=== PATIENT | female | born 1945 | race Caucasian/White ===

== ENCOUNTER 2016-04-20 20:36 | Inpatient (IN) | payer MEDICARE ==
[~2016-04-20] VITALS: Ht 172.7 cm; Wt 128.4 kg
[2016-04-20 21:42] LABS: BILIRUBIN,URINE NEGATIVE (NEG); GLUCOSE,URINE NEGATIVE (NEG); NITRITE,URINE NEGATIVE (NEG); PH,URINE 5.5; PROTEIN,URINE 100 mg/dL (NEG-TRACE); UROBILINOGEN,URINE 0.2 mg/dL (0.2 mg/dL)
[2016-04-20 21:47] LABS: BASO % 1 % (0-3); EOS % 2 % (0-3); HEMATOCRIT 21.3 % (36.0-47.0); LYMPH % 12 % (24-48); MEAN CORPUSCULAR HEMOGLOBIN 24 pg (25-35); MEAN CORPUSCULAR HGB CONC 28 g/dL (31-37); MEAN CORPUSCULAR VOLUME 85 fL (79-100); MONO % 6 % (0-9); NEUT % 79 % (31-73); PLATELET COUNT 612 x10^3/uL (140-400); RED CELL DISTRIBUTION WIDTH 19.4 % (11.5-14.5); WHITE BLOOD COUNT 8.4 x10^3/uL (4.0-11.0)
[2016-04-20 21:49] LABS: INR 1.2 (0.8-1.1); PROTHROMBIN TIME PATIENT 14.9 SEC (11.7-14.0)
[2016-04-20 21:53] LABS: CALCIUM 9.1 mg/dL (8.5-10.1); CREATININE 3.2 mg/dL (0.6-1.0); GFR 14.4; POTASSIUM 4.7 mmol/L (3.5-5.1)
[2016-04-20 21:56] LABS: BACTERIA,URINE MANY /HPF (0-FEW); RBC,URINE OCC /HPF (0-2); SQUAMOUS EPITHELIAL CELL,UR MANY /LPF; WBC,URINE TNTC /HPF (0-4)
[2016-04-20 21:58] LABS: ALBUMIN 3.1 g/dL (3.4-5.0); ALBUMIN/GLOBULIN RATIO 0.8 (1.0-1.7); TOTAL BILIRUBIN 0.6 mg/dL (0.2-1.0); TOTAL PROTEIN 7.1 g/dL (6.4-8.2)
[2016-04-20] MEDS: ONDANSETRON PF 4 MG/2 ML VIAL. IV PRN (22:17)
--- NOTE | 2016-04-20 22:20 | PHYS DOC ---
Past Medical History Past Medical History: Hypertension Additional Past Medical Histor: NON- HOGKINS CHEMO AND RADIATION,STEM CELL TRANSPLANT.NEUROPATHY, Past Surgical History: Hysterectomy Additional Past Surgical Histo: REMOVED LYMPH NODES,ABD PLASTY AND BREAST REDUCTION Alcohol Use: Heavy Additional Information: EFRAIN 1-2 GLASSES Drug Use: Marijuana Adult General Chief Complaint Chief Complaint: OTHER COMPLAINTS HPI HPI 70-year-old female presents here with anemia. Apparently patient has not been feeling well for the last few days and had a bit visiting physician come to the house last night. The team zoey blood last night and got the results today noting that her hemoglobin was in the 5.5 range and they told her to come to the emergency department further evaluation. Patient denies any melena or hematemesis. She denies any hematochezia. She states she has had some GI blood loss secondary to a polyp in the past. She says been a few years since her last colonoscopy. Anginal bleeding [] Review of Systems Review of Systems Constitutional: Denies fever or chills [] Eyes: Denies change in visual acuity, redness, or eye pain [] HENT: Denies nasal congestion or sore throat [] Respiratory: Denies cough or shortness of breath [] Cardiovascular: No additional information not addressed in HPI [] GI: Denies abdominal pain, nausea, vomiting, bloody stools or diarrhea [] : Denies dysuria or hematuria [] Musculoskeletal: Denies back pain or joint pain [] Integument: Denies rash or skin lesions [] Neurologic: Denies headache, focal weakness or sensory changes [] Endocrine: Denies polyuria or polydipsia [] Current Medications Current Medications Current Medications Medications (Trade) Dose Ordered Sig/Carlo Start Time Stop Time Status Last Admin Dose Admin Ceftriaxone Sodium (Rocephin 1gm Ivpb For Omni) 50 ml @ 100 mls/hr 1X ONCE 04/20/16 22:30 04/20/16 22:59 04/20/16 22:16 100 MLS/HR Ondansetron HCl 4 mg 4 mg PRN Q8HRS PRN 04/20/16 22:00 04/21/16 21:59 04/20/16 22:17 4 MG Allergies Allergies Allergies Coded Allergies Type Severity Reaction Last Updated Verified Iodine and Iodide Containing Produc Allergy Intermediate HIVES 04/20/16 Yes Physical Exam Physical Exam Constitutional: Well-developed well-nourished she does appear very pale. [] HENT: Normocephalic, atraumatic, bilateral external ears normal, oropharynx moist, no oral exudates, nose normal. [] Eyes: PERRLA, EOMI, conjunctiva normal, no discharge. [] Neck: Normal range of motion, no tenderness, supple, no stridor. [] Cardiovascular:Heart rate regular rhythm, no murmur [] Lungs & Thorax: Bilateral breath sounds clear to auscultation [] Abdomen: Bowel sounds normal, soft, no tenderness, no masses, no pulsatile masses. [] Skin: Warm, dry, no erythema, no rash. [] Back: No tenderness, no CVA tenderness. [] Extremities: No tenderness, no cyanosis, no clubbing, ROM intact, no edema. [] Neurologic: Alert and oriented X 3, normal motor function, normal sensory function, no focal deficits noted. [] Psychologic: Anxious. [] Current Patient Data Vital Signs Vital Signs Date Time Temp Pulse Resp B/P Pulse Ox O2 Delivery O2 Flow Rate FiO2 04/20/16 20:45 97.9 77 22 167/63 97 Room Air 97.9 Lab Values Laboratory Tests Test 04/20/16 21:05 04/20/16 21:20 Urine Collection Type Unknown Urine Color Yellow Urine Clarity Cloudy Urine pH 5.5 Urine Specific [place] 1.010 Urine Protein 100mg/dL (NEG-TRACE) Urine Glucose (UA) Negativemg/dL (NEG) Urine Ketones (Stick) Negativemg/dL (NEG) Urine Blood Moderate (NEG) Urine Nitrite Negative (NEG) Urine Bilirubin Negative (NEG) Urine Urobilinogen Dipstick 0.2mg/dL (0.2 mg/dL) Urine Leukocyte Esterase Large (NEG) Urine RBC Occ/HPF (0-2) Urine WBC Tntc/HPF (0-4) Urine Squamous Epithelial Cells Many/LPF Urine Bacteria Many/HPF (0-FEW) Urine Mucus Mod/LPF White Blood Count 8.4x10^3/uL (4.0-11.0) Red Blood Count 2.50x10^6/uL (3.50-5.40) L Hemoglobin 6.0g/dL (12.0-15.5) *L Hematocrit 21.3% (36.0-47.0) L Mean Corpuscular Volume 85fL (79-100) Mean Corpuscular Hemoglobin 24pg (25-35) L Mean Corpuscular Hemoglobin Concent 28g/dL (31-37) L Red Cell Distribution Width 19.4% (11.5-14.5) H Platelet Count 612x10^3/uL (140-400) H Neutrophils (%) (Auto) 79% (31-73) H Lymphocytes (%) (Auto) 12% (24-48) L Monocytes (%) (Auto) 6% (0-9) Eosinophils (%) (Auto) 2% (0-3) Basophils (%) (Auto) 1% (0-3) Neutrophils # (Auto) 6.7x10^3uL (1.8-7.7) Lymphocytes # (Auto) 1.0x10^3/uL (1.0-4.8) Monocytes # (Auto) 0.5x10^3/uL (0.0-1.1) Eosinophils # (Auto) 0.2x10^3/uL (0.0-0.7) Basophils # (Auto) 0.0x10^3/uL (0.0-0.2) Prothrombin Time 14.9SEC (11.7-14.0) H Prothrombin Time INR 1.2 (0.8-1.1) H Sodium Level 139mmol/L (136-145) Potassium Level 4.7mmol/L (3.5-5.1) Chloride Level 104mmol/L (98-107) Carbon Dioxide Level 21mmol/L (21-32) Anion Gap 14 (6-14) Blood Urea Nitrogen 39mg/dL (7-20) H Creatinine 3.2mg/dL (0.6-1.0) H Estimated GFR (Cockcroft-Gault) 14.4 BUN/Creatinine Ratio 12 (6-20) Glucose Level 115mg/dL (70-99) H Calcium Level 9.1mg/dL (8.5-10.1) Total Bilirubin 0.6mg/dL (0.2-1.0) Aspartate Amino Transferase (AST) 20U/L (15-37) Alanine Aminotransferase (ALT) 24U/L (14-59) Alkaline Phosphatase 175U/L (46-116) H Total Protein 7.1g/dL (6.4-8.2) Albumin 3.1g/dL (3.4-5.0) L Albumin/Globulin Ratio 0.8 (1.0-1.7) L Laboratory Tests 04/20/16 21:20 Laboratory Tests 04/20/16 21:20 EKG EKG [] Radiology/Procedures Radiology/Procedures [] Course & Med Decision Making Course & Med Decision Making Pertinent Labs and Imaging studies reviewed. (See chart for details) [ED course: Evaluation reveals a pale 70-year-old female with stable vital signs. Her hemoglobin was low at 6. I typed and crossed her for 2 units packed red blood cells and the transfusion consent was signed. I spoke with Dr. Mark Alvarez who agrees to accept patient for admission. We will also consult GI.] Dragon Disclaimer Dragon Disclaimer This electronic medical record was generated, in whole or in part, using a voice recognition dictation system. Departure Departure Impression: Primary Impression: Symptomatic anemia Disposition: 09 ADMITTED INPATIENT Admitting Physician: Tommy Guadalupe Condition: STABLE Referrals: [facility] (PCP) JONELLE HEADLEY DO Apr 20, 2016 22:20
[2016-04-20] MEDS ORDERED: CEFTRIAXONE 1GM IVPB FOR OMNI 50 ML IV ONE (22:30)
--- NOTE | 2016-04-20 22:52 | ACF ---
Admission Forms Criteria ANEMIA, IRON DEFICIENCY OR UNSPECIFIED Clinical Indications for Inpatient Care (Place 'X' for any and all applicable criteria): Admission is indicated for ANY ONE of the following(1)(2)(3)(4)(5)(6)(7): [X] I. Inpatient admission required rather than observation care (Also use Anemia, Iron Deficiency or Unspecified: Observation Care guideline as appropriate) because of ANY ONE of the following: [] a) Hemodynamic instability that is severe or persistent [] b) Active bleeding that cannot be rapidly controlled [] c) CVS symptoms (i.e., dyspnea, chest pain, heart failure) that are severe or persistent [] d) Neurologic symptoms (i.e., cognitive impairment, recurrent syncope or near syncope) that are severe or persistent [] e) Cardiac arrhythmias of immediate concern [] f) Acute peripheral ischemia (e.g., pulseless, cool, mottled, or cyanotic extremity) [] g) High-risk low platelet count [X] h) Acute renal failure [] i) Ongoing transfusion for blood loss (greater than 2 units) [] j) IV fluid to replace significant ongoing (eg, >24 hours) losses (> 3 L/m2 per day) [] k) Pulmonary artery catheter monitoring [] l) Supplemental oxygen or respiratory treatments for over 24 hours that are performable only in acute inpatient setting [] m) Immediate inpatient surgery [ ] n) Other condition, treatment or monitoring requiring inpatient admission [] II Active massive hemorrhage [] III. Active hemolysis with rapidly progressive anemia [A](6) Extended stay beyond goal length of stay may be needed for (17)(18) []a) Diagnosed cause of anemia requiring longer hospitalization (eg, active GI bleeding, immune hemolysis requiring electrophoresis, complications of malignancy requiring acute care []b) Continued emergent anemia indicators (23) []c) Transfusion reactions []d) Associated leukopenia or thrombocytopenia needing inpatient care []e) Active comorbidities (eg, renal failure, heart failure) The original [facility] Care Guidelines content created by [facility] Care Guidelines has been revised. The portions of the content which have been revised are identified through the use of italic text or in bold. [facility] Guidelines has neither reviewed nor approved the modified material. All other unmodified content is copyright [facility] Care Guidelines. Please see references footnoted in the original [facility] edition 2016 Admission Criteria Met?: Yes JASBIR MIMS Apr 20, 2016 22:52
[2016-04-20 23:38] VITALS: BP 168/61
[2016-04-21] VITALS (29 sets, daily range): BP systolic 133–183; BP diastolic 46–86
[2016-04-21] MEDS: ONDANSETRON PF 4 MG/2 ML VIAL. IV PRN (00:27)
[2016-04-21 04:55] LABS: BASO # 0.1 x10^3/uL (0.0-0.2); BASO % 1 % (0-3); EOS % 1 % (0-3); HEMATOCRIT 22.8 % (36.0-47.0); LYMPH # 0.7 x10^3/uL (1.0-4.8); LYMPH % 6 % (24-48); MEAN CORPUSCULAR HEMOGLOBIN 25 pg (25-35); MEAN CORPUSCULAR HGB CONC 29 g/dL (31-37); MEAN CORPUSCULAR VOLUME 87 fL (79-100); MONO % 6 % (0-9); NEUT % 87 % (31-73); PLATELET COUNT 570 x10^3/uL (140-400); RED BLOOD COUNT 2.63 x10^6/uL (3.50-5.40); RED CELL DISTRIBUTION WIDTH 19.9 % (11.5-14.5); WHITE BLOOD COUNT 12.1 x10^3/uL (4.0-11.0)
[2016-04-21 05:00] LABS: HEMOGLOBIN 6.5 g/dL (12.0-15.5)
[2016-04-21 05:06] LABS: ALBUMIN/GLOBULIN RATIO 0.8 (1.0-1.7); CALCIUM 8.8 mg/dL (8.5-10.1); CREATININE 3.1 mg/dL (0.6-1.0); GFR 14.9; POTASSIUM 5.7 mmol/L (3.5-5.1); TOTAL BILIRUBIN 0.6 mg/dL (0.2-1.0); TOTAL PROTEIN 6.7 g/dL (6.4-8.2)
[2016-04-21] MEDS ORDERED: TRAM50TA (05:33)
[2016-04-21] MEDS ORDERED: FLUT16SP (05:33)
[2016-04-21] MEDS ORDERED: HYDR-2672 (05:33)
[2016-04-21] MEDS ORDERED: GABA600T2 (05:33)
[2016-04-21] MEDS ORDERED: VENTOLIN HFA18 GM (05:33)
[2016-04-21] MEDS ORDERED: OMEP20CA9 (05:33)
[2016-04-21] MEDS ORDERED: ALPR0.254 (05:33)
[2016-04-21] MEDS ORDERED: ALBUTEROL SULFATE 2.5 MG/3 ML NEBU. NEB PRN (07:00)
--- NOTE | 2016-04-21 07:31 | RAD ---
Portable chest, 04/21/2016: History: Altered mental status, wheezing The depth of inspiration is poor. The heart is enlarged. The pulmonary vascularity is within normal limits. There is obscuration of the left lateral costophrenic angle with poor definition of the left hemidiaphragm. The portable technique may be contributing to this appearance. No right lung infiltrate is seen. IMPRESSION: 1. Cardiomegaly. 2. Left basilar opacity suggesting a small amount of pleural fluid and underlying atelectasis/infiltrate.
[2016-04-21] MEDS: IPRATRPIUM/ALBUTEROL 0.5/2.5MG 3 ML NEBU. NEB SCH ×4 (08:00→19:20)
[2016-04-21 08:28] LABS: HCO3 ABG 20 mmol/L (21-28); PO2 ABG 104 mmHg (65-108); SAT O2 ABG 96 % (92-99)
[2016-04-21 08:32] LABS: PCO2 ABG 63 mmHg (35-46); PH ABG 7.12 (7.35-7.45)
--- NOTE | 2016-04-21 08:58 | EKG ---
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
--- NOTE | 2016-04-21 09:56 | PDOC2 ---
CONSULT Date of Consult Date of Consult DATE: 04/21/16 TIME: 09:54 Reason for Consult Reason for Consult: Anemia S/p BMT/NHL Current Problem List Problem List Problems Medical Problems: (1) Symptomatic anemia Status: Acute Current Medications Current Medications Current Medications Ondansetron HCl 4 mg 4 mg PRN Q8HRS PRN IV NAUSEA/VOMITING Last administered on 04/21/16 00:27; Start 04/20/16 at 22:00; Stop 04/21/16 at 21:59 Ceftriaxone Sodium (Rocephin 1gm Ivpb For Omni) 50 ml @ 100 mls/hr 1X ONCE IV Last administered on 04/20/16 22:16; Start 04/20/16 at 22:30; Stop 04/20/16 at 22:59; Status DC Albuterol/ Ipratropium (Duoneb) 3 ml RTQID NEB Last administered on 04/21/16 08:00; Start 04/21/16 at 08:00 Albuterol Sulfate (Fabiano Neb Soln) 2.5 mg PRN QID PRN NEB SHORTNESS OF BREATH; Start 04/21/16 at 07:00 Active Scripts Active Reported Omeprazole 20 Mg Capsule.dr Mario Hfa Inhaler (Albuterol Sulfate) 18 Gm Hfa.aer.ad Tramadol Hcl 50 Mg Tablet Hydrocodone-Apap 10-325 (Hydrocodone Bit/Acetaminophen) 1 Each Tablet HS Gabapentin 600 Mg Tablet HS Fluticasone Propionate Nasal [place] (Fluticasone Propionate) 16 Gm [place].susp Alprazolam 0.25 Mg Tablet Allergies Allergies: Coded Allergies: Iodine and Iodide Containing Produc (Verified Allergy, Intermediate, HIVES , 04/20/16) Vitals VITALS Vital Signs Date Time Temp Pulse Resp B/P Pulse Ox O2 Delivery O2 Flow Rate FiO2 04/21/16 09:17 96 BiPAP/CPAP 04/21/16 08:15 4.5 04/21/16 03:25 97.5 61 14 134/60 97.5 Labs Labs Laboratory Tests Test 04/20/16 21:05 04/20/16 21:20 04/21/16 04:34 04/21/16 08:21 Urine Collection Type Unknown Urine Color Yellow Urine Clarity Cloudy Urine pH 5.5 Urine Specific [place] 1.010 Urine Protein 100mg/dL (NEG-TRACE) Urine Glucose (UA) Negativemg/dL (NEG) Urine Ketones (Stick) Negativemg/dL (NEG) Urine Blood Moderate (NEG) Urine Nitrite Negative (NEG) Urine Bilirubin Negative (NEG) Urine Urobilinogen Dipstick 0.2mg/dL (0.2 mg/dL) Urine Leukocyte Esterase Large (NEG) Urine RBC Occ/HPF (0-2) Urine WBC Tntc/HPF (0-4) Urine Squamous Epithelial Cells Many/LPF Urine Bacteria Many/HPF (0-FEW) Urine Mucus Mod/LPF White Blood Count 8.4x10^3/uL (4.0-11.0) 12.1x10^3/uL (4.0-11.0) Red Blood Count 2.50x10^6/uL (3.50-5.40) 2.63x10^6/uL (3.50-5.40) Hemoglobin 6.0g/dL (12.0-15.5) 6.5g/dL (12.0-15.5) Hematocrit 21.3% (36.0-47.0) 22.8% (36.0-47.0) Mean Corpuscular Volume 85fL (79-100) 87fL (79-100) Mean Corpuscular Hemoglobin 24pg (25-35) 25pg (25-35) Mean Corpuscular Hemoglobin Concent 28g/dL (31-37) 29g/dL (31-37) Red Cell Distribution Width 19.4% (11.5-14.5) 19.9% (11.5-14.5) Platelet Count 612x10^3/uL (140-400) 570x10^3/uL (140-400) Neutrophils (%) (Auto) 79% (31-73) 87% (31-73) Lymphocytes (%) (Auto) 12% (24-48) 6% (24-48) Monocytes (%) (Auto) 6% (0-9) 6% (0-9) Eosinophils (%) (Auto) 2% (0-3) 1% (0-3) Basophils (%) (Auto) 1% (0-3) 1% (0-3) Neutrophils # (Auto) 6.7x10^3uL (1.8-7.7) 10.5x10^3uL (1.8-7.7) Lymphocytes # (Auto) 1.0x10^3/uL (1.0-4.8) 0.7x10^3/uL (1.0-4.8) Monocytes # (Auto) 0.5x10^3/uL (0.0-1.1) 0.7x10^3/uL (0.0-1.1) Eosinophils # (Auto) 0.2x10^3/uL (0.0-0.7) 0.1x10^3/uL (0.0-0.7) Basophils # (Auto) 0.0x10^3/uL (0.0-0.2) 0.1x10^3/uL (0.0-0.2) Prothrombin Time 14.9SEC (11.7-14.0) Prothromb Time International Ratio 1.2 (0.8-1.1) Sodium Level 139mmol/L (136-145) 139mmol/L (136-145) Potassium Level 4.7mmol/L (3.5-5.1) 5.7mmol/L (3.5-5.1) Chloride Level 104mmol/L (98-107) 105mmol/L (98-107) Carbon Dioxide Level 21mmol/L (21-32) 25mmol/L (21-32) Anion Gap 14 (6-14) 9 (6-14) Blood Urea Nitrogen 39mg/dL (7-20) 38mg/dL (7-20) Creatinine 3.2mg/dL (0.6-1.0) 3.1mg/dL (0.6-1.0) Estimated GFR (Cockcroft-Gault) 14.4 14.9 BUN/Creatinine Ratio 12 (6-20) 12 (6-20) Glucose Level 115mg/dL (70-99) 121mg/dL (70-99) Calcium Level 9.1mg/dL (8.5-10.1) 8.8mg/dL (8.5-10.1) Total Bilirubin 0.6mg/dL (0.2-1.0) 0.6mg/dL (0.2-1.0) Aspartate Amino Transf (AST/SGOT) 20U/L (15-37) 21U/L (15-37) Alanine Aminotransferase (ALT/SGPT) 24U/L (14-59) 22U/L (14-59) Alkaline Phosphatase 175U/L (46-116) 172U/L (46-116) Total Protein 7.1g/dL (6.4-8.2) 6.7g/dL (6.4-8.2) Albumin 3.1g/dL (3.4-5.0) 3.0g/dL (3.4-5.0) Albumin/Globulin Ratio 0.8 (1.0-1.7) 0.8 (1.0-1.7) O2 Saturation 96% (92-99) Arterial Blood pH 7.12 (7.35-7.45) Arterial Blood pCO2 at Patient Temp 63mmHg (35-46) Arterial Blood pO2 at Patient Temp 104mmHg (65-108) Arterial Blood HCO3 20mmol/L (21-28) Arterial Blood Base Excess -9mmol/L (-3-3) FiO2 38.0 Laboratory Tests Test 04/20/16 21:05 04/20/16 21:20 04/21/16 04:34 04/21/16 08:21 Urine Collection Type Unknown Urine Color Yellow Urine Clarity Cloudy Urine pH 5.5 Urine Specific [place] 1.010 Urine Protein 100mg/dL (NEG-TRACE) Urine Glucose (UA) Negativemg/dL (NEG) Urine Ketones (Stick) Negativemg/dL (NEG) Urine Blood Moderate (NEG) Urine Nitrite Negative (NEG) Urine Bilirubin Negative (NEG) Urine Urobilinogen Dipstick 0.2mg/dL (0.2 mg/dL) Urine Leukocyte Esterase Large (NEG) Urine RBC Occ/HPF (0-2) Urine WBC Tntc/HPF (0-4) Urine Squamous Epithelial Cells Many/LPF Urine Bacteria Many/HPF (0-FEW) Urine Mucus Mod/LPF White Blood Count 8.4x10^3/uL (4.0-11.0) 12.1x10^3/uL (4.0-11.0) Red Blood Count 2.50x10^6/uL (3.50-5.40) 2.63x10^6/uL (3.50-5.40) Hemoglobin 6.0g/dL (12.0-15.5) 6.5g/dL (12.0-15.5) Hematocrit 21.3% (36.0-47.0) 22.8% (36.0-47.0) Mean Corpuscular Volume 85fL (79-100) 87fL (79-100) Mean Corpuscular Hemoglobin 24pg (25-35) 25pg (25-35) Mean Corpuscular Hemoglobin Concent 28g/dL (31-37) 29g/dL (31-37) Red Cell Distribution Width 19.4% (11.5-14.5) 19.9% (11.5-14.5) Platelet Count 612x10^3/uL (140-400) 570x10^3/uL (140-400) Neutrophils (%) (Auto) 79% (31-73) 87% (31-73) Lymphocytes (%) (Auto) 12% (24-48) 6% (24-48) Monocytes (%) (Auto) 6% (0-9) 6% (0-9) Eosinophils (%) (Auto) 2% (0-3) 1% (0-3) Basophils (%) (Auto) 1% (0-3) 1% (0-3) Neutrophils # (Auto) 6.7x10^3uL (1.8-7.7) 10.5x10^3uL (1.8-7.7) Lymphocytes # (Auto) 1.0x10^3/uL (1.0-4.8) 0.7x10^3/uL (1.0-4.8) Monocytes # (Auto) 0.5x10^3/uL (0.0-1.1) 0.7x10^3/uL (0.0-1.1) Eosinophils # (Auto) 0.2x10^3/uL (0.0-0.7) 0.1x10^3/uL (0.0-0.7) Basophils # (Auto) 0.0x10^3/uL (0.0-0.2) 0.1x10^3/uL (0.0-0.2) Prothrombin Time 14.9SEC (11.7-14.0) Prothromb Time International Ratio 1.2 (0.8-1.1) Sodium Level 139mmol/L (136-145) 139mmol/L (136-145) Potassium Level 4.7mmol/L (3.5-5.1) 5.7mmol/L (3.5-5.1) Chloride Level 104mmol/L (98-107) 105mmol/L (98-107) Carbon Dioxide Level 21mmol/L (21-32) 25mmol/L (21-32) Anion Gap 14 (6-14) 9 (6-14) Blood Urea Nitrogen 39mg/dL (7-20) 38mg/dL (7-20) Creatinine 3.2mg/dL (0.6-1.0) 3.1mg/dL (0.6-1.0) Estimated GFR (Cockcroft-Gault) 14.4 14.9 BUN/Creatinine Ratio 12 (6-20) 12 (6-20) Glucose Level 115mg/dL (70-99) 121mg/dL (70-99) Calcium Level 9.1mg/dL (8.5-10.1) 8.8mg/dL (8.5-10.1) Total Bilirubin 0.6mg/dL (0.2-1.0) 0.6mg/dL (0.2-1.0) Aspartate Amino Transf (AST/SGOT) 20U/L (15-37) 21U/L (15-37) Alanine Aminotransferase (ALT/SGPT) 24U/L (14-59) 22U/L (14-59) Alkaline Phosphatase 175U/L (46-116) 172U/L (46-116) Total Protein 7.1g/dL (6.4-8.2) 6.7g/dL (6.4-8.2) Albumin 3.1g/dL (3.4-5.0) 3.0g/dL (3.4-5.0) Albumin/Globulin Ratio 0.8 (1.0-1.7) 0.8 (1.0-1.7) O2 Saturation 96% (92-99) Arterial Blood pH 7.12 (7.35-7.45) Arterial Blood pCO2 at Patient Temp 63mmHg (35-46) Arterial Blood pO2 at Patient Temp 104mmHg (65-108) Arterial Blood HCO3 20mmol/L (21-28) Arterial Blood Base Excess -9mmol/L (-3-3) FiO2 38.0 Assessment/Plan Assessment/Plan Anemia- etiology to be determined. Differential includes: recurrent lymphoma, BM failure, PUD, AVMS, colon/gastric cancer, and/or IBD, Plan transfusions serial cbcs heme parameters possible egd/colonoscopy once pulmonary status stabilized Full note dictated CARINA PECK MD Apr 21, 2016 09:55
--- NOTE | 2016-04-21 11:00 | PDOC ---
PULMONARY PROGRESS NOTES Vitals Vital Signs Date Time Temp Pulse Resp B/P Pulse Ox O2 Delivery O2 Flow Rate FiO2 04/21/16 10:00 62 14 136/47 92 BiPAP/CPAP 04/21/16 09:15 98.0 98.0 04/21/16 08:15 4.5 Labs Laboratory Tests Test 04/20/16 21:05 04/20/16 21:20 04/21/16 04:34 04/21/16 08:21 Urine Collection Type Unknown Urine Color Yellow Urine Clarity Cloudy Urine pH 5.5 Urine Specific [place] 1.010 Urine Protein 100mg/dL (NEG-TRACE) Urine Glucose (UA) Negativemg/dL (NEG) Urine Ketones (Stick) Negativemg/dL (NEG) Urine Blood Moderate (NEG) Urine Nitrite Negative (NEG) Urine Bilirubin Negative (NEG) Urine Urobilinogen Dipstick 0.2mg/dL (0.2 mg/dL) Urine Leukocyte Esterase Large (NEG) Urine RBC Occ/HPF (0-2) Urine WBC Tntc/HPF (0-4) Urine Squamous Epithelial Cells Many/LPF Urine Bacteria Many/HPF (0-FEW) Urine Mucus Mod/LPF White Blood Count 8.4x10^3/uL (4.0-11.0) 12.1x10^3/uL (4.0-11.0) Red Blood Count 2.50x10^6/uL (3.50-5.40) 2.63x10^6/uL (3.50-5.40) Hemoglobin 6.0g/dL (12.0-15.5) 6.5g/dL (12.0-15.5) Hematocrit 21.3% (36.0-47.0) 22.8% (36.0-47.0) Mean Corpuscular Volume 85fL (79-100) 87fL (79-100) Mean Corpuscular Hemoglobin 24pg (25-35) 25pg (25-35) Mean Corpuscular Hemoglobin Concent 28g/dL (31-37) 29g/dL (31-37) Red Cell Distribution Width 19.4% (11.5-14.5) 19.9% (11.5-14.5) Platelet Count 612x10^3/uL (140-400) 570x10^3/uL (140-400) Neutrophils (%) (Auto) 79% (31-73) 87% (31-73) Lymphocytes (%) (Auto) 12% (24-48) 6% (24-48) Monocytes (%) (Auto) 6% (0-9) 6% (0-9) Eosinophils (%) (Auto) 2% (0-3) 1% (0-3) Basophils (%) (Auto) 1% (0-3) 1% (0-3) Neutrophils # (Auto) 6.7x10^3uL (1.8-7.7) 10.5x10^3uL (1.8-7.7) Lymphocytes # (Auto) 1.0x10^3/uL (1.0-4.8) 0.7x10^3/uL (1.0-4.8) Monocytes # (Auto) 0.5x10^3/uL (0.0-1.1) 0.7x10^3/uL (0.0-1.1) Eosinophils # (Auto) 0.2x10^3/uL (0.0-0.7) 0.1x10^3/uL (0.0-0.7) Basophils # (Auto) 0.0x10^3/uL (0.0-0.2) 0.1x10^3/uL (0.0-0.2) Prothrombin Time 14.9SEC (11.7-14.0) Prothromb Time International Ratio 1.2 (0.8-1.1) Sodium Level 139mmol/L (136-145) 139mmol/L (136-145) Potassium Level 4.7mmol/L (3.5-5.1) 5.7mmol/L (3.5-5.1) Chloride Level 104mmol/L (98-107) 105mmol/L (98-107) Carbon Dioxide Level 21mmol/L (21-32) 25mmol/L (21-32) Anion Gap 14 (6-14) 9 (6-14) Blood Urea Nitrogen 39mg/dL (7-20) 38mg/dL (7-20) Creatinine 3.2mg/dL (0.6-1.0) 3.1mg/dL (0.6-1.0) Estimated GFR (Cockcroft-Gault) 14.4 14.9 BUN/Creatinine Ratio 12 (6-20) 12 (6-20) Glucose Level 115mg/dL (70-99) 121mg/dL (70-99) Calcium Level 9.1mg/dL (8.5-10.1) 8.8mg/dL (8.5-10.1) Total Bilirubin 0.6mg/dL (0.2-1.0) 0.6mg/dL (0.2-1.0) Aspartate Amino Transf (AST/SGOT) 20U/L (15-37) 21U/L (15-37) Alanine Aminotransferase (ALT/SGPT) 24U/L (14-59) 22U/L (14-59) Alkaline Phosphatase 175U/L (46-116) 172U/L (46-116) Total Protein 7.1g/dL (6.4-8.2) 6.7g/dL (6.4-8.2) Albumin 3.1g/dL (3.4-5.0) 3.0g/dL (3.4-5.0) Albumin/Globulin Ratio 0.8 (1.0-1.7) 0.8 (1.0-1.7) O2 Saturation 96% (92-99) Arterial Blood pH 7.12 (7.35-7.45) Arterial Blood pCO2 at Patient Temp 63mmHg (35-46) Arterial Blood pO2 at Patient Temp 104mmHg (65-108) Arterial Blood HCO3 20mmol/L (21-28) Arterial Blood Base Excess -9mmol/L (-3-3) FiO2 38.0 Laboratory Tests Test 04/20/16 21:05 04/20/16 21:20 04/21/16 04:34 04/21/16 08:21 Urine Collection Type Unknown Urine Color Yellow Urine Clarity Cloudy Urine pH 5.5 Urine Specific [place] 1.010 Urine Protein 100mg/dL (NEG-TRACE) Urine Glucose (UA) Negativemg/dL (NEG) Urine Ketones (Stick) Negativemg/dL (NEG) Urine Blood Moderate (NEG) Urine Nitrite Negative (NEG) Urine Bilirubin Negative (NEG) Urine Urobilinogen Dipstick 0.2mg/dL (0.2 mg/dL) Urine Leukocyte Esterase Large (NEG) Urine RBC Occ/HPF (0-2) Urine WBC Tntc/HPF (0-4) Urine Squamous Epithelial Cells Many/LPF Urine Bacteria Many/HPF (0-FEW) Urine Mucus Mod/LPF White Blood Count 8.4x10^3/uL (4.0-11.0) 12.1x10^3/uL (4.0-11.0) Red Blood Count 2.50x10^6/uL (3.50-5.40) 2.63x10^6/uL (3.50-5.40) Hemoglobin 6.0g/dL (12.0-15.5) 6.5g/dL (12.0-15.5) Hematocrit 21.3% (36.0-47.0) 22.8% (36.0-47.0) Mean Corpuscular Volume 85fL (79-100) 87fL (79-100) Mean Corpuscular Hemoglobin 24pg (25-35) 25pg (25-35) Mean Corpuscular Hemoglobin Concent 28g/dL (31-37) 29g/dL (31-37) Red Cell Distribution Width 19.4% (11.5-14.5) 19.9% (11.5-14.5) Platelet Count 612x10^3/uL (140-400) 570x10^3/uL (140-400) Neutrophils (%) (Auto) 79% (31-73) 87% (31-73) Lymphocytes (%) (Auto) 12% (24-48) 6% (24-48) Monocytes (%) (Auto) 6% (0-9) 6% (0-9) Eosinophils (%) (Auto) 2% (0-3) 1% (0-3) Basophils (%) (Auto) 1% (0-3) 1% (0-3) Neutrophils # (Auto) 6.7x10^3uL (1.8-7.7) 10.5x10^3uL (1.8-7.7) Lymphocytes # (Auto) 1.0x10^3/uL (1.0-4.8) 0.7x10^3/uL (1.0-4.8) Monocytes # (Auto) 0.5x10^3/uL (0.0-1.1) 0.7x10^3/uL (0.0-1.1) Eosinophils # (Auto) 0.2x10^3/uL (0.0-0.7) 0.1x10^3/uL (0.0-0.7) Basophils # (Auto) 0.0x10^3/uL (0.0-0.2) 0.1x10^3/uL (0.0-0.2) Prothrombin Time 14.9SEC (11.7-14.0) Prothromb Time International Ratio 1.2 (0.8-1.1) Sodium Level 139mmol/L (136-145) 139mmol/L (136-145) Potassium Level 4.7mmol/L (3.5-5.1) 5.7mmol/L (3.5-5.1) Chloride Level 104mmol/L (98-107) 105mmol/L (98-107) Carbon Dioxide Level 21mmol/L (21-32) 25mmol/L (21-32) Anion Gap 14 (6-14) 9 (6-14) Blood Urea Nitrogen 39mg/dL (7-20) 38mg/dL (7-20) Creatinine 3.2mg/dL (0.6-1.0) 3.1mg/dL (0.6-1.0) Estimated GFR (Cockcroft-Gault) 14.4 14.9 BUN/Creatinine Ratio 12 (6-20) 12 (6-20) Glucose Level 115mg/dL (70-99) 121mg/dL (70-99) Calcium Level 9.1mg/dL (8.5-10.1) 8.8mg/dL (8.5-10.1) Total Bilirubin 0.6mg/dL (0.2-1.0) 0.6mg/dL (0.2-1.0) Aspartate Amino Transf (AST/SGOT) 20U/L (15-37) 21U/L (15-37) Alanine Aminotransferase (ALT/SGPT) 24U/L (14-59) 22U/L (14-59) Alkaline Phosphatase 175U/L (46-116) 172U/L (46-116) Total Protein 7.1g/dL (6.4-8.2) 6.7g/dL (6.4-8.2) Albumin 3.1g/dL (3.4-5.0) 3.0g/dL (3.4-5.0) Albumin/Globulin Ratio 0.8 (1.0-1.7) 0.8 (1.0-1.7) O2 Saturation 96% (92-99) Arterial Blood pH 7.12 (7.35-7.45) Arterial Blood pCO2 at Patient Temp 63mmHg (35-46) Arterial Blood pO2 at Patient Temp 104mmHg (65-108) Arterial Blood HCO3 20mmol/L (21-28) Arterial Blood Base Excess -9mmol/L (-3-3) FiO2 38.0 Medications Active Scripts Medications Dose Route/Sig Days Date Category Omeprazole 20 Mg Capsule.dr 04/21/16 Reported Ventolin Hfa Inhaler (Albuterol Sulfate) 18 Gm Hfa.aer.ad 04/21/16 Reported Tramadol Hcl 50 Mg Tablet 04/21/16 Reported Hydrocodone-Apap 10-325 (Hydrocodone Bit/Acetaminophen) 1 Each Tablet HS 04/21/16 Reported Gabapentin 600 Mg Tablet HS 04/21/16 Reported Fluticasone Propionate Nasal [place] (Fluticasone Propionate) 16 Gm [place].susp 04/21/16 Reported Alprazolam 0.25 Mg Tablet 04/21/16 Reported Impression . FULL CONSULT DICTATED ACUTE RESP FAILURE POSSIBLE PNEUMONIA ACUTE BLOOD LOSS MONA DELGADO MD Apr 21, 2016 11:00
--- NOTE | 2016-04-21 11:25 | PDOC2 ---
CONSULT Date of Consult Date of Consult DATE: 04/21/16 TIME: 11:20 Reason for Consult Reason for Consult: DONALD Referring Physician Referring Physician: ISAAC Identification/Chief Complaint Chief Complaint ABNORMAL LABS Source Source: Chart review History of Present Illness Reason for Visit: THIS IS A 70 YR OLD ADMITTED WITH ABNORMAL LABS. OP LABS SHOWED SEVERE ANEMIA. ON ADMIT SHE IS ALSO NOTED TO HAVE DONALD WITH A CR OVER 3.0 AND A K OF 5.7 TODAY. PT NOT ABLE TO GIVE HX SHE IS SOMNOLENT. HER SIGNIFICANT OTHER STATED THAT SHE HAS KIDNEY STONE HX BUT NOTHING ELSE Past Medical History Past Medical History NON HODGKINS LYMPHOMA, S/P CHEMO AND STEM CELL [place] Cardiovascular: HTN Renal/: Other (RENAL STONES) Past Surgical History Past Surgical History BREAST REDUCTION Social History ALCOHOL: none Lives: with Family Current Problem List Problem List Problems Medical Problems: (1) Symptomatic anemia Status: Acute Current Medications Current Medications Current Medications Ondansetron HCl 4 mg 4 mg PRN Q8HRS PRN IV NAUSEA/VOMITING Last administered on 04/21/16 00:27; Start 04/20/16 at 22:00; Stop 04/21/16 at 21:59 Ceftriaxone Sodium (Rocephin 1gm Ivpb For Omni) 50 ml @ 100 mls/hr 1X ONCE IV Last administered on 04/20/16 22:16; Start 04/20/16 at 22:30; Stop 04/20/16 at 22:59; Status DC Albuterol/ Ipratropium (Duoneb) 3 ml RTQID NEB Last administered on 04/21/16 11:08; Start 04/21/16 at 08:00 Albuterol Sulfate (Fabiano [place] Soln) 2.5 mg PRN QID PRN NEB SHORTNESS OF BREATH; Start 04/21/16 at 07:00 Active Scripts Active Reported Omeprazole 20 Mg Capsule.dr Mario Hfa Inhaler (Albuterol Sulfate) 18 Gm Hfa.aer.ad Tramadol Hcl 50 Mg Tablet Hydrocodone-Apap 10-325 (Hydrocodone Bit/Acetaminophen) 1 Each Tablet HS Gabapentin 600 Mg Tablet HS Fluticasone Propionate Nasal [place] (Fluticasone Propionate) 16 Gm [place].susp Alprazolam 0.25 Mg Tablet Allergies Allergies: Coded Allergies: Iodine and Iodide Containing Produc (Verified Allergy, Intermediate, HIVES , 04/20/16) ROS Review of System UNABLE TO OBTAIN Physical Exam General: Cooperative HEENT: Atraumatic Lungs: Normal air movement Heart: Regular rate, Normal S1 Abdomen: Normal bowel sounds, Soft Extremities: No clubbing Skin: No breakdown Neuro: Other (CONFUSED) Psych/Mental Status: Other (CONFUSED) MUSCULOSKELETAL: No deformity, No swelling Vitals VITALS Vital Signs Date Time Temp Pulse Resp B/P Pulse Ox O2 Delivery O2 Flow Rate FiO2 04/21/16 11:09 96 BiPAP/CPAP 04/21/16 11:00 65 14 145/52 04/21/16 09:15 98.0 98.0 04/21/16 08:15 4.5 Labs Labs Laboratory Tests Test 04/20/16 21:05 04/20/16 21:20 04/21/16 04:34 04/21/16 08:21 Urine Collection Type Unknown Urine Color Yellow Urine Clarity Cloudy Urine pH 5.5 Urine Specific [place] 1.010 Urine Protein 100mg/dL (NEG-TRACE) Urine Glucose (UA) Negativemg/dL (NEG) Urine Ketones (Stick) Negativemg/dL (NEG) Urine Blood Moderate (NEG) Urine Nitrite Negative (NEG) Urine Bilirubin Negative (NEG) Urine Urobilinogen Dipstick 0.2mg/dL (0.2 mg/dL) Urine Leukocyte Esterase Large (NEG) Urine RBC Occ/HPF (0-2) Urine WBC Tntc/HPF (0-4) Urine Squamous Epithelial Cells Many/LPF Urine Bacteria Many/HPF (0-FEW) Urine Mucus Mod/LPF White Blood Count 8.4x10^3/uL (4.0-11.0) 12.1x10^3/uL (4.0-11.0) Red Blood Count 2.50x10^6/uL (3.50-5.40) 2.63x10^6/uL (3.50-5.40) Hemoglobin 6.0g/dL (12.0-15.5) 6.5g/dL (12.0-15.5) Hematocrit 21.3% (36.0-47.0) 22.8% (36.0-47.0) Mean Corpuscular Volume 85fL (79-100) 87fL (79-100) Mean Corpuscular Hemoglobin 24pg (25-35) 25pg (25-35) Mean Corpuscular Hemoglobin Concent 28g/dL (31-37) 29g/dL (31-37) Red Cell Distribution Width 19.4% (11.5-14.5) 19.9% (11.5-14.5) Platelet Count 612x10^3/uL (140-400) 570x10^3/uL (140-400) Neutrophils (%) (Auto) 79% (31-73) 87% (31-73) Lymphocytes (%) (Auto) 12% (24-48) 6% (24-48) Monocytes (%) (Auto) 6% (0-9) 6% (0-9) Eosinophils (%) (Auto) 2% (0-3) 1% (0-3) Basophils (%) (Auto) 1% (0-3) 1% (0-3) Neutrophils # (Auto) 6.7x10^3uL (1.8-7.7) 10.5x10^3uL (1.8-7.7) Lymphocytes # (Auto) 1.0x10^3/uL (1.0-4.8) 0.7x10^3/uL (1.0-4.8) Monocytes # (Auto) 0.5x10^3/uL (0.0-1.1) 0.7x10^3/uL (0.0-1.1) Eosinophils # (Auto) 0.2x10^3/uL (0.0-0.7) 0.1x10^3/uL (0.0-0.7) Basophils # (Auto) 0.0x10^3/uL (0.0-0.2) 0.1x10^3/uL (0.0-0.2) Prothrombin Time 14.9SEC (11.7-14.0) Prothromb Time International Ratio 1.2 (0.8-1.1) Sodium Level 139mmol/L (136-145) 139mmol/L (136-145) Potassium Level 4.7mmol/L (3.5-5.1) 5.7mmol/L (3.5-5.1) Chloride Level 104mmol/L (98-107) 105mmol/L (98-107) Carbon Dioxide Level 21mmol/L (21-32) 25mmol/L (21-32) Anion Gap 14 (6-14) 9 (6-14) Blood Urea Nitrogen 39mg/dL (7-20) 38mg/dL (7-20) Creatinine 3.2mg/dL (0.6-1.0) 3.1mg/dL (0.6-1.0) Estimated GFR (Cockcroft-Gault) 14.4 14.9 BUN/Creatinine Ratio 12 (6-20) 12 (6-20) Glucose Level 115mg/dL (70-99) 121mg/dL (70-99) Calcium Level 9.1mg/dL (8.5-10.1) 8.8mg/dL (8.5-10.1) Total Bilirubin 0.6mg/dL (0.2-1.0) 0.6mg/dL (0.2-1.0) Aspartate Amino Transf (AST/SGOT) 20U/L (15-37) 21U/L (15-37) Alanine Aminotransferase (ALT/SGPT) 24U/L (14-59) 22U/L (14-59) Alkaline Phosphatase 175U/L (46-116) 172U/L (46-116) Total Protein 7.1g/dL (6.4-8.2) 6.7g/dL (6.4-8.2) Albumin 3.1g/dL (3.4-5.0) 3.0g/dL (3.4-5.0) Albumin/Globulin Ratio 0.8 (1.0-1.7) 0.8 (1.0-1.7) O2 Saturation 96% (92-99) Arterial Blood pH 7.12 (7.35-7.45) Arterial Blood pCO2 at Patient Temp 63mmHg (35-46) Arterial Blood pO2 at Patient Temp 104mmHg (65-108) Arterial Blood HCO3 20mmol/L (21-28) Arterial Blood Base Excess -9mmol/L (-3-3) FiO2 38.0 Laboratory Tests Test 04/20/16 21:05 04/20/16 21:20 04/21/16 04:34 04/21/16 08:21 Urine Collection Type Unknown Urine Color Yellow Urine Clarity Cloudy Urine pH 5.5 Urine Specific [place] 1.010 Urine Protein 100mg/dL (NEG-TRACE) Urine Glucose (UA) Negativemg/dL (NEG) Urine Ketones (Stick) Negativemg/dL (NEG) Urine Blood Moderate (NEG) Urine Nitrite Negative (NEG) Urine Bilirubin Negative (NEG) Urine Urobilinogen Dipstick 0.2mg/dL (0.2 mg/dL) Urine Leukocyte Esterase Large (NEG) Urine RBC Occ/HPF (0-2) Urine WBC Tntc/HPF (0-4) Urine Squamous Epithelial Cells Many/LPF Urine Bacteria Many/HPF (0-FEW) Urine Mucus Mod/LPF White Blood Count 8.4x10^3/uL (4.0-11.0) 12.1x10^3/uL (4.0-11.0) Red Blood Count 2.50x10^6/uL (3.50-5.40) 2.63x10^6/uL (3.50-5.40) Hemoglobin 6.0g/dL (12.0-15.5) 6.5g/dL (12.0-15.5) Hematocrit 21.3% (36.0-47.0) 22.8% (36.0-47.0) Mean Corpuscular Volume 85fL (79-100) 87fL (79-100) Mean Corpuscular Hemoglobin 24pg (25-35) 25pg (25-35) Mean Corpuscular Hemoglobin Concent 28g/dL (31-37) 29g/dL (31-37) Red Cell Distribution Width 19.4% (11.5-14.5) 19.9% (11.5-14.5) Platelet Count 612x10^3/uL (140-400) 570x10^3/uL (140-400) Neutrophils (%) (Auto) 79% (31-73) 87% (31-73) Lymphocytes (%) (Auto) 12% (24-48) 6% (24-48) Monocytes (%) (Auto) 6% (0-9) 6% (0-9) Eosinophils (%) (Auto) 2% (0-3) 1% (0-3) Basophils (%) (Auto) 1% (0-3) 1% (0-3) Neutrophils # (Auto) 6.7x10^3uL (1.8-7.7) 10.5x10^3uL (1.8-7.7) Lymphocytes # (Auto) 1.0x10^3/uL (1.0-4.8) 0.7x10^3/uL (1.0-4.8) Monocytes # (Auto) 0.5x10^3/uL (0.0-1.1) 0.7x10^3/uL (0.0-1.1) Eosinophils # (Auto) 0.2x10^3/uL (0.0-0.7) 0.1x10^3/uL (0.0-0.7) Basophils # (Auto) 0.0x10^3/uL (0.0-0.2) 0.1x10^3/uL (0.0-0.2) Prothrombin Time 14.9SEC (11.7-14.0) Prothromb Time International Ratio 1.2 (0.8-1.1) Sodium Level 139mmol/L (136-145) 139mmol/L (136-145) Potassium Level 4.7mmol/L (3.5-5.1) 5.7mmol/L (3.5-5.1) Chloride Level 104mmol/L (98-107) 105mmol/L (98-107) Carbon Dioxide Level 21mmol/L (21-32) 25mmol/L (21-32) Anion Gap 14 (6-14) 9 (6-14) Blood Urea Nitrogen 39mg/dL (7-20) 38mg/dL (7-20) Creatinine 3.2mg/dL (0.6-1.0) 3.1mg/dL (0.6-1.0) Estimated GFR (Cockcroft-Gault) 14.4 14.9 BUN/Creatinine Ratio 12 (6-20) 12 (6-20) Glucose Level 115mg/dL (70-99) 121mg/dL (70-99) Calcium Level 9.1mg/dL (8.5-10.1) 8.8mg/dL (8.5-10.1) Total Bilirubin 0.6mg/dL (0.2-1.0) 0.6mg/dL (0.2-1.0) Aspartate Amino Transf (AST/SGOT) 20U/L (15-37) 21U/L (15-37) Alanine Aminotransferase (ALT/SGPT) 24U/L (14-59) 22U/L (14-59) Alkaline Phosphatase 175U/L (46-116) 172U/L (46-116) Total Protein 7.1g/dL (6.4-8.2) 6.7g/dL (6.4-8.2) Albumin 3.1g/dL (3.4-5.0) 3.0g/dL (3.4-5.0) Albumin/Globulin Ratio 0.8 (1.0-1.7) 0.8 (1.0-1.7) O2 Saturation 96% (92-99) Arterial Blood pH 7.12 (7.35-7.45) Arterial Blood pCO2 at Patient Temp 63mmHg (35-46) Arterial Blood pO2 at Patient Temp 104mmHg (65-108) Arterial Blood HCO3 20mmol/L (21-28) Arterial Blood Base Excess -9mmol/L (-3-3) FiO2 38.0 Assessment/Plan Assessment/Plan IMP DONALD HYPERKALEMIA ANEMIA HYPERCARBIC RESP FAILURE ACIDEMIA MET ENCEPHALOPATHY PLAN PRBC NEEDED ARANESP CHECK UA RENAL SONOGRAM IVF'S MALINDA MAURICE MD Apr 21, 2016 11:25
[2016-04-21] MEDS ORDERED: IV NORMAL SALINE 1000ML BAG 1,000 ML IV SCH (11:30)
[2016-04-21 11:36] LABS: % SAT IRON 15 % (15-34); IRON,SERUM 64 ug/dL (50-170)
[2016-04-21 11:47] LABS: % BASOS 1 % (0-3); % EOS 1 % (0-5)
[2016-04-21 11:48] LABS: ANISOCYTOSIS MOD; HYPOCHROMIA PRESENT; MICROCYTOSIS SLIGHT; PLT ESTIMATE INCREASED (ADEQUATE)
[2016-04-21 11:49] LABS: OVALOCYTES FEW; POLYCHROMASIA SLIGHT; TEAR DROP CELLS OCC
--- NOTE | 2016-04-21 12:45 | HP ---
ADMIT DATE: 04/21/2016 CHIEF COMPLAINT: Anemia and failure to thrive. HISTORY OF PRESENT ILLNESS: The patient is a 70-year-old obese woman with past medical history of Hodgkin's, status post bone marrow transplant in 2006, who presented to the Emergency Room on the urging of her physician, who had found her to be anemic with a hemoglobin of 5.8 when visiting her at her home on Monday. The home visit was initiated as patient was feeling poorly with upper respiratory symptoms that had been going on for almost a month. No fever according to or abdominal problems including melena, hematochezia, or hematemesis. She does have a history of GI blood loss with a polyp. The patient was therefore admitted for blood transfusion. However, during the transfusion, the patient became very lethargic, obtunded. Rapid response was called and the patient was transferred to the ICU for management. PAST MEDICAL HISTORY: Non-Hodgkin's lymphoma diagnosed in 2003, treated with chemo and radiation as well as stem cell transplant in 2006; neuropathy secondary to chemotherapy; and hypertension. PAST SURGICAL HISTORY: She is a status post hysterectomy, abdominoplasty as well as bilateral breast reduction. FAMILY HISTORY: Fatal CT in father in his mid 60s. SOCIAL HISTORY: She is , living with her . Quit smoking 27 years ago. Drinks two brandies every night for the past 2 years, previously wine. ALLERGIES: IODINE. MEDICATIONS: MAR reconciled with home medications. REVIEW OF SYSTEMS: Unable to obtain secondary to obtundation and BiPAP. PHYSICAL EXAMINATION: VITAL SIGNS: From today show blood pressure of 136/47, heart rate of 62, respiratory rate at 14, she is afebrile. GENERAL: This is a massively obese 70-year-old woman, resting in bed with BiPAP. She responds to verbal input, but drifts off within a few seconds, answering short and simple questions only with multiple prompting. HEENT: Shows no scleral icterus. NECK: Thick. LUNGS: Clear anteriorly. CARDIOVASCULAR: Regular rate and rhythm. ABDOMEN: Massively obese, organs could not be palpated. EXTREMITIES: Showed trace edema. SKIN: Warm, soft and dry without any rash. LABORATORY DATA: CBC from today shows a WBC of 12.1, hemoglobin 6.5 after reported transfusion with initial hemoglobin at 6.0, MCV at 87, platelets at 570. Chemistries with a BUN and creatinine of 38 and 3.1, potassium at 5.7 post-transfusion and 4.7 pre, LFTs with an alkaline phosphatase of 172, persisting transaminases and bilirubin within normal limits. Coags with an INR of 1.2. UA shows a TNCC, WBC, and many bacteria. IMAGING STUDIES: A chest x-ray obtained in the Emergency Room shows cardiomegaly, left basilar opacity suggesting small amount of pleural fluid and underlying atelectasis/infiltrate. 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 She now presents with severe anemia; renal failure, which appears to be chronic; obtundation; and hypercarbia as well as metabolic acidosis. She has been transferred to the ICU for monitoring of her multiple issues, especially respiratory status. She has been started on BiPAP. Blood gases have been obtained showing a pH of 7.1, elevated CO2, and normal O2. A pulmonary consult will be obtained. A reported transfusion reaction with increased somnolence was reported. I doubt that this indeed was a transfusion reaction. We will try and restart transfusion x 2 after obtaining additional labs to determine etiology of her anemia. She has not followed up with her oncologist for the past 7 years or so. Unclear what her baseline hemoglobin is after transplant. Part of this is the most likely secondary to renal insufficiency as well. Creatinine is significantly elevated with metabolic acidosis. We will obtain a renal consult to help. Although hypertension is reported, not present at this time. We will monitor. She does, however, have cardiomegaly, which is suspicious. We will obtain other cardiac risk factors including lipid profile and hemoglobin A1c as well. We will place her on heparin subcutaneously for prophylaxis as well as H2 adelaide. ZULEMA DEGROOT MD DR: SHERLYN/nts JOB#: [id number] / [id number] JOHNSON
[2016-04-21 13:02] LABS: HCO3 ABG 22 mmol/L (21-28); PCO2 ABG 52 mmHg (35-46); PH ABG 7.24 (7.35-7.45); PO2 ABG 91 mmHg (65-108); SAT O2 ABG 97 % (92-99)
--- NOTE | 2016-04-21 13:05 | CONS ---
DATE OF CONSULTATION: 04/21/2016 GASTROENTEROLOGY CONSULTATION REASON FOR CONSULTATION: Anemia and dyspnea. HISTORY OF PRESENT ILLNESS: A 70-year-old female with a past medical history significant for hypertension, non-Hodgkin's lymphoma, status post stem cell transplant, and adult hysterectomy and breast reduction, who was admitted to [facility] with dyspnea, worsening anemia, found to have a blood count of 5.5, and was admitted for further evaluation and care. Denies any melena or hematemesis. Denies hematochezia. Does have an apparent history of colonoscopy with polyps in the past. Otherwise, gives an additional history of similar change in mental status and increased respiratory distress, on BiPAP. PAST MEDICAL HISTORY: Non-Hodgkin's lymphoma, status post stem cell transplant, hysterectomy, and history of breast reduction. ALLERGIES: IODINE. MEDICATIONS: Presently include albuterol, Zofran, and ceftriaxone. FAMILY AND SOCIAL HISTORY: Not available. REVIEW OF SYSTEMS: Not available due to mental status changes. PHYSICAL EXAMINATION: GENERAL: Reveals a pale white female, who is responsive to verbal stimuli, but incoherent. VITAL SIGNS: Temperature is 97.5, pulse of 100, respirations 14, and blood pressure is 134/60. HEENT: Normocephalic and atraumatic head. Pupils and extraocular muscles are not tested. Sclerae anicteric. NECK: Supple. LUNGS: Decreased breath sounds with some coarse rhonchi. ABDOMEN: Soft, distended abdomen, normal bowel sounds without appreciable hepatosplenomegaly. EXTREMITIES: Reveal no cyanosis, clubbing, or edema. LABORATORY STUDIES: Sodium 139, potassium 5.7, chloride 105, bicarbonate 25, BUN 38, creatinine 0.1, glucose 121, calcium 8.8, total bilirubin 0.6, AST of 21, ALT of 22, and alkaline phosphatase 172. Total protein 6.7, albumin 3.0, hemoglobin 6.5, hematocrit 22.5, white count 12.1, and platelet count is 170,000. Chest x-ray reveals a left basilar opacity with a small amount of pleural fluid and possible underlying atelectasis and infiltrate consistent with possible underlying pneumonia. IMPRESSION: Anemia, status post non-Hodgkin's lymphoma. We will recommend iron studies, B12, reticulocyte and folate levels, and haptoglobin to better characterize her anemia. Serial transfusions, blood counts, and consider endoscopic evaluation once the hematologic parameters are noted and her pulmonary status improves and she is able to be off BiPAP. I would like to thank [facility] for allowing us to consult and participate in this patient's care. CARINA PECK MD DR: ÁNGEL/heidy JOB#: [id number] / [id number]
[2016-04-21 13:06] LABS: FIO2 ABG 30
[2016-04-21 13:59] LABS: BILIRUBIN,URINE NEGATIVE (NEG); GLUCOSE,URINE NEGATIVE (NEG); NITRITE,URINE NEGATIVE (NEG); PH,URINE 5.5; PROTEIN,URINE 100 mg/dL (NEG-TRACE); UROBILINOGEN,URINE 0.2 mg/dL (0.2 mg/dL)
[2016-04-21 14:09] LABS: BACTERIA,URINE MOD /HPF (0-FEW); SQUAMOUS EPITHELIAL CELL,UR MOD /LPF; WBC,URINE >40 /HPF (0-4)
--- NOTE | 2016-04-21 14:59 | RAD ---
Examination: Ultrasound kidneys History: History of acute renal insufficiency Comparison: None available Findings Examination is very limited due to patient body habitus and patient being on CPAP and due to inability to roll over. Grossly the right kidney measures 8.6 x 4.1 x 3.2 cm. The left kidney could not be identified Impression: Extremely limited examination due to patient body habitus and patient being on CPAP and due to inability to roll over. The left kidney could not be identified. The right kidney appears somewhat small probably mildly atrophic.
[2016-04-21] MEDS: DOXYCYCLINE HYCLATE 100 MG in IV DEXTROSE 5% 100 ML IV SCH (20:32)
[2016-04-21] MEDS: DARBEPOETIN ALFA 60 MCG/0.3 ML DISP.SYRIN. SQ SCH (20:38)
[2016-04-21] MEDS ORDERED: CEFTRIAXONE SODIUM 1 GM in IV NORMAL SALINE 50ML 50 ML IV SCH (21:00)
[2016-04-21] MEDS: LORAZEPAM 2 MG/ML VIAL IV PRN (21:58)
[2016-04-21] MEDS: ALPRAZOLAM 0.5 MG TABLET PO PRN (22:55)
--- NOTE | 2016-04-21 23:53 | CONS ---
DATE OF CONSULTATION: 04/20/2016 ATTENDING PHYSICIAN: Dr. Guadalupe. REASON FOR CONSULTATION: The patient seen in pulmonary consultation at the request of Dr. Oleary for acute respiratory failure requiring noninvasive ventilation. HISTORY OF PRESENT ILLNESS: The patient is a 70-year-old with multiple medical problems including prior history of non-Hodgkin's lymphoma status post stem cell transplant in 2006. She is basically disabled at home in a wheelchair. Her visiting physician saw her yesterday. She was not feeling well, had multiple nonspecific complaints. Hemoglobin was drawn, which was low at 5.5. The patient was then instructed to visit the Emergency Room. In the Emergency Room, the patient was evaluated and found to have a hemoglobin of 6.0 with hematocrit of 21. Arterial blood gas revealed a pH of 7.12, paCO2 of 63. The patient was placed on BiPAP. She was desaturating. She is currently on BiPAP. I removed the BiPAP as she desaturated within a short period of time. I reviewed her chest x-ray revealing left lower lobe infiltrate and effusion. The patient did not complain to me about being short of breath. She had a cough, but mostly nonproductive. Her states that over the last several weeks, she has had an increasing cough and slightly more shortness of air. She is currently not on home oxygen. There is no history of COPD or asthma. PAST MEDICAL HISTORY: Hypertension, non-Hodgkin's lymphoma status post stem cell transplant in 2006. She also has history of lymph node dissection. PAST SURGICAL HISTORY: Hysterectomy, breast reduction. SOCIAL HISTORY: She has a prior history of heavy alcohol use, quit tobacco 22 years ago. There is documentation that she uses marijuana. I did not ask myself. REVIEW OF SYSTEMS: Unobtainable secondary to the patient's condition. ALLERGIES: LISTED TO IODINE. MEDICATIONS: List from home was reviewed. Please see the MRAD. CURRENT MEDICATIONS: List was likewise reviewed. Please see the MRAD. PHYSICAL EXAMINATION: GENERAL: Morbid obese individual in no respiratory distress, body mass index of 47 on BiPAP. VITAL SIGNS: She had a T-max of 98. Vital signs are stable, otherwise currently on BiPAP with oxygen supplementation. HEENT: Eyes, the sclerae were nonicteric. NECK: Jugular venous distention could not be assessed secondary to body habitus. CHEST: Full expansion. LUNGS: Poor airway flow with no wheezes. CARDIOVASCULAR: Regular rate and rhythm with S1, S2, no S3. ABDOMEN: Soft, obese. EXTREMITIES: No clubbing, cyanosis. Minimal edema. NEUROLOGIC: The patient was taken off of BiPAP. She follows some commands, but was slow to react. A detailed neuro exam was not performed. LABORATORY DATA: Arterial blood gas noted as indicated above. INR was 1.2. Electrolytes were noted. Potassium was elevated. BUN and creatinine were elevated Albumin was low. Serum folate was elevated. Chest x-ray revealed some left lower lobe infiltrate and effusion. IMPRESSION: 1. Acute respiratory failure, multifactorial. 2. Possible left lower lobe pneumonia. 3. Acute bronchitis. 4. Acute blood loss anemia. 5. Acute kidney injury. 6. Hyperkalemia. 7. Acidemia. 8. Metabolic possible toxic encephalopathy. PLAN: 1. We will continue current BiPAP settings to repeat arterial blood gas. 2. Initiate empiric antibiotics. 3. Followup Nephrology input. 4. GI consult. We will follow their recommendation. 5. Nebulized treatments. 6. Sequential compressive devices for DVT prophylaxis. Hold off on anticoagulation due to her anemia. I do appreciate the privilege of participating in the patient's care. The above was discussed with the at the bedside. MONA DELGADO MD DR: TAYO/heidy JOB#: [id number] / [id number]
[2016-04-22] VITALS (33 sets, daily range): BP systolic 130–178; BP diastolic 45–88
[2016-04-22 04:19] LABS: HEMATOCRIT 21.7 % (36.0-47.0); RED BLOOD COUNT 2.55 x10^6/uL (3.50-5.40); RED CELL DISTRIBUTION WIDTH 19.4 % (11.5-14.5); WHITE BLOOD COUNT 8.8 x10^3/uL (4.0-11.0)
[2016-04-22 04:24] LABS: HEMOGLOBIN 6.3 g/dL (12.0-15.5)
[2016-04-22 04:59] LABS: CALCIUM 8.5 mg/dL (8.5-10.1); CREATININE 3.3 mg/dL (0.6-1.0); GFR 13.9; POTASSIUM 4.9 mmol/L (3.5-5.1)
--- NOTE | 2016-04-22 07:23 | PDOC ---
PULMONARY PROGRESS NOTES Subjective on bipap, sleepy. at time mean to rns, no complaints per rn. had 3 units of prbc , will have 2 more today. on bip, 30% fio2 Vitals Vital Signs Date Time Temp Pulse Resp B/P Pulse Ox O2 Delivery O2 Flow Rate FiO2 04/22/16 06:00 72 20 142/53 96 BiPAP/CPAP 04/22/16 04:00 100.0 100.0 04/21/16 19:23 4.0 Comments ros as mentioned as above, discussed w rn, other sys otherwise neg General: Lethargic HEENT: Other (nc, at, perrl) Lungs: Crackles Cardiovascular: S1, S2 Abdomen: Soft, Non-tender Extremities: Other (edema) Skin: Warm Labs Laboratory Tests Test 04/20/16 21:05 04/20/16 21:20 04/21/16 04:34 04/21/16 08:21 Urine Collection Type Unknown Urine Color Yellow Urine Clarity Cloudy Urine pH 5.5 Urine Specific Skipwith 1.010 Urine Protein 100mg/dL (NEG-TRACE) Urine Glucose (UA) Negativemg/dL (NEG) Urine Ketones (Stick) Negativemg/dL (NEG) Urine Blood Moderate (NEG) Urine Nitrite Negative (NEG) Urine Bilirubin Negative (NEG) Urine Urobilinogen Dipstick 0.2mg/dL (0.2 mg/dL) Urine Leukocyte Esterase Large (NEG) Urine RBC Occ/HPF (0-2) Urine WBC Tntc/HPF (0-4) Urine Squamous Epithelial Cells Many/LPF Urine Bacteria Many/HPF (0-FEW) Urine Mucus Mod/LPF White Blood Count 8.4x10^3/uL (4.0-11.0) 12.1x10^3/uL (4.0-11.0) Red Blood Count 2.50x10^6/uL (3.50-5.40) 2.63x10^6/uL (3.50-5.40) Hemoglobin 6.0g/dL (12.0-15.5) 6.5g/dL (12.0-15.5) Hematocrit 21.3% (36.0-47.0) 22.8% (36.0-47.0) Mean Corpuscular Volume 85fL (79-100) 87fL (79-100) Mean Corpuscular Hemoglobin 24pg (25-35) 25pg (25-35) Mean Corpuscular Hemoglobin Concent 28g/dL (31-37) 29g/dL (31-37) Red Cell Distribution Width 19.4% (11.5-14.5) 19.9% (11.5-14.5) Platelet Count 612x10^3/uL (140-400) 570x10^3/uL (140-400) Neutrophils (%) (Auto) 79% (31-73) 87% (31-73) Lymphocytes (%) (Auto) 12% (24-48) 6% (24-48) Monocytes (%) (Auto) 6% (0-9) 6% (0-9) Eosinophils (%) (Auto) 2% (0-3) 1% (0-3) Basophils (%) (Auto) 1% (0-3) 1% (0-3) Neutrophils # (Auto) 6.7x10^3uL (1.8-7.7) 10.5x10^3uL (1.8-7.7) Lymphocytes # (Auto) 1.0x10^3/uL (1.0-4.8) 0.7x10^3/uL (1.0-4.8) Monocytes # (Auto) 0.5x10^3/uL (0.0-1.1) 0.7x10^3/uL (0.0-1.1) Eosinophils # (Auto) 0.2x10^3/uL (0.0-0.7) 0.1x10^3/uL (0.0-0.7) Basophils # (Auto) 0.0x10^3/uL (0.0-0.2) 0.1x10^3/uL (0.0-0.2) Prothrombin Time 14.9SEC (11.7-14.0) Prothromb Time International Ratio 1.2 (0.8-1.1) Sodium Level 139mmol/L (136-145) 139mmol/L (136-145) Potassium Level 4.7mmol/L (3.5-5.1) 5.7mmol/L (3.5-5.1) Chloride Level 104mmol/L (98-107) 105mmol/L (98-107) Carbon Dioxide Level 21mmol/L (21-32) 25mmol/L (21-32) Anion Gap 14 (6-14) 9 (6-14) Blood Urea Nitrogen 39mg/dL (7-20) 38mg/dL (7-20) Creatinine 3.2mg/dL (0.6-1.0) 3.1mg/dL (0.6-1.0) Estimated GFR (Cockcroft-Gault) 14.4 14.9 BUN/Creatinine Ratio 12 (6-20) 12 (6-20) Glucose Level 115mg/dL (70-99) 121mg/dL (70-99) Calcium Level 9.1mg/dL (8.5-10.1) 8.8mg/dL (8.5-10.1) Total Bilirubin 0.6mg/dL (0.2-1.0) 0.6mg/dL (0.2-1.0) Aspartate Amino Transf (AST/SGOT) 20U/L (15-37) 21U/L (15-37) Alanine Aminotransferase (ALT/SGPT) 24U/L (14-59) 22U/L (14-59) Alkaline Phosphatase 175U/L (46-116) 172U/L (46-116) Total Protein 7.1g/dL (6.4-8.2) 6.7g/dL (6.4-8.2) Albumin 3.1g/dL (3.4-5.0) 3.0g/dL (3.4-5.0) Albumin/Globulin Ratio 0.8 (1.0-1.7) 0.8 (1.0-1.7) Segmented Neutrophils % 82% (35-66) Band Neutrophils % 5% (0-9) Lymphocytes % 3% (24-48) Monocytes % 7% (0-10) Eosinophils % 1% (0-5) Basophils % 1% (0-3) Myelocytes % 1% (0-0) Platelet Estimate Increased (ADEQUATE) Large Platelets Few Polychromasia Slight Hypochromasia Present Anisocytosis Mod Microcytosis Slight Tear Drop Cells Occ Ovalocytes Few O2 Saturation 96% (92-99) Arterial Blood pH 7.12 (7.35-7.45) Arterial Blood pCO2 at Patient Temp 63mmHg (35-46) Arterial Blood pO2 at Patient Temp 104mmHg (65-108) Arterial Blood HCO3 20mmol/L (21-28) Arterial Blood Base Excess -9mmol/L (-3-3) FiO2 38.0 Test 04/21/16 11:00 04/21/16 13:00 04/21/16 13:05 04/21/16 15:15 Iron Level 64ug/dL (50-170) Total Iron Binding Capacity 434ug/dL (250-450) Iron Saturation 15% (15-34) Ammonia 32mcmol/L (11-34) Vitamin B12 Level 902pg/mL (247-911) Serum Folate > 20.00ng/ml (3.2-20.0) O2 Saturation 97% (92-99) Arterial Blood pH 7.24 (7.35-7.45) Arterial Blood pCO2 at Patient Temp 52mmHg (35-46) Arterial Blood pO2 at Patient Temp 91mmHg (65-108) Arterial Blood HCO3 22mmol/L (21-28) Arterial Blood Base Excess -5mmol/L (-3-3) FiO2 30 Urine Collection Type Unknown Urine Color Yellow Urine Clarity Clear Urine pH 5.5 Urine Specific Skipwith 1.015 Urine Protein 100mg/dL (NEG-TRACE) Urine Glucose (UA) Negativemg/dL (NEG) Urine Ketones (Stick) Negativemg/dL (NEG) Urine Blood Small (NEG) Urine Nitrite Negative (NEG) Urine Bilirubin Negative (NEG) Urine Urobilinogen Dipstick 0.2mg/dL (0.2 mg/dL) Urine Leukocyte Esterase Moderate (NEG) Urine RBC 1-2/HPF (0-2) Urine WBC >40/HPF (0-4) Urine Squamous Epithelial Cells Mod/LPF Urine Bacteria Mod/HPF (0-FEW) Nasal Screen MRSA (PCR) Negative (Negative) Test 04/22/16 04:00 White Blood Count 8.8x10^3/uL (4.0-11.0) Red Blood Count 2.55x10^6/uL (3.50-5.40) Hemoglobin 6.3g/dL (12.0-15.5) Hematocrit 21.7% (36.0-47.0) Mean Corpuscular Volume 85fL (79-100) Mean Corpuscular Hemoglobin 25pg (25-35) Mean Corpuscular Hemoglobin Concent 29g/dL (31-37) Red Cell Distribution Width 19.4% (11.5-14.5) Platelet Count 388x10^3/uL (140-400) Reticulocyte Count (auto) 1.4% (0.5-2.5) Sodium Level 140mmol/L (136-145) Potassium Level 4.9mmol/L (3.5-5.1) Chloride Level 106mmol/L (98-107) Carbon Dioxide Level 25mmol/L (21-32) Anion Gap 9 (6-14) Blood Urea Nitrogen 45mg/dL (7-20) Creatinine 3.3mg/dL (0.6-1.0) Estimated GFR (Cockcroft-Gault) 13.9 Glucose Level 97mg/dL (70-99) Calcium Level 8.5mg/dL (8.5-10.1) Creatine Kinase 66U/L (26-192) Laboratory Tests Test 04/21/16 08:21 04/21/16 11:00 04/21/16 13:00 04/21/16 13:05 O2 Saturation 96% (92-99) 97% (92-99) Arterial Blood pH 7.12 (7.35-7.45) 7.24 (7.35-7.45) Arterial Blood pCO2 at Patient Temp 63mmHg (35-46) 52mmHg (35-46) Arterial Blood pO2 at Patient Temp 104mmHg (65-108) 91mmHg (65-108) Arterial Blood HCO3 20mmol/L (21-28) 22mmol/L (21-28) Arterial Blood Base Excess -9mmol/L (-3-3) -5mmol/L (-3-3) FiO2 38.0 30 Iron Level 64ug/dL (50-170) Total Iron Binding Capacity 434ug/dL (250-450) Iron Saturation 15% (15-34) Ammonia 32mcmol/L (11-34) Vitamin B12 Level 902pg/mL (247-911) Serum Folate > 20.00ng/ml (3.2-20.0) Urine Collection Type Unknown Urine Color Yellow Urine Clarity Clear Urine pH 5.5 Urine Specific Skipwith 1.015 Urine Protein 100mg/dL (NEG-TRACE) Urine Glucose (UA) Negativemg/dL (NEG) Urine Ketones (Stick) Negativemg/dL (NEG) Urine Blood Small (NEG) Urine Nitrite Negative (NEG) Urine Bilirubin Negative (NEG) Urine Urobilinogen Dipstick 0.2mg/dL (0.2 mg/dL) Urine Leukocyte Esterase Moderate (NEG) Urine RBC 1-2/HPF (0-2) Urine WBC >40/HPF (0-4) Urine Squamous Epithelial Cells Mod/LPF Urine Bacteria Mod/HPF (0-FEW) Test 04/21/16 15:15 04/22/16 04:00 Nasal Screen MRSA (PCR) Negative (Negative) White Blood Count 8.8x10^3/uL (4.0-11.0) Red Blood Count 2.55x10^6/uL (3.50-5.40) Hemoglobin 6.3g/dL (12.0-15.5) Hematocrit 21.7% (36.0-47.0) Mean Corpuscular Volume 85fL (79-100) Mean Corpuscular Hemoglobin 25pg (25-35) Mean Corpuscular Hemoglobin Concent 29g/dL (31-37) Red Cell Distribution Width 19.4% (11.5-14.5) Platelet Count 388x10^3/uL (140-400) Reticulocyte Count (auto) 1.4% (0.5-2.5) Sodium Level 140mmol/L (136-145) Potassium Level 4.9mmol/L (3.5-5.1) Chloride Level 106mmol/L (98-107) Carbon Dioxide Level 25mmol/L (21-32) Anion Gap 9 (6-14) Blood Urea Nitrogen 45mg/dL (7-20) Creatinine 3.3mg/dL (0.6-1.0) Estimated GFR (Cockcroft-Gault) 13.9 Glucose Level 97mg/dL (70-99) Calcium Level 8.5mg/dL (8.5-10.1) Creatine Kinase 66U/L (26-192) Medications Active Scripts Medications Dose Route/Sig Days Date Category Omeprazole 20 Mg Capsule. 04/21/16 Reported Ventolin Hfa Inhaler (Albuterol Sulfate) 18 Gm Hfa.aer.ad 04/21/16 Reported Tramadol Hcl 50 Mg Tablet 04/21/16 Reported Hydrocodone-Apap 10-325 (Hydrocodone Bit/Acetaminophen) 1 Each Tablet HS 04/21/16 Reported Gabapentin 600 Mg Tablet HS 04/21/16 Reported Fluticasone Propionate Nasal [place] (Fluticasone Propionate) 16 Gm [place].susp 04/21/16 Reported Alprazolam 0.25 Mg Tablet 04/21/16 Reported Comments cxr reviewed, 1. Cardiomegaly. 2. Left basilar opacity suggesting a small amount of pleural fluid and underlying atelectasis/infiltrate. Impression . IMPRESSION: 1. Acute respiratory failure, multifactorial. 2. Possible left lower lobe pneumonia. 3. Acute bronchitis. 4. Acute blood loss anemia. 5. Acute kidney injury. 6. Hypokalemia. 7. Acidemia. 8. Metabolic possible toxic encephalopathy. 9. abnl cxr Plan . PLAN: 1. We will continue current BiPAP settings to repeat arterial blood gas, change setting after reviewing abg. 2. empiric antibiotics. fu cxs 3. Followup Nephrology input. 4. GI consult. We will follow their recommendation. 5. Nebulized treatments. 6. Sequential compressive devices for DVT prophylaxis. Hold off on anticoagulation due to her anemia. 7. start pepcid, for stress ulcer prophylaxis discussed w renaat. TONIA GRIGSBY MD Apr 22, 2016 07:23
[2016-04-22] MEDS: IPRATRPIUM/ALBUTEROL 0.5/2.5MG 3 ML NEBU. NEB SCH ×4 (07:48→19:38)
[2016-04-22] MEDS: FAMOTIDINE 20 MG/2 ML VIAL IVP SCH (08:56)
[2016-04-22] MEDS: DOXYCYCLINE HYCLATE 100 MG in IV DEXTROSE 5% 100 ML IV SCH ×2 (08:57→21:08)
--- NOTE | 2016-04-22 09:35 | PDOC ---
PROGRESS NOTES Chief Complaint Chief Complaint Anemia DONALD ASSESSMENT AND PLAN: 1. Anemia: unclear etiology. no response to transfusion x2 with essentially unchanged H/H. had transfusion rxn W/U: BUDDY neg. severe ecchymosis in R UE, smaller in L UE nosocomial. no evidence of GIB. coags ok. anemia labs essentially WNL (ferritin pending). transfuse add.l PRBC. EPO started 2. IV access: central line placement in IR, poss art line as well 3. Respir distress: on BiPAP x24h; may need vent; Pulm following 4. Delirium: suspect metabolic encephalopathy, unclear etiology. CT 4. Metabolic acidosis: rpt ABG with pH 7.235, HCO3 18.3, pCO2 44.2 5. CKD: creat unchanged. nephrology following 6. Prophylaxis: PPI 60 min spent Vitals Vitals Vital Signs Date Time Temp Pulse Resp B/P Pulse Ox O2 Delivery O2 Flow Rate FiO2 04/22/16 07:48 96 BiPAP/CPAP 04/22/16 06:00 72 20 142/53 04/22/16 04:00 100.0 100.0 04/21/16 19:23 4.0 Physical Exam General: Other (obtunded, nonverbal) Heart: Regular rate Lungs: Clear Abdomen: Normal bowel sounds, Soft Extremities: No clubbing, Other (massive ecchymoses in UE, R>L) Skin: No rashes Labs LABS Laboratory Tests Test 04/21/16 11:00 04/21/16 13:00 04/21/16 13:05 04/21/16 15:15 Iron Level 64ug/dL (50-170) Total Iron Binding Capacity 434ug/dL (250-450) Iron Saturation 15% (15-34) Ammonia 32mcmol/L (11-34) Vitamin B12 Level 902pg/mL (247-911) Serum Folate > 20.00ng/ml (3.2-20.0) O2 Saturation 97% (92-99) Arterial Blood pH 7.24 (7.35-7.45) Arterial Blood pCO2 at Patient Temp 52mmHg (35-46) Arterial Blood pO2 at Patient Temp 91mmHg (65-108) Arterial Blood HCO3 22mmol/L (21-28) Arterial Blood Base Excess -5mmol/L (-3-3) FiO2 30 Urine Collection Type Unknown Urine Color Yellow Urine Clarity Clear Urine pH 5.5 Urine Specific [place] 1.015 Urine Protein 100mg/dL (NEG-TRACE) Urine Glucose (UA) Negativemg/dL (NEG) Urine Ketones (Stick) Negativemg/dL (NEG) Urine Blood Small (NEG) Urine Nitrite Negative (NEG) Urine Bilirubin Negative (NEG) Urine Urobilinogen Dipstick 0.2mg/dL (0.2 mg/dL) Urine Leukocyte Esterase Moderate (NEG) Urine RBC 1-2/HPF (0-2) Urine WBC >40/HPF (0-4) Urine Squamous Epithelial Cells Mod/LPF Urine Bacteria Mod/HPF (0-FEW) Nasal Screen MRSA (PCR) Negative (Negative) Test 04/22/16 04:00 White Blood Count 8.8x10^3/uL (4.0-11.0) Red Blood Count 2.55x10^6/uL (3.50-5.40) Hemoglobin 6.3g/dL (12.0-15.5) Hematocrit 21.7% (36.0-47.0) Mean Corpuscular Volume 85fL (79-100) Mean Corpuscular Hemoglobin 25pg (25-35) Mean Corpuscular Hemoglobin Concent 29g/dL (31-37) Red Cell Distribution Width 19.4% (11.5-14.5) Platelet Count 388x10^3/uL (140-400) Reticulocyte Count (auto) 1.4% (0.5-2.5) Sodium Level 140mmol/L (136-145) Potassium Level 4.9mmol/L (3.5-5.1) Chloride Level 106mmol/L (98-107) Carbon Dioxide Level 25mmol/L (21-32) Anion Gap 9 (6-14) Blood Urea Nitrogen 45mg/dL (7-20) Creatinine 3.3mg/dL (0.6-1.0) Estimated GFR (Cockcroft-Gault) 13.9 Glucose Level 97mg/dL (70-99) Calcium Level 8.5mg/dL (8.5-10.1) Creatine Kinase 66U/L (26-192) Review of Systems Review of Systems nonverbal Comment Review of Relevant I have reviewed the following items odilia (where applicable) has been applied. Labs Laboratory Tests Test 04/20/16 21:05 04/20/16 21:20 04/21/16 04:34 04/21/16 08:21 Urine Collection Type Unknown Urine Color Yellow Urine Clarity Cloudy Urine pH 5.5 Urine Specific [place] 1.010 Urine Protein 100mg/dL (NEG-TRACE) Urine Glucose (UA) Negativemg/dL (NEG) Urine Ketones (Stick) Negativemg/dL (NEG) Urine Blood Moderate (NEG) Urine Nitrite Negative (NEG) Urine Bilirubin Negative (NEG) Urine Urobilinogen Dipstick 0.2mg/dL (0.2 mg/dL) Urine Leukocyte Esterase Large (NEG) Urine RBC Occ/HPF (0-2) Urine WBC Tntc/HPF (0-4) Urine Squamous Epithelial Cells Many/LPF Urine Bacteria Many/HPF (0-FEW) Urine Mucus Mod/LPF White Blood Count 8.4x10^3/uL (4.0-11.0) 12.1x10^3/uL (4.0-11.0) Red Blood Count 2.50x10^6/uL (3.50-5.40) 2.63x10^6/uL (3.50-5.40) Hemoglobin 6.0g/dL (12.0-15.5) 6.5g/dL (12.0-15.5) Hematocrit 21.3% (36.0-47.0) 22.8% (36.0-47.0) Mean Corpuscular Volume 85fL (79-100) 87fL (79-100) Mean Corpuscular Hemoglobin 24pg (25-35) 25pg (25-35) Mean Corpuscular Hemoglobin Concent 28g/dL (31-37) 29g/dL (31-37) Red Cell Distribution Width 19.4% (11.5-14.5) 19.9% (11.5-14.5) Platelet Count 612x10^3/uL (140-400) 570x10^3/uL (140-400) Neutrophils (%) (Auto) 79% (31-73) 87% (31-73) Lymphocytes (%) (Auto) 12% (24-48) 6% (24-48) Monocytes (%) (Auto) 6% (0-9) 6% (0-9) Eosinophils (%) (Auto) 2% (0-3) 1% (0-3) Basophils (%) (Auto) 1% (0-3) 1% (0-3) Neutrophils # (Auto) 6.7x10^3uL (1.8-7.7) 10.5x10^3uL (1.8-7.7) Lymphocytes # (Auto) 1.0x10^3/uL (1.0-4.8) 0.7x10^3/uL (1.0-4.8) Monocytes # (Auto) 0.5x10^3/uL (0.0-1.1) 0.7x10^3/uL (0.0-1.1) Eosinophils # (Auto) 0.2x10^3/uL (0.0-0.7) 0.1x10^3/uL (0.0-0.7) Basophils # (Auto) 0.0x10^3/uL (0.0-0.2) 0.1x10^3/uL (0.0-0.2) Prothrombin Time 14.9SEC (11.7-14.0) Prothromb Time International Ratio 1.2 (0.8-1.1) Sodium Level 139mmol/L (136-145) 139mmol/L (136-145) Potassium Level 4.7mmol/L (3.5-5.1) 5.7mmol/L (3.5-5.1) Chloride Level 104mmol/L (98-107) 105mmol/L (98-107) Carbon Dioxide Level 21mmol/L (21-32) 25mmol/L (21-32) Anion Gap 14 (6-14) 9 (6-14) Blood Urea Nitrogen 39mg/dL (7-20) 38mg/dL (7-20) Creatinine 3.2mg/dL (0.6-1.0) 3.1mg/dL (0.6-1.0) Estimated GFR (Cockcroft-Gault) 14.4 14.9 BUN/Creatinine Ratio 12 (6-20) 12 (6-20) Glucose Level 115mg/dL (70-99) 121mg/dL (70-99) Calcium Level 9.1mg/dL (8.5-10.1) 8.8mg/dL (8.5-10.1) Total Bilirubin 0.6mg/dL (0.2-1.0) 0.6mg/dL (0.2-1.0) Aspartate Amino Transf (AST/SGOT) 20U/L (15-37) 21U/L (15-37) Alanine Aminotransferase (ALT/SGPT) 24U/L (14-59) 22U/L (14-59) Alkaline Phosphatase 175U/L (46-116) 172U/L (46-116) Total Protein 7.1g/dL (6.4-8.2) 6.7g/dL (6.4-8.2) Albumin 3.1g/dL (3.4-5.0) 3.0g/dL (3.4-5.0) Albumin/Globulin Ratio 0.8 (1.0-1.7) 0.8 (1.0-1.7) Segmented Neutrophils % 82% (35-66) Band Neutrophils % 5% (0-9) Lymphocytes % 3% (24-48) Monocytes % 7% (0-10) Eosinophils % 1% (0-5) Basophils % 1% (0-3) Myelocytes % 1% (0-0) Platelet Estimate Increased (ADEQUATE) Large Platelets Few Polychromasia Slight Hypochromasia Present Anisocytosis Mod Microcytosis Slight Tear Drop Cells Occ Ovalocytes Few O2 Saturation 96% (92-99) Arterial Blood pH 7.12 (7.35-7.45) Arterial Blood pCO2 at Patient Temp 63mmHg (35-46) Arterial Blood pO2 at Patient Temp 104mmHg (65-108) Arterial Blood HCO3 20mmol/L (21-28) Arterial Blood Base Excess -9mmol/L (-3-3) FiO2 38.0 Test 04/21/16 11:00 04/21/16 13:00 04/21/16 13:05 04/21/16 15:15 Iron Level 64ug/dL (50-170) Total Iron Binding Capacity 434ug/dL (250-450) Iron Saturation 15% (15-34) Ammonia 32mcmol/L (11-34) Vitamin B12 Level 902pg/mL (247-911) Serum Folate > 20.00ng/ml (3.2-20.0) O2 Saturation 97% (92-99) Arterial Blood pH 7.24 (7.35-7.45) Arterial Blood pCO2 at Patient Temp 52mmHg (35-46) Arterial Blood pO2 at Patient Temp 91mmHg (65-108) Arterial Blood HCO3 22mmol/L (21-28) Arterial Blood Base Excess -5mmol/L (-3-3) FiO2 30 Urine Collection Type Unknown Urine Color Yellow Urine Clarity Clear Urine pH 5.5 Urine Specific [place] 1.015 Urine Protein 100mg/dL (NEG-TRACE) Urine Glucose (UA) Negativemg/dL (NEG) Urine Ketones (Stick) Negativemg/dL (NEG) Urine Blood Small (NEG) Urine Nitrite Negative (NEG) Urine Bilirubin Negative (NEG) Urine Urobilinogen Dipstick 0.2mg/dL (0.2 mg/dL) Urine Leukocyte Esterase Moderate (NEG) Urine RBC 1-2/HPF (0-2) Urine WBC >40/HPF (0-4) Urine Squamous Epithelial Cells Mod/LPF Urine Bacteria Mod/HPF (0-FEW) Nasal Screen MRSA (PCR) Negative (Negative) Test 04/22/16 04:00 White Blood Count 8.8x10^3/uL (4.0-11.0) Red Blood Count 2.55x10^6/uL (3.50-5.40) Hemoglobin 6.3g/dL (12.0-15.5) Hematocrit 21.7% (36.0-47.0) Mean Corpuscular Volume 85fL (79-100) Mean Corpuscular Hemoglobin 25pg (25-35) Mean Corpuscular Hemoglobin Concent 29g/dL (31-37) Red Cell Distribution Width 19.4% (11.5-14.5) Platelet Count 388x10^3/uL (140-400) Reticulocyte Count (auto) 1.4% (0.5-2.5) Sodium Level 140mmol/L (136-145) Potassium Level 4.9mmol/L (3.5-5.1) Chloride Level 106mmol/L (98-107) Carbon Dioxide Level 25mmol/L (21-32) Anion Gap 9 (6-14) Blood Urea Nitrogen 45mg/dL (7-20) Creatinine 3.3mg/dL (0.6-1.0) Estimated GFR (Cockcroft-Gault) 13.9 Glucose Level 97mg/dL (70-99) Calcium Level 8.5mg/dL (8.5-10.1) Creatine Kinase 66U/L (26-192) Laboratory Tests Test 04/21/16 11:00 04/21/16 13:00 04/21/16 13:05 04/21/16 15:15 Iron Level 64ug/dL (50-170) Total Iron Binding Capacity 434ug/dL (250-450) Iron Saturation 15% (15-34) Ammonia 32mcmol/L (11-34) Vitamin B12 Level 902pg/mL (247-911) Serum Folate > 20.00ng/ml (3.2-20.0) O2 Saturation 97% (92-99) Arterial Blood pH 7.24 (7.35-7.45) Arterial Blood pCO2 at Patient Temp 52mmHg (35-46) Arterial Blood pO2 at Patient Temp 91mmHg (65-108) Arterial Blood HCO3 22mmol/L (21-28) Arterial Blood Base Excess -5mmol/L (-3-3) FiO2 30 Urine Collection Type Unknown Urine Color Yellow Urine Clarity Clear Urine pH 5.5 Urine Specific [place] 1.015 Urine Protein 100mg/dL (NEG-TRACE) Urine Glucose (UA) Negativemg/dL (NEG) Urine Ketones (Stick) Negativemg/dL (NEG) Urine Blood Small (NEG) Urine Nitrite Negative (NEG) Urine Bilirubin Negative (NEG) Urine Urobilinogen Dipstick 0.2mg/dL (0.2 mg/dL) Urine Leukocyte Esterase Moderate (NEG) Urine RBC 1-2/HPF (0-2) Urine WBC >40/HPF (0-4) Urine Squamous Epithelial Cells Mod/LPF Urine Bacteria Mod/HPF (0-FEW) Nasal Screen MRSA (PCR) Negative (Negative) Test 04/22/16 04:00 White Blood Count 8.8x10^3/uL (4.0-11.0) Red Blood Count 2.55x10^6/uL (3.50-5.40) Hemoglobin 6.3g/dL (12.0-15.5) Hematocrit 21.7% (36.0-47.0) Mean Corpuscular Volume 85fL (79-100) Mean Corpuscular Hemoglobin 25pg (25-35) Mean Corpuscular Hemoglobin Concent 29g/dL (31-37) Red Cell Distribution Width 19.4% (11.5-14.5) Platelet Count 388x10^3/uL (140-400) Reticulocyte Count (auto) 1.4% (0.5-2.5) Sodium Level 140mmol/L (136-145) Potassium Level 4.9mmol/L (3.5-5.1) Chloride Level 106mmol/L (98-107) Carbon Dioxide Level 25mmol/L (21-32) Anion Gap 9 (6-14) Blood Urea Nitrogen 45mg/dL (7-20) Creatinine 3.3mg/dL (0.6-1.0) Estimated GFR (Cockcroft-Gault) 13.9 Glucose Level 97mg/dL (70-99) Calcium Level 8.5mg/dL (8.5-10.1) Creatine Kinase 66U/L (26-192) Microbiology 04/20/16 Blood Culture - Preliminary, Resulted NO GROWTH AFTER 1 DAY Medications Current Medications Ondansetron HCl 4 mg 4 mg PRN Q8HRS PRN IV NAUSEA/VOMITING Last administered on 04/21/16 00:27; Start 04/20/16 at 22:00; Stop 04/21/16 at 21:59; Status DC Ceftriaxone Sodium (Rocephin 1gm Ivpb For Omni) 50 ml @ 100 mls/hr 1X ONCE IV Last administered on 04/20/16 22:16; Start 04/20/16 at 22:30; Stop 04/20/16 at 22:59; Status DC Albuterol/ Ipratropium (Duoneb) 3 ml RTQID NEB Last administered on 04/22/16 07:48; Start 04/21/16 at 08:00 Albuterol Sulfate 2.5 mg 2.5 mg PRN QID PRN NEB SHORTNESS OF BREATH; Start at 07:00 Sodium Chloride (Iv Sodium Chloride 0.9% 1000ml Bag) 1,000 ml @ 75 mls/hr [id number] IV Last administered on 04/21/16 20:32; Start 04/21/16 at 11:30 Darbepoetin Jr 60 mcg 60 mcg [id number] [id number] Last administered on 04/21/16 20:38 ; Start 04/21/16 at 21:00 Ceftriaxone Sodium 1 gm/ Sodium Chloride 50 ml @ 100 mls/hr Q24H IV Last administered on 04/21/16 20:36; Start 04/21/16 at 21:00 Doxycycline Hyclate/Dextrose 100 ml @ 50 mls/hr Q12HR IV Last administered on 04/22/16 08:57; Start 04/21/16 at 13:00 Alprazolam (Xanax) 0.5 mg PRN Q8HRS PRN PO ANXIETY / AGITATION Last administered on 04/21/16 22:55; Start 04/21/16 at 22:00 Lorazepam (Ativan) 1 mg PRN Q4HRS PRN IV ANXIETY / AGITATION Last administered on 04/21/16 21:58; Start 04/21/16 at 22:00 Famotidine (Pepcid) 20 mg DAILY IVP Last administered on 04/22/16 08:56; Start 04/22/16 at 09:00 Active Scripts Active Reported Omeprazole 20 Mg Capsule.dr Mario Hfa Inhaler (Albuterol Sulfate) 18 Gm Hfa.aer.ad Tramadol Hcl 50 Mg Tablet Hydrocodone-Apap 10-325 (Hydrocodone Bit/Acetaminophen) 1 Each Tablet HS Gabapentin 600 Mg Tablet HS Fluticasone Propionate Nasal [place] (Fluticasone Propionate) 16 Gm [place].susp Alprazolam 0.25 Mg Tablet Vitals/I & O Vital Sign - Last 24 Hours 04/21/16 04/21/16 04/21/16 04/21/16 09:15 09:17 10:00 11:00 Temp 98.0 98.0 Pulse 59 62 65 Resp 13 14 14 B/P 134/86 136/47 145/52 Pulse Ox 98 96 92 94 O2 Delivery BiPAP/CPAP BiPAP/CPAP BiPAP/CPAP BiPAP/CPAP 04/21/16 04/21/16 04/21/16 04/21/16 11:09 12:00 12:00 13:00 Temp 99.9 99.9 Pulse 72 76 Resp 14 14 B/P 133/46 145/66 Pulse Ox 96 98 100 O2 Delivery BiPAP/CPAP BiPAP/CPAP Bi-pap BiPAP/CPAP 04/21/1604/21/17 04/21/17 04/21/16 14:00 15:00 15:15 15:19 Temp 99.7 99.7 Pulse 68 82 80 Resp 16 12 16 B/P 146/69 158/66 151/59 Pulse Ox 96 99 94 O2 Delivery BiPAP/CPAP BiPAP/CPAP BiPAP/CPAP 04/21/1617 04/21/17 04/21/16 15:30 15:45 16:00 16:00 Temp 99.7 99.7 Pulse 77 78 78 Resp 14 22 16 B/P 160/64 160/61 159/65 O2 Delivery Bi-pap 04/21/16 04/21/1604/21/04/21/16 16:00 16:30 17:00 17:00 Temp 99.7 99.7 Pulse 78 76 78 78 Resp 12 20 20 16 B/P 159/65 151/71 159/62 159/62 Pulse Ox 96 O2 Delivery BiPAP/CPAP BiPAP/CPAP 04/21/16 04/21/1604/21/17 04/21/16 17:10 17:30 18:00 18:00 Temp 99.4 99.4 Pulse 80 78 79 Resp 20 14 16 B/P 147/62 143/64 148/60 Pulse Ox 92 97 O2 Delivery BiPAP/CPAP BiPAP/CPAP 04/21/1604/21/04/21/04/21/16 19:00 19:23 20:00 20:00 Temp 100.0 100.0 Pulse 90 88 Resp 24 20 B/P 138/48 145/46 Pulse Ox 97 80 97 O2 Delivery BiPAP/CPAP Nasal Cannula BiPAP/CPAP Bi-pap O2 Flow Rate 4.0 04/21/1604/21/17 04/21/17 04/21/16 20:25 20:50 21:00 22:00 Temp 100.0 99.9 100.0 99.9 Pulse 87 88 85 85 Resp 20 20 20 20 B/P 145/46 168/52 170/49 151/57 Pulse Ox 97 95 O2 Delivery BiPAP/CPAP BiPAP/CPAP 04/21/1604/21/17 3/04/21/16 22:58 23:00 23:30 23:59 Temp 100.7 100.7 Pulse 89 85 Resp 20 20 B/P 151/57 161/49 Pulse Ox 96 99 O2 Delivery BiPAP/CPAP BiPAP/CPAP Bi-pap 04/22/16 04/22/16 04/22/16 04/22/16 00:00 01:00 01:20 02:00 Temp 100.5 100.5 Pulse 85 96 91 Resp 20 20 20 B/P 136/76 137/58 159/67 Pulse Ox 97 96 96 96 O2 Delivery BiPAP/CPAP BiPAP/CPAP BiPAP/CPAP BiPAP/CPAP 04/22/16 04/22/16 04/22/16 04/22/16 03:00 03:23 04:00 04:00 Temp 100.0 100.0 Pulse 91 87 Resp 20 20 B/P 178/76 145/66 Pulse Ox 96 98 97 O2 Delivery BiPAP/CPAP BiPAP/CPAP Bi-pap BiPAP/CPAP 04/22/16 04/22/16 04/22/16 04/22/16 05:00 05:14 06:00 07:48 Pulse 76 72 Resp 20 B/P 138/55 142/53 Pulse Ox 96 96 96 96 O2 Delivery BiPAP/CPAP BiPAP/CPAP BiPAP/CPAP BiPAP/CPAP Intake and Output 04/21/16 04/21/16 04/22/16 15:00 23:00 07:00 Intake Total 732 ml 768 ml Output Total 300 ml 925 ml Balance 432 ml -157 ml ZULEMA DEGROOT MD Apr 22, 2016 09:35
[2016-04-22 09:46] LABS: HCO3 ABG 18 mmol/L (21-28); PCO2 ABG 44 mmHg (35-46); PH ABG 7.24 (7.35-7.45); PO2 ABG 79 mmHg (65-108); SAT O2 ABG 94 % (92-99)
[2016-04-22 09:51] LABS: FIO2 ABG 30
[2016-04-22 10:06] LABS: FERRITIN 19 ng/mL (8-252); LACTATE DEHYDROGENASE 196 U/L (81-234)
--- NOTE | 2016-04-22 10:49 | PDOC ---
Renal-Progress Notes Subjective Notes Notes NONE History of Present Illness Hx of present illness STABLE Vitals Vitals Vital Signs Date Time Temp Pulse Resp B/P Pulse Ox O2 Delivery O2 Flow Rate FiO2 04/22/16 09:44 96 BiPAP/CPAP 04/22/16 06:00 72 20 142/53 04/22/16 04:00 100.0 100.0 04/21/16 19:23 4.0 Weight Weight [ ] I.O. Intake and Output Intake and Output 04/22/16 07:00 Intake Total 1500 ml Output Total 1225 ml Balance 275 ml Intake IV Total 759 ml Blood Product 391 ml Blood Product IV Normal Saline Flush 350 ml Output Urine Total 1225 ml Labs Labs Laboratory Tests Test 04/21/16 11:00 04/21/16 13:00 04/21/16 13:05 04/21/16 15:15 Iron Level 64ug/dL (50-170) Total Iron Binding Capacity 434ug/dL (250-450) Iron Saturation 15% (15-34) Ammonia 32mcmol/L (11-34) Vitamin B12 Level 902pg/mL (247-911) Serum Folate > 20.00ng/ml (3.2-20.0) O2 Saturation 97% (92-99) Arterial Blood pH 7.24 (7.35-7.45) Arterial Blood pCO2 at Patient Temp 52mmHg (35-46) Arterial Blood pO2 at Patient Temp 91mmHg (65-108) Arterial Blood HCO3 22mmol/L (21-28) Arterial Blood Base Excess -5mmol/L (-3-3) FiO2 30 Urine Collection Type Unknown Urine Color Yellow Urine Clarity Clear Urine pH 5.5 Urine Specific [place] 1.015 Urine Protein 100mg/dL (NEG-TRACE) Urine Glucose (UA) Negativemg/dL (NEG) Urine Ketones (Stick) Negativemg/dL (NEG) Urine Blood Small (NEG) Urine Nitrite Negative (NEG) Urine Bilirubin Negative (NEG) Urine Urobilinogen Dipstick 0.2mg/dL (0.2 mg/dL) Urine Leukocyte Esterase Moderate (NEG) Urine RBC 1-2/HPF (0-2) Urine WBC >40/HPF (0-4) Urine Squamous Epithelial Cells Mod/LPF Urine Bacteria Mod/HPF (0-FEW) Nasal Screen MRSA (PCR) Negative (Negative) Test 04/22/16 04:00 04/22/16 08:00 White Blood Count 8.8x10^3/uL (4.0-11.0) Red Blood Count 2.55x10^6/uL (3.50-5.40) Hemoglobin 6.3g/dL (12.0-15.5) Hematocrit 21.7% (36.0-47.0) Mean Corpuscular Volume 85fL (79-100) Mean Corpuscular Hemoglobin 25pg (25-35) Mean Corpuscular Hemoglobin Concent 29g/dL (31-37) Red Cell Distribution Width 19.4% (11.5-14.5) Platelet Count 388x10^3/uL (140-400) Reticulocyte Count (auto) 1.4% (0.5-2.5) Haptoglobin 187mg/dL (34-200) Sodium Level 140mmol/L (136-145) Potassium Level 4.9mmol/L (3.5-5.1) Chloride Level 106mmol/L (98-107) Carbon Dioxide Level 25mmol/L (21-32) Anion Gap 9 (6-14) Blood Urea Nitrogen 45mg/dL (7-20) Creatinine 3.3mg/dL (0.6-1.0) Estimated GFR (Cockcroft-Gault) 13.9 Glucose Level 97mg/dL (70-99) Calcium Level 8.5mg/dL (8.5-10.1) Ferritin 19ng/mL (8-252) Lactate Dehydrogenase 196U/L (81-234) Creatine Kinase 66U/L (26-192) O2 Saturation 94% (92-99) Arterial Blood pH 7.24 (7.35-7.45) Arterial Blood pCO2 at Patient Temp 44mmHg (35-46) Arterial Blood pO2 at Patient Temp 79mmHg (65-108) Arterial Blood HCO3 18mmol/L (21-28) Arterial Blood Base Excess -9mmol/L (-3-3) FiO2 30 Micro Micro Microbiology 04/20/16 Blood Culture - Preliminary, Resulted NO GROWTH AFTER 1 DAY Review of Systems Constitutional: yes: no symptom reported Physical Exam General Appearance: no apparent distress Assessment Assessment IMP ANEMIA RESP FAILURE HYPERCARBIA WITH NARCOSIS PROB CKD UNKNOWN STAGE DONALD POOR PO INTAKE POSSIBLE PNEUMONIA UTI PLAN PPN FOR NOW ARANESP GI EVAL AND TX ANTIBIOTICS MALINDA MAURICE MD Apr 22, 2016 10:49
[2016-04-22] MEDS: AA 2.75%/CALCIUM/LYTES/D5W 2,000 ML IV SCH (11:00)
[2016-04-22] MEDS: SODIUM BICARBONATE VIAL 50 MEQ in IV NORMAL SALINE 1000ML BAG 1,000 ML IV SCH ×2 (11:15→21:08)
--- NOTE | 2016-04-22 12:22 | RAD ---
Portable chest, 04/22/2016: History: Check central line placement Comparison is made to yesterday's study. The patient is rotated to the left. A right jugular central venous catheter has been inserted extending into the superior aspect of the right atrium. Its tip is partially obscured by overlying EKG leads. The heart is enlarged. The pulmonary vascularity appears to be congested. There is a moderate ongoing left basilar opacity obscuring the hemidiaphragm. There is no evidence of pneumothorax. IMPRESSION: 1. A new right jugular central venous catheter extends into the superior aspect of the right atrium. 2. Suboptimal exam demonstrating moderate ongoing left basilar atelectasis/infiltrate and possible pleural fluid. 3. Vascular congestion.
--- NOTE | 2016-04-22 13:13 | RAD ---
CT of the head without contrast, 04/22/2016: History: Altered mental status There is mild cerebral atrophy. The ventricles are within normal limits in size. There is no shift of the midline structures. There is no evidence of acute intracranial hemorrhage or mass effect. There is a small left lateral frontal region lucency involving the deep white matter and overlying cortex. There is no associated mass effect. 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 Small densities in the left maxillary sinus are probably retention cysts. IMPRESSION: 1. Cerebral atrophy. 2. 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 PQRS Compliance Statement: One or more of the following individualized dose reduction techniques were utilized for this examination: 1. Automated exposure control 2. Adjustment of the mA and/or kV according to patient size 3. Use of iterative reconstruction technique
[2016-04-22] MEDS: CEFTRIAXONE SODIUM 1 GM in IV NORMAL SALINE 50ML 50 ML IV SCH (15:29)
--- NOTE | 2016-04-22 17:35 | PDOC ---
G I PROGRESS NOTE Reason for Follow-up Anemia/hx lymphoma Subjective Dyspnea slightly improved Physical Exam Lungs rhonchi CV S1 S2 ABD +BS, soft, distended Review of Relevant I have reviewed the following items odilia (where applicable) has been applied. Labs Laboratory Tests Test 04/20/16 21:05 04/20/16 21:20 04/21/16 04:34 04/21/16 08:21 Urine Collection Type Unknown Urine Color Yellow Urine Clarity Cloudy Urine pH 5.5 Urine Specific [place] 1.010 Urine Protein 100mg/dL (NEG-TRACE) Urine Glucose (UA) Negativemg/dL (NEG) Urine Ketones (Stick) Negativemg/dL (NEG) Urine Blood Moderate (NEG) Urine Nitrite Negative (NEG) Urine Bilirubin Negative (NEG) Urine Urobilinogen Dipstick 0.2mg/dL (0.2 mg/dL) Urine Leukocyte Esterase Large (NEG) Urine RBC Occ/HPF (0-2) Urine WBC Tntc/HPF (0-4) Urine Squamous Epithelial Cells Many/LPF Urine Bacteria Many/HPF (0-FEW) Urine Mucus Mod/LPF White Blood Count 8.4x10^3/uL (4.0-11.0) 12.1x10^3/uL (4.0-11.0) Red Blood Count 2.50x10^6/uL (3.50-5.40) 2.63x10^6/uL (3.50-5.40) Hemoglobin 6.0g/dL (12.0-15.5) 6.5g/dL (12.0-15.5) Hematocrit 21.3% (36.0-47.0) 22.8% (36.0-47.0) Mean Corpuscular Volume 85fL (79-100) 87fL (79-100) Mean Corpuscular Hemoglobin 24pg (25-35) 25pg (25-35) Mean Corpuscular Hemoglobin Concent 28g/dL (31-37) 29g/dL (31-37) Red Cell Distribution Width 19.4% (11.5-14.5) 19.9% (11.5-14.5) Platelet Count 612x10^3/uL (140-400) 570x10^3/uL (140-400) Neutrophils (%) (Auto) 79% (31-73) 87% (31-73) Lymphocytes (%) (Auto) 12% (24-48) 6% (24-48) Monocytes (%) (Auto) 6% (0-9) 6% (0-9) Eosinophils (%) (Auto) 2% (0-3) 1% (0-3) Basophils (%) (Auto) 1% (0-3) 1% (0-3) Neutrophils # (Auto) 6.7x10^3uL (1.8-7.7) 10.5x10^3uL (1.8-7.7) Lymphocytes # (Auto) 1.0x10^3/uL (1.0-4.8) 0.7x10^3/uL (1.0-4.8) Monocytes # (Auto) 0.5x10^3/uL (0.0-1.1) 0.7x10^3/uL (0.0-1.1) Eosinophils # (Auto) 0.2x10^3/uL (0.0-0.7) 0.1x10^3/uL (0.0-0.7) Basophils # (Auto) 0.0x10^3/uL (0.0-0.2) 0.1x10^3/uL (0.0-0.2) Prothrombin Time 14.9SEC (11.7-14.0) Prothromb Time International Ratio 1.2 (0.8-1.1) Sodium Level 139mmol/L (136-145) 139mmol/L (136-145) Potassium Level 4.7mmol/L (3.5-5.1) 5.7mmol/L (3.5-5.1) Chloride Level 104mmol/L (98-107) 105mmol/L (98-107) Carbon Dioxide Level 21mmol/L (21-32) 25mmol/L (21-32) Anion Gap 14 (6-14) 9 (6-14) Blood Urea Nitrogen 39mg/dL (7-20) 38mg/dL (7-20) Creatinine 3.2mg/dL (0.6-1.0) 3.1mg/dL (0.6-1.0) Estimated GFR (Cockcroft-Gault) 14.4 14.9 BUN/Creatinine Ratio 12 (6-20) 12 (6-20) Glucose Level 115mg/dL (70-99) 121mg/dL (70-99) Calcium Level 9.1mg/dL (8.5-10.1) 8.8mg/dL (8.5-10.1) Total Bilirubin 0.6mg/dL (0.2-1.0) 0.6mg/dL (0.2-1.0) Aspartate Amino Transf (AST/SGOT) 20U/L (15-37) 21U/L (15-37) Alanine Aminotransferase (ALT/SGPT) 24U/L (14-59) 22U/L (14-59) Alkaline Phosphatase 175U/L (46-116) 172U/L (46-116) Total Protein 7.1g/dL (6.4-8.2) 6.7g/dL (6.4-8.2) Albumin 3.1g/dL (3.4-5.0) 3.0g/dL (3.4-5.0) Albumin/Globulin Ratio 0.8 (1.0-1.7) 0.8 (1.0-1.7) Segmented Neutrophils % 82% (35-66) Band Neutrophils % 5% (0-9) Lymphocytes % 3% (24-48) Monocytes % 7% (0-10) Eosinophils % 1% (0-5) Basophils % 1% (0-3) Myelocytes % 1% (0-0) Platelet Estimate Increased (ADEQUATE) Large Platelets Few Polychromasia Slight Hypochromasia Present Anisocytosis Mod Microcytosis Slight Tear Drop Cells Occ Ovalocytes Few O2 Saturation 96% (92-99) Arterial Blood pH 7.12 (7.35-7.45) Arterial Blood pCO2 at Patient Temp 63mmHg (35-46) Arterial Blood pO2 at Patient Temp 104mmHg (65-108) Arterial Blood HCO3 20mmol/L (21-28) Arterial Blood Base Excess -9mmol/L (-3-3) FiO2 38.0 Test 04/21/16 11:00 04/21/16 13:00 04/21/16 13:05 04/21/16 15:15 Iron Level 64ug/dL (50-170) Total Iron Binding Capacity 434ug/dL (250-450) Iron Saturation 15% (15-34) Ammonia 32mcmol/L (11-34) Vitamin B12 Level 902pg/mL (247-911) Serum Folate > 20.00ng/ml (3.2-20.0) O2 Saturation 97% (92-99) Arterial Blood pH 7.24 (7.35-7.45) Arterial Blood pCO2 at Patient Temp 52mmHg (35-46) Arterial Blood pO2 at Patient Temp 91mmHg (65-108) Arterial Blood HCO3 22mmol/L (21-28) Arterial Blood Base Excess -5mmol/L (-3-3) FiO2 30 Urine Collection Type Unknown Urine Color Yellow Urine Clarity Clear Urine pH 5.5 Urine Specific [place] 1.015 Urine Protein 100mg/dL (NEG-TRACE) Urine Glucose (UA) Negativemg/dL (NEG) Urine Ketones (Stick) Negativemg/dL (NEG) Urine Blood Small (NEG) Urine Nitrite Negative (NEG) Urine Bilirubin Negative (NEG) Urine Urobilinogen Dipstick 0.2mg/dL (0.2 mg/dL) Urine Leukocyte Esterase Moderate (NEG) Urine RBC 1-2/HPF (0-2) Urine WBC >40/HPF (0-4) Urine Squamous Epithelial Cells Mod/LPF Urine Bacteria Mod/HPF (0-FEW) Nasal Screen MRSA (PCR) Negative (Negative) Test 04/22/16 04:00 04/22/16 08:00 White Blood Count 8.8x10^3/uL (4.0-11.0) Red Blood Count 2.55x10^6/uL (3.50-5.40) Hemoglobin 6.3g/dL (12.0-15.5) Hematocrit 21.7% (36.0-47.0) Mean Corpuscular Volume 85fL (79-100) Mean Corpuscular Hemoglobin 25pg (25-35) Mean Corpuscular Hemoglobin Concent 29g/dL (31-37) Red Cell Distribution Width 19.4% (11.5-14.5) Platelet Count 388x10^3/uL (140-400) Reticulocyte Count (auto) 1.4% (0.5-2.5) Haptoglobin 187mg/dL (34-200) Sodium Level 140mmol/L (136-145) Potassium Level 4.9mmol/L (3.5-5.1) Chloride Level 106mmol/L (98-107) Carbon Dioxide Level 25mmol/L (21-32) Anion Gap 9 (6-14) Blood Urea Nitrogen 45mg/dL (7-20) Creatinine 3.3mg/dL (0.6-1.0) Estimated GFR (Cockcroft-Gault) 13.9 Glucose Level 97mg/dL (70-99) Calcium Level 8.5mg/dL (8.5-10.1) Ferritin 19ng/mL (8-252) Lactate Dehydrogenase 196U/L (81-234) Creatine Kinase 66U/L (26-192) O2 Saturation 94% (92-99) Arterial Blood pH 7.24 (7.35-7.45) Arterial Blood pCO2 at Patient Temp 44mmHg (35-46) Arterial Blood pO2 at Patient Temp 79mmHg (65-108) Arterial Blood HCO3 18mmol/L (21-28) Arterial Blood Base Excess -9mmol/L (-3-3) FiO2 30 Laboratory Tests Test 04/22/16 04:00 04/22/16 08:00 White Blood Count 8.8x10^3/uL (4.0-11.0) Red Blood Count 2.55x10^6/uL (3.50-5.40) Hemoglobin 6.3g/dL (12.0-15.5) Hematocrit 21.7% (36.0-47.0) Mean Corpuscular Volume 85fL (79-100) Mean Corpuscular Hemoglobin 25pg (25-35) Mean Corpuscular Hemoglobin Concent 29g/dL (31-37) Red Cell Distribution Width 19.4% (11.5-14.5) Platelet Count 388x10^3/uL (140-400) Reticulocyte Count (auto) 1.4% (0.5-2.5) Haptoglobin 187mg/dL (34-200) Sodium Level 140mmol/L (136-145) Potassium Level 4.9mmol/L (3.5-5.1) Chloride Level 106mmol/L (98-107) Carbon Dioxide Level 25mmol/L (21-32) Anion Gap 9 (6-14) Blood Urea Nitrogen 45mg/dL (7-20) Creatinine 3.3mg/dL (0.6-1.0) Estimated GFR (Cockcroft-Gault) 13.9 Glucose Level 97mg/dL (70-99) Calcium Level 8.5mg/dL (8.5-10.1) Ferritin 19ng/mL (8-252) Lactate Dehydrogenase 196U/L (81-234) Creatine Kinase 66U/L (26-192) O2 Saturation 94% (92-99) Arterial Blood pH 7.24 (7.35-7.45) Arterial Blood pCO2 at Patient Temp 44mmHg (35-46) Arterial Blood pO2 at Patient Temp 79mmHg (65-108) Arterial Blood HCO3 18mmol/L (21-28) Arterial Blood Base Excess -9mmol/L (-3-3) FiO2 30 Microbiology 04/20/16 Blood Culture - Preliminary, Resulted NO GROWTH AFTER 1 DAY 04/20/16 Urine Culture - Final, Complete 04/20/16 Urine Culture Result 1 (DEANN) - Final, Complete Medications Current Medications Ondansetron HCl 4 mg 4 mg PRN Q8HRS PRN IV NAUSEA/VOMITING Last administered on 04/21/16 00:27; Start 04/20/16 at 22:00; Stop 04/21/16 at 21:59; Status DC Ceftriaxone Sodium (Rocephin 1gm Ivpb For Omni) 50 ml @ 100 mls/hr 1X ONCE IV Last administered on 04/20/16 22:16; Start 04/20/16 at 22:30; Stop 04/20/16 at 22:59; Status DC Albuterol/ Ipratropium (Duoneb) 3 ml RTQID NEB Last administered on 04/22/16 16:26; Start 04/21/16 at 08:00 Albuterol Sulfate 2.5 mg 2.5 mg PRN QID PRN NEB SHORTNESS OF BREATH; Start at 07:00 Sodium Chloride (Iv Sodium Chloride 0.9% 1000ml Bag) 1,000 ml @ 75 mls/hr [id number] IV Last administered on 04/21/16 20:32; Start 04/21/16 at 11:30; Stop 04/22/16 at 10:49; Status DC Darbepoetin Jr 60 mcg 60 mcg [id number] SQ Last administered on 04/21/16 20:38 ; Start 04/21/16 at 21:00 Ceftriaxone Sodium 1 gm/ Sodium Chloride 50 ml @ 100 mls/hr Q24H IV Last administered on 04/21/16 20:36; Start 04/21/16 at 21:00; Stop 04/22/16 at 13:47 ; Status DC Doxycycline Hyclate/Dextrose 100 ml @ 50 mls/hr Q12HR IV Last administered on 04/22/16 08:57; Start 04/21/16 at 13:00 Alprazolam (Xanax) 0.5 mg PRN Q8HRS PRN PO ANXIETY / AGITATION Last administered on 04/21/16 22:55; Start 04/21/16 at 22:00 Lorazepam (Ativan) 1 mg PRN Q4HRS PRN IV ANXIETY / AGITATION Last administered on 04/21/16 21:58; Start 04/21/16 at 22:00 Famotidine 20 mg 20 mg DAILY IVP Last administered on 04/22/16 08:56; Start at 09:00 Amino Acids/ Electrolytes 2,000 ml @ 80 mls/hr Q24H IV Last administered on 11:00; Start 04/22/16 at 11:00 Sodium Bicarbonate 50 meq/Sodium Chloride 1,050 ml @ 125 mls/hr Q8H24M IV Last administered on 04/22/16 11:15; Start 04/22/16 at 11:15 Ceftriaxone Sodium/Sodium Chloride (Rocephin/Iv Sodium Chloride 0.9% 50ml) 50 ml @ 100 mls/hr Q24H IV Last administered on 04/22/16 15:29; Start 04/22/16 at 15:00 Active Scripts Active Reported Omeprazole 20 Mg Capsule.dr Mario Hfa Inhaler (Albuterol Sulfate) 18 Gm Hfa.aer.ad Tramadol Hcl 50 Mg Tablet Hydrocodone-Apap 10-325 (Hydrocodone Bit/Acetaminophen) 1 Each Tablet HS Gabapentin 600 Mg Tablet HS Fluticasone Propionate Nasal [place] (Fluticasone Propionate) 16 Gm [place].susp Alprazolam 0.25 Mg Tablet Vitals/I & O Vital Sign - Last 24 Hours 04/21/16 04/21/16 04/21/16 04/21/16 18:00 18:00 19:00 19:23 Pulse 78 79 90 Resp 14 16 24 B/P 143/64 148/60 138/48 Pulse Ox 97 97 80 O2 Delivery BiPAP/CPAP BiPAP/CPAP Nasal Cannula O2 Flow Rate 4.0 04/21/16 04/21/16 04/21/16 04/21/16 20:00 20:00 20:25 20:50 Temp 100.0 100.0 99.9 100.0 100.0 99.9 Pulse 88 87 88 Resp 20 20 20 B/P 145/46 145/46 168/52 Pulse Ox 97 O2 Delivery BiPAP/CPAP Bi-pap 04/21/16 04/21/16 04/21/16 04/21/16 21:00 22:00 22:58 23:00 Temp 100.7 100.7 Pulse 85 85 89 85 Resp 20 20 20 20 B/P 170/49 151/57 151/57 161/49 Pulse Ox 97 95 96 O2 Delivery BiPAP/CPAP BiPAP/CPAP BiPAP/CPAP 04/21/16 04/21/16 04/22/16 04/22/16 23:30 23:59 00:00 01:00 Temp 100.5 100.5 Pulse 85 96 Resp 20 20 B/P 136/76 137/58 Pulse Ox 99 97 96 O2 Delivery BiPAP/CPAP Bi-pap BiPAP/CPAP BiPAP/CPAP 04/22/16 04/22/16 04/22/16 04/22/16 01:20 02:00 03:00 03:23 Pulse 91 91 Resp 20 20 B/P 159/67 178/76 Pulse Ox 96 96 96 98 O2 Delivery BiPAP/CPAP BiPAP/CPAP BiPAP/CPAP BiPAP/CPAP 04/22/16 04/22/16 04/22/16 04/22/16 04:00 04:00 05:00 05:14 Temp 100.0 100.0 Pulse 87 76 Resp 20 22 B/P 145/66 138/55 Pulse Ox 97 96 96 O2 Delivery Bi-pap BiPAP/CPAP BiPAP/CPAP BiPAP/CPAP 04/22/16 04/22/16 04/22/16 04/22/16 06:00 07:00 07:48 08:00 Pulse 72 72 Resp 20 20 B/P 142/53 158/58 Pulse Ox 96 99 96 O2 Delivery BiPAP/CPAP BiPAP/CPAP BiPAP/CPAP Bi-pap 04/22/16 04/22/16 04/22/16 04/22/16 08:00 09:00 09:44 10:00 Temp 99.3 99.3 Pulse 70 78 81 Resp 20 20 20 B/P 154/51 178/67 171/75 Pulse Ox 99 100 96 98 O2 Delivery BiPAP/CPAP BiPAP/CPAP BiPAP/CPAP BiPAP/CPAP 04/22/16 04/22/16 04/22/16 04/22/16 11:00 11:03 11:19 11:35 Temp 99.3 99.4 99.3 99.3 99.4 99.3 Pulse 78 78 77 74 Resp 20 20 20 20 B/P 166/60 166/60 170/59 160/65 Pulse Ox 98 O2 Delivery BiPAP/CPAP 04/22/16 04/22/16 04/22/16 04/22/16 11:48 12:00 12:00 12:04 Temp 99.3 98.6 99.2 99.3 98.6 99.2 Pulse 78 80 79 Resp 20 20 20 B/P 158/88 175/77 175/77 Pulse Ox 99 O2 Delivery BiPAP/CPAP Bi-pap 04/22/16 04/22/16 04/22/16 04/22/16 12:46 13:00 13:10 13:20 Temp 98.3 98.9 98.3 98.9 Pulse 80 82 75 Resp 20 20 20 B/P 173/63 155/58 168/54 Pulse Ox 96 100 O2 Delivery BiPAP/CPAP BiPAP/CPAP 04/22/16 04/22/16 04/22/16 04/22/16 13:35 13:50 14:00 15:00 Temp 98.6 98.6 98.6 98.6 Pulse 73 77 74 71 Resp 20 23 20 20 B/P 158/70 145/56 158/65 144/50 Pulse Ox 99 99 O2 Delivery BiPAP/CPAP BiPAP/CPAP 04/22/16 04/22/16 15:00 16:27 Pulse Ox 100 96 O2 Delivery BiPAP/CPAP BiPAP/CPAP Intake and Output 304/21/16 04/22/16 15:00 23:00 07:00 Intake Total 732 ml 768 ml Output Total 300 ml 925 ml Balance 432 ml -157 ml Problem List Problems Medical Problems: (1) Symptomatic anemia Status: Acute Assessment Chroinc blood loss anemia- with hx lymphoma, source to be determined once pulmonary status improves to allow sedation and endoscopy, will reassess monday. CARINA PECK MD Apr 22, 2016 17:35
[2016-04-23] VITALS (19 sets, daily range): BP systolic 117–237; BP diastolic 58–113
[2016-04-23] MEDS: LORAZEPAM 2 MG/ML VIAL IV PRN ×2 (01:43→20:09)
[2016-04-23 06:01] LABS: CALCIUM 8.7 mg/dL (8.5-10.1); CREATININE 2.6 mg/dL (0.6-1.0); GFR 18.3; POTASSIUM 5.3 mmol/L (3.5-5.1)
--- NOTE | 2016-04-23 07:25 | PDOC ---
PULMONARY PROGRESS NOTES Subjective on bipap, more alert, sob better, has cough, no pain, had 5 units of prbc, Vitals Vital Signs Date Time Temp Pulse Resp B/P Pulse Ox O2 Delivery O2 Flow Rate FiO2 04/23/16 06:00 78 22 157/59 100 BiPAP/CPAP 04/23/16 04:00 98.8 98.8 04/23/16 02:00 4.0 Comments ros as mentioned as above, discussed w rn, other sys otherwise neg General: Alert, Lethargic HEENT: Other (nc, at, perrl) Lungs: Crackles Cardiovascular: S1, S2 Abdomen: Soft, Non-tender Neuro Exam: Alert Extremities: Other (edema) Skin: Warm Labs Laboratory Tests Test 04/21/16 08:21 04/21/16 11:00 04/21/16 13:00 04/21/16 13:05 O2 Saturation 96% (92-99) 97% (92-99) Arterial Blood pH 7.12 (7.35-7.45) 7.24 (7.35-7.45) Arterial Blood pCO2 at Patient Temp 63mmHg (35-46) 52mmHg (35-46) Arterial Blood pO2 at Patient Temp 104mmHg (65-108) 91mmHg (65-108) Arterial Blood HCO3 20mmol/L (21-28) 22mmol/L (21-28) Arterial Blood Base Excess -9mmol/L (-3-3) -5mmol/L (-3-3) FiO2 38.0 30 Iron Level 64ug/dL (50-170) Total Iron Binding Capacity 434ug/dL (250-450) Iron Saturation 15% (15-34) Ammonia 32mcmol/L (11-34) Vitamin B12 Level 902pg/mL (247-911) Serum Folate > 20.00ng/ml (3.2-20.0) Urine Collection Type Unknown Urine Color Yellow Urine Clarity Clear Urine pH 5.5 Urine Specific [place] 1.015 Urine Protein 100mg/dL (NEG-TRACE) Urine Glucose (UA) Negativemg/dL (NEG) Urine Ketones (Stick) Negativemg/dL (NEG) Urine Blood Small (NEG) Urine Nitrite Negative (NEG) Urine Bilirubin Negative (NEG) Urine Urobilinogen Dipstick 0.2mg/dL (0.2 mg/dL) Urine Leukocyte Esterase Moderate (NEG) Urine RBC 1-2/HPF (0-2) Urine WBC >40/HPF (0-4) Urine Squamous Epithelial Cells Mod/LPF Urine Bacteria Mod/HPF (0-FEW) Test 04/21/16 15:15 04/22/16 04:00 04/22/16 08:00 04/23/16 05:00 Nasal Screen MRSA (PCR) Negative (Negative) White Blood Count 8.8x10^3/uL (4.0-11.0) Red Blood Count 2.55x10^6/uL (3.50-5.40) Hemoglobin 6.3g/dL (12.0-15.5) Hematocrit 21.7% (36.0-47.0) Mean Corpuscular Volume 85fL (79-100) Mean Corpuscular Hemoglobin 25pg (25-35) Mean Corpuscular Hemoglobin Concent 29g/dL (31-37) Red Cell Distribution Width 19.4% (11.5-14.5) Platelet Count 388x10^3/uL (140-400) Reticulocyte Count (auto) 1.4% (0.5-2.5) Haptoglobin 187mg/dL (34-200) Sodium Level 140mmol/L (136-145) 139mmol/L (136-145) Potassium Level 4.9mmol/L (3.5-5.1) 5.3mmol/L (3.5-5.1) Chloride Level 106mmol/L (98-107) 109mmol/L (98-107) Carbon Dioxide Level 25mmol/L (21-32) 17mmol/L (21-32) Anion Gap 9 (6-14) 13 (6-14) Blood Urea Nitrogen 45mg/dL (7-20) 42mg/dL (7-20) Creatinine 3.3mg/dL (0.6-1.0) 2.6mg/dL (0.6-1.0) Estimated GFR (Cockcroft-Gault) 13.9 18.3 Glucose Level 97mg/dL (70-99) 95mg/dL (70-99) Calcium Level 8.5mg/dL (8.5-10.1) 8.7mg/dL (8.5-10.1) Ferritin 19ng/mL (8-252) Lactate Dehydrogenase 196U/L (81-234) Creatine Kinase 66U/L (26-192) O2 Saturation 94% (92-99) Arterial Blood pH 7.24 (7.35-7.45) Arterial Blood pCO2 at Patient Temp 44mmHg (35-46) Arterial Blood pO2 at Patient Temp 79mmHg (65-108) Arterial Blood HCO3 18mmol/L (21-28) Arterial Blood Base Excess -9mmol/L (-3-3) FiO2 30 Laboratory Tests Test 04/22/16 08:00 04/23/16 05:00 O2 Saturation 94% (92-99) Arterial Blood pH 7.24 (7.35-7.45) Arterial Blood pCO2 at Patient Temp 44mmHg (35-46) Arterial Blood pO2 at Patient Temp 79mmHg (65-108) Arterial Blood HCO3 18mmol/L (21-28) Arterial Blood Base Excess -9mmol/L (-3-3) FiO2 30 Sodium Level 139mmol/L (136-145) Potassium Level 5.3mmol/L (3.5-5.1) Chloride Level 109mmol/L (98-107) Carbon Dioxide Level 17mmol/L (21-32) Anion Gap 13 (6-14) Blood Urea Nitrogen 42mg/dL (7-20) Creatinine 2.6mg/dL (0.6-1.0) Estimated GFR (Cockcroft-Gault) 18.3 Glucose Level 95mg/dL (70-99) Calcium Level 8.7mg/dL (8.5-10.1) Medications Active Scripts Medications Dose Route/Sig Days Date Category Omeprazole 20 Mg Capsule. 04/21/16 Reported Ventolin Hfa Inhaler (Albuterol Sulfate) 18 Gm Hfa.aer.ad 04/21/16 Reported Tramadol Hcl 50 Mg Tablet 04/21/16 Reported Hydrocodone-Apap 10-325 (Hydrocodone Bit/Acetaminophen) 1 Each Tablet HS 04/21/16 Reported Gabapentin 600 Mg Tablet HS 04/21/16 Reported Fluticasone Propionate Nasal [place] (Fluticasone Propionate) 16 Gm [place].susp 04/21/16 Reported Alprazolam 0.25 Mg Tablet 04/21/16 Reported Comments cxr reviewed, 1. A new right jugular central venous catheter extends into the superior aspect of the right atrium. 2. Suboptimal exam demonstrating moderate ongoing left basilar atelectasis/infiltrate and possible pleural fluid. 3. Vascular congestion. Impression . IMPRESSION: 1. Acute respiratory failure, multifactorial. 2. Possible left lower lobe pneumonia. 3. Acute bronchitis. 4. Acute blood loss anemia. 5. Acute kidney injury. 6. Hypokalemia. 7. Acidemia. 8. Metabolic possible toxic encephalopathy. 9. abnl cxr Plan . PLAN: 1. bipap, more alert, will do bipap prn during day, cont at night 2. empiric antibiotics. fu cxs 3. Followup Nephrology input. 4. GI consult. We will follow their recommendation. 5. Nebulized treatments. 6. Sequential compressive devices for DVT prophylaxis. Hold off on anticoagulation due to her anemia. 7. pepcid, for stress ulcer prophylaxis discussed w rn, pt. TONIA GRIGSBY MD Apr 23, 2016 07:25
[2016-04-23] MEDS: ALPRAZOLAM 0.5 MG TABLET PO PRN ×2 (07:43→18:41)
[2016-04-23] MEDS: FAMOTIDINE 20 MG/2 ML VIAL IVP SCH (07:44)
[2016-04-23] MEDS: FENTANYL PF 100 MCG/2 ML VIAL. IV PRN ×6 (07:44→22:45)
[2016-04-23] MEDS: SODIUM BICARBONATE VIAL 50 MEQ in IV NORMAL SALINE 1000ML BAG 1,000 ML IV SCH (07:45)
[2016-04-23] MEDS: DOXYCYCLINE HYCLATE 100 MG in IV DEXTROSE 5% 100 ML IV SCH ×2 (07:45→21:03)
[2016-04-23] MEDS: IPRATRPIUM/ALBUTEROL 0.5/2.5MG 3 ML NEBU. NEB SCH ×4 (08:42→19:51)
--- NOTE | 2016-04-23 09:38 | PDOC ---
PROGRESS NOTES Chief Complaint Chief Complaint Anemia DONALD ASSESSMENT AND PLAN: 1. Anemia: unclear etiology. no response to PRBCx5 with essentially unchanged H/H. had transfusion rxn W/U: BUDDY neg. severe ecchymosis in R UE, smaller in L UE, nosocomial. ferritin c/w iron deficiency. no evidence of GIB. coags ok. EPO started 2. IV access: pulled out IJ. peripheral lines in place 3. Respir distress: improving. Pulm following 4. Delirium: suspect metabolic encephalopathy, unclear etiology. 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 4. Metabolic acidosis: worsening. change to 2 amps biacarb 5. CKD: creat sl improved. monitor. nephrology following 6. Prophylaxis: PPI 35 min spent Vitals Vitals Vital Signs Date Time Temp Pulse Resp B/P Pulse Ox O2 Delivery O2 Flow Rate FiO2 04/23/16 08:44 97 Room Air 04/23/16 08:14 0.5 04/23/16 07:44 26 04/23/16 06:00 78 157/59 04/23/16 04:00 98.8 98.8 Physical Exam General: Other (lethargic, confused) Heart: Regular rate Lungs: Other (coarse rhonchi) Abdomen: Normal bowel sounds, Soft Extremities: No clubbing, Other (massive ecchymoses in UE, R>L) Skin: No rashes Labs LABS Laboratory Tests Test 04/23/16 05:00 Sodium Level 139mmol/L (136-145) Potassium Level 5.3mmol/L (3.5-5.1) Chloride Level 109mmol/L (98-107) Carbon Dioxide Level 17mmol/L (21-32) Anion Gap 13 (6-14) Blood Urea Nitrogen 42mg/dL (7-20) Creatinine 2.6mg/dL (0.6-1.0) Estimated GFR (Cockcroft-Gault) 18.3 Glucose Level 95mg/dL (70-99) Calcium Level 8.7mg/dL (8.5-10.1) Review of Systems Review of Systems moaning, but unable to state what is bothering her. pain w/ moving R arm. wet cough ZULEMA DEGROOT MD Apr 23, 2016 09:38
[2016-04-23 09:52] LABS: HCO3 ABG 23 mmol/L (21-28); PCO2 ABG 46 mmHg (35-46); PO2 ABG 65 mmHg (65-108); SAT O2 ABG 92 % (92-99)
[2016-04-23 09:55] LABS: FIO2 ABG 21
[2016-04-23] MEDS ORDERED: SODIUM BICARBONATE VIAL 100 MEQ in IV DEXTROSE 5% 1,000 ML IV ONE (10:00)
[2016-04-23] MEDS: SODIUM BICARBONATE VIAL 100 MEQ in IV DEXTROSE 5% 1,000 ML IV SCH ×2 (10:37→20:04)
--- NOTE | 2016-04-23 11:01 | RAD ---
Indication: Short of breath, cough. Technique: Upright portable chest radiograph was obtained. Comparison is from one day earlier. Findings: Right IJ central line has been removed. There is improved aeration of the right lung base. There is left basilar atelectasis and or infiltrate, similar to prior, may also be a pleural effusion. Heart is enlarged. Pulmonary vasculature does not appear cephalized. Impression: 1. Persistent left basilar atelectasis and or infiltrate, likely with effusion. 2. Improved aeration of the right lung base. 3. Cardiomegaly. 4. Congestion noted on yesterday's exam appears improved.
--- NOTE | 2016-04-23 11:15 | PDOC ---
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 Intake and Output Intake and Output 04/23/16 07:00 Intake Total 4798.5 ml Output Total 1950 ml Balance 2848.5 ml Intake Oral 0 ml IV Total 3523.5 ml Blood Product IV Normal Saline Flush 1275 ml Output Urine Total 1950 ml Labs Labs Laboratory Tests Test 04/23/16 05:00 04/23/16 09:40 Sodium Level 139mmol/L (136-145) Potassium Level 5.3mmol/L (3.5-5.1) Chloride Level 109mmol/L (98-107) Carbon Dioxide Level 17mmol/L (21-32) Anion Gap 13 (6-14) Blood Urea Nitrogen 42mg/dL (7-20) Creatinine 2.6mg/dL (0.6-1.0) Estimated GFR (Cockcroft-Gault) 18.3 Glucose Level 95mg/dL (70-99) Calcium Level 8.7mg/dL (8.5-10.1) O2 Saturation 92% (92-99) Arterial Blood pH 7.30 (7.35-7.45) Arterial Blood pCO2 at Patient Temp 46mmHg (35-46) Arterial Blood pO2 at Patient Temp 65mmHg (65-108) Arterial Blood HCO3 23mmol/L (21-28) Arterial Blood Base Excess -4mmol/L (-3-3) FiO2 21 Micro Micro Microbiology 04/20/16 Blood Culture - Preliminary, Resulted NO GROWTH AFTER 2 DAYS 04/20/16 Urine Culture - Final, Complete 04/20/16 Urine Culture Result 1 (DEANN) - Final, Complete Review of Systems Constitutional: yes: no symptom reported Physical Exam General Appearance: no apparent distress Assessment Assessment IMP ANEMIA RESP FAILURE HYPERCARBIA WITH NARCOSIS-IMPROVED MET ACIDOSIS PROB CKD UNKNOWN STAGE DONALD-BETTER WITH CR DOWN TO 2.6 MILD HYPERKALEMIA POOR PO INTAKE POSSIBLE PNEUMONIA UTI PLAN PPN FOR NOW HCO3 ARANESP PRBC AND LASIX TODAY CHECK LACTIC ACID LEVEL GI EVAL AND TX ANTIBIOTICS MALINDA MAURICE MD Apr 23, 2016 11:15
[2016-04-23 11:45] LABS: HEMATOCRIT 27.7 % (36.0-47.0); HEMOGLOBIN 8.6 g/dL (12.0-15.5); RED BLOOD COUNT 3.39 x10^6/uL (3.50-5.40); RED CELL DISTRIBUTION WIDTH 17.5 % (11.5-14.5); WHITE BLOOD COUNT 8.6 x10^3/uL (4.0-11.0)
[2016-04-23 11:59] LABS: MAGNESIUM 1.9 mg/dL (1.8-2.4); PHOSPHORUS 4.1 mg/dL (2.6-4.7)
[2016-04-23] MEDS: AA 2.75%/CALCIUM/LYTES/D5W 2,000 ML IV SCH (11:59)
[2016-04-23] MEDS: CEFTRIAXONE SODIUM 1 GM in IV NORMAL SALINE 50ML 50 ML IV SCH (17:18)
[2016-04-23] MEDS: hydrALAZINE 20 MG/ML VIAL. IVP PRN (18:41)
[2016-04-23 19:10] LABS: OBC FLU VALID
[2016-04-23] MEDS ORDERED: hydrALAZINE 20 MG/ML VIAL. IVP ONE (19:45)
[2016-04-23] MEDS: NICARDIPINE HCL 50 MG in IV NORMAL SALINE 250ML 250 ML IV PRN (20:50)
[2016-04-23] MEDS ORDERED: NITROGLYCERIN PREMIX 250 ML IV PRN (22:45)
[2016-04-24] VITALS (25 sets, daily range): BP systolic 117–191; BP diastolic 42–114
[2016-04-24] MEDS: NICARDIPINE HCL 50 MG in IV NORMAL SALINE 250ML 250 ML IV PRN ×2 (00:15→06:01)
[2016-04-24] MEDS: LORAZEPAM 2 MG/ML VIAL IV PRN ×3 (00:38→15:58)
[2016-04-24] MEDS: FENTANYL PF 100 MCG/2 ML VIAL. IV PRN ×5 (00:39→15:13)
[2016-04-24] MEDS ORDERED: ATROPINE 0.5 MG/5 ML DISP.SYRIN. IV PRN (06:30)
[2016-04-24] MEDS ORDERED: IV NORMAL SALINE 500ML BAG 500 ML IV PRN (06:30)
--- NOTE | 2016-04-24 06:35 | PDOC ---
PULMONARY PROGRESS NOTES Subjective didnt use bipap, agitated all night, follows commands at times. had 5 units of prbc, Vitals Vital Signs Date Time Temp Pulse Resp B/P Pulse Ox O2 Delivery O2 Flow Rate FiO2 04/24/16 06:18 Nasal Cannula 2.0 04/24/16 06:00 98 31 156/114 92 04/24/16 04:00 98.6 98.6 Comments ros as mentioned as above, discussed w rn, other sys otherwise neg General: Alert HEENT: Other (nc, at, perrl shallow oropharynx, nose clear) Lungs: Crackles, Other (coarse rhonchi) Cardiovascular: S1, S2 Abdomen: Soft, Non-tender, Other (no mass) Neuro Exam: Alert Extremities: Other (edema) Skin: Warm Labs Laboratory Tests Test 04/22/16 08:00 04/23/16 05:00 04/23/16 09:40 04/23/16 11:42 O2 Saturation 94% (92-99) 92% (92-99) Arterial Blood pH 7.24 (7.35-7.45) 7.30 (7.35-7.45) Arterial Blood pCO2 at Patient Temp 44mmHg (35-46) 46mmHg (35-46) Arterial Blood pO2 at Patient Temp 79mmHg (65-108) 65mmHg (65-108) Arterial Blood HCO3 18mmol/L (21-28) 23mmol/L (21-28) Arterial Blood Base Excess -9mmol/L (-3-3) -4mmol/L (-3-3) FiO2 30 21 Sodium Level 139mmol/L (136-145) Potassium Level 5.3mmol/L (3.5-5.1) Chloride Level 109mmol/L (98-107) Carbon Dioxide Level 17mmol/L (21-32) Anion Gap 13 (6-14) Blood Urea Nitrogen 42mg/dL (7-20) Creatinine 2.6mg/dL (0.6-1.0) Estimated GFR (Cockcroft-Gault) 18.3 Glucose Level 95mg/dL (70-99) Calcium Level 8.7mg/dL (8.5-10.1) White Blood Count 8.6x10^3/uL (4.0-11.0) Red Blood Count 3.39x10^6/uL (3.50-5.40) Hemoglobin 8.6g/dL (12.0-15.5) Hematocrit 27.7% (36.0-47.0) Mean Corpuscular Volume 82fL (79-100) Mean Corpuscular Hemoglobin 25pg (25-35) Mean Corpuscular Hemoglobin Concent 31g/dL (31-37) Red Cell Distribution Width 17.5% (11.5-14.5) Platelet Count 384x10^3/uL (140-400) Phosphorus Level 4.1mg/dL (2.6-4.7) Magnesium Level 1.9mg/dL (1.8-2.4) Test 04/23/16 18:00 Influenza Type A Antigen Negative (NEGATIVE) Influenza Type B Antigen Negative (NEGATIVE) Laboratory Tests Test 04/23/16 09:40 04/23/16 11:42 04/23/16 18:00 O2 Saturation 92% (92-99) Arterial Blood pH 7.30 (7.35-7.45) Arterial Blood pCO2 at Patient Temp 46mmHg (35-46) Arterial Blood pO2 at Patient Temp 65mmHg (65-108) Arterial Blood HCO3 23mmol/L (21-28) Arterial Blood Base Excess -4mmol/L (-3-3) FiO2 21 White Blood Count 8.6x10^3/uL (4.0-11.0) Red Blood Count 3.39x10^6/uL (3.50-5.40) Hemoglobin 8.6g/dL (12.0-15.5) Hematocrit 27.7% (36.0-47.0) Mean Corpuscular Volume 82fL (79-100) Mean Corpuscular Hemoglobin 25pg (25-35) Mean Corpuscular Hemoglobin Concent 31g/dL (31-37) Red Cell Distribution Width 17.5% (11.5-14.5) Platelet Count 384x10^3/uL (140-400) Phosphorus Level 4.1mg/dL (2.6-4.7) Magnesium Level 1.9mg/dL (1.8-2.4) Influenza Type A Antigen Negative (NEGATIVE) Influenza Type B Antigen Negative (NEGATIVE) Medications Active Scripts Medications Dose Route/Sig Days Date Category Omeprazole 20 Mg Capsule. 04/21/16 Reported Ventolin Hfa Inhaler (Albuterol Sulfate) 18 Gm Hfa.aer.ad 04/21/16 Reported Tramadol Hcl 50 Mg Tablet 04/21/16 Reported Hydrocodone-Apap 10-325 (Hydrocodone Bit/Acetaminophen) 1 Each Tablet HS 04/21/16 Reported Gabapentin 600 Mg Tablet HS 04/21/16 Reported Fluticasone Propionate Nasal Froh[place] (Fluticasone Propionate) 16 Gm Frohna.susp 04/21/16 Reported Alprazolam 0.25 Mg Tablet 04/21/16 Reported Comments cxr reviewed, 1. A new right jugular central venous catheter extends into the superior aspect of the right atrium. 2. Suboptimal exam demonstrating moderate ongoing left basilar atelectasis/infiltrate and possible pleural fluid. 3. Vascular congestion. Impression . IMPRESSION: 1. Acute respiratory failure, multifactorial. 2. Possible left lower lobe pneumonia. 3. Acute bronchitis. 4. Acute blood loss anemia. 5. Acute kidney injury. 6. Hypokalemia. 7. Acidemia. 8. Metabolic possible toxic encephalopathy. 9. abnl cxr 10. agitation 11. obesity, ? joss Plan . PLAN: 1. bipap prn during day, cont at night, monitor resp status closely. 2. empiric antibiotics. fu cxs 3. Followup Nephrology input. 4. GI consult. We will follow their recommendation. 5. Nebulized treatments. 6. Sequential compressive devices for DVT prophylaxis. 7. pepcid, for stress ulcer prophylaxis 8. start precedex monitor closely in icu discussed w rn, pt. TONIA GRIGSBY MD Apr 24, 2016 06:35
[2016-04-24 06:53] LABS: ALBUMIN 2.6 g/dL (3.4-5.0); ALBUMIN/GLOBULIN RATIO 0.7 (1.0-1.7); CALCIUM 9.4 mg/dL (8.5-10.1); CREATININE 2.2 mg/dL (0.6-1.0); GFR 22.2; MAGNESIUM 1.9 mg/dL (1.8-2.4); POTASSIUM 4.8 mmol/L (3.5-5.1); TOTAL BILIRUBIN 0.6 mg/dL (0.2-1.0); TOTAL PROTEIN 6.6 g/dL (6.4-8.2)
[2016-04-24] MEDS ORDERED: HALOPERIDOL LACT 5 MG/ML VIAL. IM ONE (07:00)
--- NOTE | 2016-04-24 08:42 | PDOC ---
PROGRESS NOTES Chief Complaint Chief Complaint Anemia DONALD ASSESSMENT AND PLAN: 1. Anemia: stable x24h. unclear etiology. cannot r/o GIB, but no BM x3d. severe ecchymosis in R UE, smaller in L UE, nosocomial. ferritin c/w iron deficiency. coags ok. had transfusion rxn W/U: BUDDY neg. EPO started anemia of CKD 2. IV access: pulled out IJ. peripheral lines in place 3. Respir distress: improving. back on BiPAP this AM 4. Delirium: suspect metabolic encephalopathy, unclear etiology. 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 required sedation last nite for agitation 5. Constipation: obtain KUB. consider CT, but currently no contrast possible to make it meaningful 6. Metabolic acidosis: slowly improving. 2 amps biacarb gtt ongoing. await rpt ABG 7. CKD: creat continues to improve. monitor. nephrology following 8. Prophylaxis: PPI Vitals Vitals Vital Signs Date Time Temp Pulse Resp B/P Pulse Ox O2 Delivery O2 Flow Rate FiO2 04/24/16 07:00 98.5 72 19 147/57 100 BiPAP/CPAP 50.0 98.5 Physical Exam General: Other (lethargic) Heart: Regular rate Lungs: Other (coarse rhonchi) Abdomen: Normal bowel sounds, Soft Extremities: No clubbing, Other (massive ecchymoses in UE, R>L) Skin: No rashes Labs LABS Laboratory Tests Test 04/23/16 09:40 04/23/16 11:42 04/23/16 18:00 04/24/16 06:00 O2 Saturation 92% (92-99) Arterial Blood pH 7.30 (7.35-7.45) Arterial Blood pCO2 at Patient Temp 46mmHg (35-46) Arterial Blood pO2 at Patient Temp 65mmHg (65-108) Arterial Blood HCO3 23mmol/L (21-28) Arterial Blood Base Excess -4mmol/L (-3-3) FiO2 21 White Blood Count 8.6x10^3/uL (4.0-11.0) Red Blood Count 3.39x10^6/uL (3.50-5.40) Hemoglobin 8.6g/dL (12.0-15.5) Hematocrit 27.7% (36.0-47.0) Mean Corpuscular Volume 82fL (79-100) Mean Corpuscular Hemoglobin 25pg (25-35) Mean Corpuscular Hemoglobin Concent 31g/dL (31-37) Red Cell Distribution Width 17.5% (11.5-14.5) Platelet Count 384x10^3/uL (140-400) Phosphorus Level 4.1mg/dL (2.6-4.7) 4.0mg/dL (2.6-4.7) Magnesium Level 1.9mg/dL (1.8-2.4) 1.9mg/dL (1.8-2.4) Influenza Type A Antigen Negative (NEGATIVE) Influenza Type B Antigen Negative (NEGATIVE) Sodium Level 140mmol/L (136-145) Potassium Level 4.8mmol/L (3.5-5.1) Chloride Level 107mmol/L (98-107) Carbon Dioxide Level 24mmol/L (21-32) Anion Gap 9 (6-14) Blood Urea Nitrogen 36mg/dL (7-20) Creatinine 2.2mg/dL (0.6-1.0) Estimated GFR (Cockcroft-Gault) 22.2 BUN/Creatinine Ratio 16 (6-20) Glucose Level 122mg/dL (70-99) Calcium Level 9.4mg/dL (8.5-10.1) Total Bilirubin 0.6mg/dL (0.2-1.0) Aspartate Amino Transf (AST/SGOT) 25U/L (15-37) Alanine Aminotransferase (ALT/SGPT) 14U/L (14-59) Alkaline Phosphatase 121U/L (46-116) Total Protein 6.6g/dL (6.4-8.2) Albumin 2.6g/dL (3.4-5.0) Albumin/Globulin Ratio 0.7 (1.0-1.7) Test 04/24/16 07:45 Lactic Acid Level 1.0mmol/L (0.4-2.0) Review of Systems Review of Systems on BiPAP, sedated ZULEMA DEGROOT MD Apr 24, 2016 08:41
[2016-04-24] MEDS: FAMOTIDINE 20 MG/2 ML VIAL IVP SCH (09:00)
[2016-04-24] MEDS: IPRATRPIUM/ALBUTEROL 0.5/2.5MG 3 ML NEBU. NEB SCH ×4 (09:05→20:30)
[2016-04-24 09:13] LABS: BASO # 0.1 x10^3/uL (0.0-0.2); BASO % 1 % (0-3); EOS % 3 % (0-3); HEMATOCRIT 27.8 % (36.0-47.0); HEMOGLOBIN 8.4 g/dL (12.0-15.5); LYMPH # 0.5 x10^3/uL (1.0-4.8); LYMPH % 5 % (24-48); MEAN CORPUSCULAR HEMOGLOBIN 25 pg (25-35); MEAN CORPUSCULAR HGB CONC 30 g/dL (31-37); MEAN CORPUSCULAR VOLUME 84 fL (79-100); MONO % 8 % (0-9); NEUT % 83 % (31-73); PLATELET COUNT 392 x10^3/uL (140-400); WHITE BLOOD COUNT 10.2 x10^3/uL (4.0-11.0)
[2016-04-24] MEDS: DOXYCYCLINE HYCLATE 100 MG in IV DEXTROSE 5% 100 ML IV SCH ×2 (09:18→21:02)
--- NOTE | 2016-04-24 10:49 | PDOC ---
Renal-Progress Notes Subjective Notes Notes ON BIPAP History of Present Illness Hx of present illness NO CHANGE Vitals Vitals Vital Signs Date Time Temp Pulse Resp B/P Pulse Ox O2 Delivery O2 Flow Rate FiO2 04/24/16 08:52 BiPAP/CPAP 04/24/16 07:00 98.5 72 19 147/57 100 50.0 98.5 Weight Weight [ ] I.O. Intake and Output Intake and Output 04/24/16 07:00 Intake Total 240 ml Output Total 3050 ml Balance -2810 ml Intake Oral 240 ml Output Urine Total 3050 ml Labs Labs Laboratory Tests Test 04/23/16 11:42 04/23/16 18:00 04/24/16 06:00 04/24/16 07:45 White Blood Count 8.6x10^3/uL (4.0-11.0) Red Blood Count 3.39x10^6/uL (3.50-5.40) Hemoglobin 8.6g/dL (12.0-15.5) Hematocrit 27.7% (36.0-47.0) Mean Corpuscular Volume 82fL (79-100) Mean Corpuscular Hemoglobin 25pg (25-35) Mean Corpuscular Hemoglobin Concent 31g/dL (31-37) Red Cell Distribution Width 17.5% (11.5-14.5) Platelet Count 384x10^3/uL (140-400) Phosphorus Level 4.1mg/dL (2.6-4.7) 4.0mg/dL (2.6-4.7) Magnesium Level 1.9mg/dL (1.8-2.4) 1.9mg/dL (1.8-2.4) Influenza Type A Antigen Negative (NEGATIVE) Influenza Type B Antigen Negative (NEGATIVE) Sodium Level 140mmol/L (136-145) Potassium Level 4.8mmol/L (3.5-5.1) Chloride Level 107mmol/L (98-107) Carbon Dioxide Level 24mmol/L (21-32) Anion Gap 9 (6-14) Blood Urea Nitrogen 36mg/dL (7-20) Creatinine 2.2mg/dL (0.6-1.0) Estimated GFR (Cockcroft-Gault) 22.2 BUN/Creatinine Ratio 16 (6-20) Glucose Level 122mg/dL (70-99) Calcium Level 9.4mg/dL (8.5-10.1) Total Bilirubin 0.6mg/dL (0.2-1.0) Aspartate Amino Transf (AST/SGOT) 25U/L (15-37) Alanine Aminotransferase (ALT/SGPT) 14U/L (14-59) Alkaline Phosphatase 121U/L (46-116) Total Protein 6.6g/dL (6.4-8.2) Albumin 2.6g/dL (3.4-5.0) Albumin/Globulin Ratio 0.7 (1.0-1.7) Lactic Acid Level 1.0mmol/L (0.4-2.0) Test 04/24/16 09:00 White Blood Count 10.2x10^3/uL (4.0-11.0) Red Blood Count 3.30x10^6/uL (3.50-5.40) Hemoglobin 8.4g/dL (12.0-15.5) Hematocrit 27.8% (36.0-47.0) Mean Corpuscular Volume 84fL (79-100) Mean Corpuscular Hemoglobin 25pg (25-35) Mean Corpuscular Hemoglobin Concent 30g/dL (31-37) Red Cell Distribution Width 18.0% (11.5-14.5) Platelet Count 392x10^3/uL (140-400) Neutrophils (%) (Auto) 83% (31-73) Lymphocytes (%) (Auto) 5% (24-48) Monocytes (%) (Auto) 8% (0-9) Eosinophils (%) (Auto) 3% (0-3) Basophils (%) (Auto) 1% (0-3) Neutrophils # (Auto) 8.5x10^3uL (1.8-7.7) Lymphocytes # (Auto) 0.5x10^3/uL (1.0-4.8) Monocytes # (Auto) 0.8x10^3/uL (0.0-1.1) Eosinophils # (Auto) 0.3x10^3/uL (0.0-0.7) Basophils # (Auto) 0.1x10^3/uL (0.0-0.2) Micro Micro Microbiology 04/20/16 Blood Culture - Preliminary, Resulted NO GROWTH AFTER 3 DAYS 04/20/16 Urine Culture - Final, Complete 04/20/16 Urine Culture Result 1 (DEANN) - Final, Complete Review of Systems Constitutional: yes: no symptom reported Physical Exam General Appearance: no apparent distress Assessment Assessment IMP ANEMIA RESP FAILURE HYPERCARBIA WITH NARCOSIS-IMPROVED MET ACIDOSIS PROB CKD UNKNOWN STAGE DONALD-BETTER WITH CR DOWN TO 2.2 MILD HYPERKALEMIA POOR PO INTAKE POSSIBLE PNEUMONIA UTI HYPERVOLEMIA PLAN CENTRAL LINE START TPN STOP IVF'S ARANESP SCHEDULED DIURETICS ANTIBIOTICS MALINDA MAURICE MD Apr 24, 2016 10:49
--- NOTE | 2016-04-24 11:00 | RAD ---
Indication: Abdominal pain. Technique: Supine KUB contains 2 images. Portions of this patient's flanks cannot be included in the [id number]. There is no comparison. Findings: Bowel gas pattern is nonobstructive. There is no definite free air on these supine images. There are mild degenerative changes in the spine. Impression: Nonobstructive bowel gas pattern.
[2016-04-24] MEDS: TPN PER PHARMACY MC PRN (14:42)
--- NOTE | 2016-04-24 15:22 | RAD ---
Indication: PICC line placement. Technique: Supine portable chest radiograph was obtained. Comparison is from a few minutes earlier. Findings: Patient is rotated. Right PICC line is noted with the tip directed down the SVC. Basilar atelectasis and or infiltrate, possibly with small effusions, is noted. Heart is enlarged. Leads overlie the patient. Impression: 1. Right PICC line is in place. 2. Cardiomegaly. 3. Basilar atelectasis and or infiltrate, likely with effusions.
--- NOTE | 2016-04-24 15:24 | RAD ---
Indication: PICC line placement. Technique: Supine portable chest radiograph was obtained. Comparison is from one day earlier. Findings: Right PICC line tip appears to be directed down the SVC. Lung bases are clipped. Heart is enlarged. Basilar atelectasis and or infiltrate, likely with effusions, is bilateral and increased on the right. Leads overlie the patient. Impression: Right PICC line is in place.
[2016-04-24] MEDS: CEFTRIAXONE SODIUM 1 GM in IV NORMAL SALINE 50ML 50 ML IV SCH (15:58)
[2016-04-24] MEDS: FUROSEMIDE 40 MG/4 ML VIAL IVP SCH (15:59)
[2016-04-24] MEDS ORDERED: DEXTROSE 70% IV SCH ×9 (22:00)
[2016-04-24] MEDS ORDERED: AMINO ACIDS IV SCH ×9 (22:00)
[2016-04-24] MEDS ORDERED: [UNRECOGNIZED DRUG - OTHER] IV SCH ×9 (22:00)
[2016-04-24] MEDS ORDERED: TOTAL PARENTERAL NUTRITION IV SCH ×9 (22:00)
[2016-04-25] VITALS (24 sets, daily range): BP systolic 124–184; BP diastolic 52–79
[2016-04-25] MEDS: DEXMEDETOMIDINE 200 MCG in IV NORMAL SALINE 50ML 48 ML IV PRN ×2 (01:30→06:18)
[2016-04-25 06:31] LABS: BASO % 1 % (0-3); EOS % 5 % (0-3); HEMATOCRIT 27.8 % (36.0-47.0); HEMOGLOBIN 8.3 g/dL (12.0-15.5); LYMPH # 0.5 x10^3/uL (1.0-4.8); LYMPH % 7 % (24-48); MEAN CORPUSCULAR HEMOGLOBIN 25 pg (25-35); MEAN CORPUSCULAR HGB CONC 30 g/dL (31-37); MEAN CORPUSCULAR VOLUME 85 fL (79-100); MONO % 9 % (0-9); NEUT % 78 % (31-73); PLATELET COUNT 332 x10^3/uL (140-400); RED BLOOD COUNT 3.27 x10^6/uL (3.50-5.40); RED CELL DISTRIBUTION WIDTH 17.9 % (11.5-14.5); WHITE BLOOD COUNT 7.9 x10^3/uL (4.0-11.0)
[2016-04-25 07:08] LABS: ALBUMIN 2.3 g/dL (3.4-5.0); ALBUMIN/GLOBULIN RATIO 0.6 (1.0-1.7); CALCIUM 9.3 mg/dL (8.5-10.1); CREATININE 2.1 mg/dL (0.6-1.0); GFR 23.4; MAGNESIUM 1.6 mg/dL (1.8-2.4); PHOSPHORUS 4.4 mg/dL (2.6-4.7); POTASSIUM 4.8 mmol/L (3.5-5.1); TOTAL BILIRUBIN 0.5 mg/dL (0.2-1.0); TOTAL PROTEIN 5.9 g/dL (6.4-8.2)
[2016-04-25] MEDS: FUROSEMIDE 40 MG/4 ML VIAL IVP SCH ×2 (07:39→12:46)
[2016-04-25] MEDS: FAMOTIDINE 20 MG/2 ML VIAL IVP SCH (07:39)
[2016-04-25] MEDS: DOXYCYCLINE HYCLATE 100 MG in IV DEXTROSE 5% 100 ML IV SCH ×2 (07:39→21:23)
--- NOTE | 2016-04-25 08:06 | RAD ---
Portable chest, 04/25/2016: History: Respiratory failure Comparison is made to yesterday's study. A right PICC remains in place extending into the superior vena cava. The heart is enlarged. The pulmonary vascularity is at the upper limits of normal. There is a moderate ongoing left basilar opacity compatible with atelectasis and consolidation as well as possible pleural fluid. There is mild streaky right basilar infiltrate. Similar findings were present on yesterday's study. No new abnormality is detected. IMPRESSION: No significant change since yesterday's exam.
--- NOTE | 2016-04-25 08:28 | PDOC ---
PROGRESS NOTES Chief Complaint Chief Complaint 1. Acute respiratory failure, multifactorial. 2. Possible left lower lobe pneumonia. 3. Acute bronchitis. 4. Acute blood loss anemia. 5. Acute kidney injury. 6. Hypokalemia. 7. Acidemia. 8. Metabolic possible toxic encephalopathy. 9. abnl cxr 10. agitation 11. obesity, ? joss History of Present Illness History of Present Illness On bIPAP VS good so far MIttens on Most coherent she has been thus far per Staff NUmerous BTs.. 5 prbc? in her stay here Per gI:Chronic blood loss anemia- with hx lymphoma, source to be determined once pulmonary status improves to allow sedation and endoscopy, will reassess monday. CRea 2 plus, better - goes to [facility],.. TPN running \ HAs R pICC CXR personally reviewed: Impression: 1. Right PICC line is in place. 2. Cardiomegaly. 3. Basilar atelectasis and or infiltrate, likely with effusions. PLAN: CPm LAbs in AM Get records from [facility] Start pT/OT when able Vitals Vitals Vital Signs Date Time Temp Pulse Resp B/P Pulse Ox O2 Delivery O2 Flow Rate FiO2 04/25/16 07:00 97.9 62 18 145/72 100 BiPAP/CPAP 97.9 04/24/16 17:31 5.0 Physical Exam General: Other (lethargic) Heart: Regular rate Lungs: Crackles, Other (coarse rhonchi) Abdomen: Normal bowel sounds, Soft Extremities: No clubbing, Other (massive ecchymoses in UE, R>L) Skin: No rashes Labs LABS Laboratory Tests Test 04/24/16 09:00 04/25/16 06:20 White Blood Count 10.2x10^3/uL (4.0-11.0) 7.9x10^3/uL (4.0-11.0) Red Blood Count 3.30x10^6/uL (3.50-5.40) 3.27x10^6/uL (3.50-5.40) Hemoglobin 8.4g/dL (12.0-15.5) 8.3g/dL (12.0-15.5) Hematocrit 27.8% (36.0-47.0) 27.8% (36.0-47.0) Mean Corpuscular Volume 84fL (79-100) 85fL (79-100) Mean Corpuscular Hemoglobin 25pg (25-35) 25pg (25-35) Mean Corpuscular Hemoglobin Concent 30g/dL (31-37) 30g/dL (31-37) Red Cell Distribution Width 18.0% (11.5-14.5) 17.9% (11.5-14.5) Platelet Count 392x10^3/uL (140-400) 332x10^3/uL (140-400) Neutrophils (%) (Auto) 83% (31-73) 78% (31-73) Lymphocytes (%) (Auto) 5% (24-48) 7% (24-48) Monocytes (%) (Auto) 8% (0-9) 9% (0-9) Eosinophils (%) (Auto) 3% (0-3) 5% (0-3) Basophils (%) (Auto) 1% (0-3) 1% (0-3) Neutrophils # (Auto) 8.5x10^3uL (1.8-7.7) 6.2x10^3uL (1.8-7.7) Lymphocytes # (Auto) 0.5x10^3/uL (1.0-4.8) 0.5x10^3/uL (1.0-4.8) Monocytes # (Auto) 0.8x10^3/uL (0.0-1.1) 0.7x10^3/uL (0.0-1.1) Eosinophils # (Auto) 0.3x10^3/uL (0.0-0.7) 0.4x10^3/uL (0.0-0.7) Basophils # (Auto) 0.1x10^3/uL (0.0-0.2) 0.0x10^3/uL (0.0-0.2) Sodium Level 145mmol/L (136-145) Potassium Level 4.8mmol/L (3.5-5.1) Chloride Level 108mmol/L (98-107) Carbon Dioxide Level 29mmol/L (21-32) Anion Gap 8 (6-14) Blood Urea Nitrogen 35mg/dL (7-20) Creatinine 2.1mg/dL (0.6-1.0) Estimated GFR (Cockcroft-Gault) 23.4 BUN/Creatinine Ratio 17 (6-20) Glucose Level 133mg/dL (70-99) Calcium Level 9.3mg/dL (8.5-10.1) Phosphorus Level 4.4mg/dL (2.6-4.7) Magnesium Level 1.6mg/dL (1.8-2.4) Total Bilirubin 0.5mg/dL (0.2-1.0) Aspartate Amino Transf (AST/SGOT) 22U/L (15-37) Alanine Aminotransferase (ALT/SGPT) 18U/L (14-59) Alkaline Phosphatase 100U/L (46-116) Total Protein 5.9g/dL (6.4-8.2) Albumin 2.3g/dL (3.4-5.0) Albumin/Globulin Ratio 0.6 (1.0-1.7) Review of Systems Review of Systems on bipap, limited, somewhat confused Assessment and Plan Assessmemt and Plan Problems Medical Problems: (1) Symptomatic anemia Status: Acute Problems: Comment Review of Relevant I have reviewed the following items odilia (where applicable) has been applied. Labs Laboratory Tests Test 04/23/16 09:40 04/23/16 11:42 04/23/16 18:00 04/24/16 06:00 O2 Saturation 92% (92-99) Arterial Blood pH 7.30 (7.35-7.45) Arterial Blood pCO2 at Patient Temp 46mmHg (35-46) Arterial Blood pO2 at Patient Temp 65mmHg (65-108) Arterial Blood HCO3 23mmol/L (21-28) Arterial Blood Base Excess -4mmol/L (-3-3) FiO2 21 White Blood Count 8.6x10^3/uL (4.0-11.0) Red Blood Count 3.39x10^6/uL (3.50-5.40) Hemoglobin 8.6g/dL (12.0-15.5) Hematocrit 27.7% (36.0-47.0) Mean Corpuscular Volume 82fL (79-100) Mean Corpuscular Hemoglobin 25pg (25-35) Mean Corpuscular Hemoglobin Concent 31g/dL (31-37) Red Cell Distribution Width 17.5% (11.5-14.5) Platelet Count 384x10^3/uL (140-400) Phosphorus Level 4.1mg/dL (2.6-4.7) 4.0mg/dL (2.6-4.7) Magnesium Level 1.9mg/dL (1.8-2.4) 1.9mg/dL (1.8-2.4) Influenza Type A Antigen Negative (NEGATIVE) Influenza Type B Antigen Negative (NEGATIVE) Sodium Level 140mmol/L (136-145) Potassium Level 4.8mmol/L (3.5-5.1) Chloride Level 107mmol/L (98-107) Carbon Dioxide Level 24mmol/L (21-32) Anion Gap 9 (6-14) Blood Urea Nitrogen 36mg/dL (7-20) Creatinine 2.2mg/dL (0.6-1.0) Estimated GFR (Cockcroft-Gault) 22.2 BUN/Creatinine Ratio 16 (6-20) Glucose Level 122mg/dL (70-99) Calcium Level 9.4mg/dL (8.5-10.1) Total Bilirubin 0.6mg/dL (0.2-1.0) Aspartate Amino Transf (AST/SGOT) 25U/L (15-37) Alanine Aminotransferase (ALT/SGPT) 14U/L (14-59) Alkaline Phosphatase 121U/L (46-116) Total Protein 6.6g/dL (6.4-8.2) Albumin 2.6g/dL (3.4-5.0) Albumin/Globulin Ratio 0.7 (1.0-1.7) Test 04/24/16 07:45 04/24/16 09:00 04/25/16 06:20 Lactic Acid Level 1.0mmol/L (0.4-2.0) White Blood Count 10.2x10^3/uL (4.0-11.0) 7.9x10^3/uL (4.0-11.0) Red Blood Count 3.30x10^6/uL (3.50-5.40) 3.27x10^6/uL (3.50-5.40) Hemoglobin 8.4g/dL (12.0-15.5) 8.3g/dL (12.0-15.5) Hematocrit 27.8% (36.0-47.0) 27.8% (36.0-47.0) Mean Corpuscular Volume 84fL (79-100) 85fL (79-100) Mean Corpuscular Hemoglobin 25pg (25-35) 25pg (25-35) Mean Corpuscular Hemoglobin Concent 30g/dL (31-37) 30g/dL (31-37) Red Cell Distribution Width 18.0% (11.5-14.5) 17.9% (11.5-14.5) Platelet Count 392x10^3/uL (140-400) 332x10^3/uL (140-400) Neutrophils (%) (Auto) 83% (31-73) 78% (31-73) Lymphocytes (%) (Auto) 5% (24-48) 7% (24-48) Monocytes (%) (Auto) 8% (0-9) 9% (0-9) Eosinophils (%) (Auto) 3% (0-3) 5% (0-3) Basophils (%) (Auto) 1% (0-3) 1% (0-3) Neutrophils # (Auto) 8.5x10^3uL (1.8-7.7) 6.2x10^3uL (1.8-7.7) Lymphocytes # (Auto) 0.5x10^3/uL (1.0-4.8) 0.5x10^3/uL (1.0-4.8) Monocytes # (Auto) 0.8x10^3/uL (0.0-1.1) 0.7x10^3/uL (0.0-1.1) Eosinophils # (Auto) 0.3x10^3/uL (0.0-0.7) 0.4x10^3/uL (0.0-0.7) Basophils # (Auto) 0.1x10^3/uL (0.0-0.2) 0.0x10^3/uL (0.0-0.2) Sodium Level 145mmol/L (136-145) Potassium Level 4.8mmol/L (3.5-5.1) Chloride Level 108mmol/L (98-107) Carbon Dioxide Level 29mmol/L (21-32) Anion Gap 8 (6-14) Blood Urea Nitrogen 35mg/dL (7-20) Creatinine 2.1mg/dL (0.6-1.0) Estimated GFR (Cockcroft-Gault) 23.4 BUN/Creatinine Ratio 17 (6-20) Glucose Level 133mg/dL (70-99) Calcium Level 9.3mg/dL (8.5-10.1) Phosphorus Level 4.4mg/dL (2.6-4.7) Magnesium Level 1.6mg/dL (1.8-2.4) Total Bilirubin 0.5mg/dL (0.2-1.0) Aspartate Amino Transf (AST/SGOT) 22U/L (15-37) Alanine Aminotransferase (ALT/SGPT) 18U/L (14-59) Alkaline Phosphatase 100U/L (46-116) Total Protein 5.9g/dL (6.4-8.2) Albumin 2.3g/dL (3.4-5.0) Albumin/Globulin Ratio 0.6 (1.0-1.7) Laboratory Tests Test 04/24/16 09:00 04/25/16 06:20 White Blood Count 10.2x10^3/uL (4.0-11.0) 7.9x10^3/uL (4.0-11.0) Red Blood Count 3.30x10^6/uL (3.50-5.40) 3.27x10^6/uL (3.50-5.40) Hemoglobin 8.4g/dL (12.0-15.5) 8.3g/dL (12.0-15.5) Hematocrit 27.8% (36.0-47.0) 27.8% (36.0-47.0) Mean Corpuscular Volume 84fL (79-100) 85fL (79-100) Mean Corpuscular Hemoglobin 25pg (25-35) 25pg (25-35) Mean Corpuscular Hemoglobin Concent 30g/dL (31-37) 30g/dL (31-37) Red Cell Distribution Width 18.0% (11.5-14.5) 17.9% (11.5-14.5) Platelet Count 392x10^3/uL (140-400) 332x10^3/uL (140-400) Neutrophils (%) (Auto) 83% (31-73) 78% (31-73) Lymphocytes (%) (Auto) 5% (24-48) 7% (24-48) Monocytes (%) (Auto) 8% (0-9) 9% (0-9) Eosinophils (%) (Auto) 3% (0-3) 5% (0-3) Basophils (%) (Auto) 1% (0-3) 1% (0-3) Neutrophils # (Auto) 8.5x10^3uL (1.8-7.7) 6.2x10^3uL (1.8-7.7) Lymphocytes # (Auto) 0.5x10^3/uL (1.0-4.8) 0.5x10^3/uL (1.0-4.8) Monocytes # (Auto) 0.8x10^3/uL (0.0-1.1) 0.7x10^3/uL (0.0-1.1) Eosinophils # (Auto) 0.3x10^3/uL (0.0-0.7) 0.4x10^3/uL (0.0-0.7) Basophils # (Auto) 0.1x10^3/uL (0.0-0.2) 0.0x10^3/uL (0.0-0.2) Sodium Level 145mmol/L (136-145) Potassium Level 4.8mmol/L (3.5-5.1) Chloride Level 108mmol/L (98-107) Carbon Dioxide Level 29mmol/L (21-32) Anion Gap 8 (6-14) Blood Urea Nitrogen 35mg/dL (7-20) Creatinine 2.1mg/dL (0.6-1.0) Estimated GFR (Cockcroft-Gault) 23.4 BUN/Creatinine Ratio 17 (6-20) Glucose Level 133mg/dL (70-99) Calcium Level 9.3mg/dL (8.5-10.1) Phosphorus Level 4.4mg/dL (2.6-4.7) Magnesium Level 1.6mg/dL (1.8-2.4) Total Bilirubin 0.5mg/dL (0.2-1.0) Aspartate Amino Transf (AST/SGOT) 22U/L (15-37) Alanine Aminotransferase (ALT/SGPT) 18U/L (14-59) Alkaline Phosphatase 100U/L (46-116) Total Protein 5.9g/dL (6.4-8.2) Albumin 2.3g/dL (3.4-5.0) Albumin/Globulin Ratio 0.6 (1.0-1.7) Microbiology 04/20/16 Blood Culture - Preliminary, Resulted NO GROWTH AFTER 4 DAYS 04/20/16 Urine Culture - Final, Complete 04/20/16 Urine Culture Result 1 (DEANN) - Final, Complete Medications Current Medications Ondansetron HCl 4 mg 4 mg PRN Q8HRS PRN IV NAUSEA/VOMITING Last administered on 04/21/16 00:27; Start 04/20/16 at 22:00; Stop 04/21/16 at 21:59; Status DC Ceftriaxone Sodium (Rocephin 1gm Ivpb For Omni) 50 ml @ 100 mls/hr 1X ONCE IV Last administered on 04/20/16 22:16; Start 04/20/16 at 22:30; Stop 04/20/16 at 22:59; Status DC Albuterol/ Ipratropium (Duoneb) 3 ml RTQID NEB Last administered on 04/24/16 20:30; Start 04/21/16 at 08:00 Albuterol Sulfate 2.5 mg 2.5 mg PRN QID PRN NEB SHORTNESS OF BREATH Last administered on 04/24/16 17:20; Start 04/21/16 at 07:00 Sodium Chloride (Iv Sodium Chloride 0.9% 1000ml Bag) 1,000 ml @ 75 mls/hr [id number] IV Last administered on 04/21/16 20:32; Start 04/21/16 at 11:30; Stop 04/22/16 at 10:49; Status DC Darbepoetin Jr 60 mcg 60 mcg [id number] SQ Last administered on 04/21/16 20:38 ; Start 04/21/16 at 21:00 Ceftriaxone Sodium 1 gm/ Sodium Chloride 50 ml @ 100 mls/hr Q24H IV Last administered on 04/21/16 20:36; Start 04/21/16 at 21:00; Stop 04/22/16 at 13:47 ; Status DC Doxycycline Hyclate/Dextrose 100 ml @ 50 mls/hr Q12HR IV Last administered on 04/25/16 07:39; Start 04/21/16 at 13:00 Alprazolam (Xanax) 0.5 mg PRN Q8HRS PRN PO ANXIETY / AGITATION Last administered on 04/23/16 18:41; Start 04/21/16 at 22:00 Lorazepam (Ativan) 1 mg PRN Q4HRS PRN IV ANXIETY / AGITATION Last administered on 04/24/16 15:58; Start 04/21/16 at 22:00 Famotidine 20 mg 20 mg DAILY IVP Last administered on 04/25/16 07:39; Start at 09:00 Amino Acids/ Electrolytes 2,000 ml @ 80 mls/hr Q24H IV Last administered on 11:59; Start 04/22/16 at 11:00; Stop 04/23/16 at 22:47; Status DC Sodium Bicarbonate 50 meq/Sodium Chloride 1,050 ml @ 125 mls/hr Q8H24M IV Last administered on 04/23/16 07:45; Start 04/22/16 at 11:15; Stop 04/23/16 at 11:20; Status DC Ceftriaxone Sodium/Sodium Chloride (Rocephin/Iv Sodium Chloride 0.9% 50ml) 50 ml @ 100 mls/hr Q24H IV Last administered on 04/24/16 15:58; Start 04/22/16 at 15:00 Fentanyl Citrate 25 mcg 25 mcg Q4HRS PRN IV PAIN Last administered on 17:20; Start 04/23/16 at 07:45; Stop 04/23/16 at 17:53; Status DC Sodium Bicarbonate 100 meq/Dextrose 1,100 ml @ 125 mls/hr 1X ONCE IV Last administered on 04/23/16 10:00; Start 04/23/16 at 10:00; Stop 04/23/16 at 10:37 ; Status DC Sodium Bicarbonate/ Dextrose 1,100 ml @ 75 mls/hr [id number] IV Last administered on 04/23/16 20:04; Start 04/23/16 at 10:37; Stop 04/24/16 at 10:49 ; Status DC Fentanyl Citrate (Fentanyl 2ml Vial) 25 mcg PRN Q1HR PRN IV PAIN Last administered on 04/24/16 15:13; Start 04/23/16 at 18:00 Hydralazine HCl (Apresoline) 10 mg PRN Q4HRS PRN IVP ELEVATED BP, SEE COMMENTS Last administered on 04/23/16 18:41; Start 04/23/16 at 18:45 Hydralazine HCl 10 mg 10 mg 1X ONCE IVP Last administered on 04/23/16 19:37; Start 04/23/16 at 19:45; Stop 04/23/16 at 19:46; Status DC Nicardipine HCl 50 mg/Sodium Chloride 270 ml @ 0 mls/hr CONT PRN IV SEE I/O RECORD Last administered on 04/24/16 06:01; Start 04/23/16 at 20:30 Nitroglycerin/ Dextrose (Nitroglycerin Drip) 250 ml @ 0 mls/hr CONT PRN IV SEE I/O RECORD; Start 04/23/16 at 22:45 Haloperidol Lactate 1 mg 1 mg 1X ONCE IM ; Start 04/24/16 at 07:00; Stop at 07:01; Status Cancel Dexmedetomidine HCl 200 mcg/ Sodium Chloride 50 ml @ 0 mls/hr CONT PRN IV PER PROTOCOL Last administered on 04/25/16 01:30; Start 04/24/16 at 06:30 Sodium Chloride (Iv Sodium Chloride 0.9% 500ml Bag) 500 ml @ 500 mls/hr 1X PRN PRN IV SEE COMMENTS; Start 04/24/16 at 06:30 Atropine Sulfate 0.5 mg PRN Q5MIN PRN IV SEE COMMENTS; Start 04/24/16 at 06:30 Furosemide (Lasix) 40 mg [id number] IVP Last administered on 04/25/16 07:39; Start 04/24/16 at 14:00 Info 1 each 1 each PRN DAILY PRN MC SEE COMMENTS Last administered on 14:42; Start 04/24/16 at 11:00 Sodium Chloride/ Potassium Chloride/ Potassium Phosphate/ Magnesium Sulfate/ Multivitamins/ Chromium/Copper/ Manganese/Seleni/ Zn/Total Parenteral Nutrition/ Amino Acids/Dextrose/ Fat Emulsion Intravenous (Sodium Chloride/ Potassium Phosphate/ Infuvite Gallo... 1,512 ml @ 63 mls/hr TPN CONT IV Last administered on 04/24/16t 21:14; Start 04/24/16 at 22:00; Stop 04/25/16 at 21:59 Active Scripts Active Reported Omeprazole 20 Mg Capsule.dr Mario Hfa Inhaler (Albuterol Sulfate) 18 Gm Hfa.aer.ad Tramadol Hcl 50 Mg Tablet Hydrocodone-Apap 10-325 (Hydrocodone Bit/Acetaminophen) 1 Each Tablet HS Gabapentin 600 Mg Tablet HS Fluticasone Propionate Nasal [place] (Fluticasone Propionate) 16 Gm [place].susp Alprazolam 0.25 Mg Tablet Vitals/I & O Vital Sign - Last 24 Hours 04/24/16 04/24/16 04/24/16 04/24/16 08:52 09:00 10:00 11:00 Pulse 78 66 72 Resp B/P 131/50 128/59 117/42 Pulse Ox 100 99 98 O2 Delivery BiPAP/CPAP BiPAP/CPAP BiPAP/CPAP BiPAP/CPAP O2 Flow Rate 50.0 50.0 50.0 04/24/16 04/24/16 04/24/16 04/24/16 11:45 12:00 12:01 12:08 Temp 98.6 98.6 Pulse 83 Resp 27 B/P 118/46 Pulse Ox 99 94 O2 Delivery BiPAP/CPAP Nasal Cannula Nasal Cannula Nasal Cannula O2 Flow Rate 2.0 2.0 04/24/16 04/24/16 04/24/16 04/24/16 12:45 12:55 13:02 14:00 Pulse 83 72 Resp 24 21 B/P 160/56 135/54 Pulse Ox 93 100 100 99 O2 Delivery Nasal Cannula BiPAP/CPAP BiPAP/CPAP BiPAP/CPAP 04/24/16 04/24/16 04/24/16 04/24/16 15:00 15:13 15:56 15:59 Pulse 72 Resp 24 B/P 132/52 Pulse Ox 100 99 100 100 O2 Delivery BiPAP/CPAP BiPAP/CPAP BiPAP/CPAP BiPAP/CPAP O2 Flow Rate 50.0 50.0 04/24/16 04/24/16 04/24/1617 16:00 16:00 17:00 17:31 Temp 98.5 98.5 Pulse 74 80 Resp 23 24 B/P 125/52 132/52 Pulse Ox 100 92 91 O2 Delivery BiPAP/CPAP Nasal Cannula Nasal Cannula Nasal Cannula O2 Flow Rate 2.0 5.0 5.0 04/24/16 04/24/16 04/24/16 04/24/16 18:00 19:00 20:00 20:00 Temp 98.7 98.7 Pulse 80 72 71 Resp 22 28 B/P 149/66 148/70 135/54 Pulse Ox 99 100 97 O2 Delivery BiPAP/CPAP BiPAP/CPAP BiPAP/CPAP Bi-pap 04/24/16 04/24/16 04/24/16 04/24/16 20:26 21:00 22:00 23:00 Pulse 69 68 68 Resp 24 B/P 148/59 140/59 147/58 Pulse Ox 100 100 97 99 O2 Delivery BiPAP/CPAP BiPAP/CPAP BiPAP/CPAP BiPAP/CPAP 04/24/16 04/25/16 04/25/16 04/25/16 23:13 00:00 00:00 01:00 Temp 97.7 97.7 Pulse 68 64 Resp 22 20 B/P 147/62 134/57 Pulse Ox 100 100 100 O2 Delivery BiPAP/CPAP BiPAP/CPAP Bi-pap BiPAP/CPAP 04/25/16 04/25/16 04/25/16 04/25/16 01:35 02:00 03:00 03:47 Pulse 63 61 Resp 25 B/P 135/63 135/63 Pulse Ox 100 100 100 99 O2 Delivery BiPAP/CPAP BiPAP/CPAP BiPAP/CPAP BiPAP/CPAP 04/25/16 04/25/16 04/25/16 04/25/16 04:00 04:00 05:00 06:00 Temp 97.9 97.9 Pulse 66 63 63 Resp 21 23 26 B/P 135/58 124/64 139/63 Pulse Ox 99 98 99 O2 Delivery Bi-pap BiPAP/CPAP BiPAP/CPAP BiPAP/CPAP 04/25/16 07:00 Temp 97.9 97.9 Pulse 62 Resp 18 B/P 145/72 Pulse Ox 100 O2 Delivery BiPAP/CPAP Intake and Output 04/24/16 04/24/16 04/25/16 15:00 23:00 07:00 Intake Total 100 ml 1897 ml 143 ml Output Total 500 ml 1750 ml 1800 ml Balance -400 ml 147 ml -1657 ml ROBBIE RUBIO MD Apr 25, 2016 08:28
[2016-04-25] MEDS ORDERED: MAGNESIUM SULFATE 2GM 50 ML IV PRN (08:30)
--- NOTE | 2016-04-25 08:37 | PDOC ---
SUBJECTIVE ROS DONALD vs CKD (no baseline avail) More awake today, Unable to give ROS while on BiPAP OBJECTIVE Vital Signs Vital Signs Date Time Temp Pulse Resp B/P Pulse Ox O2 Delivery O2 Flow Rate FiO2 04/25/16 07:00 97.9 62 18 145/72 100 BiPAP/CPAP 97.9 04/24/16 17:31 5.0 I & 0 Intake and Output 04/25/16 07:00 Intake Total 2140 ml Output Total 4050 ml Balance -1910 ml Intake Oral 0 ml IV Total 2140 ml Output Urine Total 4050 ml PHYSICAL EXAM Physical Exam GEN: Awake, Oriented x 1, In min resp distress EYES: Vision Unchanged, Conjunctiva Normal EN: No EN Drainage, Mucous Membranes dryish NECK: no JVD, no JVP, Supple, no Thyromegaly; short thick neck CVS: S1S2, no Murmur, No Gallop, No Rub,+2 Edema RESP: no Rales, no Rhonchi,no Acc. Muscle Use GI: BS + ve, NO Bruit, Non Tender, Non Distended; obese : no CVA tenderness, no Suprapubic Tenderness DIAGNOSIS/ASSESSMENT Assessment & Plan PROB CKD UNKNOWN STAGE - will get records from where she gets her care [facility] today - no baseline avail; Current fluid and E-lyte status does not necessitate emergent need for dialysis. Will re-evaluate for dialysis in the am Proteinuria - Quantitate with 24-hr Urine; ? due to UTI Edema - ECHO, ? 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 HYPERVOLEMIA - gentle diuresis to maintain -ve fluid balance. ANEMIA; defer to Dr Oleary. ? related to BMBx Problems: COMMENT/RELEVANT DATA Meds Current Medications Medications (Trade) Dose Ordered Sig/Carlo Start Time Stop Time Status Last Admin Dose Admin Albuterol Sulfate 2.5 mg 2.5 mg PRN QID PRN 04/21/16 07:00 04/24/16 17:20 2.5 MG Albuterol/ Ipratropium (Duoneb) 3 ml RTQID 04/21/16 08:00 04/24/16 20:30 3 ML Alprazolam (Xanax) 0.5 mg PRN Q8HRS PRN 04/21/16 22:00 04/23/16 18:41 0.5 MG Amino Acids/ Electrolytes 2,000 ml @ 80 mls/hr Q24H 04/22/16 11:00 04/23/16 22:47 DC 04/23/16 11:59 80 MLS/HR Atropine Sulfate 0.5 mg PRN Q5MIN PRN 04/24/16 06:30 Ceftriaxone Sodium 1 gm/ Sodium Chloride 50 ml @ 100 mls/hr Q24H 04/21/16 21:00 04/22/16 13:47 DC 04/21/16 20:36 100 MLS/HR Ceftriaxone Sodium/Sodium Chloride (Rocephin/Iv Sodium Chloride 0.9% 50ml) 50 ml @ 100 mls/hr Q24H 04/22/16 15:00 04/24/16 15:58 100 MLS/HR Ceftriaxone Sodium (Rocephin 1gm Ivpb For Omni) 50 ml @ 100 mls/hr 1X ONCE 04/20/16 22:30 04/20/16 22:59 DC 04/20/16 22:16 100 MLS/HR Darbepoetin Jr 60 mcg 60 mcg WEEKLYHS 04/21/16 21:00 04/21/16 20:38 60 MCG Dexmedetomidine HCl 200 mcg/ Sodium Chloride 50 ml @ 0 mls/hr CONT PRN 04/24/16 06:30 04/25/16 01:30 7 MLS/HR Doxycycline Hyclate/Dextrose 100 ml @ 50 mls/hr Q12HR 04/21/16 13:00 04/25/16 07:39 50 MLS/HR Famotidine 20 mg 20 mg DAILY 04/22/16 09:00 04/25/16 07:39 20 MG Fentanyl Citrate (Fentanyl 2ml Vial) 25 mcg PRN Q1HR PRN 04/23/16 18:00 04/24/16 15:13 25 MCG Fentanyl Citrate 25 mcg 25 mcg Q4HRS PRN 04/23/16 07:45 04/23/16 17:53 DC 04/23/16 17:20 25 MCG Furosemide (Lasix) 40 mg [id number] 04/24/16 14:00 04/25/16 07:39 40 MG Haloperidol Lactate 1 mg 1 mg 1X ONCE 04/24/16 07:00 04/24/16 07:01 Cancel Hydralazine HCl (Apresoline) 10 mg PRN Q4HRS PRN 04/23/16 18:45 04/23/16 18:41 10 MG Hydralazine HCl 10 mg 10 mg 1X ONCE 04/23/16 19:45 04/23/16 19:46 DC 04/23/16 19:37 10 MG Info 1 each 1 each PRN DAILY PRN 04/24/16 11:00 04/24/16 14:42 1 EACH Lorazepam (Ativan) 1 mg PRN Q4HRS PRN 04/21/16 22:00 04/24/16 15:58 1 MG Nicardipine HCl 50 mg/Sodium Chloride 270 ml @ 0 mls/hr CONT PRN 04/23/16 20:30 04/24/16 06:01 54 MLS/HR Nitroglycerin/ Dextrose (Nitroglycerin Drip) 250 ml @ 0 mls/hr CONT PRN 04/23/16 22:45 Ondansetron HCl 4 mg 4 mg PRN Q8HRS PRN 04/20/16 22:00 04/21/16 21:59 DC 04/21/16 00:27 4 MG Sodium Bicarbonate 100 meq/Dextrose 1,100 ml @ 125 mls/hr 1X ONCE 04/23/16 10:00 04/23/16 10:37 DC 04/23/16 10:00 125 MLS/HR Sodium Bicarbonate 50 meq/Sodium Chloride 1,050 ml @ 125 mls/hr [id number] 04/22/16 11:15 04/23/16 11:20 DC 04/23/16 07:45 125 MLS/HR Sodium Bicarbonate/ Dextrose 1,100 ml @ 75 mls/hr [id number] 04/23/16 10:37 04/24/16 10:49 DC 04/23/16 20:04 75 MLS/HR Sodium Chloride (Iv Sodium Chloride 0.9% 500ml Bag) 500 ml @ 500 mls/hr 1X PRN PRN 04/24/16 06:30 Sodium Chloride (Iv Sodium Chloride 0.9% 1000ml Bag) 1,000 ml @ 75 mls/hr [id number] 04/21/16 11:30 04/22/16 10:49 DC 04/21/16 20:32 75 MLS/HR Sodium Chloride/ Potassium Chloride/ Potassium Phosphate/ Magnesium Sulfate/ Multivitamins/ Chromium/Copper/ Manganese/Seleni/ Zn/Total Parenteral Nutrition/Amino Acids/Dextrose/ Fat Emulsion Intravenous (Sodium Chloride/ Potassium Phosphate/ Infuvite Gallo... 1,512 ml @ 63 mls/hr TPN CONT 04/24/16 22:00 04/25/16 21:59 04/24/16 21:14 63 MLS/HR Lab Laboratory Tests Test 04/24/16 09:00 04/25/16 06:20 White Blood Count 10.2x10^3/uL (4.0-11.0) 7.9x10^3/uL (4.0-11.0) Red Blood Count 3.30x10^6/uL (3.50-5.40) 3.27x10^6/uL (3.50-5.40) Hemoglobin 8.4g/dL (12.0-15.5) 8.3g/dL (12.0-15.5) Hematocrit 27.8% (36.0-47.0) 27.8% (36.0-47.0) Mean Corpuscular Volume 84fL (79-100) 85fL (79-100) Mean Corpuscular Hemoglobin 25pg (25-35) 25pg (25-35) Mean Corpuscular Hemoglobin Concent 30g/dL (31-37) 30g/dL (31-37) Red Cell Distribution Width 18.0% (11.5-14.5) 17.9% (11.5-14.5) Platelet Count 392x10^3/uL (140-400) 332x10^3/uL (140-400) Neutrophils (%) (Auto) 83% (31-73) 78% (31-73) Lymphocytes (%) (Auto) 5% (24-48) 7% (24-48) Monocytes (%) (Auto) 8% (0-9) 9% (0-9) Eosinophils (%) (Auto) 3% (0-3) 5% (0-3) Basophils (%) (Auto) 1% (0-3) 1% (0-3) Neutrophils # (Auto) 8.5x10^3uL (1.8-7.7) 6.2x10^3uL (1.8-7.7) Lymphocytes # (Auto) 0.5x10^3/uL (1.0-4.8) 0.5x10^3/uL (1.0-4.8) Monocytes # (Auto) 0.8x10^3/uL (0.0-1.1) 0.7x10^3/uL (0.0-1.1) Eosinophils # (Auto) 0.3x10^3/uL (0.0-0.7) 0.4x10^3/uL (0.0-0.7) Basophils # (Auto) 0.1x10^3/uL (0.0-0.2) 0.0x10^3/uL (0.0-0.2) Sodium Level 145mmol/L (136-145) Potassium Level 4.8mmol/L (3.5-5.1) Chloride Level 108mmol/L (98-107) Carbon Dioxide Level 29mmol/L (21-32) Anion Gap 8 (6-14) Blood Urea Nitrogen 35mg/dL (7-20) Creatinine 2.1mg/dL (0.6-1.0) Estimated GFR (Cockcroft-Gault) 23.4 BUN/Creatinine Ratio 17 (6-20) Glucose Level 133mg/dL (70-99) Calcium Level 9.3mg/dL (8.5-10.1) Phosphorus Level 4.4mg/dL (2.6-4.7) Magnesium Level 1.6mg/dL (1.8-2.4) Total Bilirubin 0.5mg/dL (0.2-1.0) Aspartate Amino Transf (AST/SGOT) 22U/L (15-37) Alanine Aminotransferase (ALT/SGPT) 18U/L (14-59) Alkaline Phosphatase 100U/L (46-116) Total Protein 5.9g/dL (6.4-8.2) Albumin 2.3g/dL (3.4-5.0) Albumin/Globulin Ratio 0.6 (1.0-1.7) ARNOLD MAGANA MD Apr 25, 2016 08:37
[2016-04-25] MEDS: IPRATRPIUM/ALBUTEROL 0.5/2.5MG 3 ML NEBU. NEB SCH ×4 (08:45→19:36)
[2016-04-25] MEDS ORDERED: MAGNESIUM SULFATE 2GM 50 ML IV ONE (09:00)
--- NOTE | 2016-04-25 09:48 | PDOC ---
Objective: Objective: Per RN - no bleeding, on BiPAP. Vital Signs: Vital Signs Date Time Temp Pulse Resp B/P Pulse Ox O2 Delivery O2 Flow Rate FiO2 04/25/16 09:00 63 22 139/63 99 BiPAP/CPAP 04/25/16 07:00 97.9 97.9 04/24/16 17:31 5.0 Labs: Laboratory Tests Test 04/25/16 06:20 White Blood Count 7.9x10^3/uL Red Blood Count 3.27x10^6/uL Hemoglobin 8.3g/dL Hematocrit 27.8% Mean Corpuscular Volume 85fL Mean Corpuscular Hemoglobin 25pg Mean Corpuscular Hemoglobin Concent 30g/dL Red Cell Distribution Width 17.9% Platelet Count 332x10^3/uL Neutrophils (%) (Auto) 78% Lymphocytes (%) (Auto) 7% Monocytes (%) (Auto) 9% Eosinophils (%) (Auto) 5% Basophils (%) (Auto) 1% Neutrophils # (Auto) 6.2x10^3uL Lymphocytes # (Auto) 0.5x10^3/uL Monocytes # (Auto) 0.7x10^3/uL Eosinophils # (Auto) 0.4x10^3/uL Basophils # (Auto) 0.0x10^3/uL Sodium Level 145mmol/L Potassium Level 4.8mmol/L Chloride Level 108mmol/L Carbon Dioxide Level 29mmol/L Anion Gap 8 Blood Urea Nitrogen 35mg/dL Creatinine 2.1mg/dL Estimated GFR (Cockcroft-Gault) 23.4 BUN/Creatinine Ratio 17 Glucose Level 133mg/dL Calcium Level 9.3mg/dL Phosphorus Level 4.4mg/dL Magnesium Level 1.6mg/dL Total Bilirubin 0.5mg/dL Aspartate Amino Transf (AST/SGOT) 22U/L Alanine Aminotransferase (ALT/SGPT) 18U/L Alkaline Phosphatase 100U/L Total Protein 5.9g/dL Albumin 2.3g/dL Albumin/Globulin Ratio 0.6 Imaging: CXR 04/25/16 Comparison is made to yesterday's study. A right PICC remains in place extending into the superior vena cava. The heart is enlarged. The pulmonary vascularity is at the upper limits of normal. There is a moderate ongoing left basilar opacity compatible with atelectasis and consolidation as well as possible pleural fluid. There is mild streaky right basilar infiltrate. Similar findings were present on yesterday's study. No new abnormality is detected. IMPRESSION: No significant change since yesterday's exam. PE: GEN: NAD, up to chair LUNGS: BiPAP HEART: S1S2 ABD: S/ND/NT, obese SKIN: bruising BUE NEURO/PSYCH: eyes closed A/P: Anemia -Hgb improved/stable s/p transfusions -no obvious GI bleeding -on TPN Resp failure, DONALD and edema, NHL -- Note plans fro echo, request [facility] records. Hgb stable. Continue same per GI w/ possible workup w/ resp status improves. JAYDEN CHRISTIAN Apr 25, 2016 09:48 CARINA PECK MD Apr 25, 2016 11:57
--- NOTE | 2016-04-25 12:06 | PDOC ---
PULMONARY PROGRESS NOTES Subjective On BIPAP no resp distress Vitals Vital Signs Date Time Temp Pulse Resp B/P Pulse Ox O2 Delivery O2 Flow Rate FiO2 04/25/16 11:47 100 BiPAP/CPAP 04/25/16 11:00 65 19 132/61 04/25/16 07:00 97.9 97.9 04/24/16 17:31 5.0 Comments ros as mentioned as above, discussed w rn, other sys otherwise neg General: Alert HEENT: Other (nc, at, perrl shallow oropharynx, nose clear) Lungs: Clear, Other Cardiovascular: S1, S2 Abdomen: Soft, Non-tender, Other (no mass) Neuro Exam: Alert Extremities: Other (edema) Skin: Warm Labs Laboratory Tests Test 04/23/16 18:00 04/24/16 06:00 04/24/16 07:45 04/24/16 09:00 Influenza Type A Antigen Negative (NEGATIVE) Influenza Type B Antigen Negative (NEGATIVE) Sodium Level 140mmol/L (136-145) Potassium Level 4.8mmol/L (3.5-5.1) Chloride Level 107mmol/L (98-107) Carbon Dioxide Level 24mmol/L (21-32) Anion Gap 9 (6-14) Blood Urea Nitrogen 36mg/dL (7-20) Creatinine 2.2mg/dL (0.6-1.0) Estimated GFR (Cockcroft-Gault) 22.2 BUN/Creatinine Ratio 16 (6-20) Glucose Level 122mg/dL (70-99) Calcium Level 9.4mg/dL (8.5-10.1) Phosphorus Level 4.0mg/dL (2.6-4.7) Magnesium Level 1.9mg/dL (1.8-2.4) Total Bilirubin 0.6mg/dL (0.2-1.0) Aspartate Amino Transf (AST/SGOT) 25U/L (15-37) Alanine Aminotransferase (ALT/SGPT) 14U/L (14-59) Alkaline Phosphatase 121U/L (46-116) Total Protein 6.6g/dL (6.4-8.2) Albumin 2.6g/dL (3.4-5.0) Albumin/Globulin Ratio 0.7 (1.0-1.7) Lactic Acid Level 1.0mmol/L (0.4-2.0) White Blood Count 10.2x10^3/uL (4.0-11.0) Red Blood Count 3.30x10^6/uL (3.50-5.40) Hemoglobin 8.4g/dL (12.0-15.5) Hematocrit 27.8% (36.0-47.0) Mean Corpuscular Volume 84fL (79-100) Mean Corpuscular Hemoglobin 25pg (25-35) Mean Corpuscular Hemoglobin Concent 30g/dL (31-37) Red Cell Distribution Width 18.0% (11.5-14.5) Platelet Count 392x10^3/uL (140-400) Neutrophils (%) (Auto) 83% (31-73) Lymphocytes (%) (Auto) 5% (24-48) Monocytes (%) (Auto) 8% (0-9) Eosinophils (%) (Auto) 3% (0-3) Basophils (%) (Auto) 1% (0-3) Neutrophils # (Auto) 8.5x10^3uL (1.8-7.7) Lymphocytes # (Auto) 0.5x10^3/uL (1.0-4.8) Monocytes # (Auto) 0.8x10^3/uL (0.0-1.1) Eosinophils # (Auto) 0.3x10^3/uL (0.0-0.7) Basophils # (Auto) 0.1x10^3/uL (0.0-0.2) Test 04/25/16 06:20 White Blood Count 7.9x10^3/uL (4.0-11.0) Red Blood Count 3.27x10^6/uL (3.50-5.40) Hemoglobin 8.3g/dL (12.0-15.5) Hematocrit 27.8% (36.0-47.0) Mean Corpuscular Volume 85fL (79-100) Mean Corpuscular Hemoglobin 25pg (25-35) Mean Corpuscular Hemoglobin Concent 30g/dL (31-37) Red Cell Distribution Width 17.9% (11.5-14.5) Platelet Count 332x10^3/uL (140-400) Neutrophils (%) (Auto) 78% (31-73) Lymphocytes (%) (Auto) 7% (24-48) Monocytes (%) (Auto) 9% (0-9) Eosinophils (%) (Auto) 5% (0-3) Basophils (%) (Auto) 1% (0-3) Neutrophils # (Auto) 6.2x10^3uL (1.8-7.7) Lymphocytes # (Auto) 0.5x10^3/uL (1.0-4.8) Monocytes # (Auto) 0.7x10^3/uL (0.0-1.1) Eosinophils # (Auto) 0.4x10^3/uL (0.0-0.7) Basophils # (Auto) 0.0x10^3/uL (0.0-0.2) Sodium Level 145mmol/L (136-145) Potassium Level 4.8mmol/L (3.5-5.1) Chloride Level 108mmol/L (98-107) Carbon Dioxide Level 29mmol/L (21-32) Anion Gap 8 (6-14) Blood Urea Nitrogen 35mg/dL (7-20) Creatinine 2.1mg/dL (0.6-1.0) Estimated GFR (Cockcroft-Gault) 23.4 BUN/Creatinine Ratio 17 (6-20) Glucose Level 133mg/dL (70-99) Calcium Level 9.3mg/dL (8.5-10.1) Phosphorus Level 4.4mg/dL (2.6-4.7) Magnesium Level 1.6mg/dL (1.8-2.4) Total Bilirubin 0.5mg/dL (0.2-1.0) Aspartate Amino Transf (AST/SGOT) 22U/L (15-37) Alanine Aminotransferase (ALT/SGPT) 18U/L (14-59) Alkaline Phosphatase 100U/L (46-116) Total Protein 5.9g/dL (6.4-8.2) Albumin 2.3g/dL (3.4-5.0) Albumin/Globulin Ratio 0.6 (1.0-1.7) Laboratory Tests Test 04/25/16 06:20 White Blood Count 7.9x10^3/uL (4.0-11.0) Red Blood Count 3.27x10^6/uL (3.50-5.40) Hemoglobin 8.3g/dL (12.0-15.5) Hematocrit 27.8% (36.0-47.0) Mean Corpuscular Volume 85fL (79-100) Mean Corpuscular Hemoglobin 25pg (25-35) Mean Corpuscular Hemoglobin Concent 30g/dL (31-37) Red Cell Distribution Width 17.9% (11.5-14.5) Platelet Count 332x10^3/uL (140-400) Neutrophils (%) (Auto) 78% (31-73) Lymphocytes (%) (Auto) 7% (24-48) Monocytes (%) (Auto) 9% (0-9) Eosinophils (%) (Auto) 5% (0-3) Basophils (%) (Auto) 1% (0-3) Neutrophils # (Auto) 6.2x10^3uL (1.8-7.7) Lymphocytes # (Auto) 0.5x10^3/uL (1.0-4.8) Monocytes # (Auto) 0.7x10^3/uL (0.0-1.1) Eosinophils # (Auto) 0.4x10^3/uL (0.0-0.7) Basophils # (Auto) 0.0x10^3/uL (0.0-0.2) Sodium Level 145mmol/L (136-145) Potassium Level 4.8mmol/L (3.5-5.1) Chloride Level 108mmol/L (98-107) Carbon Dioxide Level 29mmol/L (21-32) Anion Gap 8 (6-14) Blood Urea Nitrogen 35mg/dL (7-20) Creatinine 2.1mg/dL (0.6-1.0) Estimated GFR (Cockcroft-Gault) 23.4 BUN/Creatinine Ratio 17 (6-20) Glucose Level 133mg/dL (70-99) Calcium Level 9.3mg/dL (8.5-10.1) Phosphorus Level 4.4mg/dL (2.6-4.7) Magnesium Level 1.6mg/dL (1.8-2.4) Total Bilirubin 0.5mg/dL (0.2-1.0) Aspartate Amino Transf (AST/SGOT) 22U/L (15-37) Alanine Aminotransferase (ALT/SGPT) 18U/L (14-59) Alkaline Phosphatase 100U/L (46-116) Total Protein 5.9g/dL (6.4-8.2) Albumin 2.3g/dL (3.4-5.0) Albumin/Globulin Ratio 0.6 (1.0-1.7) Medications Active Scripts Medications Dose Route/Sig Days Date Category Omeprazole 20 Mg Capsule.dr 04/21/16 Reported Ventolin Hfa Inhaler (Albuterol Sulfate) 18 Gm Hfa.aer.ad 04/21/16 Reported Tramadol Hcl 50 Mg Tablet 04/21/16 Reported Hydrocodone-Apap 10-325 (Hydrocodone Bit/Acetaminophen) 1 Each Tablet HS 04/21/16 Reported Gabapentin 600 Mg Tablet HS 04/21/16 Reported Fluticasone Propionate Nasal [place] (Fluticasone Propionate) 16 Gm [place].susp 04/21/16 Reported Alprazolam 0.25 Mg Tablet 04/21/16 Reported Comments LLL infiltrate effusion Impression . IMPRESSION: 1. Acute respiratory failure, multifactorial. 2. Possible left lower lobe pneumonia. 3. Acute bronchitis. 4. Acute blood loss anemia. 5. Acute kidney injury. 6. Hypokalemia. 7. Acidemia. 8. Metabolic possible toxic encephalopathy. 9. Abnormal CXR 10. Delirium 11. HEIDI/OHS Plan . PLAN: 1. contnue BIPAP 2. Antibx 3. Followup Nephrology input. 4. GI work up when resp status improves 5. Nebulized treatments. 6. Sequential compressive devices for DVT prophylaxis. 7. pepcid, for stress ulcer prophylaxis 8. JandoMONA Gordon MD Apr 25, 2016 12:06
--- NOTE | 2016-04-25 12:57 | CARD ---
APPROVED REPORT EXAM: Two-dimensional and M-mode echocardiogram with Doppler and color Doppler. Other Information Quality : FairHR: 67bpm Rhythm : NSR INDICATION Edema RISK FACTORS Obesity 2D DIMENSIONS RVDd3.9 (2.9-3.5cm)Left Atrium(2D)4.9 (1.6-4.0cm) IVSd1.2 (0.7-1.1cm)Aortic Root(2D)3.1 (2.0-3.7cm) LVDd5.8 (3.9-5.9cm)LVOT Diameter2.4 (1.8-2.4cm) PWd1.2 (0.7-1.1cm)LVDs3.9 (2.5-4.0cm) FS (%) 32.2 %SV99.0 ml Aortic Valve AoV Peak Warren.121.1cm/sAoV VTI24.5cm AO Peak GR.5.9mmHgLVOT Peak Warren.105.0cm/s AO Mean GR.3mmHgAVA (VMAX)3.81cm2 Mitral Valve MV E Lnfmmttn476.0cm/sMV DECEL [id number] MV A Woftrauo23.7cm/sE/A Ratio1.2 MV A [id number] Pulmonary Valve PV Peak Rrjsmmyt00.5cm/s Tricuspid Valve TR P. Syyehets187es/sTR Peak Gr.31mmHg Pulmonary Vein S1 Dhmdaaqk81.1cm/sD2 Ejnioldu45.4cm/s PVa [id number] LEFT VENTRICLE Technically difficult study. The left ventricle is normal size. There is mild concentric left ventric ular hypertrophy. Left ventricle systolic function is normal. The Ejection Fraction is 50-55%. There is normal LV segmental wall motion. Transmitral Doppler flow pattern is Grade II-pseudonormal filling dynamics. No left ventricle thrombus noted on this study. RIGHT VENTRICLE The right ventricle is mildly dilated. There is normal right ventricular wall thickness. The right ve ntricular systolic function is normal. ATRIA The left atrium is mildly dilated. The right atrium size is normal. The interatrial septum is intact with no evidence for an atrial septal defect or patent foramen ovale as noted on 2-D or Doppler imagi ng. AORTIC VALVE The aortic valve is mildly sclerotic. The aortic valve is not well visualized but opens well. Doppler and Color Flow revealed no significant aortic regurgitation. There is no significant aortic valvular stenosis. MITRAL VALVE Mitral annular calcification is mild. The mitral valve leaflets are thickened. There is no evidence o f mitral valve prolapse. There is no mitral valve stenosis. Doppler and Color Flow revealed trace prashant ral valve regurgitation. TRICUSPID VALVE Doppler and Color Flow revealed mild tricuspid regurgitation. The pulmonary artery systolic pressure is estimated at 34 mmHg. PULMONIC VALVE Doppler and Color Flow revealed mild pulmonic valvular regurgitation. The pulmonic valve is not well visualized but there is no evidence of pulmonic valvular stenosis. GREAT VESSELS The aortic root is normal in size. The ascending aorta is normal in size. The pulmonary artery is nor mal. The IVC was not visualized. PERICARDIAL EFFUSION There is no evidence of significant pericardial effusion. Critical Notification Critical Value: No <Conclusion> Technically difficult study. The left ventricle is normal size. Left ventricle systolic function is normal. The Ejection Fraction is 50-55%. There is no significant aortic valvular stenosis. Doppler and Color Flow revealed no significant aortic regurgitation. Doppler and Color Flow revealed trace mitral valve regurgitation. Doppler and Color Flow revealed mild tricuspid regurgitation. The pulmonary artery systolic pressure is estimated at 34 mmHg.
[2016-04-25] MEDS: CEFTRIAXONE SODIUM 1 GM in IV NORMAL SALINE 50ML 50 ML IV SCH (13:54)
[2016-04-25] MEDS: TPN PER PHARMACY MC PRN (14:58)
[2016-04-25] MEDS: LORAZEPAM 2 MG/ML VIAL IV PRN (17:26)
[2016-04-25] MEDS: HALOPERIDOL LACT 5 MG/ML VIAL. IVP PRN ×2 (17:27→23:43)
[2016-04-25] MEDS: hydrALAZINE 20 MG/ML VIAL. IVP PRN (21:22)
[2016-04-25] MEDS ORDERED: [UNRECOGNIZED DRUG - OTHER] IV SCH ×9 (22:00)
[2016-04-25] MEDS ORDERED: DEXTROSE 70% IV SCH ×9 (22:00)
[2016-04-25] MEDS ORDERED: AMINO ACIDS IV SCH ×9 (22:00)
[2016-04-25] MEDS ORDERED: TOTAL PARENTERAL NUTRITION IV SCH ×9 (22:00)
[2016-04-26] VITALS (15 sets, daily range): BP systolic 156–184; BP diastolic 60–84
[2016-04-26] MEDS: hydrALAZINE 20 MG/ML VIAL. IVP PRN ×2 (02:47→23:56)
[2016-04-26] MEDS: LORAZEPAM 2 MG/ML VIAL IV PRN (03:58)
[2016-04-26] MEDS: FENTANYL PF 100 MCG/2 ML VIAL. IV PRN ×2 (04:26→15:26)
[2016-04-26] MEDS: HALOPERIDOL LACT 5 MG/ML VIAL. IVP PRN ×2 (05:30→21:37)
[2016-04-26 06:14] LABS: ALBUMIN 2.5 g/dL (3.4-5.0); ALBUMIN/GLOBULIN RATIO 0.6 (1.0-1.7); BASO % 0 % (0-3); CALCIUM 9.9 mg/dL (8.5-10.1); CREATININE 2.3 mg/dL (0.6-1.0); EOS % 2 % (0-3); GFR 21.1; HEMATOCRIT 28.9 % (36.0-47.0); HEMOGLOBIN 8.7 g/dL (12.0-15.5); LYMPH # 0.7 x10^3/uL (1.0-4.8); LYMPH % 8 % (24-48); MEAN CORPUSCULAR HEMOGLOBIN 25 pg (25-35); MEAN CORPUSCULAR HGB CONC 30 g/dL (31-37); MEAN CORPUSCULAR VOLUME 84 fL (79-100); MONO % 10 % (0-9); NEUT % 80 % (31-73); PHOSPHORUS 3.4 mg/dL (2.6-4.7); PLATELET COUNT 345 x10^3/uL (140-400); POTASSIUM 3.8 mmol/L (3.5-5.1); RED BLOOD COUNT 3.46 x10^6/uL (3.50-5.40); RED CELL DISTRIBUTION WIDTH 17.9 % (11.5-14.5); TOTAL BILIRUBIN 0.6 mg/dL (0.2-1.0); TOTAL PROTEIN 6.6 g/dL (6.4-8.2); WHITE BLOOD COUNT 8.2 x10^3/uL (4.0-11.0)
[2016-04-26] MEDS: IPRATRPIUM/ALBUTEROL 0.5/2.5MG 3 ML NEBU. NEB SCH ×4 (07:26→19:43)
--- NOTE | 2016-04-26 09:09 | PDOC ---
PROGRESS NOTES Chief Complaint Chief Complaint Anemia DONALD ASSESSMENT AND PLAN: 1. Anemia: stable x24h. unclear etiology. cannot r/o GIB. EPO started anemia of CKD 2. Bronchitis/? PNA: 3. Respir distress: improving. back on BiPAP this AM 4. Delirium: resolving 5. CKD: creat stable. monitor. nephrology following 6. Prophylaxis: PPI Vitals Vitals Vital Signs Date Time Temp Pulse Resp B/P Pulse Ox O2 Delivery O2 Flow Rate FiO2 04/26/16 08:00 Bi-pap 04/26/16 08:00 97 25 168/70 99 04/26/16 07:00 99.0 3.0 99.0 Physical Exam General: Alert, Cooperative, No acute distress Heart: Regular rate Lungs: Other (rhonchi) Abdomen: Normal bowel sounds, Soft Extremities: No clubbing, Other (massive ecchymoses in UE, R>L) Skin: No rashes Labs LABS Laboratory Tests Test 04/26/16 05:43 White Blood Count 8.2x10^3/uL (4.0-11.0) Red Blood Count 3.46x10^6/uL (3.50-5.40) Hemoglobin 8.7g/dL (12.0-15.5) Hematocrit 28.9% (36.0-47.0) Mean Corpuscular Volume 84fL (79-100) Mean Corpuscular Hemoglobin 25pg (25-35) Mean Corpuscular Hemoglobin Concent 30g/dL (31-37) Red Cell Distribution Width 17.9% (11.5-14.5) Platelet Count 345x10^3/uL (140-400) Neutrophils (%) (Auto) 80% (31-73) Lymphocytes (%) (Auto) 8% (24-48) Monocytes (%) (Auto) 10% (0-9) Eosinophils (%) (Auto) 2% (0-3) Basophils (%) (Auto) 0% (0-3) Neutrophils # (Auto) 6.6x10^3uL (1.8-7.7) Lymphocytes # (Auto) 0.7x10^3/uL (1.0-4.8) Monocytes # (Auto) 0.8x10^3/uL (0.0-1.1) Eosinophils # (Auto) 0.1x10^3/uL (0.0-0.7) Basophils # (Auto) 0.0x10^3/uL (0.0-0.2) Sodium Level 145mmol/L (136-145) Potassium Level 3.8mmol/L (3.5-5.1) Chloride Level 105mmol/L (98-107) Carbon Dioxide Level 31mmol/L (21-32) Anion Gap 9 (6-14) Blood Urea Nitrogen 40mg/dL (7-20) Creatinine 2.3mg/dL (0.6-1.0) Estimated GFR (Cockcroft-Gault) 21.1 BUN/Creatinine Ratio 17 (6-20) Glucose Level 142mg/dL (70-99) Calcium Level 10.0mg/dL (8.5-10.1) Phosphorus Level 3.4mg/dL (2.6-4.7) Magnesium Level 2.0mg/dL (1.8-2.4) Total Bilirubin 0.6mg/dL (0.2-1.0) Aspartate Amino Transf (AST/SGOT) 21U/L (15-37) Alanine Aminotransferase (ALT/SGPT) 17U/L (14-59) Alkaline Phosphatase 102U/L (46-116) Total Protein 6.6g/dL (6.4-8.2) Albumin 2.5g/dL (3.4-5.0) Albumin/Globulin Ratio 0.6 (1.0-1.7) Review of Systems Review of Systems c/o backpain. no SOB or CP, no N/V ZULEMA DEGROOT MD Apr 26, 2016 09:09
[2016-04-26] MEDS: DOXYCYCLINE HYCLATE 100 MG in IV DEXTROSE 5% 100 ML IV SCH ×2 (09:20→21:37)
[2016-04-26] MEDS: FUROSEMIDE 40 MG/4 ML VIAL IVP SCH (09:20)
[2016-04-26] MEDS: FAMOTIDINE 20 MG/2 ML VIAL IVP SCH (09:20)
--- NOTE | 2016-04-26 09:37 | PDOC ---
SUBJECTIVE ROS DONALD vs CKD III Appears muchbetter/ awake and more alert. CVS: no Orthopnea, no CP RESP: no SOB, no SALMERON GI: no Nausea, no Vomiting : no Dysuria, no Urgency OBJECTIVE Vital Signs Vital Signs Date Time Temp Pulse Resp B/P Pulse Ox O2 Delivery O2 Flow Rate FiO2 04/26/16 09:10 95 Nasal Cannula 4.0 04/26/16 08:00 97 25 168/70 04/26/16 07:00 99.0 99.0 I & 0 Intake and Output 04/26/16 07:00 Intake Total 1603 ml Output Total 3750 ml Balance -2147 ml IV Total 1603 ml Output Urine Total 3750 ml # Bowel Movements 1 PHYSICAL EXAM Physical Exam GEN: Awake, Oriented x 1-2 , In no resp distress EYES: Vision Unchanged, Conjunctiva Normal EN: No EN Drainage, Mucous Membranes dryish NECK: no JVD, no JVP, Supple, no Thyromegaly; short thick neck CVS: S1S2, no Murmur, No Gallop, No Rub,+2 Edema in lower ext RESP: no Rales, no Rhonchi,no Acc. Muscle Use GI: BS + ve, NO Bruit, Non Tender, Non Distended; obese : no CVA tenderness, no Suprapubic Tenderness DIAGNOSIS/ASSESSMENT Assessment & Plan PROB CKD STAGE III - awaiting records from where she gets her care. 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 Resolved - no baseline avail; Current fluid and E-lyte status does not necessitate emergent need for dialysis. Will re-evaluate for dialysis in the am Proteinuria - Quantitate with 24-hr Urine - ongoing; ? due to UTI Edema - ECHO, ? due to Proteinuria too POOR PO INTAKE - watch off of TPN for now, ? Speech eval POSSIBLE PNEUMONIA / Resp Failure (appears to be doing better) - defer to Pulm ? UTI - Cx are indeterminate for now - repeat UA; Cand S as ordered; She does have some pyuria ? HYPERVOLEMIA - gentle diuresis as ongoing/ ordered to maintain -ve fluid balance. ANEMIA; ? Ac. Blood loss vs ? related to BMBx ; consider Heme/ Onc eval COMMENT/RELEVANT DATA Meds Current Medications Medications (Trade) Dose Ordered Sig/Carlo Start Time Stop Time Status Last Admin Dose Admin Albuterol Sulfate 2.5 mg 2.5 mg PRN QID PRN 04/21/16 07:00 04/24/16 17:20 2.5 MG Albuterol/ Ipratropium (Duoneb) 3 ml RTQID 04/21/16 08:00 04/26/16 07:26 3 ML Alprazolam (Xanax) 0.5 mg PRN Q8HRS PRN 04/21/16 22:00 04/23/16 18:41 0.5 MG Amino Acids/ Electrolytes 2,000 ml @ 80 mls/hr Q24H 04/22/16 11:00 04/23/16 22:47 DC 04/23/16 11:59 80 MLS/HR Atropine Sulfate 0.5 mg PRN Q5MIN PRN 04/24/16 06:30 Ceftriaxone Sodium 1 gm/ Sodium Chloride 50 ml @ 100 mls/hr Q24H 04/21/16 21:00 04/22/16 13:47 DC 04/21/16 20:36 100 MLS/HR Ceftriaxone Sodium/Sodium Chloride (Rocephin/Iv Sodium Chloride 0.9% 50ml) 50 ml @ 100 mls/hr Q24H 04/22/16 15:00 04/25/16 13:54 100 MLS/HR Ceftriaxone Sodium (Rocephin 1gm Ivpb For Omni) 50 ml @ 100 mls/hr 1X ONCE 04/20/16 22:30 04/20/16 22:59 DC 04/20/16 22:16 100 MLS/HR Darbepoetin Jr 60 mcg 60 mcg WEEKLYHS 04/21/16 21:00 04/21/16 20:38 60 MCG Dexmedetomidine HCl 200 mcg/ Sodium Chloride 50 ml @ 0 mls/hr CONT PRN 04/24/16 06:30 04/25/16 12:05 DC 04/25/16 01:30 7 MLS/HR Doxycycline Hyclate/Dextrose 100 ml @ 50 mls/hr Q12HR 04/21/16 13:00 04/26/16 09:20 50 MLS/HR Famotidine 20 mg 20 mg DAILY 04/22/16 09:00 04/26/16 09:20 20 MG Fentanyl Citrate (Fentanyl 2ml Vial) 25 mcg PRN Q1HR PRN 04/23/16 18:00 04/26/16 04:26 25 MCG Fentanyl Citrate 25 mcg 25 mcg Q4HRS PRN 04/23/16 07:45 04/23/16 17:53 DC 04/23/16 17:20 25 MCG Furosemide (Lasix) 40 mg [id number] 04/24/16 14:00 04/26/16 09:20 40 MG Haloperidol Lactate 1 mg 1 mg 1X ONCE 04/24/16 07:00 04/24/16 07:01 Cancel Haloperidol Lactate 5 mg 5 mg PRN Q6HRS PRN 04/25/16 12:15 04/26/16 05:30 5 MG Hydralazine HCl (Apresoline) 10 mg PRN Q4HRS PRN 04/23/16 18:45 04/26/16 02:47 10 MG Hydralazine HCl 10 mg 10 mg 1X ONCE 04/23/16 19:45 04/23/16 19:46 DC 04/23/16 19:37 10 MG Info 1 each 1 each PRN DAILY PRN 04/24/16 11:00 04/25/16 14:58 1 EACH Lorazepam (Ativan) 1 mg PRN Q4HRS PRN 04/21/16 22:00 04/26/16 03:58 1 MG Magnesium Sulfate/ Dextrose (Magnesium Sulfate PREMIX 2GM) 50 ml @ 25 mls/hr 1X ONCE 04/25/16 09:00 04/25/16 10:59 DC 04/25/16 09:00 25 MLS/HR Nicardipine HCl 50 mg/Sodium Chloride 270 ml @ 0 mls/hr CONT PRN 04/23/16 20:30 04/24/16 06:01 54 MLS/HR Nitroglycerin/ Dextrose (Nitroglycerin Drip) 250 ml @ 0 mls/hr CONT PRN 04/23/16 22:45 Ondansetron HCl 4 mg 4 mg PRN Q8HRS PRN 04/20/16 22:00 04/21/16 21:59 DC 04/21/16 00:27 4 MG Sodium Bicarbonate 100 meq/Dextrose 1,100 ml @ 125 mls/hr 1X ONCE 04/23/16 10:00 04/23/16 10:37 DC 04/23/16 10:00 125 MLS/HR Sodium Bicarbonate 50 meq/Sodium Chloride 1,050 ml @ 125 mls/hr Q8H24M 04/22/16 11:15 04/23/16 11:20 DC 04/23/16 07:45 125 MLS/HR Sodium Bicarbonate/ Dextrose 1,100 ml @ 75 mls/hr [id number] 04/23/16 10:37 04/24/16 10:49 DC 04/23/16 20:04 75 MLS/HR Sodium Chloride (Iv Sodium Chloride 0.9% 500ml Bag) 500 ml @ 500 mls/hr 1X PRN PRN 04/24/16 06:30 Sodium Chloride (Iv Sodium Chloride 0.9% 1000ml Bag) 1,000 ml @ 75 mls/hr [id number] 04/21/16 11:30 04/22/16 10:49 DC 04/21/16 20:32 75 MLS/HR Sodium Chloride 90 meq/Potassium Chloride 30 meq/ Potassium Phosphate 13.6 mmol/Magnesium Sulfate 10 meq/ Multivitamins 10 ml/Chromium/ Copper/Manganese/ Seleni/Zn 1 ml/ Total Parenteral Nutrition/Amino Acids/Dextrose/ Fat Emulsion Intravenous 1,512 ml @ 63 mls/hr TPN CONT 04/24/16 22:00 04/25/16 21:59 DC 04/24/16 21:14 63 MLS/HR Sodium Chloride/ Potassium Chloride/ Potassium Phosphate/ Magnesium Sulfate/ Multivitamins/ Chromium/Copper/ Manganese/Seleni/ Zn/Total Parenteral Nutrition/Amino Acids/Dextrose/ Fat Emulsion Intravenous (Sodium Chloride/ Potassium Phosphate/ Infuvite Gallo... 1,512 ml @ 63 mls/hr TPN CONT 04/25/16 22:00 04/26/16 21:59 04/25/16 23:52 63 MLS/HR Lab Laboratory Tests Test 04/26/16 05:43 White Blood Count 8.2x10^3/uL (4.0-11.0) Red Blood Count 3.46x10^6/uL (3.50-5.40) Hemoglobin 8.7g/dL (12.0-15.5) Hematocrit 28.9% (36.0-47.0) Mean Corpuscular Volume 84fL (79-100) Mean Corpuscular Hemoglobin 25pg (25-35) Mean Corpuscular Hemoglobin Concent 30g/dL (31-37) Red Cell Distribution Width 17.9% (11.5-14.5) Platelet Count 345x10^3/uL (140-400) Neutrophils (%) (Auto) 80% (31-73) Lymphocytes (%) (Auto) 8% (24-48) Monocytes (%) (Auto) 10% (0-9) Eosinophils (%) (Auto) 2% (0-3) Basophils (%) (Auto) 0% (0-3) Neutrophils # (Auto) 6.6x10^3uL (1.8-7.7) Lymphocytes # (Auto) 0.7x10^3/uL (1.0-4.8) Monocytes # (Auto) 0.8x10^3/uL (0.0-1.1) Eosinophils # (Auto) 0.1x10^3/uL (0.0-0.7) Basophils # (Auto) 0.0x10^3/uL (0.0-0.2) Sodium Level 145mmol/L (136-145) Potassium Level 3.8mmol/L (3.5-5.1) Chloride Level 105mmol/L (98-107) Carbon Dioxide Level 31mmol/L (21-32) Anion Gap 9 (6-14) Blood Urea Nitrogen 40mg/dL (7-20) Creatinine 2.3mg/dL (0.6-1.0) Estimated GFR (Cockcroft-Gault) 21.1 BUN/Creatinine Ratio 17 (6-20) Glucose Level 142mg/dL (70-99) Calcium Level 10.0mg/dL (8.5-10.1) Phosphorus Level 3.4mg/dL (2.6-4.7) Magnesium Level 2.0mg/dL (1.8-2.4) Total Bilirubin 0.6mg/dL (0.2-1.0) Aspartate Amino Transf (AST/SGOT) 21U/L (15-37) Alanine Aminotransferase (ALT/SGPT) 17U/L (14-59) Alkaline Phosphatase 102U/L (46-116) Total Protein 6.6g/dL (6.4-8.2) Albumin 2.5g/dL (3.4-5.0) Albumin/Globulin Ratio 0.6 (1.0-1.7) ARNOLD MAGANA MD Apr 26, 2016 09:36
--- NOTE | 2016-04-26 10:28 | PDOC ---
PULMONARY PROGRESS NOTES Subjective On BIPAP no resp distress Vitals Vital Signs Date Time Temp Pulse Resp B/P Pulse Ox O2 Delivery O2 Flow Rate FiO2 04/26/16 09:10 95 Nasal Cannula 4.0 04/26/16 08:00 97 25 168/70 04/26/16 07:00 99.0 99.0 Comments ros as mentioned as above, discussed w rn, other sys otherwise neg General: Alert HEENT: Other (nc, at, perrl shallow oropharynx, nose clear) Lungs: Clear, Other Cardiovascular: S1, S2 Abdomen: Soft, Non-tender, Other (no mass) Neuro Exam: Alert Extremities: Other (edema) Skin: Warm Labs Laboratory Tests Test 04/25/16 06:20 04/26/16 05:43 White Blood Count 7.9x10^3/uL (4.0-11.0) 8.2x10^3/uL (4.0-11.0) Red Blood Count 3.27x10^6/uL (3.50-5.40) 3.46x10^6/uL (3.50-5.40) Hemoglobin 8.3g/dL (12.0-15.5) 8.7g/dL (12.0-15.5) Hematocrit 27.8% (36.0-47.0) 28.9% (36.0-47.0) Mean Corpuscular Volume 85fL (79-100) 84fL (79-100) Mean Corpuscular Hemoglobin 25pg (25-35) 25pg (25-35) Mean Corpuscular Hemoglobin Concent 30g/dL (31-37) 30g/dL (31-37) Red Cell Distribution Width 17.9% (11.5-14.5) 17.9% (11.5-14.5) Platelet Count 332x10^3/uL (140-400) 345x10^3/uL (140-400) Neutrophils (%) (Auto) 78% (31-73) 80% (31-73) Lymphocytes (%) (Auto) 7% (24-48) 8% (24-48) Monocytes (%) (Auto) 9% (0-9) 10% (0-9) Eosinophils (%) (Auto) 5% (0-3) 2% (0-3) Basophils (%) (Auto) 1% (0-3) 0% (0-3) Neutrophils # (Auto) 6.2x10^3uL (1.8-7.7) 6.6x10^3uL (1.8-7.7) Lymphocytes # (Auto) 0.5x10^3/uL (1.0-4.8) 0.7x10^3/uL (1.0-4.8) Monocytes # (Auto) 0.7x10^3/uL (0.0-1.1) 0.8x10^3/uL (0.0-1.1) Eosinophils # (Auto) 0.4x10^3/uL (0.0-0.7) 0.1x10^3/uL (0.0-0.7) Basophils # (Auto) 0.0x10^3/uL (0.0-0.2) 0.0x10^3/uL (0.0-0.2) Sodium Level 145mmol/L (136-145) 145mmol/L (136-145) Potassium Level 4.8mmol/L (3.5-5.1) 3.8mmol/L (3.5-5.1) Chloride Level 108mmol/L (98-107) 105mmol/L (98-107) Carbon Dioxide Level 29mmol/L (21-32) 31mmol/L (21-32) Anion Gap 8 (6-14) 9 (6-14) Blood Urea Nitrogen 35mg/dL (7-20) 40mg/dL (7-20) Creatinine 2.1mg/dL (0.6-1.0) 2.3mg/dL (0.6-1.0) Estimated GFR (Cockcroft-Gault) 23.4 21.1 BUN/Creatinine Ratio 17 (6-20) 17 (6-20) Glucose Level 133mg/dL (70-99) 142mg/dL (70-99) Calcium Level 9.3mg/dL (8.5-10.1) 10.0mg/dL (8.5-10.1) Phosphorus Level 4.4mg/dL (2.6-4.7) 3.4mg/dL (2.6-4.7) Magnesium Level 1.6mg/dL (1.8-2.4) 2.0mg/dL (1.8-2.4) Total Bilirubin 0.5mg/dL (0.2-1.0) 0.6mg/dL (0.2-1.0) Aspartate Amino Transf (AST/SGOT) 22U/L (15-37) 21U/L (15-37) Alanine Aminotransferase (ALT/SGPT) 18U/L (14-59) 17U/L (14-59) Alkaline Phosphatase 100U/L (46-116) 102U/L (46-116) Total Protein 5.9g/dL (6.4-8.2) 6.6g/dL (6.4-8.2) Albumin 2.3g/dL (3.4-5.0) 2.5g/dL (3.4-5.0) Albumin/Globulin Ratio 0.6 (1.0-1.7) 0.6 (1.0-1.7) Laboratory Tests Test 04/26/16 05:43 White Blood Count 8.2x10^3/uL (4.0-11.0) Red Blood Count 3.46x10^6/uL (3.50-5.40) Hemoglobin 8.7g/dL (12.0-15.5) Hematocrit 28.9% (36.0-47.0) Mean Corpuscular Volume 84fL (79-100) Mean Corpuscular Hemoglobin 25pg (25-35) Mean Corpuscular Hemoglobin Concent 30g/dL (31-37) Red Cell Distribution Width 17.9% (11.5-14.5) Platelet Count 345x10^3/uL (140-400) Neutrophils (%) (Auto) 80% (31-73) Lymphocytes (%) (Auto) 8% (24-48) Monocytes (%) (Auto) 10% (0-9) Eosinophils (%) (Auto) 2% (0-3) Basophils (%) (Auto) 0% (0-3) Neutrophils # (Auto) 6.6x10^3uL (1.8-7.7) Lymphocytes # (Auto) 0.7x10^3/uL (1.0-4.8) Monocytes # (Auto) 0.8x10^3/uL (0.0-1.1) Eosinophils # (Auto) 0.1x10^3/uL (0.0-0.7) Basophils # (Auto) 0.0x10^3/uL (0.0-0.2) Sodium Level 145mmol/L (136-145) Potassium Level 3.8mmol/L (3.5-5.1) Chloride Level 105mmol/L (98-107) Carbon Dioxide Level 31mmol/L (21-32) Anion Gap 9 (6-14) Blood Urea Nitrogen 40mg/dL (7-20) Creatinine 2.3mg/dL (0.6-1.0) Estimated GFR (Cockcroft-Gault) 21.1 BUN/Creatinine Ratio 17 (6-20) Glucose Level 142mg/dL (70-99) Calcium Level 10.0mg/dL (8.5-10.1) Phosphorus Level 3.4mg/dL (2.6-4.7) Magnesium Level 2.0mg/dL (1.8-2.4) Total Bilirubin 0.6mg/dL (0.2-1.0) Aspartate Amino Transf (AST/SGOT) 21U/L (15-37) Alanine Aminotransferase (ALT/SGPT) 17U/L (14-59) Alkaline Phosphatase 102U/L (46-116) Total Protein 6.6g/dL (6.4-8.2) Albumin 2.5g/dL (3.4-5.0) Albumin/Globulin Ratio 0.6 (1.0-1.7) Medications Active Scripts Medications Dose Route/Sig Days Date Category Omeprazole 20 Mg Capsule.dr 04/21/16 Reported Ventolin Hfa Inhaler (Albuterol Sulfate) 18 Gm Hfa.aer.ad 04/21/16 Reported Tramadol Hcl 50 Mg Tablet 04/21/16 Reported Hydrocodone-Apap 10-325 (Hydrocodone Bit/Acetaminophen) 1 Each Tablet HS 04/21/16 Reported Gabapentin 600 Mg Tablet HS 04/21/16 Reported Fluticasone Propionate Nasal [place] (Fluticasone Propionate) 16 Gm [place].susp 04/21/16 Reported Alprazolam 0.25 Mg Tablet 04/21/16 Reported Comments LLL infiltrate effusion Impression . IMPRESSION: 1. Acute respiratory failure, multifactorial. 2. Possible left lower lobe pneumonia. 3. Acute bronchitis. 4. Acute blood loss anemia. 5. Acute kidney injury. 6. Hypokalemia. 7. Acidemia. 8. Metabolic possible toxic encephalopathy. 9. Abnormal CXR 10. Delirium 11. HEIDI/OHS Plan . PLAN: 1. contnue BIPAP 2. Antibx 3. Followup Nephrology input. 4. GI work up when resp status improves 5. Nebulized treatments. 6. Sequential compressive devices for DVT prophylaxis. 7. pepcid, for stress ulcer prophylaxis 8. Haldol PRN MONA DELGADO MD Apr 26, 2016 10:28
[2016-04-26 11:20] LABS: BILIRUBIN,URINE NEGATIVE (NEG); GLUCOSE,URINE NEGATIVE (NEG); NITRITE,URINE NEGATIVE (NEG); PH,URINE 6.5; PROTEIN,URINE 30 mg/dL (NEG-TRACE); UROBILINOGEN,URINE 0.2 mg/dL (0.2 mg/dL)
[2016-04-26 11:41] LABS: BACTERIA,URINE FEW /HPF (0-FEW)
[2016-04-26 11:42] LABS: SQUAMOUS EPITHELIAL CELL,UR FEW /LPF
--- NOTE | 2016-04-26 12:59 | PDOC ---
Objective: Objective: Per RN - reports long history of anemia. No BiPAP needed today. No bleeding. Vital Signs: Vital Signs Date Time Temp Pulse Resp B/P Pulse Ox O2 Delivery O2 Flow Rate FiO2 04/26/16 11:06 96 Nasal Cannula 3.0 04/26/16 11:00 99.0 105 25 164/70 99.0 Labs: Laboratory Tests Test 04/26/16 05:43 04/26/16 11:12 White Blood Count 8.2x10^3/uL Red Blood Count 3.46x10^6/uL Hemoglobin 8.7g/dL Hematocrit 28.9% Mean Corpuscular Volume 84fL Mean Corpuscular Hemoglobin 25pg Mean Corpuscular Hemoglobin Concent 30g/dL Red Cell Distribution Width 17.9% Platelet Count 345x10^3/uL Neutrophils (%) (Auto) 80% Lymphocytes (%) (Auto) 8% Monocytes (%) (Auto) 10% Eosinophils (%) (Auto) 2% Basophils (%) (Auto) 0% Neutrophils # (Auto) 6.6x10^3uL Lymphocytes # (Auto) 0.7x10^3/uL Monocytes # (Auto) 0.8x10^3/uL Eosinophils # (Auto) 0.1x10^3/uL Basophils # (Auto) 0.0x10^3/uL Sodium Level 145mmol/L Potassium Level 3.8mmol/L Chloride Level 105mmol/L Carbon Dioxide Level 31mmol/L Anion Gap 9 Blood Urea Nitrogen 40mg/dL Creatinine 2.3mg/dL Estimated GFR (Cockcroft-Gault) 21.1 BUN/Creatinine Ratio 17 Glucose Level 142mg/dL Calcium Level 10.0mg/dL Phosphorus Level 3.4mg/dL Magnesium Level 2.0mg/dL Total Bilirubin 0.6mg/dL Aspartate Amino Transf (AST/SGOT) 21U/L Alanine Aminotransferase (ALT/SGPT) 17U/L Alkaline Phosphatase 102U/L Total Protein 6.6g/dL Albumin 2.5g/dL Albumin/Globulin Ratio 0.6 Urine Collection Type Unknown Urine Color Yellow Urine Clarity Clear Urine pH 6.5 Urine Specific [place] <=1.005 Urine Protein 30mg/dL Urine Glucose (UA) Negativemg/dL Urine Ketones (Stick) Negativemg/dL Urine Blood Moderate Urine Nitrite Negative Urine Bilirubin Negative Urine Urobilinogen Dipstick 0.2mg/dL Urine Leukocyte Esterase Trace Urine RBC 1-2/HPF Urine WBC 1-4/HPF Urine Squamous Epithelial Cells Few/LPF Urine Bacteria Few/HPF PE: GEN: NAD LUNGS: coarse bilaterally anteriorly w/ nasal cannula HEART: tachycardic ABD: S/ND/NT, obese SKIN: BUE bruising NEURO/PSYCH: awake/alert A/P: Anemia -Hgb improved/stable s/p transfusions -no obvious GI bleeding -on TPN - now relays long h/o anemia Resp failure/bronchitis, DONALD, NHL -- Hgb stable. GI workup eventually when resp status more stable/improved. JAYDEN CHRISTIAN Apr 26, 2016 12:59
[2016-04-26] MEDS: CEFTRIAXONE SODIUM 1 GM in IV NORMAL SALINE 50ML 50 ML IV SCH (15:04)
[2016-04-27] MEDS: LORAZEPAM 2 MG/ML VIAL IV PRN ×2 (00:50→06:01)
[2016-04-27] MEDS: HALOPERIDOL LACT 5 MG/ML VIAL. IVP PRN ×2 (03:08→11:03)
[2016-04-27 03:10] VITALS: BP 178/73
[2016-04-27] MEDS: hydrALAZINE 20 MG/ML VIAL. IVP PRN ×2 (05:30→22:46)
[2016-04-27] MEDS: FENTANYL PF 100 MCG/2 ML VIAL. IV PRN ×3 (06:32→22:47)
[2016-04-27] MEDS: IPRATRPIUM/ALBUTEROL 0.5/2.5MG 3 ML NEBU. NEB SCH ×4 (07:09→21:40)
[2016-04-27 07:45] VITALS: BP 189/78
--- NOTE | 2016-04-27 08:22 | RAD ---
Portable chest, 04/27/2016: History: Shortness of breath, mental status change, nonfunctioning PICC Comparison is made to a study from 04/25/2016. A right PICC remains in place extending into the inferior aspect of the superior vena cava. The heart is enlarged. The pulmonary vascularity appears to be within normal limits. There has been partial clearing of the left base. No right lung infiltrates are seen. No new abnormality is detected. IMPRESSION: Improving left basilar atelectasis/consolidation.
[2016-04-27 08:32] LABS: HCO3 ABG 29 mmol/L (21-28); PCO2 ABG 41 mmHg (35-46); PH ABG 7.47 (7.35-7.45); PO2 ABG 91 mmHg (65-108); SAT O2 ABG 97 % (92-99)
[2016-04-27 08:34] LABS: FIO2 ABG 40
[2016-04-27] MEDS: FAMOTIDINE 20 MG/2 ML VIAL IVP SCH (09:00)
[2016-04-27] MEDS ORDERED: TRAMADOL 50 MG TABLET. PO PRN (09:30)
[2016-04-27] MEDS: DOXYCYCLINE HYCLATE 100 MG in IV DEXTROSE 5% 100 ML IV SCH ×2 (09:38→22:46)
--- NOTE | 2016-04-27 09:47 | PDOC ---
PULMONARY PROGRESS NOTES Subjective off bipap sleepy Vitals Vital Signs Date Time Temp Pulse Resp B/P Pulse Ox O2 Delivery O2 Flow Rate FiO2 04/27/16 07:45 97.9 108 34 189/78 93 Nasal Cannula 3.0 97.9 HEENT: Other (nc, at, perrl shallow oropharynx, nose clear) Lungs: Crackles Cardiovascular: S1, S2 Abdomen: Soft, Non-tender, Other (no mass) Extremities: Other (edema) Skin: Warm Labs Laboratory Tests Test 04/26/16 05:43 04/26/16 11:12 04/27/16 07:51 White Blood Count 8.2x10^3/uL (4.0-11.0) Red Blood Count 3.46x10^6/uL (3.50-5.40) Hemoglobin 8.7g/dL (12.0-15.5) Hematocrit 28.9% (36.0-47.0) Mean Corpuscular Volume 84fL (79-100) Mean Corpuscular Hemoglobin 25pg (25-35) Mean Corpuscular Hemoglobin Concent 30g/dL (31-37) Red Cell Distribution Width 17.9% (11.5-14.5) Platelet Count 345x10^3/uL (140-400) Neutrophils (%) (Auto) 80% (31-73) Lymphocytes (%) (Auto) 8% (24-48) Monocytes (%) (Auto) 10% (0-9) Eosinophils (%) (Auto) 2% (0-3) Basophils (%) (Auto) 0% (0-3) Neutrophils # (Auto) 6.6x10^3uL (1.8-7.7) Lymphocytes # (Auto) 0.7x10^3/uL (1.0-4.8) Monocytes # (Auto) 0.8x10^3/uL (0.0-1.1) Eosinophils # (Auto) 0.1x10^3/uL (0.0-0.7) Basophils # (Auto) 0.0x10^3/uL (0.0-0.2) Sodium Level 145mmol/L (136-145) Potassium Level 3.8mmol/L (3.5-5.1) Chloride Level 105mmol/L (98-107) Carbon Dioxide Level 31mmol/L (21-32) Anion Gap 9 (6-14) Blood Urea Nitrogen 40mg/dL (7-20) Creatinine 2.3mg/dL (0.6-1.0) Estimated GFR (Cockcroft-Gault) 21.1 BUN/Creatinine Ratio 17 (6-20) Glucose Level 142mg/dL (70-99) Calcium Level 10.0mg/dL (8.5-10.1) Phosphorus Level 3.4mg/dL (2.6-4.7) Magnesium Level 2.0mg/dL (1.8-2.4) Total Bilirubin 0.6mg/dL (0.2-1.0) Aspartate Amino Transf (AST/SGOT) 21U/L (15-37) Alanine Aminotransferase (ALT/SGPT) 17U/L (14-59) Alkaline Phosphatase 102U/L (46-116) Total Protein 6.6g/dL (6.4-8.2) Albumin 2.5g/dL (3.4-5.0) Albumin/Globulin Ratio 0.6 (1.0-1.7) Urine Collection Type Unknown Urine Color Yellow Urine Clarity Clear Urine pH 6.5 Urine Specific [place] <=1.005 Urine Protein 30mg/dL (NEG-TRACE) Urine Glucose (UA) Negativemg/dL (NEG) Urine Ketones (Stick) Negativemg/dL (NEG) Urine Blood Moderate (NEG) Urine Nitrite Negative (NEG) Urine Bilirubin Negative (NEG) Urine Urobilinogen Dipstick 0.2mg/dL (0.2 mg/dL) Urine Leukocyte Esterase Trace (NEG) Urine RBC 1-2/HPF (0-2) Urine WBC 1-4/HPF (0-4) Urine Squamous Epithelial Cells Few/LPF Urine Bacteria Few/HPF (0-FEW) O2 Saturation 97% (92-99) Arterial Blood pH 7.47 (7.35-7.45) Arterial Blood pCO2 at Patient Temp 41mmHg (35-46) Arterial Blood pO2 at Patient Temp 91mmHg (65-108) Arterial Blood HCO3 29mmol/L (21-28) Arterial Blood Base Excess 5mmol/L (-3-3) FiO2 40 Laboratory Tests Test 04/26/16 11:12 04/27/16 07:51 Urine Collection Type Unknown Urine Color Yellow Urine Clarity Clear Urine pH 6.5 Urine Specific [place] <=1.005 Urine Protein 30mg/dL (NEG-TRACE) Urine Glucose (UA) Negativemg/dL (NEG) Urine Ketones (Stick) Negativemg/dL (NEG) Urine Blood Moderate (NEG) Urine Nitrite Negative (NEG) Urine Bilirubin Negative (NEG) Urine Urobilinogen Dipstick 0.2mg/dL (0.2 mg/dL) Urine Leukocyte Esterase Trace (NEG) Urine RBC 1-2/HPF (0-2) Urine WBC 1-4/HPF (0-4) Urine Squamous Epithelial Cells Few/LPF Urine Bacteria Few/HPF (0-FEW) O2 Saturation 97% (92-99) Arterial Blood pH 7.47 (7.35-7.45) Arterial Blood pCO2 at Patient Temp 41mmHg (35-46) Arterial Blood pO2 at Patient Temp 91mmHg (65-108) Arterial Blood HCO3 29mmol/L (21-28) Arterial Blood Base Excess 5mmol/L (-3-3) FiO2 40 Medications Active Scripts Medications Dose Route/Sig Days Date Category Omeprazole 20 Mg Capsule.dr 04/21/16 Reported Ventolin Hfa Inhaler (Albuterol Sulfate) 18 Gm Hfa.aer.ad 04/21/16 Reported Tramadol Hcl 50 Mg Tablet 04/21/16 Reported Hydrocodone-Apap 10-325 (Hydrocodone Bit/Acetaminophen) 1 Each Tablet HS 04/21/16 Reported Gabapentin 600 Mg Tablet HS 04/21/16 Reported Fluticasone Propionate Nasal [place] (Fluticasone Propionate) 16 Gm [place].susp 04/21/16 Reported Alprazolam 0.25 Mg Tablet 04/21/16 Reported Comments LLL infiltrate effusion Impression . IMPRESSION: 1. Acute respiratory failure, multifactorial. 2. Possible left lower lobe pneumonia. 3. Acute bronchitis. 4. Acute blood loss anemia. 5. Acute kidney injury. 6. Hypokalemia. 7. Acidemia. 8. Metabolic possible toxic encephalopathy. 9. Abnormal CXR 10. Delirium 11. HEIDI/OHS Plan . STAT ABG 1. contnue BIPAP PRN 2. Antibx 3. Followup Nephrology input. 4. GI follow rec, started on diet 5. Nebulized treatments. 6. Sequential compressive devices for DVT prophylaxis. 7. pepcid, for stress ulcer prophylaxis 8. Haldol PRN SISILLO,SABATO MD Apr 27, 2016 09:47
[2016-04-27 10:32] LABS: BASO % 0 % (0-3); EOS % 1 % (0-3); HEMATOCRIT 30.6 % (36.0-47.0); HEMOGLOBIN 9.5 g/dL (12.0-15.5); LYMPH # 0.6 x10^3/uL (1.0-4.8); LYMPH % 6 % (24-48); MEAN CORPUSCULAR HEMOGLOBIN 26 pg (25-35); MEAN CORPUSCULAR HGB CONC 31 g/dL (31-37); MEAN CORPUSCULAR VOLUME 82 fL (79-100); MONO % 10 % (0-9); NEUT % 83 % (31-73); PLATELET COUNT 342 x10^3/uL (140-400); RED BLOOD COUNT 3.71 x10^6/uL (3.50-5.40); RED CELL DISTRIBUTION WIDTH 18.5 % (11.5-14.5); WHITE BLOOD COUNT 9.6 x10^3/uL (4.0-11.0)
[2016-04-27 10:46] VITALS: BP 154/75
[2016-04-27 10:51] LABS: ALBUMIN 2.8 g/dL (3.4-5.0); TOTAL PROTEIN 6.6 g/dL (6.4-8.2)
[2016-04-27 10:52] LABS: ALBUMIN/GLOBULIN RATIO 0.7 (1.0-1.7); CALCIUM 10.4 mg/dL (8.5-10.1); CREATININE 2.3 mg/dL (0.6-1.0); GFR 21.1; MAGNESIUM 1.7 mg/dL (1.8-2.4); PHOSPHORUS 4.2 mg/dL (2.6-4.7); POTASSIUM 3.9 mmol/L (3.5-5.1); TOTAL BILIRUBIN 0.9 mg/dL (0.2-1.0)
[2016-04-27] MEDS ORDERED: ALBUTEROL SULFATE 2.5 MG/3 ML NEBU. NEB PRN (11:30)
[2016-04-27] MEDS ORDERED: ALPRAZOLAM 0.5 MG TABLET PO PRN (11:30)
[2016-04-27] MEDS ORDERED: ONDANSETRON PF 4 MG/2 ML VIAL. IV PRN (11:30)
[2016-04-27] MEDS ORDERED: ACETAMINOPHEN 325 MG TABLET. PO PRN (11:30)
[2016-04-27] MEDS ORDERED: HALOPERIDOL LACT 5 MG/ML VIAL. IVP PRN (11:30)
--- NOTE | 2016-04-27 11:51 | PDOC ---
Subjective: Subjective: present - actually denies h/o anemia (had previously reported to RN in ICU) but the patient frequently eats large cups of ice. No bleeding. Had been taking ibuprofen QD or QOD at home for pain, also had been taking Prilosec OTC QD or QOD for heartburn. Believes colonoscopy +/- EGD performed around the time of stem cell transplant, but not really sure. No h/o confusion at home except once in the past when was taking Xanax or a pain medication. Objective: Objective: D/w RN, Dr. De La Cruz, BEHAVIORAL HEALTH THERAPIST. BEHAVIORAL HEALTH THERAPIST Bedside Swallow Eval Pt demo'd dry, rattling cough which was inconsistently productive before and during eval. Cough during eval was not clearly associated w/swallow and was frequently delayed in relation to swallow. Given good timing and strength of swallow per palp of hyolaryngeal excursion, doubt relationship of cough to swallow at this time. IMPRESSIONS: Functional swallow for regular diet and thin liquids. Anticipate safe intake of rec'd diet for nutritional needs and to take po meds. RECOMMENDATIONS: Regular diet w/thin liquids. Upright at 90* for meals. Will f/ u to ensure safety of po intake on rec'd diet. Vital Signs: Vital Signs Date Time Temp Pulse Resp B/P Pulse Ox O2 Delivery O2 Flow Rate FiO2 04/27/16 11:21 Nasal Cannula 3.0 04/27/16 11:03 35 04/27/16 10:46 99.2 106 154/75 94 99.2 Labs: Laboratory Tests Test 04/27/16 07:51 04/27/16 09:45 O2 Saturation 97% Arterial Blood pH 7.47 Arterial Blood pCO2 at Patient Temp 41mmHg Arterial Blood pO2 at Patient Temp 91mmHg Arterial Blood HCO3 29mmol/L Arterial Blood Base Excess 5mmol/L FiO2 40 White Blood Count 9.6x10^3/uL Red Blood Count 3.71x10^6/uL Hemoglobin 9.5g/dL Hematocrit 30.6% Mean Corpuscular Volume 82fL Mean Corpuscular Hemoglobin 26pg Mean Corpuscular Hemoglobin Concent 31g/dL Red Cell Distribution Width 18.5% Platelet Count 342x10^3/uL Neutrophils (%) (Auto) 83% Lymphocytes (%) (Auto) 6% Monocytes (%) (Auto) 10% Eosinophils (%) (Auto) 1% Basophils (%) (Auto) 0% Neutrophils # (Auto) 8.0x10^3uL Lymphocytes # (Auto) 0.6x10^3/uL Monocytes # (Auto) 1.0x10^3/uL Eosinophils # (Auto) 0.1x10^3/uL Basophils # (Auto) 0.0x10^3/uL Sodium Level 146mmol/L Potassium Level 3.9mmol/L Chloride Level 105mmol/L Carbon Dioxide Level 31mmol/L Anion Gap 10 Blood Urea Nitrogen 41mg/dL Creatinine 2.3mg/dL Estimated GFR (Cockcroft-Gault) 21.1 BUN/Creatinine Ratio 18 Glucose Level 108mg/dL Calcium Level 10.4mg/dL Phosphorus Level 4.2mg/dL Magnesium Level 1.7mg/dL Total Bilirubin 0.9mg/dL Aspartate Amino Transf (AST/SGOT) 34U/L Alanine Aminotransferase (ALT/SGPT) 21U/L Alkaline Phosphatase 110U/L Total Protein 6.6g/dL Albumin 2.8g/dL Albumin/Globulin Ratio 0.7 PE: GEN: NAD LUNGS: decreased, some coarseness anteriorly, nasal cannula, occasional loud wet coughing, tachypneic HEART: RRR ABD: S/ND/NT, obese NEURO/PSYCH: knows year and who's president and that she's in a hospital ( although not sure of hospital name) A/P: Anemia -Hgb improved/stable, no obvious GI bleeding -now has diet per BEHAVIORAL HEALTH THERAPIST -changing history from family re: h/o anemia ---> was taking NSAIDs for pain and PPI for heartburn -last colonoscopy (?EGD) around the time of stem cell transplant Resp failure/bronchitis, DONALD, NHL -- On IV H2 [place] - will start PO PPI. EGD and colonoscopy when resp status better. JAYDEN CHRISTIAN Apr 27, 2016 11:51
--- NOTE | 2016-04-27 11:51 | PDOC ---
PROGRESS NOTES Chief Complaint Chief Complaint Anemia DONALD ASSESSMENT AND PLAN: 1. Anemia , likely 2/2 GIB given taking NSAIDS and h/o polyp 2. Bronchitis/? PNA: 3. Respir distress, acute ,hypoxia and hypercapnia 4. Delirium, fluctuate, with 7 and sedative meds 5. DONALD with CKD possible 2-3, ATN 6. obesity 7. sepsis with 2 8. back pain plan: 1. fu with renal, pulm, gi 2. may need egd, colonoscopy when resp failure is better 3. keep NC for now, on abx, check sputum cx 4. dc some sedative meds, try low dose prn lidoderm patch daughter requires us to give sedative meds, and transfer to . i called [facility], no meds. pt doesnot need to be transfer anyway discuss with at bedside for 10min. gi ppx History of Present Illness History of Present Illness low grade fever from ICU, sob this am, need stat cxr, abg, bipap. pt doesnot tolerate bipap well, ok on NC now confused, baseline normal no aaox 2 to person, year, no place took NSAIDS before coming to hosp, no labs with pcp for a long time Vitals Vitals Vital Signs Date Time Temp Pulse Resp B/P Pulse Ox O2 Delivery O2 Flow Rate FiO2 04/27/16 11:21 Nasal Cannula 3.0 04/27/16 11:03 35 04/27/16 10:46 99.2 106 154/75 94 99.2 Physical Exam General: Alert, Cooperative, No acute distress Heart: Regular rate Lungs: Other (rhonchi) Abdomen: Normal bowel sounds, Soft Extremities: No clubbing, Other (massive ecchymoses in UE, R>L) Skin: No rashes Labs LABS Laboratory Tests Test 04/27/16 07:51 04/27/16 09:45 O2 Saturation 97% (92-99) Arterial Blood pH 7.47 (7.35-7.45) Arterial Blood pCO2 at Patient Temp 41mmHg (35-46) Arterial Blood pO2 at Patient Temp 91mmHg (65-108) Arterial Blood HCO3 29mmol/L (21-28) Arterial Blood Base Excess 5mmol/L (-3-3) FiO2 40 White Blood Count 9.6x10^3/uL (4.0-11.0) Red Blood Count 3.71x10^6/uL (3.50-5.40) Hemoglobin 9.5g/dL (12.0-15.5) Hematocrit 30.6% (36.0-47.0) Mean Corpuscular Volume 82fL (79-100) Mean Corpuscular Hemoglobin 26pg (25-35) Mean Corpuscular Hemoglobin Concent 31g/dL (31-37) Red Cell Distribution Width 18.5% (11.5-14.5) Platelet Count 342x10^3/uL (140-400) Neutrophils (%) (Auto) 83% (31-73) Lymphocytes (%) (Auto) 6% (24-48) Monocytes (%) (Auto) 10% (0-9) Eosinophils (%) (Auto) 1% (0-3) Basophils (%) (Auto) 0% (0-3) Neutrophils # (Auto) 8.0x10^3uL (1.8-7.7) Lymphocytes # (Auto) 0.6x10^3/uL (1.0-4.8) Monocytes # (Auto) 1.0x10^3/uL (0.0-1.1) Eosinophils # (Auto) 0.1x10^3/uL (0.0-0.7) Basophils # (Auto) 0.0x10^3/uL (0.0-0.2) Sodium Level 146mmol/L (136-145) Potassium Level 3.9mmol/L (3.5-5.1) Chloride Level 105mmol/L (98-107) Carbon Dioxide Level 31mmol/L (21-32) Anion Gap 10 (6-14) Blood Urea Nitrogen 41mg/dL (7-20) Creatinine 2.3mg/dL (0.6-1.0) Estimated GFR (Cockcroft-Gault) 21.1 BUN/Creatinine Ratio 18 (6-20) Glucose Level 108mg/dL (70-99) Calcium Level 10.4mg/dL (8.5-10.1) Phosphorus Level 4.2mg/dL (2.6-4.7) Magnesium Level 1.7mg/dL (1.8-2.4) Total Bilirubin 0.9mg/dL (0.2-1.0) Aspartate Amino Transf (AST/SGOT) 34U/L (15-37) Alanine Aminotransferase (ALT/SGPT) 21U/L (14-59) Alkaline Phosphatase 110U/L (46-116) Total Protein 6.6g/dL (6.4-8.2) Albumin 2.8g/dL (3.4-5.0) Albumin/Globulin Ratio 0.7 (1.0-1.7) Review of Systems Review of Systems no chills, chest pain Assessment and Plan Assessmemt and Plan Problems Medical Problems: (1) Symptomatic anemia Status: Acute Problems: Comment Review of Relevant I have reviewed the following items odilia (where applicable) has been applied. Labs Laboratory Tests Test 04/26/16 05:43 04/26/16 11:12 04/27/16 07:51 04/27/16 09:45 White Blood Count 8.2x10^3/uL (4.0-11.0) 9.6x10^3/uL (4.0-11.0) Red Blood Count 3.46x10^6/uL (3.50-5.40) 3.71x10^6/uL (3.50-5.40) Hemoglobin 8.7g/dL (12.0-15.5) 9.5g/dL (12.0-15.5) Hematocrit 28.9% (36.0-47.0) 30.6% (36.0-47.0) Mean Corpuscular Volume 84fL (79-100) 82fL (79-100) Mean Corpuscular Hemoglobin 25pg (25-35) 26pg (25-35) Mean Corpuscular Hemoglobin Concent 30g/dL (31-37) 31g/dL (31-37) Red Cell Distribution Width 17.9% (11.5-14.5) 18.5% (11.5-14.5) Platelet Count 345x10^3/uL (140-400) 342x10^3/uL (140-400) Neutrophils (%) (Auto) 80% (31-73) 83% (31-73) Lymphocytes (%) (Auto) 8% (24-48) 6% (24-48) Monocytes (%) (Auto) 10% (0-9) 10% (0-9) Eosinophils (%) (Auto) 2% (0-3) 1% (0-3) Basophils (%) (Auto) 0% (0-3) 0% (0-3) Neutrophils # (Auto) 6.6x10^3uL (1.8-7.7) 8.0x10^3uL (1.8-7.7) Lymphocytes # (Auto) 0.7x10^3/uL (1.0-4.8) 0.6x10^3/uL (1.0-4.8) Monocytes # (Auto) 0.8x10^3/uL (0.0-1.1) 1.0x10^3/uL (0.0-1.1) Eosinophils # (Auto) 0.1x10^3/uL (0.0-0.7) 0.1x10^3/uL (0.0-0.7) Basophils # (Auto) 0.0x10^3/uL (0.0-0.2) 0.0x10^3/uL (0.0-0.2) Sodium Level 145mmol/L (136-145) 146mmol/L (136-145) Potassium Level 3.8mmol/L (3.5-5.1) 3.9mmol/L (3.5-5.1) Chloride Level 105mmol/L (98-107) 105mmol/L (98-107) Carbon Dioxide Level 31mmol/L (21-32) 31mmol/L (21-32) Anion Gap 9 (6-14) 10 (6-14) Blood Urea Nitrogen 40mg/dL (7-20) 41mg/dL (7-20) Creatinine 2.3mg/dL (0.6-1.0) 2.3mg/dL (0.6-1.0) Estimated GFR (Cockcroft-Gault) 21.1 21.1 BUN/Creatinine Ratio 17 (6-20) 18 (6-20) Glucose Level 142mg/dL (70-99) 108mg/dL (70-99) Calcium Level 10.0mg/dL (8.5-10.1) 10.4mg/dL (8.5-10.1) Phosphorus Level 3.4mg/dL (2.6-4.7) 4.2mg/dL (2.6-4.7) Magnesium Level 2.0mg/dL (1.8-2.4) 1.7mg/dL (1.8-2.4) Total Bilirubin 0.6mg/dL (0.2-1.0) 0.9mg/dL (0.2-1.0) Aspartate Amino Transf (AST/SGOT) 21U/L (15-37) 34U/L (15-37) Alanine Aminotransferase (ALT/SGPT) 17U/L (14-59) 21U/L (14-59) Alkaline Phosphatase 102U/L (46-116) 110U/L (46-116) Total Protein 6.6g/dL (6.4-8.2) 6.6g/dL (6.4-8.2) Albumin 2.5g/dL (3.4-5.0) 2.8g/dL (3.4-5.0) Albumin/Globulin Ratio 0.6 (1.0-1.7) 0.7 (1.0-1.7) Urine Collection Type Unknown Urine Color Yellow Urine Clarity Clear Urine pH 6.5 Urine Specific [place] <=1.005 Urine Protein 30mg/dL (NEG-TRACE) Urine Glucose (UA) Negativemg/dL (NEG) Urine Ketones (Stick) Negativemg/dL (NEG) Urine Blood Moderate (NEG) Urine Nitrite Negative (NEG) Urine Bilirubin Negative (NEG) Urine Urobilinogen Dipstick 0.2mg/dL (0.2 mg/dL) Urine Leukocyte Esterase Trace (NEG) Urine RBC 1-2/HPF (0-2) Urine WBC 1-4/HPF (0-4) Urine Squamous Epithelial Cells Few/LPF Urine Bacteria Few/HPF (0-FEW) O2 Saturation 97% (92-99) Arterial Blood pH 7.47 (7.35-7.45) Arterial Blood pCO2 at Patient Temp 41mmHg (35-46) Arterial Blood pO2 at Patient Temp 91mmHg (65-108) Arterial Blood HCO3 29mmol/L (21-28) Arterial Blood Base Excess 5mmol/L (-3-3) FiO2 40 Laboratory Tests Test 04/27/16 07:51 3/22/17 09:45 O2 Saturation 97% (92-99) Arterial Blood pH 7.47 (7.35-7.45) Arterial Blood pCO2 at Patient Temp 41mmHg (35-46) Arterial Blood pO2 at Patient Temp 91mmHg (65-108) Arterial Blood HCO3 29mmol/L (21-28) Arterial Blood Base Excess 5mmol/L (-3-3) FiO2 40 White Blood Count 9.6x10^3/uL (4.0-11.0) Red Blood Count 3.71x10^6/uL (3.50-5.40) Hemoglobin 9.5g/dL (12.0-15.5) Hematocrit 30.6% (36.0-47.0) Mean Corpuscular Volume 82fL (79-100) Mean Corpuscular Hemoglobin 26pg (25-35) Mean Corpuscular Hemoglobin Concent 31g/dL (31-37) Red Cell Distribution Width 18.5% (11.5-14.5) Platelet Count 342x10^3/uL (140-400) Neutrophils (%) (Auto) 83% (31-73) Lymphocytes (%) (Auto) 6% (24-48) Monocytes (%) (Auto) 10% (0-9) Eosinophils (%) (Auto) 1% (0-3) Basophils (%) (Auto) 0% (0-3) Neutrophils # (Auto) 8.0x10^3uL (1.8-7.7) Lymphocytes # (Auto) 0.6x10^3/uL (1.0-4.8) Monocytes # (Auto) 1.0x10^3/uL (0.0-1.1) Eosinophils # (Auto) 0.1x10^3/uL (0.0-0.7) Basophils # (Auto) 0.0x10^3/uL (0.0-0.2) Sodium Level 146mmol/L (136-145) Potassium Level 3.9mmol/L (3.5-5.1) Chloride Level 105mmol/L (98-107) Carbon Dioxide Level 31mmol/L (21-32) Anion Gap 10 (6-14) Blood Urea Nitrogen 41mg/dL (7-20) Creatinine 2.3mg/dL (0.6-1.0) Estimated GFR (Cockcroft-Gault) 21.1 BUN/Creatinine Ratio 18 (6-20) Glucose Level 108mg/dL (70-99) Calcium Level 10.4mg/dL (8.5-10.1) Phosphorus Level 4.2mg/dL (2.6-4.7) Magnesium Level 1.7mg/dL (1.8-2.4) Total Bilirubin 0.9mg/dL (0.2-1.0) Aspartate Amino Transf (AST/SGOT) 34U/L (15-37) Alanine Aminotransferase (ALT/SGPT) 21U/L (14-59) Alkaline Phosphatase 110U/L (46-116) Total Protein 6.6g/dL (6.4-8.2) Albumin 2.8g/dL (3.4-5.0) Albumin/Globulin Ratio 0.7 (1.0-1.7) Microbiology 04/20/16 Blood Culture - Final, Complete NO GROWTH AFTER 5 DAYS 04/20/16 Urine Culture - Final, Complete 04/20/16 Urine Culture Result 1 (DEANN) - Final, Complete Medications Current Medications Ondansetron HCl 4 mg 4 mg PRN Q8HRS PRN IV NAUSEA/VOMITING Last administered on 04/21/16 00:27; Start 04/20/16 at 22:00; Stop 04/21/16 at 21:59; Status DC Ceftriaxone Sodium (Rocephin 1gm Ivpb For Omni) 50 ml @ 100 mls/hr 1X ONCE IV Last administered on 04/20/16 22:16; Start 04/20/16 at 22:30; Stop 04/20/16 at 22:59; Status DC Albuterol/ Ipratropium (Duoneb) 3 ml RTQID NEB Last administered on 04/27/16 11:20; Start 04/21/16 at 08:00 Albuterol Sulfate 2.5 mg 2.5 mg PRN QID PRN NEB SHORTNESS OF BREATH Last administered on 04/24/16 17:20; Start 04/21/16 at 07:00; Stop 04/27/16 at 11:24 ; Status DC Sodium Chloride (Iv Sodium Chloride 0.9% 1000ml Bag) 1,000 ml @ 75 mls/hr [id number] IV Last administered on 04/21/16 20:32; Start 04/21/16 at 11:30; Stop 04/22/16 at 10:49; Status DC Darbepoetin Jr 60 mcg 60 mcg [id number] SQ Last administered on 04/21/16 20:38 ; Start 04/21/16 at 21:00 Ceftriaxone Sodium 1 gm/ Sodium Chloride 50 ml @ 100 mls/hr Q24H IV Last administered on 04/21/16 20:36; Start 04/21/16 at 21:00; Stop 04/22/16 at 13:47 ; Status DC Doxycycline Hyclate/Dextrose 100 ml @ 50 mls/hr Q12HR IV Last administered on 04/27/16 09:38; Start 04/21/16 at 13:00 Alprazolam (Xanax) 0.5 mg PRN Q8HRS PRN PO ANXIETY / AGITATION Last administered on 04/23/16 18:41; Start 04/21/16 at 22:00; Stop 04/27/16 at 11:21 ; Status DC Lorazepam (Ativan) 1 mg PRN Q4HRS PRN IV ANXIETY / AGITATION Last administered on 04/27/16 06:01; Start 04/21/16 at 22:00; Stop 04/27/16 at 11:22; Status DC Famotidine 20 mg 20 mg DAILY IVP Last administered on 04/26/16 09:20; Start at 09:00 Amino Acids/ Electrolytes 2,000 ml @ 80 mls/hr Q24H IV Last administered on 11:59; Start 04/22/16 at 11:00; Stop 04/23/16 at 22:47; Status DC Sodium Bicarbonate 50 meq/Sodium Chloride 1,050 ml @ 125 mls/hr Q8H24M IV Last administered on 04/23/16 07:45; Start 04/22/16 at 11:15; Stop 04/23/16 at 11:20; Status DC Ceftriaxone Sodium/Sodium Chloride (Rocephin/Iv Sodium Chloride 0.9% 50ml) 50 ml @ 100 mls/hr Q24H IV Last administered on 04/26/16 15:04; Start 04/22/16 at 15:00 Fentanyl Citrate 25 mcg 25 mcg Q4HRS PRN IV PAIN Last administered on 17:20; Start 04/23/16 at 07:45; Stop 04/23/16 at 17:53; Status DC Sodium Bicarbonate 100 meq/Dextrose 1,100 ml @ 125 mls/hr 1X ONCE IV Last administered on 04/23/16 10:00; Start 04/23/16 at 10:00; Stop 04/23/16 at 10:37 ; Status DC Sodium Bicarbonate/ Dextrose 1,100 ml @ 75 mls/hr [id number] IV Last administered on 04/23/16 20:04; Start 04/23/16 at 10:37; Stop 04/24/16 at 10:49 ; Status DC Fentanyl Citrate (Fentanyl 2ml Vial) 25 mcg PRN Q1HR PRN IV PAIN Last administered on 04/27/16 11:03; Start 04/23/16 at 18:00 Hydralazine HCl (Apresoline) 10 mg PRN Q4HRS PRN IVP ELEVATED BP, SEE COMMENTS Last administered on 04/27/16 05:30; Start 04/23/16 at 18:45 Hydralazine HCl 10 mg 10 mg 1X ONCE IVP Last administered on 04/23/16 19:37; Start 04/23/16 at 19:45; Stop 04/23/16 at 19:46; Status DC Nicardipine HCl 50 mg/Sodium Chloride 270 ml @ 0 mls/hr CONT PRN IV SEE I/O RECORD Last administered on 04/24/16 06:01; Start 04/23/16 at 20:30; Stop 04/27 at 09:27; Status DC Nitroglycerin/ Dextrose (Nitroglycerin Drip) 250 ml @ 0 mls/hr CONT PRN IV SEE I/O RECORD; Start 04/23/16 at 22:45; Stop 04/27/16 at 09:27; Status DC Haloperidol Lactate 1 mg 1 mg 1X ONCE IM ; Start 04/24/16 at 07:00; Stop at 07:01; Status Cancel Dexmedetomidine HCl 200 mcg/ Sodium Chloride 50 ml @ 0 mls/hr CONT PRN IV PER PROTOCOL Last administered on 04/25/16 01:30; Start 04/24/16 at 06:30; Stop at 12:05; Status DC Sodium Chloride (Iv Sodium Chloride 0.9% 500ml Bag) 500 ml @ 500 mls/hr 1X PRN PRN IV SEE COMMENTS; Start 04/24/16 at 06:30; Stop 04/26/16 at 09:41; Status DC Atropine Sulfate 0.5 mg PRN Q5MIN PRN IV SEE COMMENTS; Start 04/24/16 at 06:30 Furosemide (Lasix) 40 mg [id number] IVP Last administered on 04/26/16 09:20; Start 04/24/16 at 14:00; Stop 04/26/16 at 09:41; Status DC Info 1 each 1 each PRN DAILY PRN MC SEE COMMENTS Last administered on 14:58; Start 04/24/16 at 11:00; Stop 04/26/16 at 09:41; Status DC Sodium Chloride 90 meq/Potassium Chloride 30 meq/ Potassium Phosphate 13.6 mmol/ Magnesium Sulfate 10 meq/ Multivitamins 10 ml/Chromium/ Copper/Manganese/ Seleni /Zn 1 ml/ Total Parenteral Nutrition/Amino Acids/Dextrose/ Fat Emulsion Intravenous 1,512 ml @ 63 mls/hr TPN CONT IV Last administered on 04/24/16 21:14; Start 04/24/16 at 22:00; Stop 04/25/16 at 21:59; Status DC Magnesium Sulfate/ Dextrose 50 ml @ 25 mls/hr PRN DAILY PRN IV for Mag < 1.7 on am labs; Start 04/25/16 at 08:30 Magnesium Sulfate/ Dextrose (Magnesium Sulfate PREMIX 2GM) 50 ml @ 25 mls/hr 1X ONCE IV Last administered on 04/25/16 09:00; Start 04/25/16 at 09:00; Stop 04/25/16 at 10:59; Status DC Haloperidol Lactate 5 mg 5 mg PRN Q6HRS PRN IVP AGITATION Last administered on 04/27/16 11:03; Start 04/25/16 at 12:15; Stop 04/27/16 at 11:21; Status DC Sodium Chloride/ Potassium Chloride/ Potassium Phosphate/ Magnesium Sulfate/ Multivitamins/ Chromium/Copper/ Manganese/Seleni/ Zn/Total Parenteral Nutrition/ Amino Acids/Dextrose/ Fat Emulsion Intravenous (Sodium Chloride/ Potassium Phosphate/ Infuvite Gallo... 1,512 ml @ 63 mls/hr TPN CONT IV Last administered on 04/25/16t 23:52; Start 04/25/16 at 22:00; Stop 04/26/16 at 21:59 ; Status DC Acetaminophen/ Hydrocodone Bitart (Lortab 5/325) 1 tab PRN Q4HRS PRN PO PAIN; Start 04/27/16 at 09:30 Tramadol HCl (Ultram) 50 mg PRN Q6HRS PRN PO PAIN; Start 04/27/16 at 09:30 Lidocaine (Lidoderm) 1 patch DAILY TD ; Start 04/27/16 at 11:00 Alprazolam (Xanax) 0.25 mg PRN Q8HRS PRN PO ANXIETY / AGITATION; Start at 11:30 Haloperidol Lactate (Haldol) 2 mg PRN Q6HRS PRN IVP AGITATION; Start 04/27/16 at 11:30 Guaifenesin (Mucinex) 600 mg BID PO ; Start 04/27/16 at 12:00 Acetaminophen (Tylenol) 650 mg PRN Q6HRS PRN PO MILD PAIN / TEMP; Start at 11:30 Ondansetron HCl (Zofran) 4 mg PRN Q6HRS PRN IV NAUSEA/VOMITING; Start 04/27/16 at 11:30 Albuterol Sulfate (Fabiano Neb Soln) 2.5 mg PRN Q4HRS PRN NEB SHORTNESS OF BREATH; Start 04/27/16 at 11:30 Pantoprazole Sodium (Protonix) 40 mg DAILYAC PO ; Start 04/28/16 at 07:30; Status UNV Active Scripts Active Reported Omeprazole 20 Mg Capsule.dr Mario Hfa Inhaler (Albuterol Sulfate) 18 Gm Hfa.aer.ad Tramadol Hcl 50 Mg Tablet Hydrocodone-Apap 10-325 (Hydrocodone Bit/Acetaminophen) 1 Each Tablet HS Gabapentin 600 Mg Tablet HS Fluticasone Propionate Nasal [place] (Fluticasone Propionate) 16 Gm [place].susp Alprazolam 0.25 Mg Tablet Vitals/I & O Vital Sign - Last 24 Hours 04/26/16 04/26/16 04/26/16 04/26/16 15:00 15:26 15:27 16:00 Temp 99.0 99.0 Pulse 95 Resp 22 22 B/P 162/82 Pulse Ox 97 97 96 96 O2 Delivery Nasal Cannula Nasal Cannula Nasal Cannula O2 Flow Rate 3.0 3.0 3.0 3.0 04/26/16 04/26/16 04/26/16 04/26/16 19:10 19:45 20:00 23:10 Temp 98.3 98.8 98.3 98.8 Pulse 110 Resp 36 36 B/P 179/84 184/81 Pulse Ox 94 95 92 O2 Delivery Nasal Cannula Nasal Cannula Bi-pap Nasal Cannula O2 Flow Rate 3.0 3.0 2.0 04/26/16 04/27/16 04/27/16 04/27/16 23:56 00:01 00:55 03:10 Temp 97.8 97.8 Pulse 95 107 Resp 36 B/P 184/81 178/73 Pulse Ox 94 O2 Delivery BiPAP/CPAP Nasal Cannula O2 Flow Rate 2.0 2.0 04/27/16 04/27/16 04/27/16 04/27/16 04:00 05:30 06:32 07:02 Pulse 107 Resp 26 35 B/P 178/73 Pulse Ox 95 O2 Delivery BiPAP/CPAP O2 Flow Rate 2.0 3.0 04/27/16 04/27/16 04/27/16 04/27/16 07:09 07:40 07:45 08:00 Temp 97.9 97.9 Pulse 108 Resp 34 B/P 189/78 Pulse Ox 91 91 93 O2 Delivery Room Air BiPAP/CPAP Nasal Cannula O2 Flow Rate 3.0 3.0 04/27/16 04/27/16 04/27/16 04/27/16 09:15 10:46 11:03 11:21 Temp 99.2 99.2 Pulse 106 Resp 32 35 B/P 154/75 Pulse Ox 93 94 O2 Delivery BiPAP/CPAP Nasal Cannula Nasal Cannula Nasal Cannula O2 Flow Rate 3.0 3.0 3.0 Intake and Output 04/26/16 04/26/16 04/27/16 15:00 23:00 07:00 Intake Total 220 ml 1056 ml 300 ml Output Total 970 ml 1050 ml 1900 ml Balance -750 ml 6 ml -1600 ml SHERLY SUTHERLAND MD Apr 27, 2016 11:51
[2016-04-27] MEDS: PANTOPRAZOLE 40 MG TABLET. PO SCH (13:04)
[2016-04-27] MEDS: GUAIFENESIN ER 600 MG TABLET.ER PO SCH ×2 (13:04→22:46)
[2016-04-27 13:23] LABS: TOTAL SERUM CREATININE 2.29 mg/dL (0.57-1.00); TOTAL URINE CREATININE 18.8 mg/dL (Not Estab.)
[2016-04-27 13:23] LABS: PROTEIN 24 HR UR 1524.6 mg/24 hr (30.0-150.0)
--- NOTE | 2016-04-27 13:55 | PDOC ---
SUBJECTIVE ROS CKD III Doing same to little better CVS: no Orthopnea, no CP RESP: no SOB, no SALMERON GI: no Nausea, no Vomiting : no Dysuria, on Urgency OBJECTIVE Vital Signs Vital Signs Date Time Temp Pulse Resp B/P Pulse Ox O2 Delivery O2 Flow Rate FiO2 04/27/16 11:33 30 Nasal Cannula 3.0 04/27/16 10:46 99.2 106 154/75 94 99.2 I & 0 Intake and Output 04/27/16 07:00 Intake Total 1576 ml Output Total 3920 ml Balance -2344 ml Intake Oral 660 ml IV Total 916 ml Output Urine Total 3920 ml PHYSICAL EXAM Physical Exam GEN: Awake, Oriented x 1-2 , In no resp distress EYES: Vision Unchanged, Conjunctiva Normal EN: No EN Drainage, Mucous Membranes dryish NECK: no JVD, no JVP, Supple, no Thyromegaly; short thick neck CVS: S1S2, no Murmur, No Gallop, No Rub,+2 Edema in lower ext RESP: no Rales, no Rhonchi,no Acc. Muscle Use GI: BS + ve, NO Bruit, Non Tender, Non Distended; obese : no CVA tenderness, no Suprapubic Tenderness DIAGNOSIS/ASSESSMENT Assessment & Plan PROB CKD STAGE III - (Current Cr Cl is 34 cc/min) awaiting records from where she gets her care. 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 due to UTI / (cystitis) some Blood in Urine noted too DONALD - ? Resolved - no baseline avail; Current fluid and E-lyte status does not necessitate emergent need for dialysis. Will re-evaluate for dialysis in the am Edema - ECHO WNL so most likelydue to Proteinuria, May need to add BRI-i/ ARB Low Mag - prn Mag as ordered POOR PO INTAKE - watch off of TPN for now, may need to restart if remains low ? UTI - remains on Abx. ? HYPERVOLEMIA - now better per CXR Report. ANEMIA; ? Ac. Blood loss vs ? related to BMBx ; consider Heme/ Onc eval COMMENT/RELEVANT DATA Meds Current Medications Medications (Trade) Dose Ordered Sig/Carlo Start Time Stop Time Status Last Admin Dose Admin Acetaminophen (Tylenol) 650 mg PRN Q6HRS PRN 04/27/16 11:30 Acetaminophen/ Hydrocodone Bitart (Lortab 5/325) 1 tab PRN Q4HRS PRN 04/27/16 09:30 Albuterol Sulfate (Ventolin Neb Soln) 2.5 mg PRN Q4HRS PRN 04/27/16 11:30 Albuterol Sulfate 2.5 mg 2.5 mg PRN QID PRN 04/21/16 07:00 04/27/16 11:24 DC 04/24/16 17:20 2.5 MG Albuterol/ Ipratropium (Duoneb) 3 ml RTQID 04/21/16 08:00 04/27/16 11:20 3 ML Alprazolam (Xanax) 0.25 mg PRN Q8HRS PRN 04/27/16 11:30 Amino Acids/ Electrolytes 2,000 ml @ 80 mls/hr Q24H 04/22/16 11:00 04/23/16 22:47 DC 04/23/16 11:59 80 MLS/HR Atropine Sulfate 0.5 mg PRN Q5MIN PRN 04/24/16 06:30 Ceftriaxone Sodium 1 gm/ Sodium Chloride 50 ml @ 100 mls/hr Q24H 04/21/16 21:00 04/22/16 13:47 DC 04/21/16 20:36 100 MLS/HR Ceftriaxone Sodium/Sodium Chloride (Rocephin/Iv Sodium Chloride 0.9% 50ml) 50 ml @ 100 mls/hr Q24H 04/22/16 15:00 04/26/16 15:04 100 MLS/HR Ceftriaxone Sodium (Rocephin 1gm Ivpb For Omni) 50 ml @ 100 mls/hr 1X ONCE 04/20/16 22:30 04/20/16 22:59 DC 04/20/16 22:16 100 MLS/HR Darbepoetin Jr 60 mcg 60 mcg WEEKLYHS 04/21/16 21:00 04/21/16 20:38 60 MCG Dexmedetomidine HCl 200 mcg/ Sodium Chloride 50 ml @ 0 mls/hr CONT PRN 04/24/16 06:30 04/25/16 12:05 DC 04/25/16 01:30 7 MLS/HR Doxycycline Hyclate/Dextrose 100 ml @ 50 mls/hr Q12HR 04/21/16 13:00 04/27/16 09:38 50 MLS/HR Famotidine 20 mg 20 mg DAILY 04/22/16 09:00 04/27/16 11:50 DC 04/26/16 09:20 20 MG Fentanyl Citrate (Fentanyl 2ml Vial) 25 mcg PRN Q1HR PRN 04/23/16 18:00 04/27/16 11:03 25 MCG Fentanyl Citrate 25 mcg 25 mcg Q4HRS PRN 04/23/16 07:45 04/23/16 17:53 DC 04/23/16 17:20 25 MCG Furosemide (Lasix) 40 mg [id number] 04/24/16 14:00 04/26/16 09:41 DC 04/26/16 09:20 40 MG Guaifenesin (Mucinex) 600 mg BID 04/27/16 12:00 04/27/16 13:04 600 MG Haloperidol Lactate (Haldol) 2 mg PRN Q6HRS PRN 04/27/16 11:30 Haloperidol Lactate 1 mg 1 mg 1X ONCE 04/24/16 07:00 04/24/16 07:01 Cancel Haloperidol Lactate 5 mg 5 mg PRN Q6HRS PRN 04/25/16 12:15 04/27/16 11:21 DC 04/27/16 11:03 5 MG Hydralazine HCl (Apresoline) 10 mg PRN Q4HRS PRN 04/23/16 18:45 04/27/16 05:30 10 MG Hydralazine HCl 10 mg 10 mg 1X ONCE 04/23/16 19:45 04/23/16 19:46 DC 04/23/16 19:37 10 MG Info 1 each 1 each PRN DAILY PRN 04/24/16 11:00 04/26/16 09:41 DC 04/25/16 14:58 1 EACH Lidocaine (Lidoderm) 1 patch DAILY 04/27/16 11:00 Lorazepam (Ativan) 1 mg PRN Q4HRS PRN 04/21/16 22:00 04/27/16 11:22 DC 04/27/16 06:01 1 MG Magnesium Sulfate/ Dextrose (Magnesium Sulfate PREMIX 2GM) 50 ml @ 25 mls/hr 1X ONCE 04/25/16 09:00 04/25/16 10:59 DC 04/25/16 09:00 25 MLS/HR Nicardipine HCl 50 mg/Sodium Chloride 270 ml @ 0 mls/hr CONT PRN 04/23/16 20:30 04/27/16 09:27 DC 04/24/16 06:01 54 MLS/HR Nitroglycerin/ Dextrose (Nitroglycerin Drip) 250 ml @ 0 mls/hr CONT PRN 04/23/16 22:45 04/27/16 09:27 DC Ondansetron HCl (Zofran) 4 mg PRN Q6HRS PRN 04/27/16 11:30 Ondansetron HCl 4 mg 4 mg PRN Q8HRS PRN 04/20/16 22:00 04/21/16 21:59 DC 04/21/16 00:27 4 MG Pantoprazole Sodium (Protonix) 40 mg DAILYAC 04/27/16 12:00 04/27/16 13:04 40 MG Sodium Bicarbonate 100 meq/Dextrose 1,100 ml @ 125 mls/hr 1X ONCE 04/23/16 10:00 04/23/16 10:37 DC 04/23/16 10:00 125 MLS/HR Sodium Bicarbonate 50 meq/Sodium Chloride 1,050 ml @ 125 mls/hr Q8H24M 04/22/16 11:15 04/23/16 11:20 DC 04/23/16 07:45 125 MLS/HR Sodium Bicarbonate/ Dextrose 1,100 ml @ 75 mls/hr [id number] 04/23/16 10:37 04/24/16 10:49 DC 04/23/16 20:04 75 MLS/HR Sodium Chloride (Iv Sodium Chloride 0.9% 500ml Bag) 500 ml @ 500 mls/hr 1X PRN PRN 04/24/16 06:30 04/26/16 09:41 DC Sodium Chloride (Iv Sodium Chloride 0.9% 1000ml Bag) 1,000 ml @ 75 mls/hr [id number] 04/21/16 11:30 04/22/16 10:49 DC 04/21/16 20:32 75 MLS/HR Sodium Chloride 90 meq/Potassium Chloride 30 meq/ Potassium Phosphate 13.6 mmol/Magnesium Sulfate 10 meq/ Multivitamins 10 ml/Chromium/ Copper/Manganese/ Seleni/Zn 1 ml/ Total Parenteral Nutrition/Amino Acids/Dextrose/ Fat Emulsion Intravenous 1,512 ml @ 63 mls/hr TPN CONT 04/24/16 22:00 04/25/16 21:59 DC 04/24/16 21:14 63 MLS/HR Sodium Chloride/ Potassium Chloride/ Potassium Phosphate/ Magnesium Sulfate/ Multivitamins/ Chromium/Copper/ Manganese/Seleni/ Zn/Total Parenteral Nutrition/Amino Acids/Dextrose/ Fat Emulsion Intravenous (Sodium Chloride/ Potassium Phosphate/ Infuvite Gallo... 1,512 ml @ 63 mls/hr TPN CONT 04/25/16 22:00 04/26/16 21:59 DC 04/25/16 23:52 63 MLS/HR Tramadol HCl (Ultram) 50 mg PRN Q6HRS PRN 04/27/16 09:30 Lab Laboratory Tests Test 04/27/16 07:51 04/27/16 09:45 O2 Saturation 97% (92-99) Arterial Blood pH 7.47 (7.35-7.45) Arterial Blood pCO2 at Patient Temp 41mmHg (35-46) Arterial Blood pO2 at Patient Temp 91mmHg (65-108) Arterial Blood HCO3 29mmol/L (21-28) Arterial Blood Base Excess 5mmol/L (-3-3) FiO2 40 White Blood Count 9.6x10^3/uL (4.0-11.0) Red Blood Count 3.71x10^6/uL (3.50-5.40) Hemoglobin 9.5g/dL (12.0-15.5) Hematocrit 30.6% (36.0-47.0) Mean Corpuscular Volume 82fL (79-100) Mean Corpuscular Hemoglobin 26pg (25-35) Mean Corpuscular Hemoglobin Concent 31g/dL (31-37) Red Cell Distribution Width 18.5% (11.5-14.5) Platelet Count 342x10^3/uL (140-400) Neutrophils (%) (Auto) 83% (31-73) Lymphocytes (%) (Auto) 6% (24-48) Monocytes (%) (Auto) 10% (0-9) Eosinophils (%) (Auto) 1% (0-3) Basophils (%) (Auto) 0% (0-3) Neutrophils # (Auto) 8.0x10^3uL (1.8-7.7) Lymphocytes # (Auto) 0.6x10^3/uL (1.0-4.8) Monocytes # (Auto) 1.0x10^3/uL (0.0-1.1) Eosinophils # (Auto) 0.1x10^3/uL (0.0-0.7) Basophils # (Auto) 0.0x10^3/uL (0.0-0.2) Sodium Level 146mmol/L (136-145) Potassium Level 3.9mmol/L (3.5-5.1) Chloride Level 105mmol/L (98-107) Carbon Dioxide Level 31mmol/L (21-32) Anion Gap 10 (6-14) Blood Urea Nitrogen 41mg/dL (7-20) Creatinine 2.3mg/dL (0.6-1.0) Estimated GFR (Cockcroft-Gault) 21.1 BUN/Creatinine Ratio 18 (6-20) Glucose Level 108mg/dL (70-99) Calcium Level 10.4mg/dL (8.5-10.1) Phosphorus Level 4.2mg/dL (2.6-4.7) Magnesium Level 1.7mg/dL (1.8-2.4) Total Bilirubin 0.9mg/dL (0.2-1.0) Aspartate Amino Transf (AST/SGOT) 34U/L (15-37) Alanine Aminotransferase (ALT/SGPT) 21U/L (14-59) Alkaline Phosphatase 110U/L (46-116) Total Protein 6.6g/dL (6.4-8.2) Albumin 2.8g/dL (3.4-5.0) Albumin/Globulin Ratio 0.7 (1.0-1.7) ARNOLD MAGANA MD Apr 27, 2016 13:55
[2016-04-27] MEDS: CEFTRIAXONE SODIUM 1 GM in IV NORMAL SALINE 50ML 50 ML IV SCH (14:47)
[2016-04-27] MEDS: LIDOCAINE (700MG/PATCH) PATCH. TD SCH (14:58)
[2016-04-27 15:00] VITALS: BP 193/85
[2016-04-27 16:57] LABS: HCO3 ABG 29 mmol/L (21-28); PCO2 ABG 43 mmHg (35-46); PH ABG 7.44 (7.35-7.45); PO2 ABG 70 mmHg (65-108); SAT O2 ABG 93 % (92-99)
[2016-04-27 16:59] LABS: FIO2 ABG 32
[2016-04-27 19:10] VITALS: BP 198/81
[2016-04-27 23:10] VITALS: BP 195/75
[2016-04-28] MEDS: FENTANYL PF 100 MCG/2 ML VIAL. IV PRN (02:05)
[2016-04-28 03:10] VITALS: BP 152/76
[2016-04-28 05:10] LABS: BASO # 0.1 x10^3/uL (0.0-0.2); BASO % 1 % (0-3); EOS % 1 % (0-3); HEMATOCRIT 28.9 % (36.0-47.0); HEMOGLOBIN 8.9 g/dL (12.0-15.5); LYMPH % 8 % (24-48); MEAN CORPUSCULAR HEMOGLOBIN 26 pg (25-35); MEAN CORPUSCULAR HGB CONC 31 g/dL (31-37); MEAN CORPUSCULAR VOLUME 83 fL (79-100); MONO % 11 % (0-9); NEUT % 80 % (31-73); PLATELET COUNT 361 x10^3/uL (140-400); RED BLOOD COUNT 3.48 x10^6/uL (3.50-5.40); WHITE BLOOD COUNT 11.9 x10^3/uL (4.0-11.0)
[2016-04-28 05:52] LABS: ALBUMIN 2.7 g/dL (3.4-5.0); ALBUMIN/GLOBULIN RATIO 0.6 (1.0-1.7); CALCIUM 10.1 mg/dL (8.5-10.1); CREATININE 2.4 mg/dL (0.6-1.0); GFR 20.1; MAGNESIUM 2.1 mg/dL (1.8-2.4); PHOSPHORUS 5.3 mg/dL (2.6-4.7); POTASSIUM 4.1 mmol/L (3.5-5.1); TOTAL BILIRUBIN 0.9 mg/dL (0.2-1.0); TOTAL PROTEIN 6.9 g/dL (6.4-8.2)
[2016-04-28 07:05] VITALS: BP 183/71
[2016-04-28] MEDS: IPRATRPIUM/ALBUTEROL 0.5/2.5MG 3 ML NEBU. NEB SCH ×4 (07:43→20:42)
[2016-04-28] MEDS: GUAIFENESIN ER 600 MG TABLET.ER PO SCH ×2 (08:30→21:39)
[2016-04-28] MEDS: PANTOPRAZOLE 40 MG TABLET. PO SCH (08:30)
[2016-04-28] MEDS: hydrALAZINE 20 MG/ML VIAL. IVP PRN (08:31)
[2016-04-28] MEDS: DOXYCYCLINE HYCLATE 100 MG in IV DEXTROSE 5% 100 ML IV SCH ×2 (08:31→21:39)
[2016-04-28] MEDS: LIDOCAINE (700MG/PATCH) PATCH. TD SCH (08:32)
--- NOTE | 2016-04-28 10:10 | PDOC ---
PULMONARY PROGRESS NOTES Subjective no soa awake used BIPAP last night Vitals Vital Signs Date Time Temp Pulse Resp B/P Pulse Ox O2 Delivery O2 Flow Rate FiO2 04/28/16 08:31 100 183/71 04/28/16 07:43 97 Nasal Cannula 3.0 04/28/16 07:05 97.7 32 97.7 General: Alert, No acute distress HEENT: Other (nc, at, perrl shallow oropharynx, nose clear) Lungs: Other (decrease bs) Cardiovascular: S1 Abdomen: Soft, Non-tender, Other (no mass) Extremities: Other (edema) Skin: Warm Labs Laboratory Tests Test 04/26/16 10:25 04/26/16 11:12 04/27/16 07:51 04/27/16 09:45 Urine Protein 25.2mg/dL (Not Estab.) 30mg/dL (NEG-TRACE) Urine Protein 24 Hr Calculated 1524.6mg/24 hr (30.0-150.0) Urine Collection Type Unknown Urine Color Yellow Urine Clarity Clear Urine pH 6.5 Urine Specific [place] <=1.005 Urine Glucose (UA) Negativemg/dL (NEG) Urine Ketones (Stick) Negativemg/dL (NEG) Urine Blood Moderate (NEG) Urine Nitrite Negative (NEG) Urine Bilirubin Negative (NEG) Urine Urobilinogen Dipstick 0.2mg/dL (0.2 mg/dL) Urine Leukocyte Esterase Trace (NEG) Urine RBC 1-2/HPF (0-2) Urine WBC 1-4/HPF (0-4) Urine Squamous Epithelial Cells Few/LPF Urine Bacteria Few/HPF (0-FEW) O2 Saturation 97% (92-99) Arterial Blood pH 7.47 (7.35-7.45) Arterial Blood pCO2 at Patient Temp 41mmHg (35-46) Arterial Blood pO2 at Patient Temp 91mmHg (65-108) Arterial Blood HCO3 29mmol/L (21-28) Arterial Blood Base Excess 5mmol/L (-3-3) FiO2 40 White Blood Count 9.6x10^3/uL (4.0-11.0) Red Blood Count 3.71x10^6/uL (3.50-5.40) Hemoglobin 9.5g/dL (12.0-15.5) Hematocrit 30.6% (36.0-47.0) Mean Corpuscular Volume 82fL (79-100) Mean Corpuscular Hemoglobin 26pg (25-35) Mean Corpuscular Hemoglobin Concent 31g/dL (31-37) Red Cell Distribution Width 18.5% (11.5-14.5) Platelet Count 342x10^3/uL (140-400) Neutrophils (%) (Auto) 83% (31-73) Lymphocytes (%) (Auto) 6% (24-48) Monocytes (%) (Auto) 10% (0-9) Eosinophils (%) (Auto) 1% (0-3) Basophils (%) (Auto) 0% (0-3) Neutrophils # (Auto) 8.0x10^3uL (1.8-7.7) Lymphocytes # (Auto) 0.6x10^3/uL (1.0-4.8) Monocytes # (Auto) 1.0x10^3/uL (0.0-1.1) Eosinophils # (Auto) 0.1x10^3/uL (0.0-0.7) Basophils # (Auto) 0.0x10^3/uL (0.0-0.2) Sodium Level 146mmol/L (136-145) Potassium Level 3.9mmol/L (3.5-5.1) Chloride Level 105mmol/L (98-107) Carbon Dioxide Level 31mmol/L (21-32) Anion Gap 10 (6-14) Blood Urea Nitrogen 41mg/dL (7-20) Creatinine 2.3mg/dL (0.6-1.0) Estimated GFR (Cockcroft-Gault) 21.1 BUN/Creatinine Ratio 18 (6-20) Glucose Level 108mg/dL (70-99) Calcium Level 10.4mg/dL (8.5-10.1) Phosphorus Level 4.2mg/dL (2.6-4.7) Magnesium Level 1.7mg/dL (1.8-2.4) Total Bilirubin 0.9mg/dL (0.2-1.0) Aspartate Amino Transf (AST/SGOT) 34U/L (15-37) Alanine Aminotransferase (ALT/SGPT) 21U/L (14-59) Alkaline Phosphatase 110U/L (46-116) Total Protein 6.6g/dL (6.4-8.2) Albumin 2.8g/dL (3.4-5.0) Albumin/Globulin Ratio 0.7 (1.0-1.7) Test 04/27/16 16:30 04/28/16 04:34 O2 Saturation 93% (92-99) Arterial Blood pH 7.44 (7.35-7.45) Arterial Blood pCO2 at Patient Temp 43mmHg (35-46) Arterial Blood pO2 at Patient Temp 70mmHg (65-108) Arterial Blood HCO3 29mmol/L (21-28) Arterial Blood Base Excess 4mmol/L (-3-3) FiO2 32 White Blood Count 11.9x10^3/uL (4.0-11.0) Red Blood Count 3.48x10^6/uL (3.50-5.40) Hemoglobin 8.9g/dL (12.0-15.5) Hematocrit 28.9% (36.0-47.0) Mean Corpuscular Volume 83fL (79-100) Mean Corpuscular Hemoglobin 26pg (25-35) Mean Corpuscular Hemoglobin Concent 31g/dL (31-37) Red Cell Distribution Width 19.0% (11.5-14.5) Platelet Count 361x10^3/uL (140-400) Neutrophils (%) (Auto) 80% (31-73) Lymphocytes (%) (Auto) 8% (24-48) Monocytes (%) (Auto) 11% (0-9) Eosinophils (%) (Auto) 1% (0-3) Basophils (%) (Auto) 1% (0-3) Neutrophils # (Auto) 9.6x10^3uL (1.8-7.7) Lymphocytes # (Auto) 1.0x10^3/uL (1.0-4.8) Monocytes # (Auto) 1.3x10^3/uL (0.0-1.1) Eosinophils # (Auto) 0.1x10^3/uL (0.0-0.7) Basophils # (Auto) 0.1x10^3/uL (0.0-0.2) Sodium Level 147mmol/L (136-145) Potassium Level 4.1mmol/L (3.5-5.1) Chloride Level 106mmol/L (98-107) Carbon Dioxide Level 30mmol/L (21-32) Anion Gap 11 (6-14) Blood Urea Nitrogen 42mg/dL (7-20) Creatinine 2.4mg/dL (0.6-1.0) Estimated GFR (Cockcroft-Gault) 20.1 BUN/Creatinine Ratio 18 (6-20) Glucose Level 99mg/dL (70-99) Calcium Level 10.1mg/dL (8.5-10.1) Phosphorus Level 5.3mg/dL (2.6-4.7) Magnesium Level 2.1mg/dL (1.8-2.4) Total Bilirubin 0.9mg/dL (0.2-1.0) Aspartate Amino Transf (AST/SGOT) 34U/L (15-37) Alanine Aminotransferase (ALT/SGPT) 21U/L (14-59) Alkaline Phosphatase 110U/L (46-116) Total Protein 6.9g/dL (6.4-8.2) Albumin 2.7g/dL (3.4-5.0) Albumin/Globulin Ratio 0.6 (1.0-1.7) Laboratory Tests Test 04/27/16 16:30 04/28/16 04:34 O2 Saturation 93% (92-99) Arterial Blood pH 7.44 (7.35-7.45) Arterial Blood pCO2 at Patient Temp 43mmHg (35-46) Arterial Blood pO2 at Patient Temp 70mmHg (65-108) Arterial Blood HCO3 29mmol/L (21-28) Arterial Blood Base Excess 4mmol/L (-3-3) FiO2 32 White Blood Count 11.9x10^3/uL (4.0-11.0) Red Blood Count 3.48x10^6/uL (3.50-5.40) Hemoglobin 8.9g/dL (12.0-15.5) Hematocrit 28.9% (36.0-47.0) Mean Corpuscular Volume 83fL (79-100) Mean Corpuscular Hemoglobin 26pg (25-35) Mean Corpuscular Hemoglobin Concent 31g/dL (31-37) Red Cell Distribution Width 19.0% (11.5-14.5) Platelet Count 361x10^3/uL (140-400) Neutrophils (%) (Auto) 80% (31-73) Lymphocytes (%) (Auto) 8% (24-48) Monocytes (%) (Auto) 11% (0-9) Eosinophils (%) (Auto) 1% (0-3) Basophils (%) (Auto) 1% (0-3) Neutrophils # (Auto) 9.6x10^3uL (1.8-7.7) Lymphocytes # (Auto) 1.0x10^3/uL (1.0-4.8) Monocytes # (Auto) 1.3x10^3/uL (0.0-1.1) Eosinophils # (Auto) 0.1x10^3/uL (0.0-0.7) Basophils # (Auto) 0.1x10^3/uL (0.0-0.2) Sodium Level 147mmol/L (136-145) Potassium Level 4.1mmol/L (3.5-5.1) Chloride Level 106mmol/L (98-107) Carbon Dioxide Level 30mmol/L (21-32) Anion Gap 11 (6-14) Blood Urea Nitrogen 42mg/dL (7-20) Creatinine 2.4mg/dL (0.6-1.0) Estimated GFR (Cockcroft-Gault) 20.1 BUN/Creatinine Ratio 18 (6-20) Glucose Level 99mg/dL (70-99) Calcium Level 10.1mg/dL (8.5-10.1) Phosphorus Level 5.3mg/dL (2.6-4.7) Magnesium Level 2.1mg/dL (1.8-2.4) Total Bilirubin 0.9mg/dL (0.2-1.0) Aspartate Amino Transf (AST/SGOT) 34U/L (15-37) Alanine Aminotransferase (ALT/SGPT) 21U/L (14-59) Alkaline Phosphatase 110U/L (46-116) Total Protein 6.9g/dL (6.4-8.2) Albumin 2.7g/dL (3.4-5.0) Albumin/Globulin Ratio 0.6 (1.0-1.7) Medications Active Scripts Medications Dose Route/Sig Days Date Category Omeprazole 20 Mg Capsule. 04/21/16 Reported Ventolin Hfa Inhaler (Albuterol Sulfate) 18 Gm Hfa.aer.ad 04/21/16 Reported Tramadol Hcl 50 Mg Tablet 04/21/16 Reported Hydrocodone-Apap 10-325 (Hydrocodone Bit/Acetaminophen) 1 Each Tablet HS 04/21/16 Reported Gabapentin 600 Mg Tablet HS 04/21/16 Reported Fluticasone Propionate Nasal [place] (Fluticasone Propionate) 16 Gm [place].susp 04/21/16 Reported Alprazolam 0.25 Mg Tablet 04/21/16 Reported Comments LLL infiltrate effusion Impression . 1. Acute respiratory failure, multifactorial. 2. left lower lobe pneumonia/ small effusion, improving 04/27 3. Acute bronchitis. 4. Acute blood loss anemia. 5. Acute kidney injury. 6. Hypokalemia. 7. Acidemia. 8. Metabolic possible toxic encephalopathy. 9. Abnormal CXR 10. Delirium 11. HEIDI/OHS Plan . 1. contnue BIPAP PRN 2. Antibx 3. Followup Nephrology input. 4. GI follow rec, started on diet 5. Nebulized treatments. 6. Sequential compressive devices for DVT prophylaxis. 7. pepcid, for stress ulcer prophylaxis 8. Haldol PRN ASHLEY HAQUE MD Apr 28, 2016 10:10
[2016-04-28 10:54] VITALS: BP 166/59
--- NOTE | 2016-04-28 11:07 | PDOC ---
SUBJECTIVE ROS DONALD vs CKD III/ Iv denies complaints, somewhat somnolent CVS: no Orthopnea, no CP RESP: no SOB, no SALMERON GI: no Nausea, no Vomiting : no Dysuria, no Urgency OBJECTIVE Vital Signs Vital Signs Date Time Temp Pulse Resp B/P Pulse Ox O2 Delivery O2 Flow Rate FiO2 04/28/16 08:31 100 183/71 04/28/16 07:43 97 Nasal Cannula 3.0 04/28/16 07:05 97.7 32 97.7 I & 0 Intake and Output 04/28/16 07:00 Intake Total 900 ml Output Total 1850 ml Balance -950 ml Intake Oral 750 ml IV Total 150 ml Output Urine Total 1850 ml PHYSICAL EXAM Physical Exam GEN: Awake, Oriented x 1-2 , In no resp distress; Drowsy EYES: Vision Unchanged, Conjunctiva Normal EN: No EN Drainage, Mucous Membranes dryish NECK: no JVD, no JVP, Supple, no Thyromegaly; short thick neck CVS: S1S2, no Murmur, No Gallop, No Rub,Tr Edema in lower ext RESP: no Rales, no Rhonchi,no Acc. Muscle Use GI: BS + ve, NO Bruit, Non Tender, Non Distended; obese : no CVA tenderness, no Suprapubic Tenderness DIAGNOSIS/ASSESSMENT Assessment & Plan PROB CKD STAGE III - (Current Cr Cl is 34 cc/min) ; No [facility] records for last 3yrs. Pts PCP was Dr Shipman who retd Jan 2016. 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 Renal US was sub-optimal but showed Smallish Rt Kidney Proteinuria - 1.5gms; per Quantitation with 24-hr Urine ? due to UTI/ (cystitis ) vs NSAID Nephropahty; some Blood in Urine noted too DONALD - ? Resolved - no baseline avail; Current fluid and E-lyte status does not necessitate emergent need for dialysis. Will re-evaluate for dialysis in the am Edema - ECHO WNL so most likely due to Proteinuria, May need to add BRI-i/ ARB ^Na - Encourage PO Water. IV D5W x 2L POOR PO INTAKE - improving per RN ? UTI - D/c Germain ANEMIA; stable so far, ? Some due to hemoconcentration too D/w - he is not sure that she would want HD if the need arose COMMENT/RELEVANT DATA Meds Current Medications Medications (Trade) Dose Ordered Sig/Carlo Start Time Stop Time Status Last Admin Dose Admin Acetaminophen (Tylenol) 650 mg PRN Q6HRS PRN 04/27/16 11:30 Acetaminophen/ Hydrocodone Bitart (Lortab 5/325) 1 tab PRN Q4HRS PRN 04/27/16 09:30 Albuterol Sulfate (Ventolin Neb Soln) 2.5 mg PRN Q4HRS PRN 04/27/16 11:30 Albuterol Sulfate 2.5 mg 2.5 mg PRN QID PRN 04/21/16 07:00 04/27/16 11:24 DC 04/24/16 17:20 2.5 MG Albuterol/ Ipratropium (Duoneb) 3 ml RTQID 04/21/16 08:00 04/28/16 07:43 3 ML Alprazolam (Xanax) 0.25 mg PRN Q8HRS PRN 04/27/16 11:30 04/27/16 18:16 0.25 MG Amino Acids/ Electrolytes 2,000 ml @ 80 mls/hr Q24H 04/22/16 11:00 04/23/16 22:47 DC 04/23/16 11:59 80 MLS/HR Atropine Sulfate 0.5 mg PRN Q5MIN PRN 04/24/16 06:30 Ceftriaxone Sodium 1 gm/ Sodium Chloride 50 ml @ 100 mls/hr Q24H 04/21/16 21:00 04/22/16 13:47 DC 04/21/16 20:36 100 MLS/HR Ceftriaxone Sodium/Sodium Chloride (Rocephin/Iv Sodium Chloride 0.9% 50ml) 50 ml @ 100 mls/hr Q24H 04/22/16 15:00 04/27/16 14:47 100 MLS/HR Ceftriaxone Sodium (Rocephin 1gm Ivpb For Omni) 50 ml @ 100 mls/hr 1X ONCE 04/20/16 22:30 04/20/16 22:59 DC 04/20/16 22:16 100 MLS/HR Darbepoetin Jr 60 mcg 60 mcg WEEKLYHS 04/21/16 21:00 04/21/16 20:38 60 MCG Dexmedetomidine HCl 200 mcg/ Sodium Chloride 50 ml @ 0 mls/hr CONT PRN 04/24/16 06:30 04/25/16 12:05 DC 04/25/16 01:30 7 MLS/HR Doxycycline Hyclate/Dextrose 100 ml @ 50 mls/hr Q12HR 04/21/16 13:00 04/28/16 08:31 50 MLS/HR Famotidine 20 mg 20 mg DAILY 04/22/16 09:00 04/27/16 11:50 DC 04/26/16 09:20 20 MG Fentanyl Citrate (Fentanyl 2ml Vial) 25 mcg PRN Q1HR PRN 04/23/16 18:00 04/28/16 02:05 25 MCG Fentanyl Citrate 25 mcg 25 mcg Q4HRS PRN 04/23/16 07:45 04/23/16 17:53 DC 04/23/16 17:20 25 MCG Furosemide (Lasix) 40 mg [id number] 04/24/16 14:00 04/26/16 09:41 DC 04/26/16 09:20 40 MG Guaifenesin (Mucinex) 600 mg BID 04/27/16 12:00 04/28/16 08:30 600 MG Haloperidol Lactate (Haldol) 2 mg PRN Q6HRS PRN 04/27/16 11:30 Haloperidol Lactate 1 mg 1 mg 1X ONCE 04/24/16 07:00 04/24/16 07:01 Cancel Haloperidol Lactate 5 mg 5 mg PRN Q6HRS PRN 04/25/16 12:15 04/27/16 11:21 DC 04/27/16 11:03 5 MG Hydralazine HCl (Apresoline) 10 mg PRN Q4HRS PRN 04/23/16 18:45 04/28/16 08:31 10 MG Hydralazine HCl 10 mg 10 mg 1X ONCE 04/23/16 19:45 04/23/16 19:46 DC 04/23/16 19:37 10 MG Info 1 each 1 each PRN DAILY PRN 04/24/16 11:00 04/26/16 09:41 DC 04/25/16 14:58 1 EACH Lidocaine (Lidoderm) 1 patch DAILY 04/27/16 11:00 04/28/16 08:32 1 PATCH Lorazepam (Ativan) 1 mg PRN Q4HRS PRN 04/21/16 22:00 04/27/16 11:22 DC 04/27/16 06:01 1 MG Magnesium Sulfate/ Dextrose (Magnesium Sulfate PREMIX 2GM) 50 ml @ 25 mls/hr 1X ONCE 04/25/16 09:00 04/25/16 10:59 DC 04/25/16 09:00 25 MLS/HR Nicardipine HCl 50 mg/Sodium Chloride 270 ml @ 0 mls/hr CONT PRN 04/23/16 20:30 04/27/16 09:27 DC 04/24/16 06:01 54 MLS/HR Nitroglycerin/ Dextrose (Nitroglycerin Drip) 250 ml @ 0 mls/hr CONT PRN 04/23/16 22:45 04/27/16 09:27 DC Ondansetron HCl (Zofran) 4 mg PRN Q6HRS PRN 04/27/16 11:30 Ondansetron HCl 4 mg 4 mg PRN Q8HRS PRN 04/20/16 22:00 04/21/16 21:59 DC 04/21/16 00:27 4 MG Pantoprazole Sodium (Protonix) 40 mg DAILYAC 04/27/16 12:00 04/28/16 08:30 40 MG Sodium Bicarbonate 100 meq/Dextrose 1,100 ml @ 125 mls/hr 1X ONCE 04/23/16 10:00 04/23/16 10:37 DC 04/23/16 10:00 125 MLS/HR Sodium Bicarbonate 50 meq/Sodium Chloride 1,050 ml @ 125 mls/hr [id number] 04/22/16 11:15 04/23/16 11:20 DC 04/23/16 07:45 125 MLS/HR Sodium Bicarbonate/ Dextrose 1,100 ml @ 75 mls/hr [id number] 04/23/16 10:37 04/24/16 10:49 DC 04/23/16 20:04 75 MLS/HR Sodium Chloride (Iv Sodium Chloride 0.9% 500ml Bag) 500 ml @ 500 mls/hr 1X PRN PRN 04/24/16 06:30 04/26/16 09:41 DC Sodium Chloride (Iv Sodium Chloride 0.9% 1000ml Bag) 1,000 ml @ 75 mls/hr [id number] 04/21/16 11:30 04/22/16 10:49 DC 04/21/16 20:32 75 MLS/HR Sodium Chloride 90 meq/Potassium Chloride 30 meq/ Potassium Phosphate 13.6 mmol/Magnesium Sulfate 10 meq/ Multivitamins 10 ml/Chromium/ Copper/Manganese/ Seleni/Zn 1 ml/ Total Parenteral Nutrition/Amino Acids/Dextrose/ Fat Emulsion Intravenous 1,512 ml @ 63 mls/hr TPN CONT 04/24/16 22:00 04/25/16 21:59 DC 04/24/16 21:14 63 MLS/HR Sodium Chloride/ Potassium Chloride/ Potassium Phosphate/ Magnesium Sulfate/ Multivitamins/ Chromium/Copper/ Manganese/Seleni/ Zn/Total Parenteral Nutrition/Amino Acids/Dextrose/ Fat Emulsion Intravenous (Sodium Chloride/ Potassium Phosphate/ Infuvite Gallo... 1,512 ml @ 63 mls/hr TPN CONT 04/25/16 22:00 04/26/16 21:59 DC 04/25/16 23:52 63 MLS/HR Tramadol HCl (Ultram) 50 mg PRN Q6HRS PRN 04/27/16 09:30 04/27/16 18:15 50 MG Lab Laboratory Tests Test 04/27/16 16:30 04/28/16 04:34 O2 Saturation 93% (92-99) Arterial Blood pH 7.44 (7.35-7.45) Arterial Blood pCO2 at Patient Temp 43mmHg (35-46) Arterial Blood pO2 at Patient Temp 70mmHg (65-108) Arterial Blood HCO3 29mmol/L (21-28) Arterial Blood Base Excess 4mmol/L (-3-3) FiO2 32 White Blood Count 11.9x10^3/uL (4.0-11.0) Red Blood Count 3.48x10^6/uL (3.50-5.40) Hemoglobin 8.9g/dL (12.0-15.5) Hematocrit 28.9% (36.0-47.0) Mean Corpuscular Volume 83fL (79-100) Mean Corpuscular Hemoglobin 26pg (25-35) Mean Corpuscular Hemoglobin Concent 31g/dL (31-37) Red Cell Distribution Width 19.0% (11.5-14.5) Platelet Count 361x10^3/uL (140-400) Neutrophils (%) (Auto) 80% (31-73) Lymphocytes (%) (Auto) 8% (24-48) Monocytes (%) (Auto) 11% (0-9) Eosinophils (%) (Auto) 1% (0-3) Basophils (%) (Auto) 1% (0-3) Neutrophils # (Auto) 9.6x10^3uL (1.8-7.7) Lymphocytes # (Auto) 1.0x10^3/uL (1.0-4.8) Monocytes # (Auto) 1.3x10^3/uL (0.0-1.1) Eosinophils # (Auto) 0.1x10^3/uL (0.0-0.7) Basophils # (Auto) 0.1x10^3/uL (0.0-0.2) Sodium Level 147mmol/L (136-145) Potassium Level 4.1mmol/L (3.5-5.1) Chloride Level 106mmol/L (98-107) Carbon Dioxide Level 30mmol/L (21-32) Anion Gap 11 (6-14) Blood Urea Nitrogen 42mg/dL (7-20) Creatinine 2.4mg/dL (0.6-1.0) Estimated GFR (Cockcroft-Gault) 20.1 BUN/Creatinine Ratio 18 (6-20) Glucose Level 99mg/dL (70-99) Calcium Level 10.1mg/dL (8.5-10.1) Phosphorus Level 5.3mg/dL (2.6-4.7) Magnesium Level 2.1mg/dL (1.8-2.4) Total Bilirubin 0.9mg/dL (0.2-1.0) Aspartate Amino Transf (AST/SGOT) 34U/L (15-37) Alanine Aminotransferase (ALT/SGPT) 21U/L (14-59) Alkaline Phosphatase 110U/L (46-116) Total Protein 6.9g/dL (6.4-8.2) Albumin 2.7g/dL (3.4-5.0) Albumin/Globulin Ratio 0.6 (1.0-1.7) ARNOLD MAGANA MD Apr 28, 2016 11:07
[2016-04-28] MEDS: IV DEXTROSE 5% 1,000 ML IV SCH ×2 (11:54→21:38)
--- NOTE | 2016-04-28 12:11 | PDOC ---
PROGRESS NOTES Chief Complaint Chief Complaint Anemia DONALD ASSESSMENT AND PLAN: 1. Anemia , likely 2/2 GIB given taking NSAIDS and h/o polyp 2. Bronchitis/? PNA: 3. Respir distress, acute ,hypoxia and hypercapnia 4. Delirium, fluctuate, with 7 and sedative meds 5. DONALD with CKD possible 2-3, ATN 6. obesity 7. sepsis with 2 8. back pain 9. HTN plan: 1. fu with renal, pulm, gi 2. may need egd, colonoscopy when resp failure is better 3. keep NC for now, on abx, check sputum cx PENding 4. dc some sedative meds, try low dose prn lidoderm patch daughter requires us to give sedative meds, and transfer to . i called [facility], no meds. pt doesnot need to be transfer anyway discuss with at bedside for 10min. gi ppx add cough meds, amlodipine 5mg daily for now History of Present Illness History of Present Illness low grade fever from ICU, sob this am, need stat cxr, abg, bipap. pt doesnot tolerate bipap well, ok on NC now confused, baseline normal. slightly better on 04/28, but very week now aaox 2 to person, year, no place took NSAIDS before coming to hosp, no labs with pcp for a long time Vitals Vitals Vital Signs Date Time Temp Pulse Resp B/P Pulse Ox O2 Delivery O2 Flow Rate FiO2 04/28/16 11:39 97 Nasal Cannula 3.0 04/28/16 10:54 98.1 90 34 166/59 98.1 Physical Exam General: Alert, Cooperative, No acute distress Heart: Regular rate Lungs: Other (decrease bs) Abdomen: Normal bowel sounds, Soft Extremities: No clubbing, Other (massive ecchymoses in UE, R>L) Skin: No rashes Labs LABS Laboratory Tests Test 04/27/16 16:30 04/28/16 04:34 O2 Saturation 93% (92-99) Arterial Blood pH 7.44 (7.35-7.45) Arterial Blood pCO2 at Patient Temp 43mmHg (35-46) Arterial Blood pO2 at Patient Temp 70mmHg (65-108) Arterial Blood HCO3 29mmol/L (21-28) Arterial Blood Base Excess 4mmol/L (-3-3) FiO2 32 White Blood Count 11.9x10^3/uL (4.0-11.0) Red Blood Count 3.48x10^6/uL (3.50-5.40) Hemoglobin 8.9g/dL (12.0-15.5) Hematocrit 28.9% (36.0-47.0) Mean Corpuscular Volume 83fL (79-100) Mean Corpuscular Hemoglobin 26pg (25-35) Mean Corpuscular Hemoglobin Concent 31g/dL (31-37) Red Cell Distribution Width 19.0% (11.5-14.5) Platelet Count 361x10^3/uL (140-400) Neutrophils (%) (Auto) 80% (31-73) Lymphocytes (%) (Auto) 8% (24-48) Monocytes (%) (Auto) 11% (0-9) Eosinophils (%) (Auto) 1% (0-3) Basophils (%) (Auto) 1% (0-3) Neutrophils # (Auto) 9.6x10^3uL (1.8-7.7) Lymphocytes # (Auto) 1.0x10^3/uL (1.0-4.8) Monocytes # (Auto) 1.3x10^3/uL (0.0-1.1) Eosinophils # (Auto) 0.1x10^3/uL (0.0-0.7) Basophils # (Auto) 0.1x10^3/uL (0.0-0.2) Sodium Level 147mmol/L (136-145) Potassium Level 4.1mmol/L (3.5-5.1) Chloride Level 106mmol/L (98-107) Carbon Dioxide Level 30mmol/L (21-32) Anion Gap 11 (6-14) Blood Urea Nitrogen 42mg/dL (7-20) Creatinine 2.4mg/dL (0.6-1.0) Estimated GFR (Cockcroft-Gault) 20.1 BUN/Creatinine Ratio 18 (6-20) Glucose Level 99mg/dL (70-99) Calcium Level 10.1mg/dL (8.5-10.1) Phosphorus Level 5.3mg/dL (2.6-4.7) Magnesium Level 2.1mg/dL (1.8-2.4) Total Bilirubin 0.9mg/dL (0.2-1.0) Aspartate Amino Transf (AST/SGOT) 34U/L (15-37) Alanine Aminotransferase (ALT/SGPT) 21U/L (14-59) Alkaline Phosphatase 110U/L (46-116) Total Protein 6.9g/dL (6.4-8.2) Albumin 2.7g/dL (3.4-5.0) Albumin/Globulin Ratio 0.6 (1.0-1.7) Review of Systems Review of Systems no chills, chest pain Assessment and Plan Assessmemt and Plan Problems Medical Problems: (1) Symptomatic anemia Status: Acute Problems: Comment Review of Relevant I have reviewed the following items odilia (where applicable) has been applied. Labs Laboratory Tests Test 04/27/16 07:51 04/27/16 09:45 04/27/16 16:30 04/28/16 04:34 O2 Saturation 97% (92-99) 93% (92-99) Arterial Blood pH 7.47 (7.35-7.45) 7.44 (7.35-7.45) Arterial Blood pCO2 at Patient Temp 41mmHg (35-46) 43mmHg (35-46) Arterial Blood pO2 at Patient Temp 91mmHg (65-108) 70mmHg (65-108) Arterial Blood HCO3 29mmol/L (21-28) 29mmol/L (21-28) Arterial Blood Base Excess 5mmol/L (-3-3) 4mmol/L (-3-3) FiO2 40 32 White Blood Count 9.6x10^3/uL (4.0-11.0) 11.9x10^3/uL (4.0-11.0) Red Blood Count 3.71x10^6/uL (3.50-5.40) 3.48x10^6/uL (3.50-5.40) Hemoglobin 9.5g/dL (12.0-15.5) 8.9g/dL (12.0-15.5) Hematocrit 30.6% (36.0-47.0) 28.9% (36.0-47.0) Mean Corpuscular Volume 82fL (79-100) 83fL (79-100) Mean Corpuscular Hemoglobin 26pg (25-35) 26pg (25-35) Mean Corpuscular Hemoglobin Concent 31g/dL (31-37) 31g/dL (31-37) Red Cell Distribution Width 18.5% (11.5-14.5) 19.0% (11.5-14.5) Platelet Count 342x10^3/uL (140-400) 361x10^3/uL (140-400) Neutrophils (%) (Auto) 83% (31-73) 80% (31-73) Lymphocytes (%) (Auto) 6% (24-48) 8% (24-48) Monocytes (%) (Auto) 10% (0-9) 11% (0-9) Eosinophils (%) (Auto) 1% (0-3) 1% (0-3) Basophils (%) (Auto) 0% (0-3) 1% (0-3) Neutrophils # (Auto) 8.0x10^3uL (1.8-7.7) 9.6x10^3uL (1.8-7.7) Lymphocytes # (Auto) 0.6x10^3/uL (1.0-4.8) 1.0x10^3/uL (1.0-4.8) Monocytes # (Auto) 1.0x10^3/uL (0.0-1.1) 1.3x10^3/uL (0.0-1.1) Eosinophils # (Auto) 0.1x10^3/uL (0.0-0.7) 0.1x10^3/uL (0.0-0.7) Basophils # (Auto) 0.0x10^3/uL (0.0-0.2) 0.1x10^3/uL (0.0-0.2) Sodium Level 146mmol/L (136-145) 147mmol/L (136-145) Potassium Level 3.9mmol/L (3.5-5.1) 4.1mmol/L (3.5-5.1) Chloride Level 105mmol/L (98-107) 106mmol/L (98-107) Carbon Dioxide Level 31mmol/L (21-32) 30mmol/L (21-32) Anion Gap 10 (6-14) 11 (6-14) Blood Urea Nitrogen 41mg/dL (7-20) 42mg/dL (7-20) Creatinine 2.3mg/dL (0.6-1.0) 2.4mg/dL (0.6-1.0) Estimated GFR (Cockcroft-Gault) 21.1 20.1 BUN/Creatinine Ratio 18 (6-20) 18 (6-20) Glucose Level 108mg/dL (70-99) 99mg/dL (70-99) Calcium Level 10.4mg/dL (8.5-10.1) 10.1mg/dL (8.5-10.1) Phosphorus Level 4.2mg/dL (2.6-4.7) 5.3mg/dL (2.6-4.7) Magnesium Level 1.7mg/dL (1.8-2.4) 2.1mg/dL (1.8-2.4) Total Bilirubin 0.9mg/dL (0.2-1.0) 0.9mg/dL (0.2-1.0) Aspartate Amino Transf (AST/SGOT) 34U/L (15-37) 34U/L (15-37) Alanine Aminotransferase (ALT/SGPT) 21U/L (14-59) 21U/L (14-59) Alkaline Phosphatase 110U/L (46-116) 110U/L (46-116) Total Protein 6.6g/dL (6.4-8.2) 6.9g/dL (6.4-8.2) Albumin 2.8g/dL (3.4-5.0) 2.7g/dL (3.4-5.0) Albumin/Globulin Ratio 0.7 (1.0-1.7) 0.6 (1.0-1.7) Laboratory Tests Test 04/27/16 16:30 04/28/16 04:34 O2 Saturation 93% (92-99) Arterial Blood pH 7.44 (7.35-7.45) Arterial Blood pCO2 at Patient Temp 43mmHg (35-46) Arterial Blood pO2 at Patient Temp 70mmHg (65-108) Arterial Blood HCO3 29mmol/L (21-28) Arterial Blood Base Excess 4mmol/L (-3-3) FiO2 32 White Blood Count 11.9x10^3/uL (4.0-11.0) Red Blood Count 3.48x10^6/uL (3.50-5.40) Hemoglobin 8.9g/dL (12.0-15.5) Hematocrit 28.9% (36.0-47.0) Mean Corpuscular Volume 83fL (79-100) Mean Corpuscular Hemoglobin 26pg (25-35) Mean Corpuscular Hemoglobin Concent 31g/dL (31-37) Red Cell Distribution Width 19.0% (11.5-14.5) Platelet Count 361x10^3/uL (140-400) Neutrophils (%) (Auto) 80% (31-73) Lymphocytes (%) (Auto) 8% (24-48) Monocytes (%) (Auto) 11% (0-9) Eosinophils (%) (Auto) 1% (0-3) Basophils (%) (Auto) 1% (0-3) Neutrophils # (Auto) 9.6x10^3uL (1.8-7.7) Lymphocytes # (Auto) 1.0x10^3/uL (1.0-4.8) Monocytes # (Auto) 1.3x10^3/uL (0.0-1.1) Eosinophils # (Auto) 0.1x10^3/uL (0.0-0.7) Basophils # (Auto) 0.1x10^3/uL (0.0-0.2) Sodium Level 147mmol/L (136-145) Potassium Level 4.1mmol/L (3.5-5.1) Chloride Level 106mmol/L (98-107) Carbon Dioxide Level 30mmol/L (21-32) Anion Gap 11 (6-14) Blood Urea Nitrogen 42mg/dL (7-20) Creatinine 2.4mg/dL (0.6-1.0) Estimated GFR (Cockcroft-Gault) 20.1 BUN/Creatinine Ratio 18 (6-20) Glucose Level 99mg/dL (70-99) Calcium Level 10.1mg/dL (8.5-10.1) Phosphorus Level 5.3mg/dL (2.6-4.7) Magnesium Level 2.1mg/dL (1.8-2.4) Total Bilirubin 0.9mg/dL (0.2-1.0) Aspartate Amino Transf (AST/SGOT) 34U/L (15-37) Alanine Aminotransferase (ALT/SGPT) 21U/L (14-59) Alkaline Phosphatase 110U/L (46-116) Total Protein 6.9g/dL (6.4-8.2) Albumin 2.7g/dL (3.4-5.0) Albumin/Globulin Ratio 0.6 (1.0-1.7) Microbiology 04/20/16 Blood Culture - Final, Complete NO GROWTH AFTER 5 DAYS 04/26/16 Urine Culture - Preliminary, Resulted 04/26/16 Urine Culture Result 1 (DEANN) - Preliminary, Resulted Medications Current Medications Ondansetron HCl 4 mg 4 mg PRN Q8HRS PRN IV NAUSEA/VOMITING Last administered on 04/21/16 00:27; Start 04/20/16 at 22:00; Stop 04/21/16 at 21:59; Status DC Ceftriaxone Sodium (Rocephin 1gm Ivpb For Omni) 50 ml @ 100 mls/hr 1X ONCE IV Last administered on 04/20/16 22:16; Start 04/20/16 at 22:30; Stop 04/20/16 at 22:59; Status DC Albuterol/ Ipratropium (Duoneb) 3 ml RTQID NEB Last administered on 04/28/16 11:39; Start 04/21/16 at 08:00 Albuterol Sulfate 2.5 mg 2.5 mg PRN QID PRN NEB SHORTNESS OF BREATH Last administered on 04/24/16 17:20; Start 04/21/16 at 07:00; Stop 04/27/16 at 11:24 ; Status DC Sodium Chloride (Iv Sodium Chloride 0.9% 1000ml Bag) 1,000 ml @ 75 mls/hr [id number] IV Last administered on 04/21/16 20:32; Start 04/21/16 at 11:30; Stop 04/22/16 at 10:49; Status DC Darbepoetin Jr 60 mcg 60 mcg [id number] [id number] Last administered on 04/21/16 20:38 ; Start 04/21/16 at 21:00 Ceftriaxone Sodium 1 gm/ Sodium Chloride 50 ml @ 100 mls/hr Q24H IV Last administered on 04/21/16 20:36; Start 04/21/16 at 21:00; Stop 04/22/16 at 13:47 ; Status DC Doxycycline Hyclate/Dextrose 100 ml @ 50 mls/hr Q12HR IV Last administered on 04/28/16 08:31; Start 04/21/16 at 13:00 Alprazolam (Xanax) 0.5 mg PRN Q8HRS PRN PO ANXIETY / AGITATION Last administered on 04/23/16 18:41; Start 04/21/16 at 22:00; Stop 04/27/16 at 11:21 ; Status DC Lorazepam (Ativan) 1 mg PRN Q4HRS PRN IV ANXIETY / AGITATION Last administered on 04/27/16 06:01; Start 04/21/16 at 22:00; Stop 04/27/16 at 11:22; Status DC Famotidine 20 mg 20 mg DAILY IVP Last administered on 04/26/16 09:20; Start at 09:00; Stop 04/27/16 at 11:50; Status DC Amino Acids/ Electrolytes 2,000 ml @ 80 mls/hr Q24H IV Last administered on 11:59; Start 04/22/16 at 11:00; Stop 04/23/16 at 22:47; Status DC Sodium Bicarbonate 50 meq/Sodium Chloride 1,050 ml @ 125 mls/hr Q8H24M IV Last administered on 04/23/16 07:45; Start 04/22/16 at 11:15; Stop 04/23/16 at 11:20; Status DC Ceftriaxone Sodium/Sodium Chloride (Rocephin/Iv Sodium Chloride 0.9% 50ml) 50 ml @ 100 mls/hr Q24H IV Last administered on 04/27/16 14:47; Start 04/22/16 at 15:00 Fentanyl Citrate 25 mcg 25 mcg Q4HRS PRN IV PAIN Last administered on 17:20; Start 04/23/16 at 07:45; Stop 04/23/16 at 17:53; Status DC Sodium Bicarbonate 100 meq/Dextrose 1,100 ml @ 125 mls/hr 1X ONCE IV Last administered on 04/23/16 10:00; Start 04/23/16 at 10:00; Stop 04/23/16 at 10:37 ; Status DC Sodium Bicarbonate/ Dextrose 1,100 ml @ 75 mls/hr [id number] IV Last administered on 04/23/16 20:04; Start 04/23/16 at 10:37; Stop 04/24/16 at 10:49 ; Status DC Fentanyl Citrate (Fentanyl 2ml Vial) 25 mcg PRN Q1HR PRN IV PAIN Last administered on 04/28/16 02:05; Start 04/23/16 at 18:00 Hydralazine HCl (Apresoline) 10 mg PRN Q4HRS PRN IVP ELEVATED BP, SEE COMMENTS Last administered on 04/28/16 08:31; Start 04/23/16 at 18:45 Hydralazine HCl 10 mg 10 mg 1X ONCE IVP Last administered on 04/23/16 19:37; Start 04/23/16 at 19:45; Stop 04/23/16 at 19:46; Status DC Nicardipine HCl 50 mg/Sodium Chloride 270 ml @ 0 mls/hr CONT PRN IV SEE I/O RECORD Last administered on 04/24/16 06:01; Start 04/23/16 at 20:30; Stop 04/27 at 09:27; Status DC Nitroglycerin/ Dextrose (Nitroglycerin Drip) 250 ml @ 0 mls/hr CONT PRN IV SEE I/O RECORD; Start 04/23/16 at 22:45; Stop 04/27/16 at 09:27; Status DC Haloperidol Lactate 1 mg 1 mg 1X ONCE IM ; Start 04/24/16 at 07:00; Stop at 07:01; Status Cancel Dexmedetomidine HCl 200 mcg/ Sodium Chloride 50 ml @ 0 mls/hr CONT PRN IV PER PROTOCOL Last administered on 04/25/16 01:30; Start 04/24/16 at 06:30; Stop at 12:05; Status DC Sodium Chloride (Iv Sodium Chloride 0.9% 500ml Bag) 500 ml @ 500 mls/hr 1X PRN PRN IV SEE COMMENTS; Start 04/24/16 at 06:30; Stop 04/26/16 at 09:41; Status DC Atropine Sulfate 0.5 mg PRN Q5MIN PRN IV SEE COMMENTS; Start 04/24/16 at 06:30 Furosemide (Lasix) 40 mg [id number] IVP Last administered on 04/26/16 09:20; Start 04/24/16 at 14:00; Stop 04/26/16 at 09:41; Status DC Info 1 each 1 each PRN DAILY PRN MC SEE COMMENTS Last administered on 14:58; Start 04/24/16 at 11:00; Stop 04/26/16 at 09:41; Status DC Sodium Chloride 90 meq/Potassium Chloride 30 meq/ Potassium Phosphate 13.6 mmol/ Magnesium Sulfate 10 meq/ Multivitamins 10 ml/Chromium/ Copper/Manganese/ Seleni /Zn 1 ml/ Total Parenteral Nutrition/Amino Acids/Dextrose/ Fat Emulsion Intravenous 1,512 ml @ 63 mls/hr TPN CONT IV Last administered on 04/24/16 21:14; Start 04/24/16 at 22:00; Stop 04/25/16 at 21:59; Status DC Magnesium Sulfate/ Dextrose 50 ml @ 25 mls/hr PRN DAILY PRN IV for Mag < 1.7 on am labs; Start 04/25/16 at 08:30 Magnesium Sulfate/ Dextrose (Magnesium Sulfate PREMIX 2GM) 50 ml @ 25 mls/hr 1X ONCE IV Last administered on 04/25/16 09:00; Start 04/25/16 at 09:00; Stop 04/25/16 at 10:59; Status DC Haloperidol Lactate 5 mg 5 mg PRN Q6HRS PRN IVP AGITATION Last administered on 04/27/16 11:03; Start 04/25/16 at 12:15; Stop 04/27/16 at 11:21; Status DC Sodium Chloride/ Potassium Chloride/ Potassium Phosphate/ Magnesium Sulfate/ Multivitamins/ Chromium/Copper/ Manganese/Seleni/ Zn/Total Parenteral Nutrition/ Amino Acids/Dextrose/ Fat Emulsion Intravenous (Sodium Chloride/ Potassium Phosphate/ Infuvite Gallo... 1,512 ml @ 63 mls/hr TPN CONT IV Last administered on 04/25/16 23:52; Start 04/25/16 at 22:00; Stop 04/26/16 at 21:59 ; Status DC Acetaminophen/ Hydrocodone Bitart (Lortab 5/325) 1 tab PRN Q4HRS PRN PO PAIN; Start 04/27/16 at 09:30 Tramadol HCl (Ultram) 50 mg PRN Q6HRS PRN PO PAIN Last administered on 18:15; Start 04/27/16 at 09:30 Lidocaine (Lidoderm) 1 patch DAILY TD Last administered on 04/28/16 08:32; Start 04/27/16 at 11:00 Alprazolam (Xanax) 0.25 mg PRN Q8HRS PRN PO ANXIETY / AGITATION Last administered on 04/27/16 18:16; Start 04/27/16 at 11:30 Haloperidol Lactate (Haldol) 2 mg PRN Q6HRS PRN IVP AGITATION; Start 04/27/16 at 11:30 Guaifenesin (Mucinex) 600 mg BID PO Last administered on 04/28/16 08:30; Start 04/27/16 at 12:00 Acetaminophen (Tylenol) 650 mg PRN Q6HRS PRN PO MILD PAIN / TEMP; Start at 11:30 Ondansetron HCl (Zofran) 4 mg PRN Q6HRS PRN IV NAUSEA/VOMITING; Start 04/27/16 at 11:30 Albuterol Sulfate (Fabiano Eden Soleleanor) 2.5 mg PRN Q4HRS PRN NEB SHORTNESS OF BREATH; Start 04/27/16 at 11:30 Pantoprazole Sodium 40 mg 40 mg DAILYAC PO Last administered on 04/28/16 08:30 ; Start 04/27/16 at 12:00 Dextrose 1,000 ml @ 100 mls/hr Q10H IV Last administered on 04/28/16 11:54; Start 04/28/16 at 11:15 Active Scripts Active Reported Omeprazole 20 Mg Capsule.dr Mario Hfa Inhaler (Albuterol Sulfate) 18 Gm Hfa.aer.ad Tramadol Hcl 50 Mg Tablet Hydrocodone-Apap 10-325 (Hydrocodone Bit/Acetaminophen) 1 Each Tablet HS Gabapentin 600 Mg Tablet HS Fluticasone Propionate Nasal [place] (Fluticasone Propionate) 16 Gm [place].susp Alprazolam 0.25 Mg Tablet Vitals/I & O Vital Sign - Last 24 Hours 3/2204/27/16 04/27/16 04/27/16 15:00 15:20 18:15 19:10 Temp 98.1 97.9 98.1 97.9 Pulse 96 104 Resp 34 25 44 B/P 193/85 198/81 Pulse Ox 97 92 O2 Delivery Nasal Cannula Nasal Cannula Nasal Cannula Nasal Cannula O2 Flow Rate 3.0 3.0 3.0 2.0 04/27/16 04/27/16 04/27/16 04/27/16 19:15 20:00 22:46 22:47 Pulse 104 B/P 198/81 Pulse Ox 97 97 O2 Delivery Nasal Cannula Nasal Cannula Nasal Cannula O2 Flow Rate 3.0 3.0 3.0 04/27/16 04/27/16 04/28/16 04/28/16 23:10 23:17 02:05 02:35 Temp 98.8 98.8 Pulse 106 Resp 44 25 B/P 195/75 Pulse Ox 93 93 93 O2 Delivery Nasal Cannula Nasal Cannula Nasal Cannula O2 Flow Rate 3.0 3.0 3.0 04/28/16 04/28/16 04/28/16 04/28/16 03:10 07:05 07:43 08:00 Temp 99.9 97.7 99.9 97.7 Pulse 100 100 Resp 36 32 B/P 152/76 183/71 Pulse Ox 97 98 97 O2 Delivery Nasal Cannula Nasal Cannula Nasal Cannula Nasal Cannula O2 Flow Rate 3.0 3.0 3.0 3.0 04/28/16 04/28/16 04/28/16 08:31 10:54 11:39 Temp 98.1 98.1 Pulse 100 90 Resp 34 B/P 183/71 166/59 Pulse Ox 95 97 O2 Delivery Nasal Cannula Nasal Cannula O2 Flow Rate 3.0 3.0 Intake and Output 04/27/16 04/27/16 04/28/16 15:00 23:00 07:00 Intake Total 100 ml 300 ml 500 ml Output Total 550 ml 700 ml 600 ml Balance -450 ml -400 ml -100 ml SHERLY SUTHERLAND MD Apr 28, 2016 12:11
[2016-04-28] MEDS ORDERED: GUAIFENESIN 200 MG/10 ML LIQUID. PO PRN (12:15)
--- NOTE | 2016-04-28 14:00 | PDOC ---
Objective: Objective: Per RN - mentally improved, eating, breathing still an issue. Vital Signs: Vital Signs Date Time Temp Pulse Resp B/P Pulse Ox O2 Delivery O2 Flow Rate FiO2 04/28/16 11:39 97 Nasal Cannula 3.0 04/28/16 10:54 98.1 90 34 166/59 98.1 Labs: Laboratory Tests Test 04/27/16 16:30 04/28/16 04:34 O2 Saturation 93% Arterial Blood pH 7.44 Arterial Blood pCO2 at Patient Temp 43mmHg Arterial Blood pO2 at Patient Temp 70mmHg Arterial Blood HCO3 29mmol/L Arterial Blood Base Excess 4mmol/L FiO2 32 White Blood Count 11.9x10^3/uL Red Blood Count 3.48x10^6/uL Hemoglobin 8.9g/dL Hematocrit 28.9% Mean Corpuscular Volume 83fL Mean Corpuscular Hemoglobin 26pg Mean Corpuscular Hemoglobin Concent 31g/dL Red Cell Distribution Width 19.0% Platelet Count 361x10^3/uL Neutrophils (%) (Auto) 80% Lymphocytes (%) (Auto) 8% Monocytes (%) (Auto) 11% Eosinophils (%) (Auto) 1% Basophils (%) (Auto) 1% Neutrophils # (Auto) 9.6x10^3uL Lymphocytes # (Auto) 1.0x10^3/uL Monocytes # (Auto) 1.3x10^3/uL Eosinophils # (Auto) 0.1x10^3/uL Basophils # (Auto) 0.1x10^3/uL Sodium Level 147mmol/L Potassium Level 4.1mmol/L Chloride Level 106mmol/L Carbon Dioxide Level 30mmol/L Anion Gap 11 Blood Urea Nitrogen 42mg/dL Creatinine 2.4mg/dL Estimated GFR (Cockcroft-Gault) 20.1 BUN/Creatinine Ratio 18 Glucose Level 99mg/dL Calcium Level 10.1mg/dL Phosphorus Level 5.3mg/dL Magnesium Level 2.1mg/dL Total Bilirubin 0.9mg/dL Aspartate Amino Transf (AST/SGOT) 34U/L Alanine Aminotransferase (ALT/SGPT) 21U/L Alkaline Phosphatase 110U/L Total Protein 6.9g/dL Albumin 2.7g/dL Albumin/Globulin Ratio 0.6 PE: GEN: NAD LUNGS: coarse HEART: RRR ABD: S/ND/NT,obese NEURO/PSYCH: sleeping, did not awaken A/P: Anemia -Hgb improved/stable, no obvious GI bleeding -tolerating PO -prior to admission taking NSAIDs for pain and PPI for heartburn -last colonoscopy (?EGD) around the time of stem cell transplant Resp failure/bronchitis, DONALD, NHL -- Continue PPI. EGD and colonoscopy when pulm status better. JAYDEN CHRISTIAN Apr 28, 2016 14:00 CARINA PECK MD Apr 28, 2016 14:05
[2016-04-28 14:52] VITALS: BP 138/54
[2016-04-28] MEDS: AMLODIPINE BESYLATE 5 MG TABLET PO SCH (15:09)
[2016-04-28] MEDS: CEFTRIAXONE SODIUM 1 GM in IV NORMAL SALINE 50ML 50 ML IV SCH (15:09)
[2016-04-28 19:00] VITALS: BP 145/69
[2016-04-28] MEDS: DARBEPOETIN ALFA 60 MCG/0.3 ML DISP.SYRIN. SQ SCH (21:39)
[2016-04-28] MEDS: HYDROCODONE/APAP 5/325MG TABLET. PO PRN (21:46)
[2016-04-28 23:00] VITALS: BP 151/77
[2016-04-29 03:00] VITALS: BP 153/62
[2016-04-29] MEDS: PANTOPRAZOLE 40 MG TABLET. PO SCH (06:01)
[2016-04-29 06:50] LABS: ALBUMIN 2.6 g/dL (3.4-5.0); CREATININE 2.5 mg/dL (0.6-1.0); GFR 19.2; PHOSPHORUS 5.3 mg/dL (2.6-4.7); POTASSIUM 3.8 mmol/L (3.5-5.1)
[2016-04-29 07:05] VITALS: BP 160/63
[2016-04-29] MEDS: IPRATRPIUM/ALBUTEROL 0.5/2.5MG 3 ML NEBU. NEB SCH ×4 (07:34→20:54)
[2016-04-29] MEDS: GUAIFENESIN ER 600 MG TABLET.ER PO SCH ×2 (08:16→20:38)
[2016-04-29] MEDS: AMLODIPINE BESYLATE 5 MG TABLET PO SCH (08:16)
[2016-04-29] MEDS: LIDOCAINE (700MG/PATCH) PATCH. TD SCH ×2 (08:17→09:54)
[2016-04-29] MEDS: DOXYCYCLINE HYCLATE 100 MG in IV DEXTROSE 5% 100 ML IV SCH ×2 (08:17→20:39)
[2016-04-29] MEDS: IV DEXTROSE 5% 1,000 ML IV SCH ×3 (08:18→20:39)
[2016-04-29] MEDS: HYDROCODONE/APAP 5/325MG TABLET. PO PRN ×3 (08:23→20:38)
[2016-04-29 09:38] LABS: BASO # 0.1 x10^3/uL (0.0-0.2); BASO % 1 % (0-3); EOS % 6 % (0-3); HEMATOCRIT 29.3 % (36.0-47.0); HEMOGLOBIN 8.7 g/dL (12.0-15.5); LYMPH % 12 % (24-48); MEAN CORPUSCULAR HEMOGLOBIN 25 pg (25-35); MEAN CORPUSCULAR HGB CONC 30 g/dL (31-37); MEAN CORPUSCULAR VOLUME 85 fL (79-100); MONO % 10 % (0-9); NEUT % 72 % (31-73); PLATELET COUNT 338 x10^3/uL (140-400); RED BLOOD COUNT 3.43 x10^6/uL (3.50-5.40); RED CELL DISTRIBUTION WIDTH 19.8 % (11.5-14.5); WHITE BLOOD COUNT 8.8 x10^3/uL (4.0-11.0)
[2016-04-29] MEDS ORDERED: FUROSEMIDE 40 MG/4 ML VIAL IVP ONE (09:45)
--- NOTE | 2016-04-29 10:44 | PDOC ---
PROGRESS NOTES Chief Complaint Chief Complaint Anemia DONALD ASSESSMENT AND PLAN: 1. Anemia , likely 2/2 GIB given taking NSAIDS and h/o polyp 2. Bronchitis/? PNA 3. Respir distress, acute ,hypoxia and hypercapnia 4. Delirium, fluctuate, with 7 and sedative meds 5. DONALD with CKD possible 2-3, ATN 6. obesity 7. sepsis with 2 8. back pain 9. HTN plan: 1. fu with renal, pulm, gi 2. may need egd, colonoscopy when resp failure is better 3. keep NC for now, on abx, check sputum cx PENding 4. dc some sedative meds, try low dose prn lidoderm patch daughter requires us to give sedative meds, and transfer to . i called [facility], no meds. pt doesnot need to be transfer anyway discuss with at bedside for 10min. gi ppx add cough meds, amlodipine 5mg daily for now albumin x1, lasix 40mg ivx1, on ivf with renal from 04/28 bl leg US to rule out dvt PTOT History of Present Illness History of Present Illness low grade fever from ICU, sob on 04/27, need stat cxr, abg, bipap, now better pt doesnot tolerate bipap well, ok on NC now confused, baseline normal. slightly better on 04/28, but very week. mental improved since 04/28, aaox3 took NSAIDS before coming to hosp, no labs with pcp for a long time had some kidney problem since young age, no details bl leg edema lower back pain Vitals Vitals Vital Signs Date Time Temp Pulse Resp B/P Pulse Ox O2 Delivery O2 Flow Rate FiO2 04/29/16 09:48 18 95 Nasal Cannula 3.0 04/29/16 08:16 83 160/63 04/29/16 07:05 97.7 97.7 Physical Exam General: Alert, Cooperative, No acute distress Heart: Regular rate Lungs: Other (decrease bs) Abdomen: Normal bowel sounds, Soft Extremities: No clubbing, Other (massive ecchymoses in UE, R>L) Skin: No rashes Labs LABS Laboratory Tests Test 04/29/16 05:25 White Blood Count 8.8x10^3/uL (4.0-11.0) Red Blood Count 3.43x10^6/uL (3.50-5.40) Hemoglobin 8.7g/dL (12.0-15.5) Hematocrit 29.3% (36.0-47.0) Mean Corpuscular Volume 85fL (79-100) Mean Corpuscular Hemoglobin 25pg (25-35) Mean Corpuscular Hemoglobin Concent 30g/dL (31-37) Red Cell Distribution Width 19.8% (11.5-14.5) Platelet Count 338x10^3/uL (140-400) Neutrophils (%) (Auto) 72% (31-73) Lymphocytes (%) (Auto) 12% (24-48) Monocytes (%) (Auto) 10% (0-9) Eosinophils (%) (Auto) 6% (0-3) Basophils (%) (Auto) 1% (0-3) Neutrophils # (Auto) 6.3x10^3uL (1.8-7.7) Lymphocytes # (Auto) 1.0x10^3/uL (1.0-4.8) Monocytes # (Auto) 0.9x10^3/uL (0.0-1.1) Eosinophils # (Auto) 0.5x10^3/uL (0.0-0.7) Basophils # (Auto) 0.1x10^3/uL (0.0-0.2) Sodium Level 143mmol/L (136-145) Potassium Level 3.8mmol/L (3.5-5.1) Chloride Level 104mmol/L (98-107) Carbon Dioxide Level 30mmol/L (21-32) Anion Gap 9 (6-14) Blood Urea Nitrogen 43mg/dL (7-20) Creatinine 2.5mg/dL (0.6-1.0) Estimated GFR (Cockcroft-Gault) 19.2 Glucose Level 121mg/dL (70-99) Calcium Level 10.0mg/dL (8.5-10.1) Phosphorus Level 5.3mg/dL (2.6-4.7) Albumin 2.6g/dL (3.4-5.0) Review of Systems Review of Systems no fever, chills, chest pain Assessment and Plan Assessmemt and Plan Problems Medical Problems: (1) Symptomatic anemia Status: Acute Problems: Comment Review of Relevant I have reviewed the following items odilia (where applicable) has been applied. Labs Laboratory Tests Test 04/27/16 16:30 04/28/16 04:34 04/29/16 05:25 O2 Saturation 93% (92-99) Arterial Blood pH 7.44 (7.35-7.45) Arterial Blood pCO2 at Patient Temp 43mmHg (35-46) Arterial Blood pO2 at Patient Temp 70mmHg (65-108) Arterial Blood HCO3 29mmol/L (21-28) Arterial Blood Base Excess 4mmol/L (-3-3) FiO2 32 White Blood Count 11.9x10^3/uL (4.0-11.0) 8.8x10^3/uL (4.0-11.0) Red Blood Count 3.48x10^6/uL (3.50-5.40) 3.43x10^6/uL (3.50-5.40) Hemoglobin 8.9g/dL (12.0-15.5) 8.7g/dL (12.0-15.5) Hematocrit 28.9% (36.0-47.0) 29.3% (36.0-47.0) Mean Corpuscular Volume 83fL (79-100) 85fL (79-100) Mean Corpuscular Hemoglobin 26pg (25-35) 25pg (25-35) Mean Corpuscular Hemoglobin Concent 31g/dL (31-37) 30g/dL (31-37) Red Cell Distribution Width 19.0% (11.5-14.5) 19.8% (11.5-14.5) Platelet Count 361x10^3/uL (140-400) 338x10^3/uL (140-400) Neutrophils (%) (Auto) 80% (31-73) 72% (31-73) Lymphocytes (%) (Auto) 8% (24-48) 12% (24-48) Monocytes (%) (Auto) 11% (0-9) 10% (0-9) Eosinophils (%) (Auto) 1% (0-3) 6% (0-3) Basophils (%) (Auto) 1% (0-3) 1% (0-3) Neutrophils # (Auto) 9.6x10^3uL (1.8-7.7) 6.3x10^3uL (1.8-7.7) Lymphocytes # (Auto) 1.0x10^3/uL (1.0-4.8) 1.0x10^3/uL (1.0-4.8) Monocytes # (Auto) 1.3x10^3/uL (0.0-1.1) 0.9x10^3/uL (0.0-1.1) Eosinophils # (Auto) 0.1x10^3/uL (0.0-0.7) 0.5x10^3/uL (0.0-0.7) Basophils # (Auto) 0.1x10^3/uL (0.0-0.2) 0.1x10^3/uL (0.0-0.2) Sodium Level 147mmol/L (136-145) 143mmol/L (136-145) Potassium Level 4.1mmol/L (3.5-5.1) 3.8mmol/L (3.5-5.1) Chloride Level 106mmol/L (98-107) 104mmol/L (98-107) Carbon Dioxide Level 30mmol/L (21-32) 30mmol/L (21-32) Anion Gap 11 (6-14) 9 (6-14) Blood Urea Nitrogen 42mg/dL (7-20) 43mg/dL (7-20) Creatinine 2.4mg/dL (0.6-1.0) 2.5mg/dL (0.6-1.0) Estimated GFR (Cockcroft-Gault) 20.1 19.2 BUN/Creatinine Ratio 18 (6-20) Glucose Level 99mg/dL (70-99) 121mg/dL (70-99) Calcium Level 10.1mg/dL (8.5-10.1) 10.0mg/dL (8.5-10.1) Phosphorus Level 5.3mg/dL (2.6-4.7) 5.3mg/dL (2.6-4.7) Magnesium Level 2.1mg/dL (1.8-2.4) Total Bilirubin 0.9mg/dL (0.2-1.0) Aspartate Amino Transf (AST/SGOT) 34U/L (15-37) Alanine Aminotransferase (ALT/SGPT) 21U/L (14-59) Alkaline Phosphatase 110U/L (46-116) Total Protein 6.9g/dL (6.4-8.2) Albumin 2.7g/dL (3.4-5.0) 2.6g/dL (3.4-5.0) Albumin/Globulin Ratio 0.6 (1.0-1.7) Laboratory Tests Test 04/29/16 05:25 White Blood Count 8.8x10^3/uL (4.0-11.0) Red Blood Count 3.43x10^6/uL (3.50-5.40) Hemoglobin 8.7g/dL (12.0-15.5) Hematocrit 29.3% (36.0-47.0) Mean Corpuscular Volume 85fL (79-100) Mean Corpuscular Hemoglobin 25pg (25-35) Mean Corpuscular Hemoglobin Concent 30g/dL (31-37) Red Cell Distribution Width 19.8% (11.5-14.5) Platelet Count 338x10^3/uL (140-400) Neutrophils (%) (Auto) 72% (31-73) Lymphocytes (%) (Auto) 12% (24-48) Monocytes (%) (Auto) 10% (0-9) Eosinophils (%) (Auto) 6% (0-3) Basophils (%) (Auto) 1% (0-3) Neutrophils # (Auto) 6.3x10^3uL (1.8-7.7) Lymphocytes # (Auto) 1.0x10^3/uL (1.0-4.8) Monocytes # (Auto) 0.9x10^3/uL (0.0-1.1) Eosinophils # (Auto) 0.5x10^3/uL (0.0-0.7) Basophils # (Auto) 0.1x10^3/uL (0.0-0.2) Sodium Level 143mmol/L (136-145) Potassium Level 3.8mmol/L (3.5-5.1) Chloride Level 104mmol/L (98-107) Carbon Dioxide Level 30mmol/L (21-32) Anion Gap 9 (6-14) Blood Urea Nitrogen 43mg/dL (7-20) Creatinine 2.5mg/dL (0.6-1.0) Estimated GFR (Cockcroft-Gault) 19.2 Glucose Level 121mg/dL (70-99) Calcium Level 10.0mg/dL (8.5-10.1) Phosphorus Level 5.3mg/dL (2.6-4.7) Albumin 2.6g/dL (3.4-5.0) Microbiology 04/20/16 Blood Culture - Final, Complete NO GROWTH AFTER 5 DAYS 04/26/16 Urine Culture - Final, Complete 04/26/16 Urine Culture Result 1 (DEANN) - Final, Complete Medications Current Medications Ondansetron HCl 4 mg 4 mg PRN Q8HRS PRN IV NAUSEA/VOMITING Last administered on 04/21/16 00:27; Start 04/20/16 at 22:00; Stop 04/21/16 at 21:59; Status DC Ceftriaxone Sodium (Rocephin 1gm Ivpb For Omni) 50 ml @ 100 mls/hr 1X ONCE IV Last administered on 04/20/16 22:16; Start 04/20/16 at 22:30; Stop 04/20/16 at 22:59; Status DC Albuterol/ Ipratropium (Duoneb) 3 ml RTQID NEB Last administered on 04/29/16 07:34; Start 04/21/16 at 08:00 Albuterol Sulfate 2.5 mg 2.5 mg PRN QID PRN NEB SHORTNESS OF BREATH Last administered on 04/24/16 17:20; Start 04/21/16 at 07:00; Stop 04/27/16 at 11:24 ; Status DC Sodium Chloride (Iv Sodium Chloride 0.9% 1000ml Bag) 1,000 ml @ 75 mls/hr [id number] IV Last administered on 04/21/16 20:32; Start 04/21/16 at 11:30; Stop 04/22/16 at 10:49; Status DC Darbepoetin Jr 60 mcg 60 mcg [id number] SQ Last administered on 04/28/16 21:39 ; Start 04/21/16 at 21:00 Ceftriaxone Sodium 1 gm/ Sodium Chloride 50 ml @ 100 mls/hr Q24H IV Last administered on 04/21/16 20:36; Start 04/21/16 at 21:00; Stop 04/22/16 at 13:47 ; Status DC Doxycycline Hyclate/Dextrose 100 ml @ 50 mls/hr Q12HR IV Last administered on 04/29/16 08:17; Start 04/21/16 at 13:00 Alprazolam (Xanax) 0.5 mg PRN Q8HRS PRN PO ANXIETY / AGITATION Last administered on 04/23/16 18:41; Start 04/21/16 at 22:00; Stop 04/27/16 at 11:21 ; Status DC Lorazepam (Ativan) 1 mg PRN Q4HRS PRN IV ANXIETY / AGITATION Last administered on 04/27/16 06:01; Start 04/21/16 at 22:00; Stop 04/27/16 at 11:22; Status DC Famotidine 20 mg 20 mg DAILY IVP Last administered on 04/26/16 09:20; Start at 09:00; Stop 04/27/16 at 11:50; Status DC Amino Acids/ Electrolytes 2,000 ml @ 80 mls/hr Q24H IV Last administered on 11:59; Start 04/22/16 at 11:00; Stop 04/23/16 at 22:47; Status DC Sodium Bicarbonate 50 meq/Sodium Chloride 1,050 ml @ 125 mls/hr Q8H24M IV Last administered on 04/23/16 07:45; Start 04/22/16 at 11:15; Stop 04/23/16 at 11:20; Status DC Ceftriaxone Sodium/Sodium Chloride (Rocephin/Iv Sodium Chloride 0.9% 50ml) 50 ml @ 100 mls/hr Q24H IV Last administered on 04/28/16 15:09; Start 04/22/16 at 15:00 Fentanyl Citrate 25 mcg 25 mcg Q4HRS PRN IV PAIN Last administered on 17:20; Start 04/23/16 at 07:45; Stop 04/23/16 at 17:53; Status DC Sodium Bicarbonate 100 meq/Dextrose 1,100 ml @ 125 mls/hr 1X ONCE IV Last administered on 04/23/16 10:00; Start 04/23/16 at 10:00; Stop 04/23/16 at 10:37 ; Status DC Sodium Bicarbonate/ Dextrose 1,100 ml @ 75 mls/hr [id number] IV Last administered on 04/23/16 20:04; Start 04/23/16 at 10:37; Stop 04/24/16 at 10:49 ; Status DC Fentanyl Citrate (Fentanyl 2ml Vial) 25 mcg PRN Q1HR PRN IV PAIN Last administered on 04/28/16 02:05; Start 04/23/16 at 18:00 Hydralazine HCl (Apresoline) 10 mg PRN Q4HRS PRN IVP ELEVATED BP, SEE COMMENTS Last administered on 04/28/16 08:31; Start 04/23/16 at 18:45 Hydralazine HCl 10 mg 10 mg 1X ONCE IVP Last administered on 04/23/16 19:37; Start 04/23/16 at 19:45; Stop 04/23/16 at 19:46; Status DC Nicardipine HCl 50 mg/Sodium Chloride 270 ml @ 0 mls/hr CONT PRN IV SEE I/O RECORD Last administered on 04/24/16 06:01; Start 04/23/16 at 20:30; Stop 04/27 at 09:27; Status DC Nitroglycerin/ Dextrose (Nitroglycerin Drip) 250 ml @ 0 mls/hr CONT PRN IV SEE I/O RECORD; Start 04/23/16 at 22:45; Stop 04/27/16 at 09:27; Status DC Haloperidol Lactate 1 mg 1 mg 1X ONCE IM ; Start 04/24/16 at 07:00; Stop at 07:01; Status Cancel Dexmedetomidine HCl 200 mcg/ Sodium Chloride 50 ml @ 0 mls/hr CONT PRN IV PER PROTOCOL Last administered on 04/25/16 01:30; Start 04/24/16 at 06:30; Stop at 12:05; Status DC Sodium Chloride (Iv Sodium Chloride 0.9% 500ml Bag) 500 ml @ 500 mls/hr 1X PRN PRN IV SEE COMMENTS; Start 04/24/16 at 06:30; Stop 04/26/16 at 09:41; Status DC Atropine Sulfate 0.5 mg PRN Q5MIN PRN IV SEE COMMENTS; Start 04/24/16 at 06:30 Furosemide (Lasix) 40 mg [id number] IVP Last administered on 04/26/16 09:20; Start 04/24/16 at 14:00; Stop 04/26/16 at 09:41; Status DC Info 1 each 1 each PRN DAILY PRN MC SEE COMMENTS Last administered on 14:58; Start 04/24/16 at 11:00; Stop 04/26/16 at 09:41; Status DC Sodium Chloride 90 meq/Potassium Chloride 30 meq/ Potassium Phosphate 13.6 mmol/ Magnesium Sulfate 10 meq/ Multivitamins 10 ml/Chromium/ Copper/Manganese/ Seleni /Zn 1 ml/ Total Parenteral Nutrition/Amino Acids/Dextrose/ Fat Emulsion Intravenous 1,512 ml @ 63 mls/hr TPN CONT IV Last administered on 04/24/16 21:14; Start 04/24/16 at 22:00; Stop 04/25/16 at 21:59; Status DC Magnesium Sulfate/ Dextrose 50 ml @ 25 mls/hr PRN DAILY PRN IV for Mag < 1.7 on am labs; Start 04/25/16 at 08:30 Magnesium Sulfate/ Dextrose (Magnesium Sulfate PREMIX 2GM) 50 ml @ 25 mls/hr 1X ONCE IV Last administered on 04/25/16 09:00; Start 04/25/16 at 09:00; Stop 04/25/16 at 10:59; Status DC Haloperidol Lactate 5 mg 5 mg PRN Q6HRS PRN IVP AGITATION Last administered on 04/27/16 11:03; Start 04/25/16 at 12:15; Stop 04/27/16 at 11:21; Status DC Sodium Chloride/ Potassium Chloride/ Potassium Phosphate/ Magnesium Sulfate/ Multivitamins/ Chromium/Copper/ Manganese/Seleni/ Zn/Total Parenteral Nutrition/ Amino Acids/Dextrose/ Fat Emulsion Intravenous (Sodium Chloride/ Potassium Phosphate/ Infuvite Gallo... 1,512 ml @ 63 mls/hr TPN CONT IV Last administered on 04/25/16 23:52; Start 04/25/16 at 22:00; Stop 04/26/16 at 21:59 ; Status DC Acetaminophen/ Hydrocodone Bitart (Lortab 5/325) 1 tab PRN Q4HRS PRN PO PAIN Last administered on 04/29/16 08:23; Start 04/27/16 at 09:30 Tramadol HCl (Ultram) 50 mg PRN Q6HRS PRN PO PAIN Last administered on 18:15; Start 04/27/16 at 09:30 Lidocaine (Lidoderm) 1 patch DAILY TD Last administered on 04/29/16 08:17; Start 04/27/16 at 11:00 Alprazolam (Xanax) 0.25 mg PRN Q8HRS PRN PO ANXIETY / AGITATION Last administered on 04/27/16 18:16; Start 04/27/16 at 11:30 Haloperidol Lactate (Haldol) 2 mg PRN Q6HRS PRN IVP AGITATION; Start 04/27/16 at 11:30 Guaifenesin (Mucinex) 600 mg BID PO Last administered on 04/29/16 08:16; Start 04/27/16 at 12:00 Acetaminophen (Tylenol) 650 mg PRN Q6HRS PRN PO MILD PAIN / TEMP; Start at 11:30 Ondansetron HCl (Zofran) 4 mg PRN Q6HRS PRN IV NAUSEA/VOMITING; Start 04/27/16 at 11:30 Albuterol Sulfate (Ventolin Neb Soln) 2.5 mg PRN Q4HRS PRN NEB SHORTNESS OF BREATH; Start 04/27/16 at 11:30 Pantoprazole Sodium 40 mg 40 mg DAILYAC PO Last administered on 04/29/16 06:01 ; Start 04/27/16 at 12:00 Dextrose 1,000 ml @ 100 mls/hr Q10H IV Last administered on 04/29/16 08:18; Start 04/28/16 at 11:15 Guaifenesin (Robitussin) 200 mg PRN Q4HRS PRN PO COUGH Last administered on 06:02; Start 04/28/16 at 12:15 Amlodipine Besylate (Norvasc) 5 mg DAILY PO Last administered on 04/29/16 08: 16; Start 04/28/16 at 13:00 Furosemide (Lasix) 40 mg 1X ONCE IVP Last administered on 04/29/16 10:34; Start 04/29/16 at 09:45; Stop 04/29/16 at 09:47; Status DC Lidocaine (Lidoderm) 1 patch DAILY TD ; Start 04/29/16 at 10:00 Active Scripts Active Reported Omeprazole 20 Mg Capsule.dr Mario Hfa Inhaler (Albuterol Sulfate) 18 Gm Hfa.aer.ad Tramadol Hcl 50 Mg Tablet Hydrocodone-Apap 10-325 (Hydrocodone Bit/Acetaminophen) 1 Each Tablet HS Gabapentin 600 Mg Tablet HS Fluticasone Propionate Nasal Emigrant (Fluticasone Propionate) 16 Gm Emigrant.susp Alprazolam 0.25 Mg Tablet Vitals/I & O Vital Sign - Last 24 Hours 04/28/16 04/28/16 04/28/16 04/28/16 10:54 11:39 14:52 15:09 Temp 98.1 97.9 98.1 97.9 Pulse 90 91 86 Resp 34 32 B/P 166/59 138/54 162/64 Pulse Ox 95 97 93 O2 Delivery Nasal Cannula Nasal Cannula Nasal Cannula O2 Flow Rate 3.0 3.0 3.0 04/28/16 04/28/16 04/28/16 04/28/16 15:58 19:00 20:00 20:41 Temp 98.2 98.2 Pulse 78 Resp 18 B/P 145/69 Pulse Ox 97 96 O2 Delivery Nasal Cannula Nasal Cannula Nasal Cannula Nasal Cannula O2 Flow Rate 3.0 3.0 3.0 3.0 04/28/16 04/29/16 04/29/16 04/29/16 23:00 03:00 07:05 07:34 Temp 97.9 97.6 97.7 97.9 97.6 97.7 Pulse 75 83 83 Resp 18 18 28 B/P 151/77 153/62 160/63 Pulse Ox 98 95 97 95 O2 Delivery BiPAP/CPAP Nasal Cannula Nasal Cannula Nasal Cannula O2 Flow Rate 3.0 3.0 3.0 04/29/16 04/29/16 04/29/16 04/29/16 08:00 08:16 08:23 09:48 Pulse 83 Resp 22 18 B/P 160/63 Pulse Ox 95 95 O2 Delivery Nasal Cannula Nasal Cannula Nasal Cannula O2 Flow Rate 3.0 3.0 3.0 Intake and Output 04/28/16 04/28/16 04/29/16 15:00 23:00 07:00 Intake Total 300 ml 913.8 ml 250 ml Output Total 900 ml 600 ml Balance -600 ml 313.8 ml 250 ml SHERLY SUTHERLAND MD Apr 29, 2016 10:44
[2016-04-29] MEDS ORDERED: ALBUMIN HUMAN 5% 250 ML IV ONE (10:45)
[2016-04-29 11:00] VITALS: BP 132/53
--- NOTE | 2016-04-29 11:05 | PDOC ---
SUBJECTIVE ROS CKD IV (by GFR) III by Cr Cl Doing Ok but feels very weak CVS: no Orthopnea, no CP RESP: no SOB, no SALMERON GI: no Nausea, no Vomiting : no Dysuria, no Urgency OBJECTIVE Vital Signs Vital Signs Date Time Temp Pulse Resp B/P Pulse Ox O2 Delivery O2 Flow Rate FiO2 04/29/16 11:00 97.7 78 26 132/53 98 Nasal Cannula 3.0 97.7 I & 0 Intake and Output 04/29/16 07:00 Intake Total 1463.8 ml Output Total 1500 ml Balance -36.2 ml Intake Oral 600 ml IV Total 863.8 ml Output Urine Total 1500 ml PHYSICAL EXAM Physical Exam GEN: Awake, Oriented x 3 , In no resp distress; less Drowsy today EYES: Vision Unchanged, Conjunctiva Normal EN: No EN Drainage, Mucous Membranes dryish NECK: no JVD, no JVP, Supple, no Thyromegaly; short thick neck CVS: S1S2, no Murmur, No Gallop, No Rub,Tr Edema in lower ext RESP: no Rales, no Rhonchi,no Acc. Muscle Use GI: BS + ve, NO Bruit, Non Tender, Non Distended; obese : no CVA tenderness, no Suprapubic Tenderness DIAGNOSIS/ASSESSMENT Assessment & Plan PROB CKD STAGE III - (Current Cr Cl is 34 cc/min) stage IV by GFR ; No [facility] records for last 3yrs. Pts PCP was Dr Shipman who retd Jan 2016. 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 Renal US was sub- optimal but showed Smallish Rt Kidney. Current fluid and E-lyte status does not necessitate emergent need for dialysis. Will re-evaluate for dialysis in the am Proteinuria - 1.5gms; per Quantitation with 24-hr Urine ? due to UTI/ (cystitis ) vs NSAID Nephropathy; some Blood in Urine noted too Edema - ECHO WNL so most likely due to Proteinuria, May need to add BRI-i/ ARB once Creat is rel stable ^Na - resolved with IVF as previously ordered POOR PO INTAKE - improving per RN ^phos - watch trend - may need binders ANEMIA; stable so far, ? Some due to hemoconcentration too COMMENT/RELEVANT DATA Meds Current Medications Medications (Trade) Dose Ordered Sig/Carlo Start Time Stop Time Status Last Admin Dose Admin Acetaminophen (Tylenol) 650 mg PRN Q6HRS PRN 04/27/16 11:30 Acetaminophen/ Hydrocodone Bitart (Lortab 5/325) 1 tab PRN Q4HRS PRN 04/27/16 09:30 04/29/16 08:23 1 TAB Albumin Human (Plasmanate) 250 ml @ 62.5 mls/hr 1X ONCE 04/29/16 10:45 04/29/16 14:44 Albuterol Sulfate (Ventolin Neb Soln) 2.5 mg PRN Q4HRS PRN 04/27/16 11:30 Albuterol Sulfate 2.5 mg 2.5 mg PRN QID PRN 04/21/16 07:00 04/27/16 11:24 DC 04/24/16 17:20 2.5 MG Albuterol/ Ipratropium (Duoneb) 3 ml RTQID 04/21/16 08:00 04/29/16 07:34 3 ML Alprazolam (Xanax) 0.25 mg PRN Q8HRS PRN 04/27/16 11:30 04/27/16 18:16 0.25 MG Amino Acids/ Electrolytes 2,000 ml @ 80 mls/hr Q24H 04/22/16 11:00 04/23/16 22:47 DC 04/23/16 11:59 80 MLS/HR Amlodipine Besylate (Norvasc) 5 mg DAILY 04/28/16 13:00 04/29/16 08:16 5 MG Atropine Sulfate 0.5 mg PRN Q5MIN PRN 04/24/16 06:30 Ceftriaxone Sodium 1 gm/ Sodium Chloride 50 ml @ 100 mls/hr Q24H 04/21/16 21:00 04/22/16 13:47 DC 04/21/16 20:36 100 MLS/HR Ceftriaxone Sodium/Sodium Chloride (Rocephin/Iv Sodium Chloride 0.9% 50ml) 50 ml @ 100 mls/hr Q24H 04/22/16 15:00 04/28/16 15:09 100 MLS/HR Ceftriaxone Sodium (Rocephin 1gm Ivpb For Omni) 50 ml @ 100 mls/hr 1X ONCE 04/20/16 22:30 04/20/16 22:59 DC 04/20/16 22:16 100 MLS/HR Darbepoetin Jr 60 mcg 60 mcg WEEKLYHS 04/21/16 21:00 04/28/16 21:39 60 MCG Dexmedetomidine HCl 200 mcg/ Sodium Chloride 50 ml @ 0 mls/hr CONT PRN 04/24/16 06:30 04/25/16 12:05 DC 04/25/16 01:30 7 MLS/HR Dextrose 1,000 ml @ 100 mls/hr Q10H 04/28/16 11:15 04/29/16 08:18 100 MLS/HR Doxycycline Hyclate/Dextrose 100 ml @ 50 mls/hr Q12HR 04/21/16 13:00 04/29/16 08:17 50 MLS/HR Famotidine 20 mg 20 mg DAILY 04/22/16 09:00 04/27/16 11:50 DC 04/26/16 09:20 20 MG Fentanyl Citrate (Fentanyl 2ml Vial) 25 mcg PRN Q1HR PRN 04/23/16 18:00 04/28/16 02:05 25 MCG Fentanyl Citrate 25 mcg 25 mcg Q4HRS PRN 04/23/16 07:45 04/23/16 17:53 DC 04/23/16 17:20 25 MCG Furosemide (Lasix) 40 mg 1X ONCE 04/29/16 09:45 04/29/16 09:47 DC 04/29/16 10:34 40 MG Guaifenesin (Mucinex) 600 mg BID 04/27/16 12:00 04/29/16 08:16 600 MG Guaifenesin (Robitussin) 200 mg PRN Q4HRS PRN 04/28/16 12:15 04/29/16 06:02 200 MG Haloperidol Lactate (Haldol) 2 mg PRN Q6HRS PRN 04/27/16 11:30 Haloperidol Lactate 1 mg 1 mg 1X ONCE 04/24/16 07:00 04/24/16 07:01 Cancel Haloperidol Lactate 5 mg 5 mg PRN Q6HRS PRN 04/25/16 12:15 04/27/16 11:21 DC 04/27/16 11:03 5 MG Hydralazine HCl (Apresoline) 10 mg PRN Q4HRS PRN 04/23/16 18:45 04/28/16 08:31 10 MG Hydralazine HCl 10 mg 10 mg 1X ONCE 04/23/16 19:45 04/23/16 19:46 DC 04/23/16 19:37 10 MG Info 1 each 1 each PRN DAILY PRN 04/24/16 11:00 04/26/16 09:41 DC 04/25/16 14:58 1 EACH Lidocaine (Lidoderm) 1 patch DAILY 04/27/16 11:00 04/29/16 08:17 1 PATCH Lidocaine 1 patch 1 patch DAILY 04/29/16 10:00 Lorazepam (Ativan) 1 mg PRN Q4HRS PRN 04/21/16 22:00 04/27/16 11:22 DC 04/27/16 06:01 1 MG Magnesium Sulfate/ Dextrose (Magnesium Sulfate PREMIX 2GM) 50 ml @ 25 mls/hr 1X ONCE 04/25/16 09:00 04/25/16 10:59 DC 04/25/16 09:00 25 MLS/HR Nicardipine HCl 50 mg/Sodium Chloride 270 ml @ 0 mls/hr CONT PRN 04/23/16 20:30 04/27/16 09:27 DC 04/24/16 06:01 54 MLS/HR Nitroglycerin/ Dextrose (Nitroglycerin Drip) 250 ml @ 0 mls/hr CONT PRN 04/23/16 22:45 04/27/16 09:27 DC Ondansetron HCl (Zofran) 4 mg PRN Q6HRS PRN 04/27/16 11:30 Ondansetron HCl 4 mg 4 mg PRN Q8HRS PRN 04/20/16 22:00 04/21/16 21:59 DC 04/21/16 00:27 4 MG Pantoprazole Sodium 40 mg 40 mg DAILYAC 04/27/16 12:00 04/29/16 06:01 40 MG Sodium Bicarbonate 100 meq/Dextrose 1,100 ml @ 125 mls/hr 1X ONCE 04/23/16 10:00 04/23/16 10:37 DC 04/23/16 10:00 125 MLS/HR Sodium Bicarbonate 50 meq/Sodium Chloride 1,050 ml @ 125 mls/hr [id number] 04/22/16 11:15 04/23/16 11:20 DC 04/23/16 07:45 125 MLS/HR Sodium Bicarbonate/ Dextrose 1,100 ml @ 75 mls/hr [id number] 04/23/16 10:37 04/24/16 10:49 DC 04/23/16 20:04 75 MLS/HR Sodium Chloride (Iv Sodium Chloride 0.9% 500ml Bag) 500 ml @ 500 mls/hr 1X PRN PRN 04/24/16 06:30 04/26/16 09:41 DC Sodium Chloride (Iv Sodium Chloride 0.9% 1000ml Bag) 1,000 ml @ 75 mls/hr [id number] 04/21/16 11:30 04/22/16 10:49 DC 04/21/16 20:32 75 MLS/HR Sodium Chloride 90 meq/Potassium Chloride 30 meq/ Potassium Phosphate 13.6 mmol/Magnesium Sulfate 10 meq/ Multivitamins 10 ml/Chromium/ Copper/Manganese/ Seleni/Zn 1 ml/ Total Parenteral Nutrition/Amino Acids/Dextrose/ Fat Emulsion Intravenous 1,512 ml @ 63 mls/hr TPN CONT 04/24/16 22:00 04/25/16 21:59 DC 04/24/16 21:14 63 MLS/HR Sodium Chloride/ Potassium Chloride/ Potassium Phosphate/ Magnesium Sulfate/ Multivitamins/ Chromium/Copper/ Manganese/Seleni/ Zn/Total Parenteral Nutrition/Amino Acids/Dextrose/ Fat Emulsion Intravenous (Sodium Chloride/ Potassium Phosphate/ Infuvite Gallo... 1,512 ml @ 63 mls/hr TPN CONT 04/25/16 22:00 04/26/16 21:59 DC 04/25/16 23:52 63 MLS/HR Tramadol HCl (Ultram) 50 mg PRN Q6HRS PRN 04/27/16 09:30 04/27/16 18:15 50 MG Lab Laboratory Tests Test 04/29/16 05:25 White Blood Count 8.8x10^3/uL (4.0-11.0) Red Blood Count 3.43x10^6/uL (3.50-5.40) Hemoglobin 8.7g/dL (12.0-15.5) Hematocrit 29.3% (36.0-47.0) Mean Corpuscular Volume 85fL (79-100) Mean Corpuscular Hemoglobin 25pg (25-35) Mean Corpuscular Hemoglobin Concent 30g/dL (31-37) Red Cell Distribution Width 19.8% (11.5-14.5) Platelet Count 338x10^3/uL (140-400) Neutrophils (%) (Auto) 72% (31-73) Lymphocytes (%) (Auto) 12% (24-48) Monocytes (%) (Auto) 10% (0-9) Eosinophils (%) (Auto) 6% (0-3) Basophils (%) (Auto) 1% (0-3) Neutrophils # (Auto) 6.3x10^3uL (1.8-7.7) Lymphocytes # (Auto) 1.0x10^3/uL (1.0-4.8) Monocytes # (Auto) 0.9x10^3/uL (0.0-1.1) Eosinophils # (Auto) 0.5x10^3/uL (0.0-0.7) Basophils # (Auto) 0.1x10^3/uL (0.0-0.2) Sodium Level 143mmol/L (136-145) Potassium Level 3.8mmol/L (3.5-5.1) Chloride Level 104mmol/L (98-107) Carbon Dioxide Level 30mmol/L (21-32) Anion Gap 9 (6-14) Blood Urea Nitrogen 43mg/dL (7-20) Creatinine 2.5mg/dL (0.6-1.0) Estimated GFR (Cockcroft-Gault) 19.2 Glucose Level 121mg/dL (70-99) Calcium Level 10.0mg/dL (8.5-10.1) Phosphorus Level 5.3mg/dL (2.6-4.7) Albumin 2.6g/dL (3.4-5.0) ARNOLD MAGANA MD Apr 29, 2016 11:05
--- NOTE | 2016-04-29 11:48 | PDOC ---
Subjective: Subjective: No GI complaints. Objective: Objective: No GI complaints per RN. Eating 75%, breathing better, no bleeding. Vital Signs: Vital Signs Date Time Temp Pulse Resp B/P Pulse Ox O2 Delivery O2 Flow Rate FiO2 04/29/16 11:05 Nasal Cannula 3.0 04/29/16 11:00 97.7 78 26 132/53 98 97.7 Labs: Laboratory Tests Test 04/29/16 05:25 White Blood Count 8.8x10^3/uL Red Blood Count 3.43x10^6/uL Hemoglobin 8.7g/dL Hematocrit 29.3% Mean Corpuscular Volume 85fL Mean Corpuscular Hemoglobin 25pg Mean Corpuscular Hemoglobin Concent 30g/dL Red Cell Distribution Width 19.8% Platelet Count 338x10^3/uL Neutrophils (%) (Auto) 72% Lymphocytes (%) (Auto) 12% Monocytes (%) (Auto) 10% Eosinophils (%) (Auto) 6% Basophils (%) (Auto) 1% Neutrophils # (Auto) 6.3x10^3uL Lymphocytes # (Auto) 1.0x10^3/uL Monocytes # (Auto) 0.9x10^3/uL Eosinophils # (Auto) 0.5x10^3/uL Basophils # (Auto) 0.1x10^3/uL Sodium Level 143mmol/L Potassium Level 3.8mmol/L Chloride Level 104mmol/L Carbon Dioxide Level 30mmol/L Anion Gap 9 Blood Urea Nitrogen 43mg/dL Creatinine 2.5mg/dL Estimated GFR (Cockcroft-Gault) 19.2 Glucose Level 121mg/dL Calcium Level 10.0mg/dL Phosphorus Level 5.3mg/dL Albumin 2.6g/dL Imaging: LE US 04/29/16 PENDING PE: GEN: NAD LUNGS: still a bit coarse HEART: S1S2 ABD: NABS, S/ND/NT, obese NEURO/PSYCH: A & O 3 - better today A/P: Anemia -Hgb improved/stable, no obvious GI bleeding -tolerating PO -prior to admission taking NSAIDs for pain and PPI for heartburn -last colonoscopy (?EGD) around the time of stem cell transplant Resp failure/bronchitis, DONALD, NHL, encephalopathy -- Continue PPI. EGD/colonoscopy later on. JAYDEN CHRISTIAN Apr 29, 2016 11:48
[2016-04-29] MEDS ORDERED: POLYETHYLENE GLYCOL 3350 17 GM PACKET. PO PRN (12:00)
--- NOTE | 2016-04-29 12:42 | RAD ---
Bilateral lower extremity venous ultrasound, 04/29/2016: History: Bilateral leg swelling Duplex evaluation of the deep veins in the lower extremities was performed including grayscale, color-flow and spectral Doppler analysis. The femoral and popliteal veins demonstrate normal compressibility and normal responses to distal augmentation maneuvers. Color imaging of those vessels shows no evidence of intraluminal clot. The visualized deep veins in both calves are patent. IMPRESSION: There is no sonographic evidence of deep vein thrombosis in either lower extremity.
--- NOTE | 2016-04-29 13:23 | PDOC ---
PULMONARY PROGRESS NOTES Subjective soa better , has cough, post nasal drip. awake used BIPAP last night Vitals Vital Signs Date Time Temp Pulse Resp B/P Pulse Ox O2 Delivery O2 Flow Rate FiO2 04/29/16 11:05 Nasal Cannula 3.0 04/29/16 11:00 97.7 78 26 132/53 98 97.7 ROS: No Nausea, No Chest Pain, No Abdominal Pain (nc at perrl. nose inflamed mucosa) General: Alert, No acute distress HEENT: Other (nc, at, perrl shallow oropharynx, nose clear) Lungs: Other (decrease bs) Cardiovascular: S1, S2 Abdomen: Soft, Non-tender, Other (no mass) Neuro Exam: Alert, Oriented Extremities: Other (edema) Skin: Warm Labs Laboratory Tests Test 04/27/16 16:30 04/28/16 04:34 04/29/16 05:25 O2 Saturation 93% (92-99) Arterial Blood pH 7.44 (7.35-7.45) Arterial Blood pCO2 at Patient Temp 43mmHg (35-46) Arterial Blood pO2 at Patient Temp 70mmHg (65-108) Arterial Blood HCO3 29mmol/L (21-28) Arterial Blood Base Excess 4mmol/L (-3-3) FiO2 32 White Blood Count 11.9x10^3/uL (4.0-11.0) 8.8x10^3/uL (4.0-11.0) Red Blood Count 3.48x10^6/uL (3.50-5.40) 3.43x10^6/uL (3.50-5.40) Hemoglobin 8.9g/dL (12.0-15.5) 8.7g/dL (12.0-15.5) Hematocrit 28.9% (36.0-47.0) 29.3% (36.0-47.0) Mean Corpuscular Volume 83fL (79-100) 85fL (79-100) Mean Corpuscular Hemoglobin 26pg (25-35) 25pg (25-35) Mean Corpuscular Hemoglobin Concent 31g/dL (31-37) 30g/dL (31-37) Red Cell Distribution Width 19.0% (11.5-14.5) 19.8% (11.5-14.5) Platelet Count 361x10^3/uL (140-400) 338x10^3/uL (140-400) Neutrophils (%) (Auto) 80% (31-73) 72% (31-73) Lymphocytes (%) (Auto) 8% (24-48) 12% (24-48) Monocytes (%) (Auto) 11% (0-9) 10% (0-9) Eosinophils (%) (Auto) 1% (0-3) 6% (0-3) Basophils (%) (Auto) 1% (0-3) 1% (0-3) Neutrophils # (Auto) 9.6x10^3uL (1.8-7.7) 6.3x10^3uL (1.8-7.7) Lymphocytes # (Auto) 1.0x10^3/uL (1.0-4.8) 1.0x10^3/uL (1.0-4.8) Monocytes # (Auto) 1.3x10^3/uL (0.0-1.1) 0.9x10^3/uL (0.0-1.1) Eosinophils # (Auto) 0.1x10^3/uL (0.0-0.7) 0.5x10^3/uL (0.0-0.7) Basophils # (Auto) 0.1x10^3/uL (0.0-0.2) 0.1x10^3/uL (0.0-0.2) Sodium Level 147mmol/L (136-145) 143mmol/L (136-145) Potassium Level 4.1mmol/L (3.5-5.1) 3.8mmol/L (3.5-5.1) Chloride Level 106mmol/L (98-107) 104mmol/L (98-107) Carbon Dioxide Level 30mmol/L (21-32) 30mmol/L (21-32) Anion Gap 11 (6-14) 9 (6-14) Blood Urea Nitrogen 42mg/dL (7-20) 43mg/dL (7-20) Creatinine 2.4mg/dL (0.6-1.0) 2.5mg/dL (0.6-1.0) Estimated GFR (Cockcroft-Gault) 20.1 19.2 BUN/Creatinine Ratio 18 (6-20) Glucose Level 99mg/dL (70-99) 121mg/dL (70-99) Calcium Level 10.1mg/dL (8.5-10.1) 10.0mg/dL (8.5-10.1) Phosphorus Level 5.3mg/dL (2.6-4.7) 5.3mg/dL (2.6-4.7) Magnesium Level 2.1mg/dL (1.8-2.4) Total Bilirubin 0.9mg/dL (0.2-1.0) Aspartate Amino Transf (AST/SGOT) 34U/L (15-37) Alanine Aminotransferase (ALT/SGPT) 21U/L (14-59) Alkaline Phosphatase 110U/L (46-116) Total Protein 6.9g/dL (6.4-8.2) Albumin 2.7g/dL (3.4-5.0) 2.6g/dL (3.4-5.0) Albumin/Globulin Ratio 0.6 (1.0-1.7) Laboratory Tests Test 04/29/16 05:25 White Blood Count 8.8x10^3/uL (4.0-11.0) Red Blood Count 3.43x10^6/uL (3.50-5.40) Hemoglobin 8.7g/dL (12.0-15.5) Hematocrit 29.3% (36.0-47.0) Mean Corpuscular Volume 85fL (79-100) Mean Corpuscular Hemoglobin 25pg (25-35) Mean Corpuscular Hemoglobin Concent 30g/dL (31-37) Red Cell Distribution Width 19.8% (11.5-14.5) Platelet Count 338x10^3/uL (140-400) Neutrophils (%) (Auto) 72% (31-73) Lymphocytes (%) (Auto) 12% (24-48) Monocytes (%) (Auto) 10% (0-9) Eosinophils (%) (Auto) 6% (0-3) Basophils (%) (Auto) 1% (0-3) Neutrophils # (Auto) 6.3x10^3uL (1.8-7.7) Lymphocytes # (Auto) 1.0x10^3/uL (1.0-4.8) Monocytes # (Auto) 0.9x10^3/uL (0.0-1.1) Eosinophils # (Auto) 0.5x10^3/uL (0.0-0.7) Basophils # (Auto) 0.1x10^3/uL (0.0-0.2) Sodium Level 143mmol/L (136-145) Potassium Level 3.8mmol/L (3.5-5.1) Chloride Level 104mmol/L (98-107) Carbon Dioxide Level 30mmol/L (21-32) Anion Gap 9 (6-14) Blood Urea Nitrogen 43mg/dL (7-20) Creatinine 2.5mg/dL (0.6-1.0) Estimated GFR (Cockcroft-Gault) 19.2 Glucose Level 121mg/dL (70-99) Calcium Level 10.0mg/dL (8.5-10.1) Phosphorus Level 5.3mg/dL (2.6-4.7) Albumin 2.6g/dL (3.4-5.0) Medications Active Scripts Medications Dose Route/Sig Days Date Category Omeprazole 20 Mg Capsule.dr 04/21/16 Reported Ventolin Hfa Inhaler (Albuterol Sulfate) 18 Gm Hfa.aer.ad 04/21/16 Reported Tramadol Hcl 50 Mg Tablet 04/21/16 Reported Hydrocodone-Apap 10-325 (Hydrocodone Bit/Acetaminophen) 1 Each Tablet HS 04/21/16 Reported Gabapentin 600 Mg Tablet HS 04/21/16 Reported Fluticasone Propionate Nasal [place] (Fluticasone Propionate) 16 Gm [place].susp 04/21/16 Reported Alprazolam 0.25 Mg Tablet 04/21/16 Reported Comments LLL infiltrate effusion Impression . 1. Acute respiratory failure, multifactorial. 2. left lower lobe pneumonia/ small effusion, improving 04/27 3. Acute bronchitis. 4. Acute blood loss anemia. 5. Acute kidney injury. 6. Hypokalemia. 7. Acidemia. 8. Metabolic possible toxic encephalopathy. 9. Abnormal CXR 10. Delirium 11. HEIDI/OHS Plan . 1. contnue BIPAP PRN during day and continuously at night 2. Antibx 3. Followup Nephrology input. 4. GI follow rec, started on diet 5. Nebulized treatments. 6. Sequential compressive devices for DVT prophylaxis. 7. pepcid, for stress ulcer prophylaxis 8. Haldol PRN increase activity discussed w pt TONIA GRIGSBY MD Apr 29, 2016 13:23
[2016-04-29 14:35] VITALS: BP 147/62
[2016-04-29] MEDS: CEFTRIAXONE SODIUM 1 GM in IV NORMAL SALINE 50ML 50 ML IV SCH (16:06)
[2016-04-29 19:00] VITALS: BP 169/74
[2016-04-29] MEDS: FENTANYL PF 100 MCG/2 ML VIAL. IV PRN (20:46)
[2016-04-29 23:00] VITALS: BP 158/67
[2016-04-30 03:00] VITALS: BP 138/72
[2016-04-30] MEDS: HYDROCODONE/APAP 5/325MG TABLET. PO PRN ×3 (04:20→14:44)
[2016-04-30] MEDS: FENTANYL PF 100 MCG/2 ML VIAL. IV PRN ×2 (04:24→09:09)
[2016-04-30 05:26] LABS: ALBUMIN 2.6 g/dL (3.4-5.0); CALCIUM 9.9 mg/dL (8.5-10.1); CREATININE 2.4 mg/dL (0.6-1.0); GFR 20.1; PHOSPHORUS 4.9 mg/dL (2.6-4.7); POTASSIUM 3.6 mmol/L (3.5-5.1)
[2016-04-30 07:33] VITALS: BP 166/68
[2016-04-30 07:50] LABS: BASO # 0.1 x10^3/uL (0.0-0.2); BASO % 1 % (0-3); EOS % 7 % (0-3); HEMATOCRIT 28.5 % (36.0-47.0); HEMOGLOBIN 8.3 g/dL (12.0-15.5); LYMPH # 0.7 x10^3/uL (1.0-4.8); LYMPH % 7 % (24-48); MEAN CORPUSCULAR HEMOGLOBIN 25 pg (25-35); MEAN CORPUSCULAR HGB CONC 29 g/dL (31-37); MEAN CORPUSCULAR VOLUME 86 fL (79-100); MONO % 10 % (0-9); NEUT % 76 % (31-73); PLATELET COUNT 310 x10^3/uL (140-400); RED BLOOD COUNT 3.32 x10^6/uL (3.50-5.40); RED CELL DISTRIBUTION WIDTH 18.9 % (11.5-14.5); WHITE BLOOD COUNT 9.4 x10^3/uL (4.0-11.0)
[2016-04-30] MEDS: IPRATRPIUM/ALBUTEROL 0.5/2.5MG 3 ML NEBU. NEB SCH ×2 (08:16→12:16)
[2016-04-30] MEDS: PANTOPRAZOLE 40 MG TABLET. PO SCH (08:55)
[2016-04-30] MEDS: GUAIFENESIN ER 600 MG TABLET.ER PO SCH (08:55)
[2016-04-30] MEDS: AMLODIPINE BESYLATE 5 MG TABLET PO SCH (08:55)
[2016-04-30] MEDS: DOXYCYCLINE HYCLATE 100 MG in IV DEXTROSE 5% 100 ML IV SCH (08:56)
[2016-04-30] MEDS: LIDOCAINE (700MG/PATCH) PATCH. TD SCH (08:56)
--- NOTE | 2016-04-30 09:12 | PDOC ---
PULMONARY PROGRESS NOTES Subjective soa better , has cough, post nasal drip, no pain. awake used BIPAP last night for short period of time. Vitals Vital Signs Date Time Temp Pulse Resp B/P Pulse Ox O2 Delivery O2 Flow Rate FiO2 04/30/16 09:09 16 94 Nasal Cannula 3.0 04/30/16 08:55 86 166/68 04/30/16 07:33 97.9 97.9 Comments ros as mentioned as above other sys otherwise neg ROS: No Nausea, No Chest Pain, No Abdominal Pain (nc at perrl. nose inflamed mucosa) General: Alert, No acute distress HEENT: Other (nc, at, perrl shallow oropharynx, nose clear) Lungs: Other (decrease bs) Cardiovascular: S1, S2 Abdomen: Soft, Non-tender, Other (no mass) Neuro Exam: Alert, Oriented Extremities: Other (edema) Skin: Warm Labs Laboratory Tests Test 04/29/16 05:25 04/30/16 03:55 04/30/16 04:35 White Blood Count 8.8x10^3/uL (4.0-11.0) 9.4x10^3/uL (4.0-11.0) Red Blood Count 3.43x10^6/uL (3.50-5.40) 3.32x10^6/uL (3.50-5.40) Hemoglobin 8.7g/dL (12.0-15.5) 8.3g/dL (12.0-15.5) Hematocrit 29.3% (36.0-47.0) 28.5% (36.0-47.0) Mean Corpuscular Volume 85fL (79-100) 86fL (79-100) Mean Corpuscular Hemoglobin 25pg (25-35) 25pg (25-35) Mean Corpuscular Hemoglobin Concent 30g/dL (31-37) 29g/dL (31-37) Red Cell Distribution Width 19.8% (11.5-14.5) 18.9% (11.5-14.5) Platelet Count 338x10^3/uL (140-400) 310x10^3/uL (140-400) Neutrophils (%) (Auto) 72% (31-73) 76% (31-73) Lymphocytes (%) (Auto) 12% (24-48) 7% (24-48) Monocytes (%) (Auto) 10% (0-9) 10% (0-9) Eosinophils (%) (Auto) 6% (0-3) 7% (0-3) Basophils (%) (Auto) 1% (0-3) 1% (0-3) Neutrophils # (Auto) 6.3x10^3uL (1.8-7.7) 7.1x10^3uL (1.8-7.7) Lymphocytes # (Auto) 1.0x10^3/uL (1.0-4.8) 0.7x10^3/uL (1.0-4.8) Monocytes # (Auto) 0.9x10^3/uL (0.0-1.1) 0.9x10^3/uL (0.0-1.1) Eosinophils # (Auto) 0.5x10^3/uL (0.0-0.7) 0.6x10^3/uL (0.0-0.7) Basophils # (Auto) 0.1x10^3/uL (0.0-0.2) 0.1x10^3/uL (0.0-0.2) Sodium Level 143mmol/L (136-145) 143mmol/L (136-145) Potassium Level 3.8mmol/L (3.5-5.1) 3.6mmol/L (3.5-5.1) Chloride Level 104mmol/L (98-107) 103mmol/L (98-107) Carbon Dioxide Level 30mmol/L (21-32) 30mmol/L (21-32) Anion Gap 9 (6-14) 10 (6-14) Blood Urea Nitrogen 43mg/dL (7-20) 42mg/dL (7-20) Creatinine 2.5mg/dL (0.6-1.0) 2.4mg/dL (0.6-1.0) Estimated GFR (Cockcroft-Gault) 19.2 20.1 Glucose Level 121mg/dL (70-99) 102mg/dL (70-99) Calcium Level 10.0mg/dL (8.5-10.1) 9.9mg/dL (8.5-10.1) Phosphorus Level 5.3mg/dL (2.6-4.7) 4.9mg/dL (2.6-4.7) Albumin 2.6g/dL (3.4-5.0) 2.6g/dL (3.4-5.0) Laboratory Tests Test 04/30/16 03:55 04/30/16 04:35 White Blood Count 9.4x10^3/uL (4.0-11.0) Red Blood Count 3.32x10^6/uL (3.50-5.40) Hemoglobin 8.3g/dL (12.0-15.5) Hematocrit 28.5% (36.0-47.0) Mean Corpuscular Volume 86fL (79-100) Mean Corpuscular Hemoglobin 25pg (25-35) Mean Corpuscular Hemoglobin Concent 29g/dL (31-37) Red Cell Distribution Width 18.9% (11.5-14.5) Platelet Count 310x10^3/uL (140-400) Neutrophils (%) (Auto) 76% (31-73) Lymphocytes (%) (Auto) 7% (24-48) Monocytes (%) (Auto) 10% (0-9) Eosinophils (%) (Auto) 7% (0-3) Basophils (%) (Auto) 1% (0-3) Neutrophils # (Auto) 7.1x10^3uL (1.8-7.7) Lymphocytes # (Auto) 0.7x10^3/uL (1.0-4.8) Monocytes # (Auto) 0.9x10^3/uL (0.0-1.1) Eosinophils # (Auto) 0.6x10^3/uL (0.0-0.7) Basophils # (Auto) 0.1x10^3/uL (0.0-0.2) Sodium Level 143mmol/L (136-145) Potassium Level 3.6mmol/L (3.5-5.1) Chloride Level 103mmol/L (98-107) Carbon Dioxide Level 30mmol/L (21-32) Anion Gap 10 (6-14) Blood Urea Nitrogen 42mg/dL (7-20) Creatinine 2.4mg/dL (0.6-1.0) Estimated GFR (Cockcroft-Gault) 20.1 Glucose Level 102mg/dL (70-99) Calcium Level 9.9mg/dL (8.5-10.1) Phosphorus Level 4.9mg/dL (2.6-4.7) Albumin 2.6g/dL (3.4-5.0) Medications Active Scripts Medications Dose Route/Sig Days Date Category Omeprazole 20 Mg Capsule.dr 04/21/16 Reported Ventolin Hfa Inhaler (Albuterol Sulfate) 18 Gm Hfa.aer.ad 04/21/16 Reported Tramadol Hcl 50 Mg Tablet 04/21/16 Reported Hydrocodone-Apap 10-325 (Hydrocodone Bit/Acetaminophen) 1 Each Tablet HS 04/21/16 Reported Gabapentin 600 Mg Tablet HS 04/21/16 Reported Fluticasone Propionate Nasal [place] (Fluticasone Propionate) 16 Gm [place].susp 04/21/16 Reported Alprazolam 0.25 Mg Tablet 04/21/16 Reported Comments LLL infiltrate effusion Impression . 1. Acute respiratory failure, multifactorial. 2. left lower lobe pneumonia/ small effusion, improving 04/27 3. Acute bronchitis. 4. Acute blood loss anemia. 5. Acute kidney injury. 6. Hypokalemia. 7. Acidemia. 8. Metabolic possible toxic encephalopathy. 9. Abnormal CXR 10. allergic rhinitis 11. HEIDI/OHS Plan . 1. contnue BIPAP PRN during day and continuously at night, the importance of use discussed 2. Antibx 3. Followup Nephrology input. 4. GI follow rec, started on diet 5. Nebulized treatments. 6. Sequential compressive devices for DVT prophylaxis. 7. pepcid, for stress ulcer prophylaxis 8. add singulair increase activity discussed w pt TONIA GRIGSBY MD Apr 30, 2016 09:12
[2016-04-30 11:15] VITALS: BP 160/62
[2016-04-30] MEDS ORDERED: AMLO5TAB2 PO (11:21)
[2016-04-30] MEDS: IV DEXTROSE 5% 1,000 ML IV SCH (13:15)
--- NOTE | 2016-04-30 13:18 | PDOC3 ---
Discharge Summary [facility] Date of Admission: Apr 20, 2016 Discharge Date: Apr 30, 2016 Admitting Diagnosis 1. Anemia , likely 2/2 GIB given taking NSAIDS and h/o polyp 2. Bronchitis/? PNA 3. Respir distress, acute ,hypoxia and hypercapnia 4. Delirium, fluctuate, with 7 and sedative meds 5. DONALD with CKD possible 2-3, ATN 6. obesity 7. sepsis with 2 8. back pain 9. HTN Problems: Final Diagnosis CONSULTS pulm renal gi Brief Hospital Course Ms. Frey is a 70 old F, pretty healthy usually, takes NSAIDS for a long time, not follow PCP for a long time, comes for cough, sob. Was found anemia, likely 2/2 GIB, no active bleeding tho resp failure, need bipap, treated with abx for bronchitis vs. pns pt also was very confused, now much better. DONALD, on CKD likely, cr 2.4 ,stable for now dc to LTAC dc time 40min General: Alert, Cooperative, No acute distress Heart: Regular rate Lungs: Other (decrease bs) bl coarse bs Abdomen: Normal bowel sounds, Soft Extremities: No clubbing, Other (massive ecchymoses in UE, R>L), bl legs 1+ edema Skin: No rashes Problems: Disposition LTAC CONDITION AT DISCHARGE: Improved Diet regular Scheduled Amlodipine Besylate (Amlodipine Besylate) 5 MG PO DAILY Discontinued Medications Albuterol Sulfate (Ventolin Hfa Inhaler) (Reported) Alprazolam (Alprazolam) (Reported) Fluticasone Propionate (Fluticasone Propionate Nasal [place]) (Reported) Gabapentin (Gabapentin) HS (Reported) Hydrocodone Bit/Acetaminophen (Hydrocodone-Apap 10-325 ) HS (Reported) Omeprazole (Omeprazole) (Reported) Tramadol Hcl (Tramadol Hcl) (Reported) Follow Up pcp tmr SHERLY SUTHERLAND MD Apr 30, 2016 13:18
[2016-04-30 14:38] VITALS: BP 157/67
[2016-04-30] MEDS: CEFTRIAXONE SODIUM 1 GM in IV NORMAL SALINE 50ML 50 ML IV SCH ×2 (14:45→15:00)
[2016-04-30] MEDS ORDERED: MONTELUKAST SODIUM 10 MG TABLET. PO SCH (21:00)
== END 2016-04-30 15:45 | DRG 871 ==
LOC: ER 20:36 → 5 NORTH 22:00 → 1 WEST ICU 04-21 09:29 → 6 SOUTH 04-26 19:00
PROVIDERS: ADMIT Internal Medicine; ATTEND Internal Medicine
PROC: 30233N1 Transfusion of Nonautologous Red Blood Cells into Peripheral Vein, Percutaneous Approach (ICD-10-PCS; principal; 2016-04-22)
PROC: 02HV33Z Insertion of Infusion Device into Superior Vena Cava, Percutaneous Approach (ICD-10-PCS; 2016-04-22)
PROC: 5A09457 Assistance with Respiratory Ventilation, 24-96 Consecutive Hours, Continuous Positive Airway Pressure (ICD-10-PCS; 2016-04-29)
DX: A41.9 Sepsis, unspecified organism (principal); G92 Toxic encephalopathy; J18.9 Pneumonia, unspecified organism; J96.01 Acute respiratory failure with hypoxia; J96.02 Acute respiratory failure with hypercapnia; N17.0 Acute kidney failure with tubular necrosis; D62 Acute posthemorrhagic anemia; E87.2 Acidosis; J98.11 Atelectasis; K92.2 Gastrointestinal hemorrhage, unspecified; N18.4 Chronic kidney disease, stage 4 (severe); N39.0 Urinary tract infection, site not specified; Z94.81 Bone marrow transplant status; Z94.84 Stem cells transplant status; Z68.41 Body mass index [BMI] 40.0-44.9, adult; D63.1 Anemia in chronic kidney disease; E66.9 Obesity, unspecified; E87.5 Hyperkalemia; E87.70 Fluid overload, unspecified; F12.90 Cannabis use, unspecified, uncomplicated; F43.10 Post-traumatic stress disorder, unspecified; G47.33 Obstructive sleep apnea (adult) (pediatric); I10 Essential (primary) hypertension; I51.7 Cardiomegaly; J20.9 Acute bronchitis, unspecified; J30.9 Allergic rhinitis, unspecified; K59.00 Constipation, unspecified; R62.7 Adult failure to thrive; T80.92XA Unspecified transfusion reaction, initial encounter; Y84.8 Other medical procedures as the cause of abnormal reaction of the patient, or of later complication, without mention of misadventure at the time of the procedure; Z82.49 Family history of ischemic heart disease and other diseases of the circulatory system; Z85.71 Personal history of Hodgkin lymphoma; Z87.442 Personal history of urinary calculi; Z87.891 Personal history of nicotine dependence; Z90.710 Acquired absence of both cervix and uterus; Z92.21 Personal history of antineoplastic chemotherapy; Z91.041 Radiographic dye allergy status
CPT/HCPCS: 36415; 36569; 36600; 70450; 71010; 74000; 76770; 80048; 80053; 80069; 81001; 82140; 82550; 82575; 82607; 82728; 82746; 82805; 82947; 83010; 83540; 83550; 83605; 83615; 83735; 84100; 84156; 85007; 85027; 85045; 85610; 86078; 86850; 86900; 86901; 86920; 87040; 87086; 87641; 87804; 93005; 93306; 93970; 94640; 94660; 94760; 96365; 96366; J0360; J0690; J0696; J0881; J1630; J1940; J2060; J2405; J3010; J3475; J3490; J7030; J7050; J7060; J7620; P9016; P9041; S0028; 92526; 92610; 97110; 97530; 97535; 99285-25